=== PATIENT | female | born 2000 | race Caucasian/White ===

== ENCOUNTER → 2019-01-10 10:48 | Outpatient (CLI) | payer OTHER, SELFPAY ==
[2019-01-10 17:41] LABS: Chlamydia Trachomatis by PCR Negative (Negative); Neisserai gonorrhoeae by PCR Negative (Negative); Probe Check PASS; Sample Adequacy Control PASS; Specimen Processing Control PASS
== END ==
PROVIDERS: Family Provider Pediatrics; PCP Pediatrics; Referring Provider Obstetrics & Gynecology; Visit Provider Obstetrics & Gynecology
DX: Z11.3 Encounter for screening for infections with a predominantly sexual mode of transmission (principal)
CPT/HCPCS: 87491; 87591

== ENCOUNTER → 2019-08-07 11:00 | Outpatient (CLI) | payer MEDICAID, SELFPAY ==
[2019-08-07 18:01] VITALS: BMI 40.8
== END ==
PROVIDERS: PCP Pediatrics; Visit Provider Obstetrics & Gynecology
DX: Z34.83 Encounter for supervision of other normal pregnancy, third trimester (principal); Z36.85 Encounter for antenatal screening for Streptococcus B
CPT/HCPCS: 87081

== ENCOUNTER 2019-08-07 17:45 | Outpatient (CLI) | payer OTHER, MEDICAID, SELFPAY ==
--- NOTE | 2019-08-07 17:55 | PCM.PN.BLA ---
Progress Note S: Reports increase in edema at school today after sitting in class Reports at this AMs appointment in office her BP was elevated higher than her normal O: Denies headache, RUQ pain or dizziness A: at 36 weeks gestation. MICHEL 09-04-19 Rule out pre-e P: Send to triage for :Serial BPs, Pre-e labs, NST
[2019-08-07 18:01] VITALS: BMI 40.8
[2019-08-07 18:49] LABS: Hematocrit 34.2 % (37-47); Hemoglobin 11.1 g/dL (12.0-15.0); Mean Corp Hgb Conc 32.5 g/dL (32-36); Mean Corpuscular Hgb 27.3 pg (27.0-32.0); Mean Platelet Vol. 10.7 fl (6.2-12.0); Platelet Count 281 K/mm3 (150-450); RBC Distribution Width CV 13.2 % (11.6-14.6); RBC Distribution Width SD 40.7 fl (35.1-43.9); Red Blood Count 4.07 M/mm3 (4.2-5.4); White Blood Count 10.5 K/mm3 (4.4-11.0)
[2019-08-07 18:55] LABS: Prothrombin Time (Protime)PT. 12.8 SECONDS (11.7-14.9)
[2019-08-07 18:56] LABS: Partial Thromboplast Time 27.3 Seconds (24.1-36.2)
[2019-08-07 19:07] LABS: AST(SGOT) 16 U/L (15-37); Alanine Aminotransfer ALT/SGPT 18 U/L (13-56); Creatinine, Serum 0.73 mg/dL (0.55-1.02); EST Glomerular Filtration Rate 107 mL/min (>60); Est Glom Filt Rate - Afr Amer 130 mL/min (>60); Estimated Creatinine Clearance 106.15 ml/min; Protein, Urine (Random) 6.1 mg/dL (<11.9); Protein:Creat Ratio 234 mg/g CRE (0-200); Uric Acid 5.1 mg/dL (2.6-6.0)
--- NOTE | 2019-08-07 19:30 | PCM.PN.BLA ---
Progress Note S: Reports feeling well with no pain or concerns O: VSS NST FHR baseline 120, +accels, -decels, moderate variability Pre-E labs WNL A: at 36 weeks gestation Reactive Category I NST P: Send home on rest and increase in fluids Educated on warning signs and pre-e symptoms To take BP at home if increase in edema or with pre-e symptoms Return to office for scheduled appointment
== END 2019-08-07 19:45 | disposition home or self-care (01) ==
LOC: WPOUT 17:54 → WP 17:58
PROVIDERS: PCP Pediatrics; Referring Provider Obstetrics & Gynecology; Visit Provider Obstetrics & Gynecology
DX: O12.03 Gestational edema, third trimester (principal); Z3A.36 36 weeks gestation of pregnancy
CPT/HCPCS: 36415; 59025; 59050; 82565; 82570; 84156; 84450; 84460; 84550; 85027; 85610; 85730; 99218; G0378

== ENCOUNTER 2019-09-01 06:22 | Outpatient (CLI) | payer MEDICAID, SELFPAY ==
[2019-09-01 06:47] VITALS: BP 140/92; PULSE 90
[2019-09-01 06:49] VITALS: BP 140/92; PULSE 92; TEMP 37.3; O2SAT 99
[2019-09-01 06:55] VITALS: BMI 41.3
[2019-09-01 07:25] VITALS: BP 129/85; PULSE 88
[2019-09-01 07:30] VITALS: TEMP 37.1
[2019-09-01 07:32] LABS: ROM Internal Control Test YES-OK TO RESULT pt. (Internal QC); ROM Patient Test Negative (Negative)
--- NOTE | 2019-09-01 08:00 | OB.TRI.NOTE ---
- Problem List (1) False labor after 37 completed weeks of gestation Status: Acute History of Present Illness Date of Service: 09/01/19 Was patient seen by the physician?: No Reason For Visit: RULE OUT LABOR Final MICHEL: 09/04/19 Final MICHEL Source: US <20 weeks Gestational age: 39 Weeks and 4 Days History of Present Illness: 19yo G1 @ 39 4/7 weeks gestational with c/o painful contractions Allergies latex Adverse Reaction (Verified 09/03/19 00:42) Rash - Pertinent Past Medical History Medical History: Past Medical History (Last Updated 09/03/19 @ 10:[address] Amelia Landry MD) Patient denies medical problems Laboratory Studies: Laboratory Tests 09/01/19 Range/Units 06:30 Vag Amniotic Fld Detect Negative (Negative) Physical Exam Vitals: Vital Signs Temp Pulse BP Pulse Ox 98.7 F 68 118/82 H 99 09/01/19 07:30 09/01/19 15:56 09/01/19 15:56 09/01/19 06:49 Cervix Dilation (cm): 2 Station: -3 Effacement (%): 60 - per RN exam NST - FHR Rate Baby A Baseline: 130 Variability:: Moderate Accelerations:: 15 x 15 Decelerations:: None NST Reactive:: Yes FHR Category:: Category I Uterine Activity:: 07/30 Impression/Plan Cat I FHR False labor Cervix unchanged D/C home
[2019-09-01 15:56] VITALS: BP 118/82; PULSE 68
== END 2019-09-01 07:47 | disposition home or self-care (01) ==
LOC: WPOUT 06:28 → OBT 06:34
PROVIDERS: PCP Pediatrics; Referring Provider Obstetrics & Gynecology; Visit Provider Obstetrics & Gynecology
DX: O47.1 False labor at or after 37 completed weeks of gestation (principal); Z3A.39 39 weeks gestation of pregnancy
CPT/HCPCS: 59025; 59050; 84112; 99218; G0378

== ENCOUNTER 2019-09-02 14:15 | Outpatient (CLI) | payer MEDICAID, SELFPAY ==
[2019-09-01 06:55] VITALS: BMI 41.3
[2019-09-02 14:27] VITALS: TEMP 37.4; O2SAT 98
[2019-09-02 14:28] VITALS: BP 142/87; PULSE 75
[2019-09-02 14:31] VITALS: BMI 41.4
[2019-09-02 14:39] VITALS: TEMP 37.4
== END 2019-09-02 16:45 | disposition home or self-care (01) ==
LOC: WPOUT 14:23 → WP 14:24
PROVIDERS: PCP Pediatrics; Referring Provider Obstetrics & Gynecology; Visit Provider Obstetrics & Gynecology
DX: R69 Illness, unspecified (principal)
CPT/HCPCS: 59025; 59050; 99218; G0378

== ENCOUNTER 2019-09-03 07:55 | Inpatient (IN) | payer MEDICAID, SELFPAY ==
[2019-09-02 14:31] VITALS: BMI 41.4
[2019-09-03] VITALS (90 sets, daily range): BP systolic 116–162; BP diastolic 63–99; PULSE 60–121; RESP 20; TEMP 36.7–38.4; O2SAT 90–100; BMI 41.0
[2019-09-03] MEDS: 0.9% Saline Lock 10 ML Syringe IV (01:27)
[2019-09-03] MEDS: Morphine 4 MG/ML Syringe IV (01:27)
[2019-09-03] MEDS: morphine 10 MG/ML Syringe IM (01:31)
--- NOTE | 2019-09-03 08:00 | HP.PCM_ITS ---
- Problem List (1) 39 weeks gestation of Status: Acute History Date of Admission: 09/03/19 Final MICHEL: 09/04/19 Final MICHEL Source: US <20 weeks Gestational age: 39 Weeks and 6 Days History of this : This is a 19 year-old, G [1], P [], at 39 6/7 wga who presents with painful contractions. She has been seen on 08/31 and 09/01 for r/o labor and SVE /-3 both times. She came in again early this morning with the same exam and was given IV Morphine and Im Morphine for therapeutic rest. She reports contractions have spaced to q5-8 minutes. Medical History: Medical History (Last Updated 09/03/19 @ 10:[address] Amelia Landry MD) Patient denies medical problems Z78.9 Allergies latex Adverse Reaction (Verified 09/03/19 00:42) Rash Home Medications: Home Medications Pnv No.103/Folic/Om3s/Fish Oil [ Gummies] 1 ea PO DAILY 08/07/19 Smoking Status: Never smoker Alcohol: None Number of Fetus(es): 1 NST - FHR Rate Baby A Variability:: Moderate Accelerations:: 15 x 15 Decelerations:: None NST Reactive:: Yes FHR Category:: Category I Uterine Activity:: 1-2/10 History Past Pregnancies: Past Pregnancies Delivery Date Name GA/ Weeks Outcome Route Wt Infant Sex Labor Length Anesthesia Delivery Location Provider FOB Labs: Mom's Problem List Problem Status Onset Code 39 weeks gestation of Acute Z3A.39 Mom's Labs & Results 09/03/19 09/03/19 09/03/19 08:40 08:40 08:40 WBC 11.7 H RBC 3.82 L Hgb 10.3 L Hct 31.8 L MCV 83.2 MCH 27.0 MCHC 32.4 RDW Std Deviation 42.5 RDW Coeff of Anuja 14.4 Plt Count 246 MPV 11.2 Immature Gran % (Auto) 0.800 Neut % (Auto) 76.0 H Lymph % (Auto) 17.1 L [place] % (Auto) 5.8 Eos % (Auto) 0.1 Baso % (Auto) 0.2 Absolute Neuts (auto) 8.9 H Absolute Lymphs (auto) 2.00 Nucleated RBC % 0 Creatinine 0.72 Estim Creat Clear Calc 107.63 Est GFR (MDRD) Af Amer 132 Est GFR (MDRD) Non-Af 109 Uric Acid 8.1 H AST 16 ALT 11 L Urine Color Urine Clarity Urine pH Ur Specific [place] Urine Protein Urine Glucose (UA) Urine Ketones Urine Occult Blood Urine Nitrite Urine Bilirubin Urine Urobilinogen Ur Leukocyte Esterase Blood Type AB POSITIVE Antibody Screen NEGATIVE 09/03/19 09:00 WBC RBC Hgb Hct MCV MCH MCHC RDW Std Deviation RDW Coeff of Anuja Plt Count MPV Immature Gran % (Auto) Neut % (Auto) Lymph % (Auto) [place] % (Auto) Eos % (Auto) Baso % (Auto) Absolute Neuts (auto) Absolute Lymphs (auto) Nucleated RBC % Creatinine Estim Creat Clear Calc Est GFR (MDRD) Af Amer Est GFR (MDRD) Non-Af Uric Acid AST ALT Urine Color Yellow Urine Clarity Cloudy Urine pH 6.0 Ur Specific [place] 1.025 Urine Protein 100 H Urine Glucose (UA) Normal Urine Ketones 150 H Urine Occult Blood 250 H Urine Nitrite Negative Urine Bilirubin Negative Urine Urobilinogen Normal Ur Leukocyte Esterase 500 H Blood Type Antibody Screen Course Did the patient receive Yes care? Labs Blood Type: AB RH: POSITIVE RPR/VDRL/Syphilis Nonreactive Rubella status Immune HbSAg Negative Date Done: 02/20/19 Chlamydia Negative Gonorrhea Negative HIV/AIDS Non-Reactive Group B Strep: Negative Current Obstetrical History Gestational Diabetes No Incompetent Cervix No Infertility No IUGR No Macrosomia No Hypertension/Pre-eclampsia No Placenta Previa/Abruption No PTL/PROM No Uterine anomaly No Oligohydramnios No Polyhydramnios No Multiple gestation No Past Medical History Asthma No Diabetes No Hypertension No Heart disease No Mitral valve prolapse No Neurologic/Seizure disorder/ No Migraines Kidney disease No Liver disease No Varicosities No Clotting disorders/Hx of DVT No Thyroid Dysfunction No Other medical diseases No Psychiatric disorders No Major trauma No Abnormal PAP smear No Sleep apnea No Mammogram in the last 2 years No Social History Marital Status: Alleged father Ander Chew Hx Smoking No Smoking Status Never smoker Expected Delivery Method: Spontaneous Vaginal Review of Systems HEENT: Denies: Head Aches, Visual Changes Cardiovascular: Denies: Chest Pain Respiratory: Denies: Shortness of Breath Gastrointestinal: Reports: Nausea. 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 Cervix Dilation (cm): 3.5 - 80 Station: -3 Assessment/Plan All Active Problems 39 weeks gestation of (Acute) This is a 19 year-old, G [1], P [], at 39.6 weeks gestational age admit in latent labor, Cat I FHR -Will augment with pitocin. Pitocin r/b/i reviewed.
[2019-09-03] MEDS: Oxytocin 30 units/NS 500 ml 30 UNITS/500 ML IV.SOLN IV (08:24)
[2019-09-03] MEDS: Lactated Ringers 1,000 ML 50 ML IV (08:24)
[2019-09-03 08:56] LABS: Absolute Neutrophil Count 8.9 X10^3/uL (2.0-7.7); Basophil# 0.02 X10^3/uL; Basophil% 0.2 % (0-1); Eosinophil# 0.01 X10^3/uL; Eosinophils% 0.1 % (0-5); Hematocrit 31.8 % (37-47); Hemoglobin 10.3 g/dL (12.0-15.0); Lymphocyte % 17.1 % (19-41); Mean Corp Hgb Conc 32.4 g/dL (32-36); Mean Corpuscular Volume 83.2 fL (81-99); Mean Platelet Vol. 11.2 fl (6.2-12.0); Monocyte# 0.68 X10^3/uL; Monocyte% 5.8 % (0-10); NRBC Flagged by Analyzer 0 % (0-5); Neutrophil # 8.89 X10^3/uL (2.7-7.7); Platelet Count 246 K/mm3 (150-450); RBC Distribution Width CV 14.4 % (11.6-14.6); RBC Distribution Width SD 42.5 fl (35.1-43.9); Red Blood Count 3.82 M/mm3 (4.2-5.4); White Blood Count 11.7 K/mm3 (4.4-11.0)
[2019-09-03] MEDS: fentaNYL 100 MCG/2 ML Ampul IV (09:14)
[2019-09-03 09:29] LABS: Color, Urine Yellow (Yellow); Glucose, Dipstick Normal (Normal); Leukocyte Esterase-Dipstick 500 /ul (Negative); Nitrite-Dipstick Negative (Negative); Occult Blood-Urine 250 /ul (Negative); Protein-Dipstick 100 mg/dl (Negative); Specific Gravity, Urine 1.025 (1.002-1.030); Urine Bilirubin Dipstick Negative (Negative); Urine Clarity Cloudy (Clear); Urine Urobilinogen Normal (Normal)
[2019-09-03 09:43] LABS: AST(SGOT) 16 U/L (15-37); Alanine Aminotransfer ALT/SGPT 11 U/L (13-56); Creatinine, Serum 0.72 mg/dL (0.55-1.02); EST Glomerular Filtration Rate 109 mL/min (>60); Est Glom Filt Rate - Afr Amer 132 mL/min (>60); Estimated Creatinine Clearance 107.63 ml/min; Uric Acid 8.1 mg/dL (2.6-6.0)
[2019-09-03 09:48] LABS: Ketone-Dipstick 150 mg/dl (Negative)
[2019-09-03] MEDS: Lactated Ringers 500 ML 999 ML IV (10:27)
--- NOTE | 2019-09-03 10:47 | PCM.PN.BLA ---
Progress Note LABOR PROGRESS NOTE No complaints. Contractions painful. Denies chest pain, shortness of breath, cough, sore throat, runny nose, ear pain. Tm (temporal) Tc oral VSS GEN - NAD, AAO x 3 FHR 150, moderate variability, + accelerations, + variable decelerations TOCO 2/10 min SVE 5/100/-3, soft and anterior Fundus soft and nontender A/P: 19yo G1 @ 39 6/7wga in labor, maternal fever, Cat II FHR -Pitocin augmentation - will continue as tolerated by mother and fetus -Isolate maternal fever, no evidence of infection - will hold on antibiotics at this time, monitor closely. -Amniotomy performed with clear fluid -Epidural per patient request STROKE Vital Signs/Narrative: Vital Signs Temp Pulse BP 09/03/19 10:40 100.9 F H 09/03/19 10:27 101.1 F H 09/03/19 09:56 100.0 F H 81 137/86 H 09/03/19 09:18 76 135/85 H 09/03/19 08:27 76 148/84 H 09/03/19 08:13 76 143/90 H 09/03/19 07:42 77 138/81 H 09/03/19 07:27 80 159/92 H 09/03/19 07:26 99.0 F
[2019-09-03] MEDS: fentaNYL-bupivacaine (epidural) 100 ML BAG EPIDURAL ×2 (11:21→16:25)
[2019-09-03] MEDS: Lactated Ringers 1,000 ML 200 ML IV (14:23)
[2019-09-03] MEDS: Oxytocin 30 units/NS 500 ml 30 UNITS/500 ML IV.SOLN 334 UNITS IV (19:31)
--- NOTE | 2019-09-03 20:20 | PCM.OPRPT ---
Problem List (1) 39 weeks gestation of Status: Acute Vaginal Delivery Maternal Presentation: - - Latent labor Method of Induction: - - Pitocin augmentation Amniotic Membrane Rupture Type: Artificial Rupture of Membrane time: 1042h 09/03/19 Amniotic Fluid Description: Clear Final MICHEL: 09/04/19 Final MICHEL Source: US <20 weeks Gestational age: 39 Weeks and 6 Days Date of Procedure: 09/03/19 Pre-Operative Diagnosis: 39 6/7wga, isolated maternal fever Post-Operative Diagnosis: 39 6/7wga, isolated maternal fever Surgery/ Procedure Performed: Spontaneous Vaginal Delivery Type of Anesthesia: Epidural Description of Procedure: Patient was FD/+3 station on my arrival. Pushed to deliver a vigorous female infant over an intact perineum. The was placed on the maternal abdomen and further attended by nursery personnel. The cord was doubly clamped and cut at approximately 4 minutes of life. The placenta delivered spontaneously and appeared intact on inspection. A right veor-urethral laceration with labial extension was repaired with 3-0 Vicryl Rapide with hemostasis attained. Sponge and needle counts correct x 2. Presentation: Vertex Placental Delivery Description: Spontaneous Placenta Disposition: [facility] Cord Vessel Description: 3 Vessels Nuchal Cord Compression: Without compression Cord Entanglement: None Drain: [place] to straight drain Estimated Blood Loss: 500 ml A gender: Female (1 minute): 9 (5 minute): 9 Episiotomy Description: None Laceration: Periurethral Extnsion/lac Medications given after delivery: IV Pitocin Complications: None
[2019-09-03] MEDS: Ibuprofen 600 MG Tablet PO (21:50)
[2019-09-04 03:30] VITALS: BP 115/67; PULSE 85; RESP 18; TEMP 36.2
--- NOTE | 2019-09-04 07:53 | PN.OBGYN_ITS ---
Patient Problems: Active and Suspected Problems (Last Updated 09/03/19 @ 10:[address] Amelia Landry MD) 39 weeks gestation of (Acute) Subjective: Feeling well with no pain. Has not passed flatus, but denies gas pain. Bottle feeding daughter well with no concerns. Denies heavy bleeding. Objective: VSS. Fundus firm, midline, u/2. Lochia rubra moderate. - Physical Exam Vitals/I&O's: Vital Signs Temp Pulse Resp BP Pulse Ox 97.1 F L 85 18 115/67 100 09/04/19 03:30 09/04/19 03:30 09/04/19 03:30 09/04/19 03:30 09/03/19 18:38 Oxygen Delivery Method Room Air Weight: 108.409 kg Body Mass Index (BMI) 41.0 Intake and Output for Last 24 Hours 09/02/19 09/03/19 09/04/19 23:59 23:59 23:59 Intake Total 4165.74 / 4165.74 Output Total 1400 / 1700 450 / 450 Balance 2765.74 / 2465.74 -450 / -450 General: Alert, Oriented x3, Cooperative HEENT: Atraumatic, PERRLA, EOMI, Normocephalic Neck: Supple, No JVD, Negative Carotid Bruits Lungs: Clear to auscultation, Normal air movement Cardiovascular: Regular rate, No murmurs Abdomen: Bowel Sounds Present, Soft, Non Tender, Hypoactive Bowel Sounds Extremities: No edema, Capillary Refill Less than 3 Seconds Skin: No rashes, No breakdown Musculoskeletal: No Tenderness to Palpation of Joints or Extremities Neurological: Cranial nerves II-XII grossly intact Psych/Mental Status: Normal Affect, Appropriate Laboratory Results 09/03/19 08:40: WBC 11.7 H, RBC 3.82 L, Hgb 10.3 L, Hct 31.8 L, MCV 83.2, MCH 27.0, MCHC 32.4, RDW Std Deviation 42.5, RDW Coeff of Anuja 14.4, Plt Count 246, MPV 11.2, Immature Gran % (Auto) 0.800, Neut % (Auto) 76.0 H, Lymph % (Auto) 17.1 L, [place] % (Auto) 5.8, Eos % (Auto) 0.1, Baso % (Auto) 0.2, Absolute Neuts (auto) 8.9 H, Absolute Lymphs (auto) 2.00, Nucleated RBC % 0 09/03/19 08:40: Blood Type AB POSITIVE, Antibody Screen NEGATIVE 09/03/19 08:40: Creatinine 0.72, Estim Creat Clear Calc 107.63, Est GFR (MDRD) Af Amer 132, Est GFR (MDRD) Non-Af 109, Uric Acid 8.1 H, AST 16, ALT 11 L 09/03/19 09:00: Urine Color Yellow, Urine Clarity Cloudy, Urine pH 6.0, Ur Specific [place] 1.025, Urine Protein 100 H, Urine Glucose (UA) Normal, Urine Ketones 150 H, Urine Occult Blood 250 H, Urine Nitrite Negative, Urine Bilirubin Negative, Urine Urobilinogen Normal, Ur Leukocyte Esterase 500 H Current Medications Acetaminophen (Tylenol) 325 - 650 mg PO Q4H PRN PRN PRN Reason: Pain Score 1-3/10 Acetaminophen (Tylenol) 1,000 mg PO Q8H PRN PRN PRN Reason: Pain Score 1-3/10 Bisacodyl (Dulcolax) 10 mg RECTAL UD PRN PRN Reason: If no BM Dibucaine (Dibucaine) 1 applic TOPICAL TID PRN PRN; Protocol PRN Reason: Discomfort Hydrocortisone (Hytone) 1 applic TOPICAL TID PRN PRN; Protocol PRN Reason: Discomfort Ibuprofen (Motrin) 600 mg PO Q6H PRN PRN PRN Reason: Pain Score 1-3/10 Last Admin: 09/03/19 21:50 Dose: 600 mg Documented by: Influenza Virus Vaccine Quadrival (Flucelvax /Fluzone ) 0.5 ml IM .ONCE ONE Stop: 09/04/19 10:01 Methylergonovine Maleate (Methergine) 0.2 mg IM X1 PRN PRN Reason: Excess bleeding/uterine atony Ondansetron HCl (Zofran) 4 mg IV Q4H PRN PRN PRN Reason: NAUSEA Multivit/Folic Acid/Iron (Prenatabs Fa) 1 tablet PO DAILY@1200 RADHA Senna/Docusate Sodium (Senokot-S, [place]-Colace) 1 - 2 tablet PO DAILY PRN PRN PRN Reason: Constipation Simethicone (Mylicon) 80 mg PO PCHS PRN PRN Reason: Indigestion/Stomach pain Sodium Chloride () 5 - 15 ml IV UD PRN PRN Reason: SALINE FLUSH Medical Necessity - Tobacco Use Smoking Status: Never smoker Assessment/Plan All Active Problems (Last Updated 09/03/19 @ 10:[address] Amelia Landry MD) 39 weeks gestation of (Acute) A/P: Post vaginal delivery day 1 Bottle feeding daughter Minimal pain PP, using Motrin for laceration pain Education given on PP depression and signs to look for Plan to discharge home today
[2019-09-04 08:00] VITALS: BP 124/83; PULSE 83; RESP 16; TEMP 36.3
--- NOTE | 2019-09-04 08:13 | DCINST_ITS ---
Discharge Diet: No Restrictions Discharge Activity: Return to Normal Activity, May not drive while taking narcotic pain medications., May Shower May resume sexual activity in: 4-6 weeks Additional Activity Instructions:: Nothing in the vagina for 4-6 weeks. You may return to work/school in 6 weeks. Call your doctor if your incision/area has: Continuous Slow Oozing, Sudden Increased Bleeding, Increased Pain/ Swelling, Increased Redness, Foul Smelling Discharge Additional Instructions: If you experience any of the following, contact your healthcare provider. * Bleeding that soaks a pad every hour for 2 hours * Fever 100.4 or higher * Unrelieved incision or abdominal pain * Swelling, redness, discharge or bleeding from your incision or episiotomy site * Your incision begins to separate * Problems urinating (including inability to urinate or burning while urinating). * Visual changes * Severe headache * Flu-like symptoms * Pain or redness in one of both of your breasts * Pain, warmth, tenderness or swelling in your legs, especially the calf area * Frequent nausea and vomiting * Symptoms of depression or anxiety If you experience any of the following, call 911 or go to the nearest Emergency Room. * Chest pain * Problems breathing * Seizure activity * Partial or complete paralysis of a body part, slurred speech, weakness or drooping of the face, or a sudden inability to walk or hold your balance Allergies/Adverse Reactions: Allergies latex Adverse Reaction (Verified 09/03/19 00:42) Rash Medications to take at Discharge Pnv No.103/Folic/Om3s/Fish Oil [ Gummies] 1 ea PO DAILY 08/07/19 Please Follow Up With: Reynaldo Pack MD When: Call to make an appointment with your doctor in 6 weeks. If s/s of depression to call immediately Primary Care Physician: Reynaldo Aguiar MD [Primary Care Provider] - Test Results: Test results from this visit will be discussed in further detail at your follow- up appointment, if applicable.
[2019-09-04] MEDS: Ibuprofen 600 MG Tablet PO ×2 (09:11→19:16)
[2019-09-04] MEDS: Prenatal Vits Tablet 1 TABLET PO (09:12)
[2019-09-04 13:00] VITALS: BP 135/84; PULSE 100; RESP 16; TEMP 36.2
[2019-09-04 18:00] VITALS: BP 139/91; PULSE 103; RESP 16; TEMP 36.3
[2019-09-04 20:10] VITALS: BP 133/79; PULSE 97; RESP 18; TEMP 36.4
== END 2019-09-04 20:30 | disposition home or self-care (01) | DRG 560 ==
LOC: WPOUT 07:59 → WP 07:59
PROVIDERS: Admitting Provider Obstetrics & Gynecology; PCP Pediatrics; Referring Provider Obstetrics & Gynecology; Visit Provider Obstetrics & Gynecology
DX: O75.2 Pyrexia during labor, not elsewhere classified (principal); O71.82 Other specified trauma to perineum and vulva; Z37.0 Single live birth; Z3A.39 39 weeks gestation of pregnancy
CPT/HCPCS: 59025; 59050; 76815; 81002; 82565; 84112; 84450; 84460; 84550; 85025; 86850; 86900; 86901; 99218; J7120; 90686; A4216; G0378

== ENCOUNTER → 2020-11-21 09:56 | Outpatient (CLI) | payer MEDICAID, SELFPAY ==
[2019-09-03 00:41] VITALS: BMI 41.0
[2020-11-21 10:49] LABS: Absolute Lymphocyte Count 2.13 X10^3/uL (0.83-4.51); Absolute Neutrophil Count 5.1 X10^3/uL (2.0-7.7); Basophil# 0.02 X10^3/uL; Basophil% 0.3 % (0-1); Eosinophil# 0.03 X10^3/uL; Eosinophils% 0.4 % (0-5); Hematocrit 37.4 % (37-47); Hemoglobin 12.7 g/dL (12.0-15.0); Lymphocyte # 2.13 X10^3/ul (0.83-4.51); Mean Corpuscular Hgb 29.5 pg (27.0-32.0); Mean Platelet Vol. 10.2 fl (6.2-12.0); Monocyte# 0.33 X10^3/uL; Monocyte% 4.3 % (0-10); NRBC Flagged by Analyzer 0 % (0-5); Neutrophil # 5.09 X10^3/uL (2.7-7.7); Neutrophil % 66.7 % (47-70); Platelet Count 288 K/mm3 (150-450); RBC Distribution Width SD 38.5 fl (35.1-43.9); White Blood Count 7.6 K/mm3 (4.4-11.0)
[2020-11-21 11:48] LABS: HIV - WCH Non-Reactive (Nonreactive); Hepatitis B Surface Antigen Non-Reactive (Nonreactive); Hepatitis C Antibody Non-Reactive (Nonreactive); Rubella IgG Reactive (Nonreactive); Syphilis Antibodies Non-reactive
[2020-11-24 16:09] LABS: Chlamydia By Nucleic Acid AMP Negative (Negative)
[2020-11-24 16:22] LABS: Gonococcus By Nucleic Acid AMP Negative (Negative)
[2020-11-25 13:26] LABS: HPV Reflexed? NOT INDICATED
== END ==
PROVIDERS: PCP Pediatrics; Visit Provider Student in an Organized Health Care Education/Training Program
DX: Z34.81 Encounter for supervision of other normal pregnancy, first trimester (principal); Z12.4 Encounter for screening for malignant neoplasm of cervix; Z11.3 Encounter for screening for infections with a predominantly sexual mode of transmission
CPT/HCPCS: 36415; 85025; 86703; 86762; 86780; 86803; 87086; 87088; 87340; 87491; 87591; 88175; G0145

== ENCOUNTER → 2021-03-06 14:06 | Outpatient (CLI) | payer MEDICAID, SELFPAY ==
[2021-03-06 14:38] LABS: Hematocrit 34.5 % (37-47); Mean Corp Hgb Conc 34.8 g/dL (32-36); Mean Corpuscular Hgb 30.7 pg (27.0-32.0); Mean Corpuscular Volume 88.2 fL (81-99); Platelet Count 256 K/mm3 (150-450); RBC Distribution Width CV 12.7 % (11.6-14.6); RBC Distribution Width SD 40.9 fl (35.1-43.9); Red Blood Count 3.91 M/mm3 (4.2-5.4); White Blood Count 9.4 K/mm3 (4.4-11.0)
[2021-03-06 15:28] LABS: Glucose Challenge Gest 1H 50g 114 mg/dL (70-140)
== END ==
PROVIDERS: PCP Pediatrics; Visit Provider Obstetrics & Gynecology
DX: Z34.82 Encounter for supervision of other normal pregnancy, second trimester (principal)
CPT/HCPCS: 36415; 82950; 85027

== ENCOUNTER → 2021-06-02 15:15 | Outpatient (CLI) | payer MEDICAID, SELFPAY | PROVIDERS: PCP Pediatrics; Visit Provider Student in an Organized Health Care Education/Training Program | DX: Z36.85 Encounter for antenatal screening for Streptococcus B (principal) | CPT/HCPCS: 87081 ==

== ENCOUNTER 2021-06-18 04:50 | Inpatient (IN) | payer MEDICAID, SELFPAY ==
[2021-06-18] VITALS (32 sets, daily range): BP systolic 18–144; BP diastolic 66–86; PULSE 50–77; RESP 16; TEMP 36.6–37.1; O2SAT 93–100; BMI 35.2
[2021-06-18] MEDS: Lactated Ringers 1,000 ML 200 ML IV (04:57)
[2021-06-18 05:07] LABS: Absolute Lymphocyte Count 3.14 X10^3/uL (0.83-4.51); Absolute Neutrophil Count 6.5 X10^3/uL (2.0-7.7); Basophil# 0.03 X10^3/uL; Basophil% 0.3 % (0-1); Eosinophil# 0.03 X10^3/uL; Eosinophils% 0.3 % (0-5); Hematocrit 39.8 % (37-47); Hemoglobin 13.3 g/dL (12.0-15.0); Lymphocyte # 3.14 X10^3/ul (0.83-4.51); Lymphocyte % 30.2 % (19-41); Mean Corp Hgb Conc 33.4 g/dL (32-36); Mean Corpuscular Hgb 29.8 pg (27.0-32.0); Monocyte# 0.66 X10^3/uL; Monocyte% 6.3 % (0-10); NRBC Flagged by Analyzer 0 % (0-5); Neutrophil % 62.4 % (47-70); Platelet Count 219 K/mm3 (150-450); RBC Distribution Width CV 12.1 % (11.6-14.6); RBC Distribution Width SD 39.1 fl (35.1-43.9); Red Blood Count 4.47 M/mm3 (4.2-5.4); White Blood Count 10.4 K/mm3 (4.4-11.0)
[2021-06-18] MEDS: Oxytocin 30 units/NS 500 ml 30 UNITS/500 ML IV.SOLN 334 UNITS IV (05:24)
--- NOTE | 2021-06-18 05:32 | PCM.HP.BLA ---
History and Physical Date of Admission: 06/18/21 ACOG ANTEPARTUM RECORD - HISTORY AND PHYSICAL (06/18/2021) Name: VICKY BARRAZA History of this : This is a 21 year old [id number] presents at 39 wks + 0 days gestation in active labor. OB Physician: Adrianna Bunn Murray's Physician: JAVID ...................................................................... : 2000 Age: 21 Address: [address] [place] [address] Phone: H) [phone] Insurance Carrier: [employer] CLAIMS DEPT [id number] Emergency Contact: SUGAR BARRAZA/SPOUSE [phone] ...................................................................... Final MICHEL: 06/25/21 By Ultrasound: 9 weeks 5 days PARITY: (G-Total Pregnancies P-Fullterm,Premature,Induced AB,Spont AB, Ectopics, Multiple,Living) MICHEL CONFIRMATION: By LMP: 08/24/20 Initial Exam: 05/31/21 By First Ultrasound Exam: 06/25/21 Final MICHEL: 06/25/21 OB PROBLEM LIST: ALLERGIC TO LATEX class I obesity depression on fluoxetine NIPT negative, male ALLERGIES: Latex Rash, itching No Known Drug Allergies MEDICATIONS: fluoxetine 20 mg tablet One pill by mouth once a day 400 mcg tablet,chewable One pill by mouth once a day SOCIAL HISTORY: Smoking - Never Alcohol Use - None Diet - balanced Diet and Coffee 1 cup daily. Water intake- shoots for one gallon. 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 Illicit Drug Use - denies use of street drugs Sexual Activity - single sexual partner Residence - two story home Place of - [place] Spouse-Sig Other Name - Ander Spouse-Sig Other Occupation - [employer] Spouse-Sig Other Phone No - [phone] Children Name(s) - Henny '20 PRIOR DELIVERY HISTORY DEL DATE GEST LAB WT LB WT OZ TYPE ANES LABOR TX 16 Aug 20 40 30 7 7 Vag Epidural No ANTEPARTUM FLOW CHART VISIT GE RTC FU F F NH U U DATE WK MD WKS HT PN HR M SS BP ED WT NH GL D EF ST __ ____ ___ __ __ ___ __ __ __ ___ __ __ __ ___ __ May SHM 1 37 V + + 102/64 0 208 ne ne 2+ 50 -3 Dec 37 CM 1 38 V + + 124/80 0 211 - - 14 Dec 36 CM 1 36 V + + 126/74 0 206 tr - Cl Apr 34 CM 2 34 V +U + 104/62 0 204 tr ne 11 Nov 32 CM 2 32 V + + 108/66 0 199 tr - 01 Nov 30 CM 2 30 + + 96/64 0 200 - - 15 Oct 28 JM 2 28 - + + 124/76 0 198 - - Mar 13 JM 4 24 - + + 108/60 0 194 - - Feb 07 JM 4 21 - on + 114/64 0 189 - - Feb 04 JM 2 18 - + O 124/76 0 186 - - Dec 30 JM 4 13 - + 122/72 0 184 ne ne 08 Nov 9 CM +U / 182 - - ANTEPARTUM NOTE(S): Jun 16 2021: FM well, No complaints voiced Jun 09 2021: doing well Jun 02 2021: doing well May 18 2021: Apr 30 2021: Apr 20 2021: Apr 03 2021: Feeling Well, Good FM Mar 06 2021: feeling well, glucose testing today. AM Feb 12 2021: doing well, comp u/s today in office Jan 23 2021: no concerns Dec 24 2020: Nov 25 2020: COMPREHENSIVE ANTEPARTUM NOTE(S): Jun 16 2021: Membranes stripped. Labor, FM precautions. Cervix POSTERIOR, moderate Jun 09 2021: 37/5w. Class I obesity. GBS neg. F/u 1w. CM Jun 05 2021: H taken to OB. tkg Jun 02 2021: 36w5d doing well no complaints or concerns. Positive movement. No edema. No contractions. GBS today. [facility] consent was signed. BR Jun 02 2021: 36/5w. Class I obesity - growth AGA. GBS done. F/u 1w. CM May 18 2021: 34/4w visitl. Class I obesity. Growth US AGA today, FL 4%tile. Low risk NIPT, all anatomy wnl. F/u 2w. cm Apr 30 2021: Arturo here for 21 week PNV. FM and edema check good. She's doing well no concerns today. Medications and allergy's are updated. CB Apr 30 2021: 32/0w. Class I obesity - growth 34w. F/u 2w CM Apr 20 2021: Vicky her for her PNV. FM good. Edema check good. No concerns today. Pt doing well. CB Apr 20 2021: 30/4w visit. Class I obesity - for growth 34w. F/u 2w. CM Apr 03 2021: 28 weeks, 1 hour GTT within normal limits. JM Mar 06 2021: 24 weeks, 1 hour GTT today. ENIO Feb 12 2021: 21wk, Anatomy u/s today wnl. For 1hr GTT next visit. ENIO Jan 23 2021: Vicky is here for a PNV at 18 wks. No FM yet. No edema present. Denies concerns/ complaints. Matern-IT 21 done previously, pt having a boy. MINE Jan 23 2021: 18 weeks, for anatomy scan next visit. ENIO Dec 24 2020: Vicky is here for PNV. Shares that the N/V is getting much better. Eating and taking adequate fluids. Feeling well and voicing no concerns. No edema present today. Urine neg/neg. LSS Dec 24 2020: 13 weeks, no complaints NIPT negative. 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 Vicky and her , Ander who works for [employer] have a 14 month old daughter at home. They are pleased about the . She is allergic to latex causing a itching rash. She is a lifetime non smoker, Nov 25 2020: 9/5w visit. FINAL MICHEL 06/25/21 by US today. Declines carrier screening, desires NIPT testing - will return next week or wait until next visit to draw (order in lab). Denies genetic family hx. F/u 4w. CM Nov 21 2020: Vicky is here for a missed menses. LMP 08/24/20. Positive UPT. MICHEL , 12 wks and 5 days. . Pt states she is nauseous most of the time. Denies emesis, cramping, and bleeding. Updated medications, allergies, and hx. Denies drinking, smoking and drug use at this time. Sexually active w/ one group home partner. Due for pap and GC/CHL cultures, consent signed. MINE REVIEW OF SYSTEMS: GENERAL - Denies fever, or chills SKIN - Denies rash, new skin lesions, or change in moles EYES - Denies blurred vision, or change in visual acuity EARS - Denies ear pain, or difficulty hearing NOSE - Denies nasal congestion, discharge, or bleeding MOUTH - Denies sore throat, or difficulty swallowing NECK - Denies pain or swelling RESPIRATORY - Denies shortness of breath, cough, wheezing CARDIOVASCULAR - Denies palpitations, chest pain, orthopnea, PND, peripheral edema, syncope or claudication GASTROINTESTINAL - Denies nausea, vomiting, diarrhea, constipation, Denies abdominal pain, melena and or bright red blood GENITOURINARY - Denies dysuria, frequency of urination, urgency, or hesitancy MUSCULOSKELETAL - Denies joint or muscle pain, or back pain NEUROLOGICAL - Denies localized numbness, weakness, or tingling PSYCHIATRIC - Denies depression, anxiety, substance abuse or suicide attempts ENDOCRINE - Denies heat or cold intolerance, weight loss or gain, increasing thirst HEMATO-IMMUNOLOGIC - Denies easy bruising, bleeding, oral ulcerations or recurrent infections GENETICS SCREENING: Age 35+ years: No Thalassemia: No Neural Tube Defect: No Down Syndrome: No JASMIN-SACHS: No Sickle Cell Disease: No Hemophilia: No Musc. Dystrophy: No Cystic Fibrosis: No-declines screening Carmen Chorea: No Mental Retardation: No Fragile X: No Other genetic: No Other defects: No SABs/still births: No Drugs since LMP: Yes INFECTION HISTORY: High risk AIDS: No High risk Hepatitis: No Exposed to TB: No Exposed to Herpes: No Rash/viral illness since LMP: No History of STD: No MENSTRUAL HISTORY: *Menses Amount/Duration: 3-4 DAYSMenses Regularity: RegularFrequency: monthly* PAST SUMMARY: PARITY: 1. Total Pregnancies............ 2 2. Full Term Pregnancies........ 1 3. Premature.................... 0 4. Abortions - Induced.......... 0 5. Abortions - Spontaneous...... 0 6. Ectopics..................... 0 7. Multiple Births.............. 0 8. Living Children.............. 1 PAST #1: Date of :.................. 09/03/19 Gestation Weeks:................ 40 Length of labor(hours):......... 30 Sex:............................ F Weight-lbs:............... 7 Weight-oz:................ 7 Type of Delivery:............... Vag Type of Anesthesia:............. Epidural Place of Delivery:.............. [place] Treatment of Labor?:.... No Comment: NO PHYSICAL EXAMINATION General Appearence: 21 yo female in no acute distress Vital Signs: AF, VSS Heart: RRR without rubs or gallops Lungs: CTA x 2 Breasts: deferred Abdomen: gravid Pelvis: Cervix: 8 cm Presentation: cephalic Station: +2 Fetus: Size: AGA Movement: present Heart: present LAB TEST(S) ORDERED SINCE:09/28/20 06/18/2021 CBC W/DIFF, AUTOMATED 06/05/2021 RULE OUT BETA STREP (GRP. B) 03/06/2021 GLUCOSE CHALLENGE GEST 1H 50G 03/06/2021 CBC-COMPLETE BLOOD CNT NO DIFF 12/11/2020 [id number] PLUS CORE+SCA 11/25/2020 PAP I-G W/RFX HRHPV-APTIMA 11/24/2020 CHLAMYDIA/GC BRAD APTIMA 11/23/2020 URINE CULTURE 11/21/2020 RUBELLA IGG 11/21/2020 T AND S-NO CHARGE W/PNP 11/21/2020 L509.8000 11/21/2020 HIV - [facility] 11/21/2020 HEPATITIS C ANTIBODY 11/21/2020 HEPATITIS B SURFACE ANTIGEN 11/21/2020 CBC W/DIFF, AUTOMATED == ==== Order Observation Description Value Ref_Range A* Site == ==== CBC W/DIFF, AUT NOTE [facility] CBC W/DIFF, AUT WBC 10.4 K/mm3 4.4-11.0 ML CBC W/DIFF, AUT RBC 4.47 M/mm3 4.2-5.4 ML CBC W/DIFF, AUT HGB 13.3 g/dL 12.0-15.0 ML CBC W/DIFF, AUT HCT 39.8 37-47 ML CBC W/DIFF, AUT MCV 89.0 fL 81-99 ML CBC W/DIFF, AUT MCH 29.8 pg 27.0-32.0 ML CBC W/DIFF, AUT MCHC 33.4 g/dL 32-36 ML CBC W/DIFF, AUT RDW CV 12.1 11.6-14.6 ML CBC W/DIFF, AUT RDW SD 39.1 fl 35.1-43.9 ML CBC W/DIFF, AUT PLT 219 K/mm3 150-450 ML CBC W/DIFF, AUT MPV 11.0 fl 6.2-12.0 ML CBC W/DIFF, AUT NEUT% 62.4 47-70 ML CBC W/DIFF, AUT LY% 30.2 19-41 ML CBC W/DIFF, AUT MONO% 6.3 0-10 ML CBC W/DIFF, AUT EO% 0.3 0-5 ML CBC W/DIFF, AUT BASO% 0.3 0-1 ML CBC W/DIFF, AUT IG% 0.500 0.0-0.9 ML IG% - Immature Granulocytes (promyelocytes, myelocytes and metamyelocytes) > 1% indicates that a LEFT SHIFT is Present. CBC W/DIFF, AUT ABSOLUTE NEUT 6.5 X10 3/uL 2.0-7.7 ML CBC W/DIFF, AUT ABSOLUTE LYMPH 3.14 X10 3/uL 0.83-4.51 ML CBC W/DIFF, AUT NUCLEATED RBC 0 0-5 ML RULE OUT BETA S NOTE [facility] GLUCOSE CHALLEN NOTE [facility] GLUCOSE CHALLEN GLU GEST 50G 1H 114 mg/dL 70-140 ML CBC-COMPLETE BL NOTE [facility] CBC-COMPLETE BL WBC 9.4 K/mm3 4.4-11.0 ML CBC-COMPLETE BL RBC 3.91 M/mm3 4.2-5.4 L ML CBC-COMPLETE BL HGB 12.0 g/dL 12.0-15.0 ML CBC-COMPLETE BL HCT 34.5 37-47 L ML CBC-COMPLETE BL MCV 88.2 fL 81-99 ML CBC-COMPLETE BL MCH 30.7 pg 27.0-32.0 ML CBC-COMPLETE BL MCHC 34.8 g/dL 32-36 ML CBC-COMPLETE BL RDW CV 12.7 11.6-14.6 ML CBC-COMPLETE BL RDW SD 40.9 fl 35.1-43.9 ML CBC-COMPLETE BL PLT 256 K/mm3 150-450 ML CBC-COMPLETE BL MPV 10.0 fl 6.2-12.0 ML [id number] PLUS GESTATION Spring LC_SEQCA [id number] PLUS FRACTION 7% LC_SEQCA [id number] PLUS GESTATIONAL AGE > OR = 9 Yes LC_SEQCA [id number] PLUS TEST RESULT Negative LC_E-Health Records InternationalCA [id number] PLUS ELECTRICAL CONTROLS DESIGNER COMMENTS AMEE This specimen showed an expected representation of chromosome 21, 18 and 13 material. Clinical correlation is suggested. [id number] PLUS APPROVED BY AMEE Peters MD, PhD, Director, [place] [id number] PLUS TRISOMY 21 (DOWN SYNDROM Negative LC_SEQCA [id number] PLUS TRISOMY 18 (QUEZADA SYND Negative LC_SEQCA [id number] PLUS TRISOMY 13 (PATAU SYNDRO Negative LC_SEQCA [id number] PLUS SEX LC_SEQCA Consistent with Male [id number] PLUS MONOSOMY X (MARTINI SYNDR Not Detected LC_SEQCA [id number] PLUS XYY (BENITEZ SYNDROME) Not Detected LC_SEQCA [id number] PLUS XXY (KLINEFELTER SYNDROM Not Detected LC_SEQCA [id number] PLUS XXX (TRIPLE X SYNDROME) Not Detected LC_SEQCA [id number] PLUS NEGATIVE PREDICTIVE VALU Note LC_SEQCA The Negative Predictive Value (NPV) for trisomy 21, 18, and 13 is greater than 99%. The NPV for SCA and ESS cannot be calculated as SCA and ESS are only reported when an abnormality is detected. [id number] PLUS POSITIVE PREDICTIVE VALU N/A LC_SEQCA [id number] PLUS ABOUT THE TEST LC_SEQCA The MaterniT(R) 21 PLUS laboratory-developed test (LDT) analyzes circulating cell-free DNA from a maternal blood sample. The test is indicated for use in women with increased risk for chromosomal aneuploidy. Validation data on twin pregnancies is limited and the ability of this test to detect aneuploidy in a triplet has not yet been validated. [id number] PLUS TEST METHOD LC_SEQCA Circulating cell-free DNA was purified from the plasma component of maternal blood. The extracted DNA was then converted into a genomic DNA library for aneuploidy analysis of chromosomes 21, 18, and 13 via next generation sequencing.[1] Optional findings based on the test order include sex chromosome aneuploidy (SCA)[2], and enhanced sequencing series (ESS)[3], which will only be reported on as an additional finding when an abnormality is detected. SCA testing includes information on X and Y representation, while ESS testing includes deletions in selected regions (22q, 15q, 11q, 8q, 5p, 4p, 1p) and trisomy of chromosomes 16 and 22. [id number] PLUS PERFORMANCE LC_SEQCA The performance characteristics of the MaterniT(R) 21 PLUS laboratory-developed test (LDT) have been determined in a clinical validation study with women at increased risk for chromosomal aneuploidy.[1],[2],[3],[4] [id number] PLUS PERFORMANCE CHARACTERIST Note LC_SEQCA ! Y-Chromosome ( Sex) ! Accuracy: 99.4% ! ! ! ! Region (associated syndrome) ! Est. Sens# ! Est. Spec ! ! ! ! Trisomy 21 (Down Syndrome) ! 99.1% ! 99.9% ! ! ! ! Trisomy 18 (Quezada Syndrome) ! >99.9% ! 99.6% ! ! ! ! Trisomy 13 (Patau Syndrome) ! 91.7% ! 99.7% ! ! ! ! Sex Chromosome Aneuploidies## ! 96.2% ! 99.7% ! ! ! * As reported in [facility] database nstd37 [http://dbsearch.clinicalLanguage123ome.org/search/ ] # Estimated Sensitivity. Sensitivity estimated across the observed size distribution of each syndrome [per [facility] database nstd37] and across the range of fractions observed in routine clinical NIPT. Actual sensitivity can also be influenced by other factors such as the size of the event, total sequence counts, amplification bias, or sequence bias. ## Spring gestation only. [id number] PLUS LIMITATIONS OF THE TEST LC_SEQCA While the results of these tests are highly accurate, discordant results, including inaccurate sex prediction, may occur due to placental, maternal, or mosaicism or neoplasm; vanishing twin; prior maternal organ transplant; or other causes. Sex chromosomal aneuploidies are not reportable for known multiple gestations. These tests are screening tests and not diagnostic; they do not replace the accuracy and precision of diagnosis with CVS or amniocentesis. A patient with a positive test result should be referred for genetic counseling and offered invasive diagnosis for confirmation of test results.[5] A negative result does not ensure an unaffected nor does it exclude the possibility of other chromosomal abnormalities or defects which are not a part of these tests. An uninformative result may be reported, the causes of which may include, but are not limited to, insufficient sequencing coverage, noise or artifacts in the region, amplification or sequencing bias, or insufficient fraction. These tests are not intended to identify pregnancies at risk for neural tube defects or ventral wall defects. Testing for whole chromosome abnormalities (including sex chromosomes) and for subchromosomal abnormalities could lead to the potential discovery of both and maternal genomic abnormalities that could have major, minor, or no, clinical significance. Evaluating the significance of a positive or a non-reportable result may involve both invasive testing and additional studies on the mother. Such investigations may lead to a diagnosis of maternal chromosomal or subchromosomal abnormalities, which on occasion may be associated with benign or malignant maternal neoplasms. These tests may not accurately identify triploidy, balanced rearrangements, or the precise location of subchromosomal duplications or deletions; these may be detected by diagnosis with CVS or amniocentesis. The ability to report results may be impacted by maternal BMI, maternal weight, maternal systemic lupus erythematosus (SLE) and/or by certain pharmaceutical agents such as low molecular weight heparin (for example: Lovenox(R), Xaparin(R), Clexane(R) and Fragmin(R)). The results of this testing, including the benefits and limitations, should be discussed with a qualified healthcare provider. management decisions, including termination of the , should not be based on the results of these tests alone. The healthcare provider is responsible for the use of this information in the management of their patient. [id number] PLUS NOTE LC_SEQCA This test was developed and its performance characteristics determined by [employer]. It has not been cleared or approved by the Food and Drug Administration. This laboratory is certified under the Clinical Laboratory Improvement Amendments (CLIA) as qualified to perform high complexity clinical laboratory testing and accredited by the College [employer] [place] [employer] (CAP). If there is future clinical need for adding MaterniT GENOME testing, this specimen will be available until term. [facility] samples will not be retained beyond 60 days. [facility] patients will have to send a new sample for re-sequencing ([facility] Test Code: 956682). [id number] PLUS REFERENCES LC_SEQCA 1. Tamara GREEN, et al. Sherry Med. 2012;14(3):296-305. 2. Bren DONNELLY, et al. Prenat Diag. 2013;33(6):591-597. 3. Hernán C, et al. Clin Chem. 2015 Sep;61(4):608-616. 4. Tamara GREEN, et al. Sherry Med. 2011;13(11):913-920. 5. ACOG/SMFM Joint Committee Opinion No. 545, May 2012. [id number] PLUS PDF . LC_SEQCA URINE CULTURE NOTE [facility] HEPATITIS C ANT NOTE [facility] HEPATITIS C ANT HEPATITIS C AB Non-Reactive Nonreactive ML Non Reactive: < 0.8 Equivocal: >/= 0.8 to < 1.0 Reactive: >/= 1.0 The CDC recommends that a reactive/equivocal HCV antibody result be followed up by the HCV Nucleic Acid Amplification test (937980) HEPATITIS B ANDRIA NOTE [facility] HEPATITIS B ANDRIA HEP B SURF AG Non-Reactive Nonreactive ML HIV - [facility] NOTE [facility] HIV - [facility] HIV Non-Reactive Nonreactive ML L509.8000 NOTE [facility] L509.8000 SYPHILIS ABS Non-reactive ML RUBELLA IGG NOTE [facility] RUBELLA IGG RUBELLA IGG Reactive Nonreactive ML Antibody Results Interpretation of Immune Status Non Reactive Presumed Non-Immune Equivocal Equivocal Reactive Presumed Immune PN N [facility]~[address] [place], [address]~ T AND AB SCREEN GEL NEGATIVE ML CBC W/DIFF, AUT NOTE [facility] CBC W/DIFF, AUT WBC 7.6 K/mm3 4.4-11.0 ML CBC W/DIFF, AUT RBC 4.30 M/mm3 4.2-5.4 ML CBC W/DIFF, AUT HGB 12.7 g/dL 12.0-15.0 ML CBC W/DIFF, AUT HCT 37.4 37-47 ML CBC W/DIFF, AUT MCV 87.0 fL 81-99 ML CBC W/DIFF, AUT MCH 29.5 pg 27.0-32.0 ML CBC W/DIFF, AUT MCHC 34.0 g/dL 32-36 ML CBC W/DIFF, AUT RDW CV 12.0 11.6-14.6 ML CBC W/DIFF, AUT RDW SD 38.5 fl 35.1-43.9 ML CBC W/DIFF, AUT PLT 288 K/mm3 150-450 ML CBC W/DIFF, AUT MPV 10.2 fl 6.2-12.0 ML CBC W/DIFF, AUT NEUT% 66.7 47-70 ML CBC W/DIFF, AUT LY% 28.0 19-41 ML CBC W/DIFF, AUT MONO% 4.3 0-10 ML CBC W/DIFF, AUT EO% 0.4 0-5 ML CBC W/DIFF, AUT BASO% 0.3 0-1 ML CBC W/DIFF, AUT IG% 0.300 0.0-0.9 ML IG% - Immature Granulocytes (promyelocytes, myelocytes and metamyelocytes) > 1% indicates that a LEFT SHIFT is Present. CBC W/DIFF, AUT ABSOLUTE NEUT 5.1 X10 3/uL 2.0-7.7 ML CBC W/DIFF, AUT ABSOLUTE LYMPH 2.13 X10 3/uL 0.83-4.51 ML CBC W/DIFF, AUT NUCLEATED RBC 0 0-5 ML PAP I-G W/RFX H NOTE [facility] PAP I-G W/RFX H DIAG Comment . [facility] NEGATIVE FOR INTRAEPITHELIAL LESION OR MALIGNANCY. PAP I-G W/RFX H ADEQ Comment . [facility] Satisfactory for evaluation. Endocervical and/or squamous metaplastic cells (endocervical component) are present. PAP I-G W/RFX H PERFORM Comment . [facility] Svitlana Miguel, Dock Attendant (ASCP) This liquid based ThinPrep(R) pap test was screened with the use of an image guided system. PAP I-G W/RFX H COMM . . [facility] PAP I-G W/RFX H PAPSMR Comment . [facility] The Pap smear is a screening test designed to aid in the detection of premalignant and malignant conditions of the uterine cervix. It is not a diagnostic procedure and should not be used as the sole means of detecting cervical cancer. Both false-positive and false-negative reports do occur. PAP I-G W/RFX H HPV RFLX Comment . LCI The HPV DNA reflex criteria were not met with this specimen result therefore, no HPV testing was performed. Performed at: [address] [id number] Rewinder Operator Helper: Laurie Hodge MD, Phone: [phone] CHLAMYDIA/GC NA NOTE [facility] CHLAMYDIA/GC NA CHLAMY,NUC ACID Negative Negative [facility]CI CHLAMYDIA/GC NA GC BY NUC ACID Negative Negative LCI Performed at: =[address] [id number] Rewinder Operator Helper: Laurie Hodge MD, Phone: [phone] Group B Beta Streptococcus is not isolated. Mixed Gram Positive Organisms [place] Count 50,000-80,000 MIXC Mixed contaminants. Submit a new specimen if indicated. AB POSITIVE == ==== Impression /Plan: 39 wks + 0 days intrauterine in advanced labor. Preparations in progress for delivery.
--- NOTE | 2021-06-18 05:34 | EX.PCM.OBRPT ---
Maternal Data Information Final MICHEL: 06/25/21 Gestational age: 39w0d Doctor Who Attended Delivery: Yuly Cotto Vaginal Delivery Maternal Presentation Maternal Presentation: Active Labor Operative Information Date of Procedure: 06/18/21 Pre-Operative Diagnosis: IUP Post-Operative Diagnosis: IUP Surgery / Procedure Performed: Spontaneous Vaginal Delivery Type of Anesthesia: None Estimated Blood Loss: 250 cc Findings Description of Procedure: Spontaneous vaginal delivery of a viable male infant with Apgars of 7/8 from an occiput anterior presentation with clear amniotic fluid and lightly meconium stained placenta. Cord around the neck x2 loose. No episiotomy or lacerations. Sponges okay. Patient delivered approximately 20 minutes after presentation to labor and delivery. Delivery physician: Reynaldo Pack MD. Presentation: Vertex Amniotic Membrane Rupture Type: Spontaneous (At delivery) Amniotic Fluid Description: Clear Placental Delivery Description: Spontaneous Placenta Disposition: [facility] Cord Vessel Description: 3 Vessels Cord Entanglement: Around neck x 2, loose Cord Gases: ABG A Gender: Male (1 minute): 7 (5 minute): 8 Post Vaginal Delivery Medications Given After Delivery: IV Pitocin Episiotomy Description: None Laceration: None Complication Complications: None
[2021-06-18] MEDS: Ibuprofen 600 MG Tablet PO ×2 (06:23→17:18)
[2021-06-18] MEDS: 0.9% Saline Lock 10 ML Syringe IV (08:11)
--- NOTE | 2021-06-18 16:13 | CASEMGMT ---
SW Note SW reviewed patient's chart. Patient was interviewed in the room with her /FOB Ander present. Patient gave verbal consent to speak to her in the presence of the fob. NB was sleeping in crib. Patient and FOB would look at nb and smile throughout the interview. They appeared to be bonding appropriately with the nb. SW spoke to Aleena PATRICIA who is caring for the . She reports she has no concerns regarding the patient and nb. Mom: Vicky PNC: Adrianna Barrow Control: None Baby: Tor : 06[birth year]18/[birth year] Apgars: 8 and 8 Weight: 6#14 ounces Pediatrican: [employer] Feeding MOB and FOB's other children: Henny, age 2 in August Housing: Patient, FOB and their now 2 children reside in a House in [place] Transportation: Patient reports she has access to transportation Supplies: Patient reprots she has all the supplies including car seat, crib/bassinet, clothing and diapers Supports: Patient said that her primary support is her . Patient said that her parents are also supportive and they live locally to patient and FOB Education: Patient graduated from high school and college. No learning issues. Bachelors degree from [employer] in Criminal Justice and psychology. Employment: Patient is not employed outside the home. 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 Agency Involvement. Patient reports she receives WIC and [employer] insurance. 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 He plans to take 1 week off work but reports his boss is accommodating regarding time off. FOB reports he enjoys his job. FOB MH/DV and AOD: Denied by FOB. SW reviewed DV screen and patient denied DV. 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 Patient said that after the of her daughter she was sad and I did not want to do anything. Patient said that at 4 months following the of her daughter she spoke to the MD and asked for help. Patient was placed on SSRI but when she was switched to Fluoxetine. Patient said that her current medication regiment is working positively and she plans to continue to take the medication. Patient denied any current or past SI/HI. Patient has not had counseling/therapy history. SW educated patient on shaken baby, Post depression and safe sleeping positions for . Patient denied any alcohol use. Patient denied any drug use. Patient denied any prescription drug use. Patient has never smoked cigarettes. Patient was provided resources that included phone number for PPD support, on line resources for PPD support, HMG, Back to Sleep handout and information about and depression. Patient and FOB voiced no discharge concerns or issues. They plan and are hoping for discharge tomorrow. Patient and FOB said that the older child is very excited about the nb. JOANA updated RN. Plan: Home at discharge Nanette ROLLINS
[2021-06-18] MEDS: FLUoxetine 20 MG Capsule PO (22:44)
[2021-06-19] VITALS (7 sets, daily range): BP systolic 115–127; BP diastolic 61–82; PULSE 51–72; RESP 16–18; TEMP 36.6–36.7; O2SAT 99
--- NOTE | 2021-06-19 07:30 | PCM.PN.OB ---
Subjective Subjective No issues overnight. DOing well. Denies heavy lochia. She is formula feeding. Feels well and requests d/c home today. Objective Data Objective Data Vital Signs: Vital Signs Temp Pulse Resp BP Pulse Ox 97.8 F 51 L 18 115/68 98 06/19/21 04:50 06/19/21 04:50 06/19/21 04:50 06/19/21 04:50 06/18/21 15:45 Oxygen Delivery Method Room Air Weight: 93 kg Body Mass Index (BMI) 35.2 Intake & Output: Intake and Output for Last 24 Hours 06/17/21 06/18/21 06/19/21 23:59 23:59 23:59 Intake Total 1130.0 / 1130.0 Output Total 300 / 300 Balance 830.0 / 830.0 Lab / Micro Data Result Diagrams: 06/18/21 04:57 Micro: Microbiology 06/18/21 04:55 Nasal Secretion SARS-CoV-2 Antigen (Rapid) - Final Physical Exam Const alert, oriented x3 and no apparent distress Resp normal respiratory effort and normal air movement Cardio regular rate, regular rhythm, S1 normal heart sound and S2 normal heart sound Uterus Palpation: uterus fundus firm and other OB fundus nontender Extremity no calf tenderness Neuro oriented x3 Assessment & Plan (1) (spontaneous vaginal delivery): PLAN: AB positive Rubella immune Routine care D/c home
--- NOTE | 2021-06-19 07:37 | PCM.DC ---
Discharge Instructions Diet Discharge Diet: No restrictions Activity Discharge Activity: Return to Normal Activity May resume sexual activity in: 4-6 weeks Dressing / Incision Call your doctor if you observe: Fever of 101 or Higher, Using more than 1 pad per hour, Shortness of breath, Chest pain, Calf discomfort, Uncontrolled pain and - (Persistent or severe headache) Follow Up Care Please Follow Up With: Jerry Barrow MD When: 3 weeks for telehealth follow up 6 weeks for visit Test Results: Test results from this visit will be discussed in further detail at your follow-up appointment, if applicable. Discharge Plan Admission Admit Date/Time: 06/18/21 04:50 Primary Reason for Your Visit: Vaginal delivery Attending Provider: Reynaldo Pack Primary Care Provider: Reynaldo Aguiar Discharge Orders/Prescriptions Prescriptions: New ibuprofen 600 mg Tablet 600 mg PO Q8H PRN PRN (Reason: Pain Score 1-3) Qty: 30 RF: 0 Continued PNV [id number] 1 EACH tablet,chewable 1 ea PO DAILY RF: 0 fluoxetine 20 mg Capsule 20 mg PO DAILY RF: 0 Referrals / Follow Up: Reynaldo Aguiar MD [Primary Care Provider] - Disposition Disposition (needs filled in before D/C Order can be placed): Home, Self Care
--- NOTE | 2021-06-23 17:40 | NURSING ---
Follow up phone call done and no answer, left voicemail
== END 2021-06-19 13:00 | disposition home or self-care (01) | DRG 560 ==
LOC: WPOUT 04:52 → WP 04:52
PROVIDERS: Admitting Provider Obstetrics & Gynecology; PCP Pediatrics; Visit Provider Obstetrics & Gynecology
DX: O69.81X0 Labor and delivery complicated by cord around neck, without compression, not applicable or unspecified (principal); O77.0 Labor and delivery complicated by meconium in amniotic fluid; Z3A.39 39 weeks gestation of pregnancy; Z37.0 Single live birth; O99.214 Obesity complicating childbirth; E66.9 Obesity, unspecified; F32.A Depression, unspecified; O99.344 Other mental disorders complicating childbirth; Z91.040 Latex allergy status
CPT/HCPCS: 59025; 59050; 85025; 86850; 86900; 86901; 87426; 99218; J7120; 90686; A4216; G0378

== ENCOUNTER 2025-01-24 02:13 | Inpatient (IN) | payer MEDICAID, SELFPAY ==
[2025-01-24] VITALS (39 sets, daily range): BP systolic 116–135; BP diastolic 64–80; PULSE 47–90; RESP 14–16; TEMP 36.2–36.9; O2SAT 97–100; BMI 37.0
--- OUTSIDE RECORDS SUMMARY | 2025-01-24 01:51 | XMS RPT_ITS | CCD ---
Author Organization [facility] Care Team Providers Care Auto Service Instructor Name Role Phone OSVALDO DAMON Admitting Unavailable Manpreet Saravia [phone] Consulting Unav ailable CHELA HIGH Primary Care Unavailable ANGEL DAMONER Attending Unavailable NELSON, CHRISTOPHER Consulting Unavailable LENNOX CHELA Consulting Unavailable NELSON, CHRISTOPHER Consulting Unavailable NELSON, CHRISTOPHER Admitting Unavailable LENNOX CHELA Primary Care Unavailable ANGEL DAMONER Attending Unavailable Unavailable Primary Care Provider Unavailabl e CHELA HIGH DO Admitting Unavailable CHELA HIGH DO Primary Care Unavailable CHELA HIGH DO Consulting Unavailable CHELA HIGH DO Attending Unavailable PROVIDER, UNKNOWN Consulting Unavailable PROVIDER, UNKNOWN Consulting Unavailable CHELA HIGH DO Consulting Unavailable TESTRAKE, SOTO Admitting Unavailable TESTRAKE, SOTO Primary Care Unavailable TESTRAKE, SOTO Attending Unavailable PROVIDER, UNKNOWN Consulting Unavailable PROVIDER, UNKNOWN Consulting Unavailable UNGERER, ILANA WEBSPHERE MESSAGE BROKER DEVELOPER Admitting Unavailable UNGERER, ILANA WEBSPHERE MESSAGE BROKER DEVELOPER Primary Care Unavailable UNGERER, ILANA WEBSPHERE MESSAGE BROKER DEVELOPER Consulting Unavailable UNGERER, ILANA WEBSPHERE MESSAGE BROKER DEVELOPER Attending Unavailable PROVIDER, UNKNOWN Consulting Unavailable Unavailable Primary Care Provider Unavailabl e Chloe Hyde Attending Unavailable Chloe Hyde Admitting Unavailable Ungerer, Ilana Primary Care Unavailable SANTHOSH CEE Attending Unavailable HAURY, FRANCK Referring Unavailable HAURY, FRANCK Referring Unavailable HAURY, FRANCK Attending Unavailable LEONA ARMANDO Attending Unavailable HAURY, FRANCK Referring Unavailable HAURY, FRANCK Referring Unavailable WISWELL, SANTHOSH Attending Unavailable HAURY, FRANCK Referring Unavailable CHLOE HYDE Attending Unavailable HAURY, FRANCK Attending Unavailable HAURY, FRANCK Referring Unavailable WISWELL, SANTHOSH Attending Unavailable HAURY, FRANCK Attending Unavailable HAURY, FRANCK Referring Unavailable HAURY, FRANCK Referring Unavailable SHIRA BLACKWOOD Attending Unavail able ADELA GRIGGS Attending Unavailable FRANCK ARMANDO Attending Unavailable ANABELL GASCA Attending Unavailable ANABELL GASCA Attending Unavailable Allergies Allergy Classification Reported Allergen(s) Allergy Type Date of Onset Reaction(s) Facility (2 sources) Latex; Translations: [LATEX] Drug allergy (disorder) 7 [facility] Repository (20 sources) Latex Propensity to adverse reactions 7 Rash [facility] Work Phone: (1 source) Furosemide Drug Allergy [facility] Repository (17 sources) Furosemide; Translations: [FUROSEMIDE] Drug Allergy 5 Unknown [facility] (1 source) Latex Drug allergy (disorder) 1 [facility] Repository Medications Current Medications Medication Drug Class(es) Dates Sig (Normalized) Sig (Original) aspirin 81 mg delayed release oral tablet (20 sources) Platelet Aggregation Inhibitor, Nonsteroidal Anti-inflammatory Drug Start: 4 take 1 tablet by mouth once daily aspirin, enteric coated (ECOTRIN LOW STRENGTH) 81 mg EC tablet Indications: with uncertain dates in first trimester (HCC) Take 1 tablet by mouth once daily. 90 tablet 3 06/01/2024 Active iv contrast (will be provided with radiology test) (1 source) Start: 3 End: 3 iv contrast (will be provided with radiology test) MRI foot/toes LT Inject, intravenously, once for 1 dose. No IV access, insert saline lock prior to the beginning of sedation, infusion, injection of imaging exam. Discontinue saline lock post exam. If Pt. has a central line or IVAD, may access for administration according to line specific nursing protocol. Once exam is complete flush line and de-access according to line specific nursing protocol in the MR contrast administration guidelines link. 1 Each 0 12/16/2022 12/17/2022 Active Comment on above: MRI foot/toes LT Inj ect, intravenously, once for 1 dose. No IV access, insert saline lock prior to the beginning of sedation, infusion, injection of imaging exam. Discontinue saline lock post exam. If Pt. has a central line or IVAD, may access for administration according to line specific nursing protocol. Once exam is complete flush line and de-access according to line specific nursing protocol in the MR contrast administration guidelines link. meloxicam 15 mg oral tablet (3 sources) Nonsteroidal Anti-inflammatory Drug Start: 3 End: 3 take 1 tablet by mouth once daily meloxicam (MOBIC) 15 mg tablet Indications: Left foot pain , Bursitis of left foot Take 1 tablet by mouth once daily. 30 tablet 1 03/15/2023 05/14/2023 Active Comment on above: Take 1 tablet by natali once daily. methylPREDNISolone (1 source) Corticosteroid Start: 3 End: 3 methylPREDNISolone (MEDROL, ZULAY,) 4 mg Dose-Pack Indications: Tailor's bunion of left foot Take as directed 21 tablet 0 10/27/2022 11/01/2022 Active Comment on above: Take as directed VIT 14-IRON FUM-FOLIC ORAL (20 sources) VIT 14- IRON FUM-FOLIC ORAL Take by mouth. Active Completed/Discontinued Medications Medication Drug Class(es) Dates Sig (Normalized) Sig (Original) lisdexamfetamine dimesylate 40 mg oral capsule (1 source) Central Nervous System Stimulant Start: 05-07-2024 End: 06-01-2024 take 1 capsule by mouth once daily in the morning VYVANSE 40 mg capsule TAKE 1 CAPSULE BY MOUTH ONCE DAILY ON AN EMPTY STOMACH FIRST THING IN THE MORNING 05/07/2024 06/01/2024 Discontinued Problems Active Problems Problem Classification Problem Date Documented Da te Episodic/Chronic Acquired foot deformities (3 sources) Tailor's bunion of left foot; Translations: [Bunionette of left foot] Episodic Attention-deficit, conduct, and disruptive behavior disorders (20 sources) Attention deficit hyperactivity disorder; Translations: [Attention-deficit hyperactivity disorder, unspecified type] Onset: 06-01-2024 06-01-2024 Chronic Immunizations and screening for infectious disease (2 sources) Vaccination needed; Translations: [Encounter for immunization] Onset: 10-29-2024 10-29-2024 Episodic Miscellaneous mental health disorders (1 source) Binge eating disorder; Translations: [Binge eating disorder] Onset: 05-25-2023 Chronic Other bone disease and musculoskeletal deformities (2 sources) Disorder of bone; Translations: [Disorder of bone, unspecified] Episodic Other circulatory disease (2 sources) Orthostatic hypotension; Translations: [ORTHOSTATIC HYPOTENSION] Onset: 08-06-2020 Episodic Other complications of (20 sources) High risk ; Translations: [Supervision of high risk , unspecified, first trimester] Onset: 06-01-2024 06-01-2024 Episodic Other complications of (1 source) Supervision of high risk , unspecified, third trimester; Translations: [Supervision of high risk in third trimester (HCC)] Onset: 01-07-2025 Episodic Other complications of (2 sources) Supervision of high risk , unspecified, second trimester; Translations: [Supervision of high risk in second trimester (HCC)] Onset: 09-03-2024 Episodic Other connective tissue disease (3 sources) Pain in left foot; Translations: [Pain in left foot] Episodic Other connective tissue disease (1 source) Bursitis of left foot; Translations: [Other enthesopathy of left foot and ankle] 03-15-2023 Episodic Other connective tissue disease (3 sources) Pain in left foot; Translations: [Pain in left foot] Onset: 03-15-2023 Episodic Other connective tissue disease (1 source) Bursitis of left shoulder; Translations: [Bursitis of left shoulder] Onset: 03-15-2023 Episodic Other screening for suspected conditions (not mental disorders or infectious disease) (6 sources) Cancer cervix screening status; Translations: [Encounter for screening for malignant neoplasm of cervix] Onset: 09-03-2024 06-01-2024 Episodic Residual codes; unclassified (1 source) Gestation period, 5 weeks; Translations: [Less than 8 weeks gestation of ] 06-01-2024 Episodic Residual codes; unclassified (2 sources) Gestation period, 8 weeks; Translations: [8 weeks gestation of ] 06-19-2024 Episodic Residual codes; unclassified (2 sources) Gestation period, 13 weeks; Translations: [13 weeks gestation of ] 07-20-2024 Episodic Residual codes; unclassified (1 source) Gestation period, 17 weeks; Translations: [17 weeks gestation of ] 08-17-2024 Episodic Residual codes; unclassified (2 sources) Gestation period, 19 weeks; Translations: [19 weeks gestation of ] 09-03-2024 Episodic Residual codes; unclassified (1 source) Gestation period, 23 weeks; Translations: [23 weeks gestation of ] 10-01-2024 Episodic Residual codes; unclassified (1 source) Gestation period, 27 weeks; Translations: [27 weeks gestation of ] 10-29-2024 Episodic Residual codes; unclassified (1 source) Gestation period, 29 weeks; Translations: [29 weeks gestation of ] 11-15-2024 Episodic Residual codes; unclassified (1 source) Gestation period, 31 weeks; Translations: [31 weeks gestation of ] 11-28-2024 Episodic Residual codes; unclassified (1 source) Gestation period, 33 weeks; Translations: [33 weeks gestation of ] 12-13-2024 Episodic Residual codes; unclassified (1 source) Gestation period, 36 weeks; Translations: [36 weeks gestation of ] 12-31-2024 Episodic Residual codes; unclassified (1 source) Gestation period, 37 weeks; Translations: [37 weeks gestation of ] 01-07-2025 Episodic Residual codes; unclassified (1 source) Gestation period, 38 weeks; Translations: [38 weeks gestation of ] 01-14-2025 Episodic Residual codes; unclassified (1 source) 38 weeks gestation of ; Translations: [38 weeks gestation of (HCC)] Onset: 01-14-2025 Episodic Residual codes; unclassified (1 source) 37 weeks gestation of ; Translations: [37 weeks gestation of (HCC)] Onset: 01-07-2025 Episodic Residual codes; unclassified (1 source) 36 weeks gestation of ; Translations: [36 weeks gestation of (HCC)] Onset: 12-31-2024 Episodic Residual codes; unclassified (1 source) 33 weeks gestation of ; Translations: [33 weeks gestation of (HCC)] Onset: 12-13-2024 Episodic Residual codes; unclassified (1 source) 31 weeks gestation of ; Translations: [31 weeks gestation of (HCC)] Onset: 11-28-2024 Episodic Residual codes; unclassified (1 source) 29 weeks gestation of ; Translations: [29 weeks gestation of (HCC)] Onset: 11-15-2024 Episodic Residual codes; unclassified (1 source) 27 weeks gestation of ; Translations: [27 weeks gestation of (HCC)] Onset: 10-29-2024 Episodic Residual codes; unclassified (1 source) 23 weeks gestation of ; Translations: [23 weeks gestation of ([facility])] Onset: 10-29-2024 Episodic Unclassified (20 sources) [facility] Education - COMMON Onset: 06-01-2024 06-01-2024 Unclassified (20 sources) Education - [place] Onset: 06-01-2024 06-01-2024 Past or Other Problems Problem Classification Problem Date Documented Da te Episodic/Chronic Other complications of (20 sources) size does not accord with dates; Translations: [Uterine size-date discrepancy, first trimester] Onset: 06-19-2024 Resolved: 12-13-2024 06-19-2024 Episodic Other nutritional; endocrine; and metabolic disorders (1 source) Other symptoms and signs concerning food and fluid intake; Translations: [Other symptoms and signs concerning food and fluid intake] Onset: 08-15-2022 Episodic Other and delivery including normal (20 sources) with uncertain dates; Translations: [Encounter for supervision of normal , unspecified, first trimester] Onset: 06-01-2024 Resolved: 12-13-2024 06-01-2024 Episodic Residual codes; unclassified (20 sources) Family history of blood coagulation disorder; Translations: [Family history of diseases of the blood and blood-forming organs and certain disorders involving the immune mechanism] Onset: 06-01-2024 06-01-2024 Episodic Residual codes; unclassified (1 source) 19 weeks gestation of ; Translations: [19 weeks gestation of ] Onset: 09-03-2024 Episodic Residual codes; unclassified (1 source) Less than 8 weeks gestation of ; Translations: [5 weeks gestation of ] Onset: 06-19-2024 Episodic Screening and history of mental health and substance abuse codes (20 sources) H/O: depression; Translations: [Personal history of other mental and behavioral disorders] Onset: 06-01-2024 06-01-2024 Episodic NEGATED: Highlighted row has been ruled out!Unclassified (1 source) No known active problems 04-28-2016 Results Test Name Value Interpretation Reference Range Facil ity URINE OB DIP B/Oon 5 Glucose Ql (U) Negative Neg mg/dL [facility] Interpretation and review of laboratory results Normal [facility] Protein.monoclonal (U) [Mass/Vol] Negative Neg mg/dL [facility] URINE OB DIP B/Oon 5 Glucose Ql (U) Negative Neg mg/dL [facility] Interpretation and review of laboratory results Normal [facility] Protein.monoclonal (U) [Mass/Vol] Negative Neg mg/dL [facility] ROUTINE, GROUP B ST REPTOCOCCUS BY PCRon 12-31-2024 ROUTINE, GROUP B STREPTOCOCCUS BY PCR Not detected Normal [facility] Comment on above: Performed By: #### 5 7021-8 #### [facility] CLIA [id number] [address] [place] [address] [place] URINE OB DIP B/Oon 5 Glucose Ql (U) Negative Neg mg/dL [facility] Interpretation and review of laboratory results Normal [facility] Protein.monoclonal (U) [Mass/Vol] Negative Neg mg/dL [facility] CNPNon 12-04-2024 CNPN Telephone (OBGYWM) VICKY MITCHELL ([id number]) 2000 F Date Time Provider Department 12/04/24 FRANCK ARMANDO During your visit today, we recorded the following information about you: Leona Heck RN 12/04/2024 11:46 AM Signed Received breast pump RX from [facility]. To to sign. HARSHAD Vallejo Trisha, RN 12/05/2024 3:10 PM Signed Order signed and faxed. Vicki Morataya RN Allergies As of Date: 12/04/2024 Noted Allergy Reaction FUROSEMIDE 08/17/2024 16 - Unknown LATEX 04/12/2007 2 - Rash Date Reviewed: 11/28/2024 Reviewed by: Franck Armando APRN.LEASING COORDINATOR - Fully Assessed Reason for Visit: Breast Pump [Other] Prescriptions as of 12/05/2024 - aspirin, enteric coated (ECOTRIN LOW STRENGTH) 81 mg EC tablet Take 1 tablet by mouth once daily. - VIT 14-IRON FUM-FOLIC ORAL Take by mouth. Problem List As Of Date 12/04/2024 Noted Resolved Attention deficit hyperactivity disorder (ADHD)*06/01/2024 History of depression [Z86.59] 06/01/2024 with uncertain dates in first trimest*06/01/2024 Family history of blood coagulation disorder [Z*06/01/2024 Size of fetus inconsistent with dates in first *06/19/2024 Supervision of high risk in third tri*09/03/2024 Encounter Status:Closed by VICKI MORATAYA on 12/05/24 [facility]ICK[facility] MITCHE[facility] ([id number]) 2000 F Date Time Provider Department 11/16/24 [facility] During your visit today, we recorded the following information about you: Lorena Lui, RN 11/16/2024 1:55 PM Signed 3rd risk assessment form submitted 11/16/24 Lorena Lui RN Allergies As of Date: 11/16/2024 Noted Allergy Reaction FUROSEMIDE 08/17/2024 16 - Unknown LATEX 04/12/2007 2 - Rash Date Reviewed: 11/15/2024 Reviewed by: Franck Armando APRN.LEASING COORDINATOR - Fully Assessed Reason for Visit: PRAF [4193] Prescriptions as of 11/16/2024 - aspirin, enteric coated (ECOTRIN LOW STRENGTH) 81 mg EC tablet Take 1 tablet by mouth once daily. - VIT 14-IRON FUM-FOLIC ORAL Take by mouth. Problem List As Of Date 11/16/2024 Noted Resolved Attention deficit hyperactivity disorder (ADHD)*06/01/2024 History of depression [Z86.59] 06/01/2024 with uncertain dates in first trimest*06/01/2024 Family history of blood coagulation disorder [Z*06/01/2024 Size of fetus inconsistent with dates in first *06/19/2024 Supervision of high risk in third tri*09/03/2024 Encounter Status:Closed by LORENA LUI on 11/16/24 Normal [facility] CBC W Auto Differential pane l (Bld)on 10-29-2024 Basophils (Bld) [#/Vol] 10*3/uL Normal <0.11 [facility] Comment on above: Order Comment: Speci men Type: BLOOD SPECIMEN Ordering Facility: [facility] Address: [address] [place] [address] Performed By: #### 5 7021-8 #### [facility] CLIA [id number] [address] [place] [address] [place] Basophils/100 WBC (Bld) 0.2 % Normal [facility] Comment on above: Order Comment: Speci men Type: BLOOD SPECIMEN Ordering Facility: [facility] Address: [address] [place] [address] Performed By: #### 5 7021-8 #### [facility] CLIA [id number] [address] [place] [address] [place] Differential cell count method Nom (Bld) Auto Normal [facility] Comment on above: Order Comment: Speci men Type: BLOOD SPECIMEN Ordering Facility: [facility] Address: [address] [place] [address] Performed By: #### 5 7021-8 #### [facility] CLIA [id number] [address] [place] [address] [place] Eosinophils (Bld) [#/Vol] 0.03 10*3/uL Normal <0.46 [facility] Comment on above: Order Comment: Speci men Type: BLOOD SPECIMEN Ordering Facility: [facility] Address: [address] [place] [address] Performed By: #### 5 7021-8 #### [facility] CLIA [id number] [address] [place] [address] [place] Eosinophils/100 WBC (Bld) 0.3 % Normal [facility] Comment on above: Order Comment: Speci men Type: BLOOD SPECIMEN Ordering Facility: [facility] Address: [address] [place] [address] Performed By: #### 5 7021-8 #### [facility] CLIA [id number] [address] [place] [address] [place] Erythrocyte distribution width (RBC) [Ratio] 12.3 % Normal 11.5-15.0 [facility] Comment on above: Order Comment: Speci men Type: BLOOD SPECIMEN Ordering Facility: [facility] Address: [address] [place] [address] Performed By: #### 5 7021-8 #### [facility] CLIA [id number] [address] [place] [address] [place] Hematocrit (Bld) [Volume fraction] 34.8 % Low 36.0-46.0 [facility] Comment on above: Order Comment: Speci men Type: BLOOD SPECIMEN Ordering Facility: [facility] Address: [address] [place] [address] Performed By: #### 5 7021-8 #### [facility] CLIA [id number] [address] [place] [address] [place] Hemoglobin (Bld) [Mass/Vol] 11.9 g/dL Normal 11.5-15.5 [facility] Comment on above: Order Comment: Speci men Type: BLOOD SPECIMEN Ordering Facility: [facility] Address: [address] [place] [address] Performed By: #### 5 7021-8 #### [facility] CLIA [id number] [address] [place] [address] [place] Immature granulocytes (Bld) [#/Vol] 10*3/uL Normal <0.10 [facility] Comment on above: Order Comment: Speci men Type: BLOOD SPECIMEN Ordering Facility: [facility] Address: [address] [place] [address] Performed By: #### 5 7021-8 #### [facility] CLIA [id number] [address] [place] [address] [place] Immature granulocytes/100 WBC (Bld) 0.2 % Normal [facility] Comment on above: Order Comment: Speci men Type: BLOOD SPECIMEN Ordering Facility: [facility] Address: [address] [place] [address] Performed By: #### 5 7021-8 #### [facility] CLIA [id number] [address] [place] [address] [place] Lymphocytes (Bld) [#/Vol] 2.29 10*3/uL Normal 1.00-4.00 [facility] Comment on above: Order Comment: Speci men Type: BLOOD SPECIMEN Ordering Facility: [facility] Address: [address] [place] [address] Performed By: #### 5 7021-8 #### [facility] CLIA [id number] [address] [place] [address] [place] Lymphocytes/100 WBC (Bld) 24.1 % Normal [facility] Comment on above: Order Comment: Speci men Type: BLOOD SPECIMEN Ordering Facility: [facility] Address: [address] [place] [address] Performed By: #### 5 7021-8 #### [facility] CLIA [id number] [address] [place] [address] [place] MCH (RBC) [Entitic mass] 30.5 pg Normal 26.0-34.0 [facility] Comment on above: Order Comment: Speci men Type: BLOOD SPECIMEN Ordering Facility: [facility] Address: [address] [place] [address] Performed By: #### 5 7021-8 #### [facility] CLIA [id number] [address] [place] [address] [place] MCHC (RBC) [Mass/Vol] 34.2 g/dL Normal 30.5-36.0 [facility] Comment on above: Order Comment: Speci men Type: BLOOD SPECIMEN Ordering Facility: [facility] Address: [address] [place] [address] Performed By: #### 5 7021-8 #### [facility] CLIA [id number] [address] [place] [address] [place] MCV (RBC) [Entitic vol] 89.2 fL Normal 80.0-100.0 [facility] Comment on above: Order Comment: Speci men Type: BLOOD SPECIMEN Ordering Facility: [facility] Address: [address] [place] [address] Performed By: #### 5 7021-8 #### [facility] CLIA [id number] [address] [place] [address] [place] Monocytes (Bld) [#/Vol] 0.56 10*3/uL Normal <0.87 [facility] Comment on above: Order Comment: Speci men Type: BLOOD SPECIMEN Ordering Facility: [facility] Address: [address] [place] [address] Performed By: #### 5 7021-8 #### [facility] CLIA [id number] [address] [place] [address] [place] Monocytes/100 WBC (Bld) 5.9 % Normal [facility] Comment on above: Order Comment: Speci men Type: BLOOD SPECIMEN Ordering Facility: [facility] Address: [address] [place] [address] Performed By: #### 5 7021-8 #### [facility] CLIA [id number] [address] [place] [address] [place] Neutrophils (Bld) [#/Vol] 6.58 10*3/uL Normal 1.45-7.50 [facility] Comment on above: Order Comment: Speci men Type: BLOOD SPECIMEN Ordering Facility: [facility] Address: [address] [place] [address] Performed By: #### 5 7021-8 #### [facility] CLIA [id number] [address] [place] [address] [place] Neutrophils/100 WBC (Bld) 69.3 % Normal [facility] Comment on above: Order Comment: Speci men Type: BLOOD SPECIMEN Ordering Facility: [facility] Address: [address] [place] [address] Performed By: #### 5 7021-8 #### [facility] CLIA [id number] [address] [place] [address] [place] Nucleated RBC (Bld) [#/Vol] 10*3/uL Normal <0.01 [facility] Comment on above: Order Comment: Speci men Type: BLOOD SPECIMEN Ordering Facility: [facility] Address: [address] [place] [address] Performed By: #### 5 7021-8 #### [facility] CLIA [id number] [address] [place] [address] [place] Nucleated RBC/100 WBC (Bld) [Ratio] 0.0 /100 WBC Normal [facility] Comment on above: Order Comment: Speci men Type: BLOOD SPECIMEN Ordering Facility: [facility] Address: [address] [place] [address] Performed By: #### 5 7021-8 #### [facility] CLIA [id number] [address] [place] [address] [place] Platelet mean volume (Bld) [Entitic vol] 11.0 fL Normal 9.0-12.7 [facility] Comment on above: Order Comment: Speci men Type: BLOOD SPECIMEN Ordering Facility: [facility] Address: [address] [place] [address] Performed By: #### 5 7021-8 #### [facility] CLIA [id number] [address] [place] [address] [place] Platelets (Bld) [#/Vol] 232 10*3/uL Normal 150-400 [facility] Comment on above: Order Comment: Speci men Type: BLOOD SPECIMEN Ordering Facility: [facility] Address: [address] [place] [address] Performed By: #### 5 7021-8 #### [facility] CLIA [id number] [address] [place] [address] [place] RBC (Bld) [#/Vol] 3.90 10*6/uL Normal 3.90-5.20 [facility] Comment on above: Order Comment: Speci men Type: BLOOD SPECIMEN Ordering Facility: [facility] Address: [address] [place] [address] Performed By: #### 5 7021-8 #### [facility] CLIA [id number] [address] [place] [address] [place] WBC (Bld) [#/Vol] 9.50 10*3/uL Normal 3.70-11.00 [facility] Comment on above: Order Comment: Speci men Type: BLOOD SPECIMEN Ordering Facility: [facility] Address: [address] [place] [address] Performed By: #### 5 7021-8 #### [facility] CLIA [id number] [address] [place] [address] [place] GESTATIONAL GLUCOSE SCREEN, 1-HOUR, 50 GRAM, NON-FASTINGon 10-29-2024 Glucose [Mass/Vol] 92 mg/dL Normal 74-134 [facility] Comment on above: Order Comment: Speci men Type: BLOOD SPECIMEN Ordering Facility: [facility] Address: [address] [place] [address] Result Comment: [facility] Congress of Obstetricians and Gynecologists (Layla/Lizet) guidelines state a gestational diabetes mellitus positive screen is made, in women not previously diagnosed with overt diabetes, when the 1 hr plasma glucose level is equal to or above 140 mg/dL. [facility] and [facility] [place] recommends a 135 mg/dL cutoff. Performed By: #### 5 7021-8 #### [facility] CLIA [id number] [address] [place] [address] [place] Reagin and Treponema pallidu m IgG and IgM [Interp]on 10-29-2024 T. pallidum IgG+IgM IA Ql (S) Non-Reactive Normal Nonreactive [facility] Comment on above: Order Comment: Speci men Type: BLOOD SPECIMEN Ordering Facility: [facility] Address: [address] [place] [address] Performed By: #### 5 7021-8 #### [facility] CLIA [id number] [address] [place] [address] [place] Reagin+T pallidum IgG+IgM Se rPl-Impon 10-29-2024 Reagin and Treponema pallidum IgG and IgM [Interp] Cannot exclude recent Treponemal infection if specimen collected within 7-10 days after appearance of suspect lesions or 2-3 weeks after an exposure. Clinical correlation is required. Normal [facility] Comment on above: Order Comment: Speci men Type: BLOOD SPECIMEN Ordering Facility: [facility] Address: [address] [place] [address] Performed By: #### 5 7021-8 #### [facility] CLIA [id number] [address] [place] [address] [place] CNPYa 10-02-2024 CNPN Telephone (OGFVWE) VICKY MITCHELL ([id number]) 2000 F Date Time Provider Department 10/02/24 [facility] During your visit today, we recorded the following information about you: Lorena Lui, RN 10/02/2024 9:20 AM Signed 2nd risk assessment form submitted 10/02/24 Lorena Lui RN Allergies As of Date: 10/02/2024 Noted Allergy Reaction FUROSEMIDE 08/17/2024 16 - Unknown LATEX 04/12/2007 2 - Rash Date Reviewed: 10/01/2024 Reviewed by: Cassidy Rain MA - Fully Assessed Reason for Visit: PRAF [4193] Prescriptions as of 10/02/2024 - aspirin, enteric coated (ECOTRIN LOW STRENGTH) 81 mg EC tablet Take 1 tablet by mouth once daily. - VIT 14-IRON FUM-FOLIC ORAL Take by mouth. Problem List As Of Date 10/02/2024 Noted Resolved Attention deficit hyperactivity disorder (ADHD)*06/01/2024 History of depression [Z86.59] 06/01/2024 with uncertain dates in first trimest*06/01/2024 Family history of blood coagulation disorder [Z*06/01/2024 Size of fetus inconsistent with dates in first *06/19/2024 Supervision of high risk in second tr*09/03/2024 Encounter Status:Closed by LORENA LUI on 10/02/24 Normal [facility] Examination level ultrasound on 09-03-2024 Indication Standard anatomic survey Impression REMOTE READ The patient is referred for a standard anatomic survey. - Single, live, intrauterine . - biometry is consistent with the established gestational age. - No malformations were visualized on a complete standard anatomic survey. - The amniotic fluid volume is normal amount. - The placenta is anterior, fundal. - The Transabdominal cervical length measures 36.6 mm with no evidence of funneling or other dynamic changes. - Not all structural malformations can be detected by ultrasound examination. Recommendations Additional follow-up as clinically indicated. Maternal Assessment Height 163 cm Height (ft) 5 ft Height (in) 4 in Physical Exam Initial weight (lb) 166 lb Initial BMI 28.49 kg/m Maternal assessment other: 3 Para 2 Method Transabdominal ultrasound examination. View: Suboptimal view: limited by position Santacruz . Number of fetuses: 1 Dating LMP on: 03/30/2024 GA by LMP 22 w + 3 d MICHEL by LMP: 01/04/2025 GA by prior assessment 19 w + 3 d MICHEL by prior assessment: 01/25/2025 Ultrasound examination on: 09/03/2024 GA by U/S based upon: AC, BPD, Femur, HC GA by U/S 19 w + 5 d MICHEL by U/S: 01/23/2025 Assigned: based on stated MICHEL, selected on 09/03/2024 Assigned GA 19 w + 3 d Assigned MICHEL: 01/25/2025 General Evaluation Cardiac activity present. FHR 156 bpm. movements: present. Presentation: cephalic Placenta: Placental site: anterior, fundal Umbilical cord: Cord vessels: 3 vessel cord Amniotic fluid: Amount of AF: normal amount. MVP 4.0 cm Growth Overview Exam date GA BPD (mm) HC (mm) AC (mm) FL (mm) HL (mm) EFW (g) 09/03/2024 19w 3d 43.7 41% 173.3 64% 149.2 70% 30.5 66% 31.2 83% 315 67% Biometry Standard BPD 43.7 mm 19w 2d 41% Hadlock OFD 63.8 mm 20w 3d 97% Nicolaides HC 173.3 mm 19w 6d 64% Yolis Cerebellum tr 19.1 mm 18w 4d 23% Hill Nuchal fold 3.6 mm AC 149.2 mm 20w 1d 70% Hadlock Femur 30.5 mm 19w 4d 66% Yolis Humerus 31.2 mm 20w 3d 83% Yolis EFW 315 g 19w 5d 67% Hadlock EFW (lb) 0 lb EFW (oz) 11 oz EFW by: Hadlock (HC-AC-FL) Extended Log Truck Driver 5.7 mm CM 4.7 mm 45% Nicolaides Extremities / Bony Struc FL / HC 0.18 38% Hadlock Other Structures FHR 156 bpm Anatomy Cranium: normal Lateral ventricles: normal Choroid plexus: normal Midline falx: normal Cavum septi pellucidi: normal Cerebellum: normal Cisterna magna: normal Head / Neck Vermis: Normal but not required for a standard anatomy exam Neck: Normal but not required for a standard anatomy exam Nuchal fold: Normal but not required for a standard anatomy exam Lips: normal Profile: Normal but not required for a standard anatomy exam Nose: Normal but not required for a standard anatomy exam Face Maxilla: Normal but not required for a standard anatomy exam Mandible: Normal but not required for a standard anatomy exam Orbits: Normal but not required for a standard anatomy exam Lens: Normal but not required for a standard anatomy exam 4-chamber view: normal RVOT view: normal LVOT view: normal 3-vessel view: normal 0-knhsnq-rclufkq view: normal Heart / Thorax Situs: situs solitus (normal) Aortic arch view: Normal but not required for a standard anatomy exam SVC: Normal but not required for a standard anatomy exam IVC: Normal but not required for a standard anatomy exam Cardiac axis: normal Rt lung: Normal but not required for a standard anatomy exam Lt lung: Normal but not required for a standard anatomy exam Diaphragm: Normal but not required for a standard anatomy exam Cord insertion: normal Stomach: normal Kidneys: normal Bladder: normal Genitals: normal Abdomen Abdom. wall: normal Cervical spine: normal Thoracic spine: normal Lumbar spine: normal Sacral spine: normal Arms: normal Legs: normal Rt upper arm: normal Rt forearm: normal Rt hand: normal Rt fingers: normal Lt upper arm: normal Lt forearm: normal Lt hand: normal Lt fingers: normal Rt upper leg: normal Rt lower leg: normal Rt foot: normal Lt upper leg: normal Lt lower leg: normal Lt foot: normal sex: female Wants to know sex: yes Maternal Structures Uterus / Cervix Uterus: Visualized Cervix: Visualized Approach: Transabdominal Cervical length 36.6 mm Other: Patient declined transvaginal ultrasound for cervical length. Ovaries / Tubes / Adnexa Rt ovary: Visualized Lt ovary: Visualized Performed By: Kelsy Moses RDMS, RVT Read By: Corie Monge M.D. MATERNAL MEDICINE [facility] Radiology Study observation (narrative) [facility] nuchal translucency me asured by [place] 07-20-2024 Indication First trimester anatomic survey Impression REMOTE READ The patient is referred for a first trimester anatomy scan including nuchal translucency measurement as clinically indicated. - Single, live, intrauterine . - Royer rump length measurement is consistent with the established gestational age. - No malformations visualized on incomplete first trimester anatomic assessment. - The nuchal translucency measurement is 2.2 mm. - Not all structural malformations can be detected by ultrasound examination. Recommendations Return for anatomy ultrasound Maternal Assessment Height 163 cm Height (ft) 5 ft Height (in) 4 in Physical Exam Initial weight (lb) 166 lb Initial BMI 28.49 kg/m Maternal assessment other: 3 Para 2 Method Transabdominal ultrasound examination Santacruz . Number of fetuses: 1 Dating LMP on: 03/30/2024 GA by LMP 16 w + 0 d MICHEL by LMP: 01/04/2025 GA by prior assessment 13 w + 0 d MICHEL by prior assessment: 01/25/2025 Ultrasound examination on: 07/20/2024 GA by U/S based upon: CRL GA by U/S 13 w + 2 d MICHEL by U/S: 01/23/2025 Assigned: based on stated MICHEL, selected on 07/20/2024 Assigned GA 13 w + 0 d Assigned MICHEL: 01/25/2025 General Evaluation Cardiac activity present Placenta: anterior Cord vessels: 3 vessel cord Amniotic fluid: normal amount Biometry Standard FHR 156 bpm CRL 70.5 mm 13w 2d 62% Hadlock NT 2.20 mm First Trimester Anatomy Calvarium: normal Falx cerebri: normal Choroid plexus: normal Profile: normal Nasal bone: normal Retronasal triangle: normal Maxilla: normal Mandible: normal Nuchal translucency: Unremarkable Situs: normal Cardiac position: normal Cardiac axis: normal 4-chamber view: suboptimal 4-chamber view with color: suboptimal 4-dqmvkt-gcgicfu view: suboptima Abdominal cord insertion: normal Stomach: normal Kidneys: suboptimal Bladder: normal Color doppler of perivesical umbilical arteries: normal Vertebral alignment: normal Arms: normal Hands: normal Legs: normal Feet: normal Maternal Structures Uterus / Cervix Uterus: Visualized Uterus length 142 mm Uterus width 93 mm Uterus height 71 mm Uterus Vol 488.8 cm Ovaries / Tubes / Adnexa Rt ovary: Not visualized Lt ovary: Not visualized Performed By: Kelsy Moses, CAROLYNE, RVT Read By: Corie Monge, M.D. MATERNAL MEDICINE [facility] Radiology Study observation (narrative) [facility] US [place] 06-19-2024 Indication dating, Viability Impression Maternal Structures: Right Ovary: Size 28 mm x 14 mm x 10 mm Left Ovary: Size 21 mm x 19 mm x 12 mm - Single, live, intrauterine . - An intrauterine gestational sac with a yolk sac and pole is present. - Royer rump length measurement is NOT consistent with the dating provided. Therefore, dating is now based on today?s crown rump length. The final EDC is 01/25/2025 - heart rate is within normal limits. FHR 168. Recommendations - First trimester anatomic survey at 13 weeks with nuchal translucency measurement as clinically indicated. - Additional follow up as clinically indicated. Method Transabdominal ultrasound examination. View: Adequate visualization Santacruz . Number of embryos: 1 Dating LMP on: 03/30/2024 GA by LMP 11 w + 4 d MICHEL by LMP: 01/04/2025 Ultrasound examination on: 06/19/2024 GA by U/S based upon: CRL GA by U/S 8 w + 4 d MICHEL by U/S: 01/25/2025 Assigned: based on ultrasound (CRL), selected on 06/19/2024 Assigned GA 8 w + 4 d Assigned MICHEL: 01/25/2025 Assessment Gestational sac: visualized Location: intrauterine Yolk sac: not visualized Embryo: visualized CRL 20.1 mm 8w 4d 74% Hadlock Cardiac activity: present FHR 168 bpm Maternal Structures Uterus / Cervix Uterus: Visualized Uterus position: retroverted Description of uterine malformations: none Myometrium: normal Uterus length 97 mm Uterus width 74 mm Uterus height 73 mm Uterus Vol 277.0 cm Endometrium: live IUP noted within Cervix: Visualized Cervix details: normal Ovaries / Tubes / Adnexa Rt ovary: Visualized Rt ovary morphology: premenopausal normal follicular Rt ovary D1 28 mm Rt ovary D2 14 mm Rt ovary D3 10 mm Rt ovary Vol 2.0 cm Lt ovary: Visualized Lt ovary morphology: premenopausal normal follicular Lt ovary D1 21 mm Lt ovary D2 19 mm Lt ovary D3 12 mm Lt ovary Vol 2.6 cm Cul de Sac / Bladder / Kidneys / Other Cul de Sac: Visualized Performed By: Jada Helms RDMS Read By: Srinivasan Lin M.D. MATERNAL MEDICINE [facility] (SPMOBA) VICKY MITCHELL ([id number]) 2000 F Date Time Provider Department 06/05/24 GUADALUPE DALEYEVER During your visit today, we recorded the following information about you: Guadalupe Daley RN 06/05/2024 8:53 AM Signed 1st risk assessment form submitted 06/05/24. Guadalupe Daley RN Allergies As of Date: 06/05/2024 Noted Allergy Reaction LATEX 04/12/2007 2 - Rash Date Reviewed: 06/01/2024 Reviewed by: Franck Armando APRN.LEASING COORDINATOR - Fully Assessed Reason for Visit: PRAF [4193] Prescriptions as of 06/05/2024 - aspirin, enteric coated (ECOTRIN LOW STRENGTH) 81 mg EC tablet Take 1 tablet by mouth once daily. - VIT 14-IRON FUM-FOLIC ORAL Take by mouth. Problem List As Of Date 06/05/2024 Noted Resolved Attention deficit hyperactivity disorder (ADHD)*06/01/2024 History of depression [Z86.59] 06/01/2024 with uncertain dates in first trimest*06/01/2024 Encounter for supervision of high risk pregnanc*06/01/2024 Family history of blood coagulation disorder [Z*06/01/2024 Encounter Status:Closed by GUADALUPE DALEY on 06/05/24 Normal [facility] B-HCG SerPl-[place]Cncon 4 [place] [address].0 m[IU]/mL High <5.0 [facility] Comment on above: Order Comment: Speci men Type: BLOOD SPECIMEN Ordering Facility: [facility] Address: [address] [place] [address] Result Comment: LOTUS TITATIVE HCG NORMAL RANGES Weeks of Gestation (Weeks Since LMP) 3 Weeks (5.8-71.2 mIU/mL) 4 Weeks (9.5-750 mIU/mL) 5 Weeks (217-7138 mIU/mL) 6 Weeks (158-40039 mIU/mL) 7 Weeks (3697-635880 mIU/mL) 8 Weeks (26946-376521 mIU/mL) 9 Weeks (51216-208284 mIU/mL) 10 Weeks (29060-210357 mIU/mL) 12 Weeks (31287-159268 mIU/mL) Referenced to 4th IS of NIBS Performed By: #### 5 7021-8 #### [facility] CLIA [id number] [address] [place] [address] [place] [facility] 4 [place] Qn 7819.0 m[IU]/mL High <5.0 [facility] Comment on above: Order Comment: Speci men Type: FLUID SPECIMEN Ordering Facility: [facility] Address: [address] [place] [address] Result Comment: LOTUS TITATIVE HCG NORMAL RANGES Weeks of Gestation (Weeks Since LMP) 3 Weeks (5.8-71.2 mIU/mL) 4 Weeks (9.5-750 mIU/mL) 5 Weeks (217-7138 mIU/mL) 6 Weeks (158-86119 mIU/mL) 7 Weeks (3697-649630 mIU/mL) 8 Weeks (92831-962267 mIU/mL) 9 Weeks (41996-686090 mIU/mL) 10 Weeks (28083-254891 mIU/mL) 12 Weeks (08773-873402 mIU/mL) Referenced to 4th IS of [facility] Performed By: #### L [id number] #### [facility] CLIA [id number] [address] [place] [address] [place] Bacteria Ur Culton 4 Bacteria identified Cx Nom (U) ORGANISM ID: 1 10,000 -<50,000 CFU/ml Normal urogenital alejo Normal [facility] Comment on above: Performed By: #### 5 7021-8 #### [facility] CLIA [id number] [address] [place] [address] [place] C. trachomatis+N. gonorrhoea e DNA BRAD+probe Ql (Unsp spec)on 06-01-2024 C. trachomatis rRNA BRAD+probe Ql (Unsp spec) Not detected Normal Not detected [facility] Comment on above: Order Comment: Speci men Type: BLOOD SPECIMEN Ordering Facility: [facility] Address: [address] [place] [address] Performed By: #### 5 7021-8 #### [facility] CLIA [id number] [address] [place] [address] N. gonorrhoeae rRNA BRAD+probe Ql (Unsp spec) Not detected Normal Not detected [facility] Comment on above: Order Comment: Speci men Type: BLOOD SPECIMEN Ordering Facility: [facility] Address: [address] [place] [address] Performed By: #### 5 7021-8 #### [facility] CLIA [id number] [address] [place] [address] [place] CARRIER SCREEN, STANDARDon 1 08-02-2023 CARRIER SCREEN RESULTS View results in Scanned Documents link when available. Normal [facility] Comment on above: Order Comment: Speci men Type: FLUID SPECIMEN Ordering Facility: [facility] Address: [address] [place] [address] Performed By: #### L [id number] #### [facility] CLIA [id number] [address] [place] [address] [place] CBC W Auto Differential pane l (Bld)on 06-01-2024 Basophils (Bld) [#/Vol] 10*3/uL Normal <0.11 [facility] Comment on above: Order Comment: Speci men Type: FLUID SPECIMEN Ordering Facility: [facility] Address: [address] [place] [address] Performed By: #### L [id number] #### [facility] CLIA [id number] [address] [place] [address] [place] Basophils/100 WBC (Bld) 0.3 % Normal [facility] Comment on above: Order Comment: Speci men Type: FLUID SPECIMEN Ordering Facility: [facility] Address: [address] [place] [address] Performed By: #### L [id number] #### [facility] CLIA [id number] [address] [place] [address] [place] Differential cell count method Nom (Bld) Auto Normal [facility] Comment on above: Order Comment: Speci men Type: FLUID SPECIMEN Ordering Facility: [facility] Address: [address] [place] [address] Performed By: #### L [id number] #### [facility] CLIA [id number] [address] [place] [address] [place] Eosinophils (Bld) [#/Vol] 10*3/uL Normal <0.46 [facility] Comment on above: Order Comment: Speci men Type: FLUID SPECIMEN Ordering Facility: [facility] Address: [address] [place] [address] Performed By: #### L [id number] #### [facility] CLIA [id number] [address] [place] [address] [place] Eosinophils/100 WBC (Bld) 0.3 % Normal [facility] Comment on above: Order Comment: Speci men Type: FLUID SPECIMEN Ordering Facility: [facility] Address: [address] [place] [address] Performed By: #### L [id number] #### [facility] CLIA [id number] [address] [place] [address] [place] Erythrocyte distribution width (RBC) [Ratio] 11.9 % Normal 11.5-15.0 [facility] Comment on above: Order Comment: Speci men Type: FLUID SPECIMEN Ordering Facility: [facility] Address: [address] [place] [address] Performed By: #### L [id number] #### [facility] CLIA [id number] [address] [place] [address] [place] Hematocrit (Bld) [Volume fraction] 35.7 % Low 36.0-46.0 [facility] Comment on above: Order Comment: Speci men Type: FLUID SPECIMEN Ordering Facility: [facility] Address: [address] [place] [address] Performed By: #### L [id number] #### [facility] CLIA [id number] [address] [place] [address] [place] Hemoglobin (Bld) [Mass/Vol] 12.3 g/dL Normal 11.5-15.5 [facility] Comment on above: Order Comment: Speci men Type: FLUID SPECIMEN Ordering Facility: [facility] Address: [address] [place] [address] Performed By: #### L [id number] #### [facility] CLIA [id number] [address] [place] [address] [place] Immature granulocytes (Bld) [#/Vol] 10*3/uL Normal <0.10 [facility] Comment on above: Order Comment: Speci men Type: FLUID SPECIMEN Ordering Facility: [facility] Address: [address] [place] [address] Performed By: #### L [id number] #### [facility] CLIA [id number] [address] [place] [address] [place] Immature granulocytes/100 WBC (Bld) 0.2 % Normal [facility] Comment on above: Order Comment: Speci men Type: FLUID SPECIMEN Ordering Facility: [facility] Address: [address] [place] [address] Performed By: #### L [id number] #### [facility] CLIA [id number] [address] [place] [address] [place] Lymphocytes (Bld) [#/Vol] 2.30 10*3/uL Normal 1.00-4.00 [facility] Comment on above: Order Comment: Speci men Type: FLUID SPECIMEN Ordering Facility: [facility] Address: [address] [place] [address] Performed By: #### L [id number] #### [facility] CLIA [id number] [address] [place] [address] [place] Lymphocytes/100 WBC (Bld) 38.0 % Normal [facility] Comment on above: Order Comment: Speci men Type: FLUID SPECIMEN Ordering Facility: [facility] Address: [address] [place] [address] Performed By: #### L [id number] #### [facility] CLIA [id number] [address] [place] [address] [place] MCH (RBC) [Entitic mass] 29.9 pg Normal 26.0-34.0 [facility] Comment on above: Order Comment: Speci men Type: FLUID SPECIMEN Ordering Facility: [facility] Address: [address] [place] [address] Performed By: #### L [id number] #### [facility] CLIA [id number] [address] [place] [address] [place] MCHC (RBC) [Mass/Vol] 34.5 g/dL Normal 30.5-36.0 [facility] Comment on above: Order Comment: Speci men Type: FLUID SPECIMEN Ordering Facility: [facility] Address: [address] [place] [address] Performed By: #### L [id number] #### [facility] CLIA [id number] [address] [place] [address] [place] MCV (RBC) [Entitic vol] 86.9 fL Normal 80.0-100.0 [facility] Comment on above: Order Comment: Speci men Type: FLUID SPECIMEN Ordering Facility: [facility] Address: [address] [place] [address] Performed By: #### L [id number] #### [facility] CLIA [id number] [address] [place] [address] [place] Monocytes (Bld) [#/Vol] 0.34 10*3/uL Normal <0.87 [facility] Comment on above: Order Comment: Speci men Type: FLUID SPECIMEN Ordering Facility: [facility] Address: [address] [place] [address] Performed By: #### L [id number] #### [facility] CLIA [id number] [address] [place] [address] [place] Monocytes/100 WBC (Bld) 5.6 % Normal [facility] Comment on above: Order Comment: Speci men Type: FLUID SPECIMEN Ordering Facility: [facility] Address: [address] [place] [address] Performed By: #### L [id number] #### [facility] CLIA [id number] [address] [place] [address] [place] Neutrophils (Bld) [#/Vol] 3.36 10*3/uL Normal 1.45-7.50 [facility] Comment on above: Order Comment: Speci men Type: FLUID SPECIMEN Ordering Facility: [facility] Address: [address] [place] [address] Performed By: #### L [id number] #### [facility] CLIA [id number] [address] [place] [address] [place] Neutrophils/100 WBC (Bld) 55.6 % Normal [facility] Comment on above: Order Comment: Speci men Type: FLUID SPECIMEN Ordering Facility: [facility] Address: [address] [place] [address] Performed By: #### L [id number] #### [facility] CLIA [id number] [address] [place] [address] [place] Nucleated RBC (Bld) [#/Vol] 10*3/uL Normal <0.01 [facility] Comment on above: Order Comment: Speci men Type: FLUID SPECIMEN Ordering Facility: [facility] Address: [address] [place] [address] Performed By: #### L [id number] #### [facility] CLIA [id number] [address] [place] [address] [place] Nucleated RBC/100 WBC (Bld) [Ratio] 0.0 /100 WBC Normal [facility] Comment on above: Order Comment: Speci men Type: FLUID SPECIMEN Ordering Facility: [facility] Address: [address] [place] [address] Performed By: #### L [id number] #### [facility] CLIA [id number] [address] [place] [address] [place] Platelet mean volume (Bld) [Entitic vol] 9.7 fL Normal 9.0-12.7 [facility] Comment on above: Order Comment: Speci men Type: FLUID SPECIMEN Ordering Facility: [facility] Address: [address] [place] [address] Performed By: #### L [id number] #### [facility] CLIA [id number] [address] [place] [address] [place] Platelets (Bld) [#/Vol] 223 10*3/uL Normal 150-400 [facility] Comment on above: Order Comment: Speci men Type: FLUID SPECIMEN Ordering Facility: [facility] Address: [address] [place] [address] Performed By: #### L [id number] #### [facility] CLIA [id number] [address] [place] [address] [place] RBC (Bld) [#/Vol] 4.11 10*6/uL Normal 3.90-5.20 [facility] Comment on above: Order Comment: Speci men Type: FLUID SPECIMEN Ordering Facility: [facility] Address: [address] [place] [address] Performed By: #### L [id number] #### [facility] CLIA [id number] [address] [place] [address] [place] WBC (Bld) [#/Vol] 6.05 10*3/uL Normal 3.70-11.00 [facility] Comment on above: Order Comment: Speci men Type: FLUID SPECIMEN Ordering Facility: [facility] Address: [address] [place] [address] Performed By: #### L [id number] #### [facility] CLIA [id number] [address] [place] [address] [place] HBV surface Ag Ser Qlon 05-20 HBV surface Ag Ql (S) Negative Normal Negative [facility] Comment on above: Order Comment: Speci men Type: BLOOD SPECIMEN Ordering Facility: [facility] Address: [address] [place] [address] Performed By: #### 5 7021-8 #### [facility] CLIA [id number] [address] [place] [address] [place] HCV Ab Ser Qlon 06-01-2024 HCV Ab Ql (S) Negative Normal Negative [facility] Comment on above: Order Comment: Speci men Type: FLUID SPECIMEN Ordering Facility: [facility] Address: [address] [place] [address] Result Comment: The result suggests no evidence of active infection with Hepatitis C virus. Should recent infection be suspected, repeat testing may be considered 4-6 weeks after this draw. Performed By: #### L [id number] #### [facility] CLIA [id number] [address] [place] [address] [place] HIV 1+2 Ab IA Qlon HIV 1 and 2 Ab IA.rapid Nom (S/P/Bld) Normal [facility] Comment on above: Order Comment: Speci men Type: FLUID SPECIMEN Ordering Facility: [facility] Address: [address] [place] [address] Result Comment: Test not indicated. Performed By: #### L [id number] #### [facility] CLIA [id number] [address] [place] [address] [place] HIV 1+2 Ab+HIV1 p24 Ag IA Ql Non-Reactive Normal Nonreactive [facility] Comment on above: Order Comment: Speci men Type: FLUID SPECIMEN Ordering Facility: [facility] Address: [address] [place] [address] Performed By: #### L [id number] #### [facility] CLIA [id number] [address] [place] [address] [place] HIV immunoassay testing algorithm interpretation (S/P/Bld) [Interp] Normal [facility] Comment on above: Order Comment: Speci men Type: FLUID SPECIMEN Ordering Facility: [facility] Address: [address] [place] [address] Result Comment: No e vidence of HIV-1 or HIV-2 infection. Should recent infection be suspected, repeat testing may be considered 2-3 weeks after this draw. [place] Rev. Code 3701.243(E): This information has been disclosed to you from confidential records protected from disclosure by state law. ???You shall make no further disclosure of this information without the specific, written, and informed release of the individual to whom it pertains or as otherwise permitted by state law. A general authorization for the release of medical or other information is not sufficient for the purpose of the release of HIV test results or diagnoses. Performed By: #### L [id number] #### [facility] CLIA [id number] [address] [place] [address] [place] HbA1c (Bld)on 06-01-2024 Average glucose Estimated from glycated hemoglobin (Bld) [Mass/Vol] 97 mg/dL Normal [facility] Comment on above: Order Comment: Speci men Type: BLOOD SPECIMEN Ordering Facility: [facility] Address: [address] [place] [address] Result Comment: eAG: (Estimated average glucose) is a calculated value from HgbA1c and is care support representative of the average blood glucose level in the last 2-3 month period. Performed By: #### 5 5454-3 #### [facility] CLIA [id number] [address] [place] [address] [place] HbA1c (Bld) [Mass fraction] 5.0 % Normal 4.3-5.6 [facility] Comment on above: Order Comment: Speci men Type: BLOOD SPECIMEN Ordering Facility: [facility] Address: [address] [place] [address] Result Comment: [place] Diabetes Association guidelines indicate that patients with HgbA1c in the range 5.7-6.4% are at increased risk for development of diabetes, and intervention by lifestyle modification may be beneficial. HgbA1c greater or equal to 6.5% is considered diagnostic of diabetes. Performed By: #### 5 5454-3 #### [facility] CLIA [id number] [address] [place] [address] [place] PAP TESTon 06-01-2024 ADEQUACY Satisfactory for interpretation. Normal [facility] Comment on above: Order Comment: Speci men Type: FLUID SPECIMEN Ordering Facility: [facility] Address: [address] [place] [address] Performed By: #### L [id number] #### [facility] CLIA [id number] [address] [place] [address] [place] CASE REPORT Normal [facility] Comment on above: Order Comment: Speci men Type: FLUID SPECIMEN Ordering Facility: [facility] Address: [address] [place] [address] Result Comment: Gyne cologic Cytology Report Case: [id number] Authorizing Provider: Franck Armando APRN.LEASING COORDINATOR Collected: 06/01/2024 11:47 AM Ordering Location: OB/Gynecology Received: 06/01/2024 04:43 PM First Screen: [place], [place], [place], ASCP Specimen: Pap Test, ThinPrep, Cervix Performed By: #### L [id number] #### [facility] CLIA [id number] [address] [place] [address] [place] CLINICAL HISTORY, CYTOLOGY, INTELLIGENCE MANAGER (Indicate Weeks) Normal [facility] Comment on above: Order Comment: Speci men Type: FLUID SPECIMEN Ordering Facility: [facility] Address: [address] [place] [address] Performed By: #### L [id number] #### [facility] CLIA [id number] [address] [place] [address] [place] FINAL PERFORMING LAB Normal [facility] Comment on above: Order Comment: Speci men Type: FLUID SPECIMEN Ordering Facility: [facility] Address: [address] [place] [address] Result Comment: Tech nical component, marriage therapist screening performed at [facility], [address] [place] [address] CLIA# [id number] Diagnostic interpretation performed at [facility], [address] [place], [place] [id number] CLIA# [id number] Services Mgr: Jony Macedo M.D. Performed By: #### L [id number] #### [facility] CLIA [id number] [address] [place] [address] [place] INTERPRETATION, CYTOLOGY, INTELLIGENCE MANAGER Normal [facility] Comment on above: Order Comment: Speci men Type: FLUID SPECIMEN Ordering Facility: [facility] Address: [address] [place] [address] Result Comment: Nega tive for intraepithelial lesion or malignancy. Performed By: #### L [id number] #### [facility] CLIA [id number] [address] [place] [address] [place] LMP 03/30/2024 Normal [facility] Comment on above: Order Comment: Specdaniel waldrop Type: FLUID SPECIMEN Ordering Facility: [facility] Address: [address] [place] [address] Performed By: #### L [id number] #### [facility] CLIA [id number] [address] [place] [address] [place] PAP DISCLAIMER COMMENT The Pap Smear is a screening test for cervical cancer. False negative results occur with all screening tests, emphasizing the need for rescreening at recommended intervals, and clinical correlation. Normal [facility] Comment on above: Order Comment: Zaheer waldrop Type: FLUID SPECIMEN Ordering Facility: [facility] Address: [address] [place] [address] Performed By: #### L [id number] #### [facility] CLIA [id number] [address] [place] [address] [place] PAP MARINE STRUCTURAL WELDER COMMENT This specimen has been analyzed by the ThinPrep Imaging System, an automated imaging and review system, which assists the laboratory in evaluating cells on ThinPrep Pap tests. Following automated imaging, selected trevino from every slide are reviewed by a marriage therapist. Normal [facility] Comment on above: Order Comment: Zaheer waldrop Type: FLUID SPECIMEN Ordering Facility: [facility] Address: [address] [place] [address] Performed By: #### L [id number] #### [facility] CLIA [id number] [address] [place] [address] [place] POC A/C TECHNICIAN ULTRASOUNDon 06-01-20 Indication Viability; confirm cardiac activity Impression Single intrauterine gestational sac, CRL indicates discrepancy from clinical dates, MICHEL 01/27/2025 based on today's ultrasound, cardiac activity is visualized Recommendations Follow up for NT scan if desired Method Transabdominal ultrasound examination, Transvaginal ultrasound examination. View: Adequate visualization Santacruz . Number of embryos: 1 Dating LMP on: 03/30/2024 GA by LMP 9 w + 0 d MICHEL by LMP: 01/04/2025 Ultrasound examination on: 06/01/2024 GA by U/S based upon: CRL GA by U/S 5 w + 5 d MICHEL by U/S: 01/27/2025 Assigned: based on ultrasound (CRL), selected on 06/01/2024 Assigned GA 5 w + 5 d Assigned MICHEL: 01/27/2025 Biometry Standard FHR 105 bpm CRL 2.0 mm 5w 5d <1% Hadlock Assessment Gestational sac: visualized Location: intrauterine Yolk sac: visualized Embryo: visualized CRL 2.0 mm 5w 5d <1% Hadlock Cardiac activity: present FHR 105 bpm General Evaluation Cardiac activity present. FHR 105 bpm Performed By: Franck Armando NP Read By: Franck Armando NP MATERNAL MEDICINE [facility] Radiology Study observation (narrative) [facility] RUBELLA IGG ANTIBODYon 06-01 RUBELLA IGG AB, QUAL Positive Normal Positive [facility] Comment on above: Order Comment: Specdaniel waldrop Type: BLOOD SPECIMEN Ordering Facility: [facility] Address: [address] [place] [address] Result Comment: The result suggests recent or past exposure to Rubella virus or history of Rubella vaccination. Positive result may also be seen due to presence of passively-transferred antibodies. Please correlate with patient's history. Performed By: #### 5 7021-8 #### [facility] CLIA [id number] [address] [place] [address] [place] Reagin and Treponema pallidu m IgG and IgM [Interp]on 06-01-2024 T. pallidum IgG+IgM IA Ql (S) Non-Reactive Normal Nonreactive [facility] Comment on above: Order Comment: Speci palma Type: FLUID SPECIMEN Ordering Facility: [facility] Address: [address] [place] [address] Performed By: #### L [id number] #### [facility] CLIA [id number] [address] [place] [address] [place] Reagin+T pallidum IgG+IgM Se rPl-Impon 06-01-2024 Reagin and Treponema pallidum IgG and IgM [Interp] Cannot exclude recent Treponemal infection if specimen collected within 7-10 days after appearance of suspect lesions or 2-3 weeks after an exposure. Clinical correlation is required. Normal [facility] Comment on above: Order Comment: Speci men Type: FLUID SPECIMEN Ordering Facility: [facility] Address: [address] [place] [address] Performed By: #### L [id number] #### [facility] CLIA [id number] [address] [place] [address] TYPE + SCREEN PRENATALon ABO AB Normal [facility] Comment on above: Order Comment: Speci men Type: BLOOD SPECIMEN Ordering Facility: [facility] Address: [address] [place] [address] Performed By: #### T SPN #### [facility] CLIA [id number] [address] [place] [address] [place] Rh Nom (Bld) Positive Normal [facility] Comment on above: Order Comment: Speci men Type: BLOOD SPECIMEN Ordering Facility: [facility] Address: [address] [place] [address] Performed By: #### T SPN #### [facility] CLIA [id number] [address] [place] [address] TYPE AND SCREEN EXPIRATION 06/04/2024 23:59 Normal [facility] Comment on above: Order Comment: Speci men Type: BLOOD SPECIMEN Ordering Facility: [facility] Address: [address] [place] [address] Performed By: #### T SPN #### [facility] CLIA [id number] [address] [place] [address] [place] CNPYa 05-28-2024 ERIC Telephone (OBGY) MADIVICKY Mandy ([id number]) 2000 F Date Time Provider Department 05/28/24 FRANCK ARMANDO During your visit today, we recorded the following information about you: Renetta Lucero RN 05/28/2024 1:55 PM Signed Left message for patient to return phone call to complete nurse intake questions for her upcoming appointment. Patient has an appointment with Franck Armando for NOB appointment. I am here today and tomorrow morning if she calls back and I am available Leona Heck RN 05/28/2024 2:14 PM Signed 4:00 PM today Allergies As of Date: 05/28/2024 Noted Allergy Reaction LATEX 04/12/2007 2 - Rash Date Reviewed: 03/30/2023 Reviewed by: Mabel López LPN - Fully Assessed Reason for Visit: Appointment [186] Problem List As Of Date: 05/28/2024 (None) Encounter Status:Closed by LEONA HECK on 05/28/24 Normal [facility] CBC + DIFFon 05-25-2023 Baso # 0.00 x10EE3/UL Normal 0.00 - 0.10 [facility] Comment on above: Performed By: #### 2 [id number] #### [facility],[address] [place] [address] Basophils/100 WBC (Bld) 0.4 % Normal 0.0 - 2.0 [facility] Comment on above: Performed By: #### 2 [id number] #### [facility],[address] [place] [address] CBC + DIFF Normal [facility] Comment on above: Result Comment: CBC- COMPLETE BLOOD COUNT Performed By: #### 2 [id number] #### [facility],[address] [place] [address] EO 2.0 % Normal 0.0 - 4.0 [facility] Comment on above: Performed By: #### 2 75237 #### [facility],[address] [place] [address] EO # 0.10 x10EE3/UL Normal 0.00 - 0.50 [facility] Comment on above: Performed By: #### 2 77435 #### [facility],[address] [place] [address] Eosinophils/100 WBC (Bld) 1.4 % Normal 0.0 - 7.0 [facility] Comment on above: Performed By: #### 2 57565 #### [facility],[address] [place], [place] [id number] Erythrocyte distribution width (RBC) [Ratio] 12.9 % Normal 12.0 - 15.6 [facility] Comment on above: Performed By: #### 2 18645 #### [facility],[address] [place], [place] [address] Hematocrit (Bld) [Volume fraction] 42.1 % Normal 34.0 - 46.0 [facility] Comment on above: Performed By: #### 2 10120 #### [facility],[address] [place] [address] Hemoglobin (Bld) [Mass/Vol] 13.7 g/dL Normal 12.0 - 16.0 [facility] Comment on above: Performed By: #### 2 33107 #### [facility],[address] [place] [address] Lymph # 2.80 x10EE3/UL Normal 0.80 - 2.80 [facility] Comment on above: Performed By: #### 2 79635 #### [facility],[address] [place] [address] Lymphocytes/100 WBC (Bld) 45.4 % High 20.0 - 45.0 [facility] Comment on above: Performed By: #### 2 61198 #### [facility],[address] [place] [address]702 Lymphocytes/100 WBC (Bld) 50 % High 20 - 40 [facility] Comment on above: Performed By: #### 2 24240 #### [facility],[address] [place] [address] MANUAL DIFF SEE BELOW Normal [facility] Comment on above: Performed By: #### 2 65077 #### [facility],[address] [place] [address] MCH (RBC) [Entitic mass] 29 pg Normal 27 - 33 [facility] Comment on above: Performed By: #### 2 28906 #### [facility],[address] [place] [address] MCHC 33 X10 3 Normal 32 - 36 [facility] Comment on above: Performed By: #### 2 83312 #### [facility],[address] [place] [address] MCV (RBC) [Entitic vol] 90 fL Normal 80 - 99 [facility] Comment on above: Performed By: #### 2 [id number] #### [facility],[address] [place] [address] [place] # 0.30 x10EE3/UL Normal 0.20 - 1.00 [facility] Comment on above: Performed By: #### 2 01889 #### [facility],[address] [place] [address] MONOS 5 % Normal 0 - 8 [facility] Comment on above: Performed By: #### 2 98812 #### [facility],[address] [place] [address] MONOS % 5.4 % Normal 0.0 - 10.0 [facility] Comment on above: Performed By: #### 2 51435 #### [facility],[address] [place] [address] Morphology Jeremiah (Bld) [Interp] N/A Normal [facility] Comment on above: Result Comment: {CD] Performed By: #### 2 48456 #### [facility],[address],[place] [address] Neut # 3.00 x10EE3/UL Normal 1.50 - 7.10 [facility] Comment on above: Performed By: #### 2 90370 #### [facility],[address] [place] [address] Neutrophils/100 WBC (Bld) 47.4 % Normal 46.0 - 76.0 [facility] Comment on above: Performed By: #### 2 65907 #### [facility],[address] [place] [address] 19406 PLATELET 279 x10EE3/UL Normal 150 - 450 [facility] Comment on above: Performed By: #### 2 61028 #### [facility],[address] [place] [address]23 Platelet mean volume (Bld) [Entitic vol] 8.5 fL Normal 6.6 - 10.5 [facility] Comment on above: Result Comment: AUTO MATED DIFFERENTIAL Performed By: #### 2 48923 #### [facility],[address] [place] [address]1450 RBC 4.70 x 10EE6/UL Normal 4.10 - 5.30 [facility] Comment on above: Performed By: #### 2 00463 #### [facility],[address] [place] [address] 13374 SEGS 43 % Low 50 - 70 [facility] Comment on above: Performed By: #### 2 45655 #### [facility],[address] [place] [address] 99079 WBC 6.2 x 10EE3/UL Normal 4.5 - 10.8 [facility] Comment on above: Performed By: #### 2 63014 #### [facility],[address] [place] [address]017 HEMOGLOBIN A1C (POM)on 05-25 HbA1c (Bld) [Mass fraction] 5.6 % Normal 0.0 - 6.5 [facility] Comment on above: Result Comment: BLDo HEMOGLOBIN A1C REFERENCE RANGESBLDo Suggested Diagnosis HbA1c(%) HbA1C (mmol/mol Diabetic >/=6.5 >/=48 Prediabetes 5.7 - 6.4 39 - 47 Normal <5.7 <39 Performed By: #### 2 35075 #### [facility],[address] [place], [place] [id number] T4-FREE (FREE THYROXINE)on 1 07-26-2022 Free T4 [Mass/Vol] 1.06 ng/dL Normal 0.76 - 1.46 [facility] Comment on above: Result Comment: P otential of falsely elevated results when biotin concentrations are > 10 ng/mL. Performed By: #### 2 20355 #### [facility],[address] [place] [address] TSHon 05-25-2023 TSH Qn 1.56 m[IU]/L Normal 0.35 - 3.74 [facility] Comment on above: Performed By: #### 2 32418 #### [facility],[address] [place] [address] CMP with eGFRon 03-15-2023 AGE 22 years Normal [facility] Comment on above: Performed By: #### 2 47503 #### [facility],[address] [place] [address] 61258 Albumin [Mass/Vol] 3.8 g/dL Normal 3.4 - 5.0 [facility] Comment on above: Performed By: #### 2 82417 #### [facility],[address] [place] [address] 85845 Albumin/Globulin [Mass ratio] 1.0 {ratio} Normal 0.9 - 1.6 [facility] Comment on above: Performed By: #### 2 56586 #### [facility],[address] [place] [address] 43869 ALK PHOS 61 U/L Normal 46 - 116 [facility] Comment on above: Performed By: #### 2 45088 #### [facility],[address] [place] [address] 70063 ALT [Catalytic activity/Vol] 35 U/L Normal 14 - 59 [facility] Comment on above: Performed By: #### 2 39472 #### [facility],[address] [place] [address] 91488 Anion gap [Moles/Vol] 14 mmol/L Normal 10 - 20 [facility] Comment on above: Performed By: #### 2 53759 #### [facility],[address] [place] [address] 70518 AST [Catalytic activity/Vol] 29 U/L Normal 13 - 39 [facility] Comment on above: Performed By: #### 2 79396 #### [facility],[address] [place] [address] 52047 B/C RATIO 24 ratio Normal 0 - 30 [facility] Comment on above: Performed By: #### 2 30547 #### [facility],[address] [place] [address] 20126 Bilirubin [Mass/Vol] 0.2 mg/dL Normal 0.2 - 1.0 [facility] Comment on above: Performed By: #### 2 15959 #### [facility],[address] [place] [address] 51501 Calcium [Mass/Vol] 9.1 mg/dL Normal 8.5 - 10.1 [facility] Comment on above: Performed By: #### 2 77196 #### [facility],[address] [place] [address] 38171 Chloride [Moles/Vol] 105 mmol/L Normal 98 - 107 [facility] Comment on above: Performed By: #### 2 30358 #### [facility],[address] [place] [address] 68088 CMP with eGFR Normal [facility] Comment on above: Result Comment: COMP REHENSIVE METABOLIC PANEL Performed By: #### 2 04206 #### [facility],[address] [place] [address] 35438 CO2 [Moles/Vol] 27.6 mmol/L Normal 21.0 - 32.0 [facility] Comment on above: Performed By: #### 2 57584 #### [facility],[address] [place] [address] 96020 Creatinine [Mass/Vol] 0.70 mg/dL Normal 0.55 - 1.02 [facility] Comment on above: Performed By: #### 2 48027 #### [facility],[address] [place] [address] 94680 GFR/1.73 sq M.predicted among non-blacks MDRD (S/P/Bld) [Vol rate/Area] mL/min/{1.73_m2} Normal 60 - 999 [facility] Comment on above: Performed By: #### 2 73202 #### [facility],[address] [place] [address] 59374 Result Comment: ACCO RDING TO THE NATIONAL KIDNEY DISEASE EDUCATION PROGRAM(NKDE), A NORMAL eGFR IS A VALUE GREATER THAN OR EQUAL TO 60 ML/MIN/1.73 SQ METERS. CHRONIC KIDNEY DISEASE: <60mL/MIN/1.73 SQ METERS KIDNEY FAILURE: <15mL/MIN/1.73 SQ METERS THIS TEST SHOULD ONLY BE USED FOR PATIENTS 18 YEARS OF AGE AND OLDER. Globulin (S) [Mass/Vol] 3.8 g/dL Normal 1.5 - 3.8 [facility] Comment on above: Performed By: #### 2 67062 #### [facility],[address] [place] [address] 76967 Glucose [Mass/Vol] 98 mg/dL Normal 74 - 106 [facility] Comment on above: Performed By: #### 2 61213 #### [facility],[address] [place] [address] 13471 Potassium [Moles/Vol] 4.1 mmol/L Normal 3.5 - 5.1 [facility] Comment on above: Performed By: #### 2 87189 #### [facility],[address] [place] [address] 75183 Protein [Mass/Vol] 7.6 g/dL Normal 6.4 - 8.2 [facility] Comment on above: Performed By: #### 2 29230 #### [facility],[address] [place] [address] 62846 Sodium [Moles/Vol] 142 mmol/L Normal 136 - 145 [facility] Comment on above: Performed By: #### 2 07885 #### [facility],[address] [place] [address] 32814 Urea nitrogen [Mass/Vol] 17 mg/dL Normal 7 - 18 [facility] Comment on above: Performed By: #### 2 48989 #### [facility],[address] [place] [address] 15855 MRI FOOT/TOES WO/W IVCON LEF Ton 01-26-2023 [facility] XR FOOT GENERAL 3V AP/LAT/OB L LEFTon 11-12-2022 [facility] INSULIN [CCL]on 08-16-2022 Insulin 17.8 mU/L Normal 3.0-25.0 [facility] Comment on above: Result Comment: [facility] [address] [place] [address] Jony Macedo III, M.D. [id number] Performed By: #### 2 55870 #### [facility],[address] [place] [address] 81981 CBC + DIFFon 08-15-2022 Baso # 0.00 x10EE3/UL Normal 0.00 - 0.10 [facility] Comment on above: Performed By: #### 2 80833 #### [facility],[address] [place] [address] 47694 Basophils/100 WBC (Bld) 0.4 % Normal 0.0 - 2.0 [facility] Comment on above: Performed By: #### 2 41080 #### [facility],[address] [place] [address] 53185 CBC + DIFF Normal [facility] Comment on above: Result Comment: CBC- COMPLETE BLOOD COUNT Performed By: #### 2 66317 #### [facility],[address] [place] [address] 10576 EO # 0.10 x10EE3/UL Normal 0.00 - 0.50 [facility] Comment on above: Performed By: #### 2 11699 #### [facility],[address] [place] [address] 54075 Eosinophils/100 WBC (Bld) 1.0 % Normal 0.0 - 7.0 [facility] Comment on above: Performed By: #### 2 66981 #### [facility],[address] [place] [address] Erythrocyte distribution width (RBC) [Ratio] 12.8 % Normal 12.0 - 15.6 [facility] Comment on above: Performed By: #### 2 20340 #### [facility],[address] [place], [place] [address] Hematocrit (Bld) [Volume fraction] 40.8 % Normal 34.0 - 46.0 [facility] Comment on above: Performed By: #### 2 34137 #### [facility],[address] [place] [address] 76593 Hemoglobin (Bld) [Mass/Vol] 13.4 g/dL Normal 12.0 - 16.0 [facility] Comment on above: Performed By: #### 2 28533 #### [facility],[address] [place] [address] 09094 Lymph # 1.80 x10EE3/UL Normal 0.80 - 2.80 [facility] Comment on above: Performed By: #### 2 37523 #### [facility],[address] [place] [address] 18857 Lymphocytes/100 WBC (Bld) 35.0 % Normal 20.0 - 45.0 [facility] Comment on above: Performed By: #### 2 82966 #### [facility],[address] [place] [address] MANUAL DIFF N/A Normal [facility] Comment on above: Performed By: #### 2 37946 #### [facility],[address] [place] [address] MCH (RBC) [Entitic mass] 29 pg Normal 27 - 33 [facility] Comment on above: Performed By: #### 2 95590 #### [facility],[address] [place] [address] MCHC 33 X10 3 Normal 32 - 36 [facility] Comment on above: Performed By: #### 2 00264 #### [facility],[address] [place] [address] MCV (RBC) [Entitic vol] 88 fL Normal 80 - 99 [facility] Comment on above: Performed By: #### 2 44184 #### [facility],[address] [place] [address] [place] # 0.40 x10EE3/UL Normal 0.20 - 1.00 [facility] Comment on above: Performed By: #### 2 96257 #### [facility],[address] [place] [address] MONOS % 7.7 % Normal 0.0 - 10.0 [facility] Comment on above: Performed By: #### 2 86383 #### [facility],[address] [place], [place] [phone] Morphology Jeremiah (Bld) [Interp] N/A Normal [facility] Comment on above: Result Comment: {CD] Performed By: #### 2 35725 #### [facility],[address] [place] [address] Neut # 2.90 x10EE3/UL Normal 1.50 - 7.10 [facility] Comment on above: Performed By: #### 2 02305 #### [facility],[address] [place] [address] 58582 Neutrophils/100 WBC (Bld) 55.9 % Normal 46.0 - 76.0 [facility] Comment on above: Performed By: #### 2 20291 #### [facility],[address] [place] [address] 59150 PLATELET 241 x10EE3/UL Normal 150 - 450 [facility] Comment on above: Performed By: #### 2 80733 #### [facility],[address] [place] [address] 64652 Platelet mean volume (Bld) [Entitic vol] 8.5 fL Normal 6.6 - 10.5 [facility] Comment on above: Result Comment: AUTO MATED DIFFERENTIAL Performed By: #### 2 57506 #### [facility],[address] [place] [address] RBC 4.64 x 10EE6/UL Normal 4.10 - 5.30 [facility] Comment on above: Performed By: #### 2 48375 #### [facility],[address] [place], [place] [address] WBC 5.2 x 10EE3/UL Normal 4.5 - 10.8 [facility] Comment on above: Performed By: #### 2 07847 #### [facility],[address] [place] [address] 72939 CMP with eGFRon 08-15-2022 AGE 22 years Normal [facility] Comment on above: Performed By: #### 2 91103 #### [facility],[address] [place] [address] 19148 Albumin [Mass/Vol] 3.8 g/dL Normal 3.4 - 5.0 [facility] Comment on above: Performed By: #### 2 50696 #### [facility],[address] [place] [address] 80281 Albumin/Globulin [Mass ratio] 1.0 {ratio} Normal 0.9 - 1.6 [facility] Comment on above: Performed By: #### 2 56346 #### [facility],[address] [place] [address] 83615 ALK PHOS 69 U/L Normal 46 - 116 [facility] Comment on above: Performed By: #### 2 51314 #### [facility],[address] [place] [address] ALT [Catalytic activity/Vol] 17 U/L Normal 14 - 59 [facility] Comment on above: Performed By: #### 2 72719 #### [facility],[address] [place] [address] Anion gap [Moles/Vol] 14 mmol/L Normal 10 - 20 [facility] Comment on above: Performed By: #### 2 60532 #### [facility],[address] [place] [address] AST [Catalytic activity/Vol] 18 U/L Normal 13 - 39 [facility] Comment on above: Performed By: #### 2 90534 #### [facility],[address] [place], [place] [address] B/C RATIO 18 ratio Normal 0 - 30 [facility] Comment on above: Performed By: #### 2 40838 #### [facility],[address] [place] [address] 77364 Bilirubin [Mass/Vol] 0.4 mg/dL Normal 0.2 - 1.0 [facility] Comment on above: Performed By: #### 2 02282 #### [facility],[address] [place] [address] 28388 Calcium [Mass/Vol] 9.1 mg/dL Normal 8.5 - 10.1 [facility] Comment on above: Performed By: #### 2 60840 #### [facility],[address] [place], [place] [address] Chloride [Moles/Vol] 106 mmol/L Normal 98 - 107 [facility] Comment on above: Performed By: #### 2 75424 #### [facility],[address] [place] [address] CMP with eGFR Normal [facility] Comment on above: Result Comment: COMP REHENSIVE METABOLIC PANEL Performed By: #### 2 36662 #### [facility],[address] [place] [address] CO2 [Moles/Vol] 26.1 mmol/L Normal 21.0 - 32.0 [facility] Comment on above: Performed By: #### 2 48368 #### [facility],[address] [place] [address] Creatinine [Mass/Vol] 0.76 mg/dL Normal 0.55 - 1.02 [facility] Comment on above: Performed By: #### 2 94285 #### [facility],[address] [place] [address] GFR/1.73 sq M.predicted among non-blacks MDRD (S/P/Bld) [Vol rate/Area] mL/min/{1.73_m2} Normal 60 - 999 [facility] Comment on above: Performed By: #### 2 05721 #### [facility],[address] [place] [address] Result Comment: ACCO RDING TO THE NATIONAL KIDNEY DISEASE EDUCATION PROGRAM(NKDE), A NORMAL eGFR IS A VALUE GREATER THAN OR EQUAL TO 60 ML/MIN/1.73 SQ METERS. CHRONIC KIDNEY DISEASE: <60mL/MIN/1.73 SQ METERS KIDNEY FAILURE: <15mL/MIN/1.73 SQ METERS THIS TEST SHOULD ONLY BE USED FOR PATIENTS 18 YEARS OF AGE AND OLDER. Globulin (S) [Mass/Vol] 3.8 g/dL Normal 1.5 - 3.8 [facility] Comment on above: Performed By: #### 2 26835 #### [facility],[address] [place] [address] 57237 Glucose [Mass/Vol] 93 mg/dL Normal 74 - 106 [facility] Comment on above: Performed By: #### 2 98594 #### [facility],[address] [place] [address] 26412 Potassium [Moles/Vol] 4.1 mmol/L Normal 3.5 - 5.1 [facility] Comment on above: Performed By: #### 2 09388 #### [facility],[address] [place] [address] 97698 Protein [Mass/Vol] 7.6 g/dL Normal 6.4 - 8.2 [facility] Comment on above: Performed By: #### 2 08050 #### [facility],[address] [place] [address] 47982 Sodium [Moles/Vol] 142 mmol/L Normal 136 - 145 [facility] Comment on above: Performed By: #### 2 88064 #### [facility],[address] [place] [address] 87864 Urea nitrogen [Mass/Vol] 14 mg/dL Normal 7 - 18 [facility] Comment on above: Performed By: #### 2 69327 #### [facility],[address] [place] [address] 63023 LIPID PROFILEon 08-15-2022 Cholesterol [Mass/Vol] 188 mg/dL Normal 0 - 240 [facility] Comment on above: Performed By: #### 2 96450 #### [facility],[address] [place] [address] 89261 Cholesterol in HDL [Mass/Vol] 60 mg/dL Normal 40 - 60 [facility] Comment on above: Performed By: #### 2 47819 #### [facility],[address] [place] [address] 02404 Cholesterol in LDL [Mass/Vol] 114 mg/dL Normal 0 - 129 [facility] Comment on above: Performed By: #### 2 68235 #### [facility],[address] [place] [address] 33550 Cholesterol.total/C holesterol in HDL [Mass ratio] 3.1 {ratio} Normal 0.0 - 5.0 [facility] Comment on above: Performed By: #### 2 11096 #### [facility],[address] [place] [address] 24500 Lipid 1996 panel Normal [facility] Comment on above: Result Comment: LIPI D PROFILE Performed By: #### 2 74102 #### [facility],[address] [place] [address] 00230 Triglyceride [Mass/Vol] 72 mg/dL Normal 0 - 150 [facility] Comment on above: Performed By: #### 2 13186 #### [facility],[address] [place] [address] 17290 MRI IACon 07-28-2020 MRI IAC EXAM: MRI 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 TECHNIQUE: Multiplanar, multisequence MR imaging of the head was performed prior to and following the administration of 8 mL MultiHance contrast intravenously. FINDINGS: No restricted diffusion. No acute or prior hemorrhage. No mass effect, midline shift, or extra-axial fluid collection. No ventriculomegaly. Expected flow voids are seen within the intracranial internal carotid, vertebral, and basilar arteries. Cerebellopontine angles and internal auditory canals are unremarkable. Type I vascular loops are noted bilaterally. Seventh and eighth nerve complexes are unremarkable in course, caliber, contour, and signal. The cochlea, vestibule, and semicircular canals are unremarkable. No abnormal enhancement. The pituitary gland and midline structures are unremarkable. Bone marrow signal is within normal limits for the patient's age. The orbits and globes are unremarkable. Expected signal voids are seen within the paranasal sinuses and mastoid air cells. A few nonspecific subcentimeter cervical lymph nodes are seen within the posterior upper neck and suboccipital region, likely reactive. IMPRESSION: Unremarkable contrast enhanced brain MRI. Cerebellopontine angles and internal auditory canals are unremarkable with no mass effect or abnormal enhancement. Normal [facility] Hep C Ab IA w/Confon 019 Hepatitis C Ab IA NEGAT Normal Negative [facility] Comment on above: Performed By: #### P OMER3 #### [facility] [place] [facility] [address] [place], [place] [address] [phone] #### AHCV1B #### [facility] [place] [facility] [address] [place], [place] [address] NLYon 02-21-2019 Reagin Ab RPR Ql (S) NR Normal Non Reactive [facility] Comment on above: Performed By: #### P OMER3 #### [facility] [place] [facility] [address] [place] [phone] #### AHCV1B #### [facility] [place] [facility] [address] [place] [phone] Hepatitis B Surf. Ag NEGAT Normal Negative [facility] Comment on above: Performed By: #### P OMER3 #### [facility] [place] [facility] [address] [place] [phone] #### AHCV1B #### [facility] [place] [facility] [address] [place] [phone] Rubella IgG Ab 4.40 Index Value Normal [facility] Comment on above: Performed By: #### P OMER3 #### [facility] [place] [facility] [address] [place] [phone] #### AHCV1B #### [facility] [place] [facility] [address] [place], [place] [address] [phone] Rubella IgG Ab, Qual Positive Abnormal Negative [facility] Comment on above: Performed By: #### P OMER3 #### [facility] [place] [facility] [address], [place] [address] [phone] #### AHCV1B #### [facility] [place] [facility] [address] [place] [phone] Vital Signs Date Time Vital Sign Value Performing Clinician Niyah chavarria 01-14-2025 16:20-0400 Body mass index (BMI) [Ratio] 35.26 kg/m2 Chloe Hyde DISTANCE LEARNING TECHNICIAN.CNM Work Phone: [facility] 01-14-2025 16:20-0400 Body weight 94.26 kg Chloe Hyde DISTANCE LEARNING TECHNICIAN.CNM Work Phone: [facility] 01-14-2025 16:20-0400 Diastolic blood pressure 64 mm[Hg] Chloe Hyde DISTANCE LEARNING TECHNICIAN.CNM Work Phone: [facility] 01-14-2025 16:20-0400 Systolic blood pressure 118 mm[Hg] Chloe Hyde DISTANCE LEARNING TECHNICIAN.CNM Work Phone: [facility] 01-07-2025 13:12-0400 Body mass index (BMI) [Ratio] 34.85 kg/m2 Santhosh Cee MD Work Phone: [facility] 01-07-2025 13:12-0400 Body weight 93.17 kg Santhosh Cee MD Work Phone: [facility] 01-07-2025 13:12-0400 Diastolic blood pressure 62 mm[Hg] Santhosh Cee MD Work Phone: [facility] 01-07-2025 13:12-0400 Systolic blood pressure 100 mm[Hg] Santhosh Cee MD Work Phone: [facility] 12-31-2024 15:59-0400 Body mass index (BMI) [Ratio] 34.62 kg/m2 Anabell Gasca MD Work Phone: [facility] 12-31-2024 15:59-0400 Body weight 92.53 kg Anabell Gasca MD Work Phone: [facility] 12-31-2024 15:59-0400 Diastolic blood pressure 70 mm[Hg] Anabell Gasca MD Work Phone: [facility] 12-31-2024 15:59-0400 Systolic blood pressure 112 mm[Hg] Anabell Gasca MD Work Phone: [facility] 12-13-2024 11:18-0400 Body mass index (BMI) [Ratio] 33.43 kg/m2 Anabell Gasca MD Work Phone: [facility] 12-13-2024 11:18-0400 Body weight 89.36 kg Anabell Gasca MD Work Phone: [facility] 12-13-2024 11:18-0400 Diastolic blood pressure 70 mm[Hg] Anabell Gasca MD Work Phone: [facility] 12-13-2024 11:18-0400 Systolic blood pressure 108 mm[Hg] Anabell Gasca MD Work Phone: [facility] 11-28-2024 15:35-0400 Body mass index (BMI) [Ratio] 33.77 kg/m2 Franck Haury DISTANCE LEARNING TECHNICIAN.LEASING COORDINATOR Work Phone: [facility] 11-28-2024 15:35-0400 Body weight 90.27 kg Franck Haury DISTANCE LEARNING TECHNICIAN.LEASING COORDINATOR Work Phone: [facility] 11-28-2024 15:35-0400 Diastolic blood pressure 64 mm[Hg] Franck Haury DISTANCE LEARNING TECHNICIAN.LEASING COORDINATOR Work Phone: [facility] 11-28-2024 15:35-0400 Systolic blood pressure 112 mm[Hg] Franck Haury DISTANCE LEARNING TECHNICIAN.LEASING COORDINATOR Work Phone: [facility] 11-15-2024 15:37-0400 Body mass index (BMI) [Ratio] 32.92 kg/m2 Franck Haury DISTANCE LEARNING TECHNICIAN.LEASING COORDINATOR Work Phone: [facility] 11-15-2024 15:37-0400 Body weight 88 kg Franck Haury DISTANCE LEARNING TECHNICIAN.LEASING COORDINATOR Work Phone: [facility] 11-15-2024 15:37-0400 Diastolic blood pressure 68 mm[Hg] Franck Haury DISTANCE LEARNING TECHNICIAN.LEASING COORDINATOR Work Phone: [facility] 11-15-2024 15:37-0400 Systolic blood pressure 108 mm[Hg] Franck Haury DISTANCE LEARNING TECHNICIAN.LEASING COORDINATOR Work Phone: [facility] 10-29-2024 15:27-0400 Body mass index (BMI) [Ratio] 32.41 kg/m2 Adela Leamington DISTANCE LEARNING TECHNICIAN.LEASING COORDINATOR Work Phone: [facility] 10-29-2024 15:27-0400 Body weight 86.64 kg Adela Leamington DISTANCE LEARNING TECHNICIAN.LEASING COORDINATOR Work Phone: [facility] 10-29-2024 15:27-0400 Diastolic blood pressure 60 mm[Hg] Adela Indu DISTANCE LEARNING TECHNICIAN.LEASING COORDINATOR Work Phone: [facility] 10-29-2024 15:27-0400 Systolic blood pressure 102 mm[Hg] Adela Leamington DISTANCE LEARNING TECHNICIAN.LEASING COORDINATOR Work Phone: [facility] 10-01-2024 15:30-0400 Body mass index (BMI) [Ratio] 32.07 kg/m2 Shira Pereira MD Work Phone: [facility] 10-01-2024 15:30-0400 Body weight 85.73 kg Shira Pereira MD Work Phone: [facility] 10-01-2024 15:30-0400 Diastolic blood pressure 74 mm[Hg] Shira Pereira MD Work Phone: [facility] 10-01-2024 15:30-0400 Systolic blood pressure 118 mm[Hg] Shira Pereira MD Work Phone: [facility] 09-03-2024 14:19-0400 Body mass index (BMI) [Ratio] 31.39 kg/m2 Franck Armando DISTANCE LEARNING TECHNICIAN.LEASING COORDINATOR Work Phone: [facility] 09-03-2024 14:19-0400 Body weight 83.92 kg Franck Armando DISTANCE LEARNING TECHNICIAN.LEASING COORDINATOR Work Phone: [facility] 09-03-2024 14:19-0400 Diastolic blood pressure 62 mm[Hg] Franck Armando DISTANCE LEARNING TECHNICIAN.LEASING COORDINATOR Work Phone: [facility] 09-03-2024 14:19-0400 Systolic blood pressure 112 mm[Hg] Franck Lincolnalisia MARIE Work Phone: [facility] 08-17-2024 15:05-0500 Body mass index (BMI) [Ratio] 30.95 kg/m2 Santhosh Cee MD Work Phone: [facility] 08-17-2024 15:05-0500 Body weight 82.74 kg Santhosh Cee MD Work Phone: [facility] 08-17-2024 15:05-0500 Diastolic blood pressure 60 mm[Hg] Santhosh Cee MD Work Phone: [facility] [facility] 08-[facility]-2024 15:05-0500 Systolic blood pressure 122 mm[Hg] Santhosh Cee MD Work Phone: [facility] 07-20-2024 16:10-0500 Body mass index (BMI) [Ratio] 30.1 kg/m2 Santhosh Cee MD Work Phone: [facility] 07-20-2024 16:10-0500 Body weight 80.47 kg Santhosh Cee MD Work Phone: [facility] 07-20-2024 16:10-0500 Diastolic blood pressure 72 mm[Hg] Santhosh Cee MD Work Phone: [facility] 07-20-2024 16:10-0500 Systolic blood pressure 120 mm[Hg] Santhosh Cee MD Work Phone: [facility] 06-19-2024 14:37-0500 Body mass index (BMI) [Ratio] 29.76 kg/m2 Leona Armando MD Work Phone: [facility] 06-19-2024 14:37-0500 Body weight 79.56 kg Leona Armando MD Work Phone: [facility] 06-19-2024 14:37-0500 Diastolic blood pressure 72 mm[Hg] Leona Armando MD Work Phone: [facility] 06-19-2024 14:37-0500 Systolic blood pressure 112 mm[Hg] Leona Armando MD Work Phone: [facility] 06-01-2024 11:03-0500 Body height 163.5 cm Franckedith Lincolnalisia DISTANCE LEARNING TECHNICIAN.LEASING COORDINATOR Work Phone: [facility] 06-01-2024 11:03-0500 Body mass index (BMI) [Ratio] 29.19 kg/m2 Franck Haalisia DISTANCE LEARNING TECHNICIAN.LEASING COORDINATOR Work Phone: [facility] 06-01-2024 11:03-0500 Body weight 78.02 kg Franck Prabha DISTANCE LEARNING TECHNICIAN.LEASING COORDINATOR Work Phone: [facility] 06-01-2024 11:03-0500 Diastolic blood pressure 60 mm[Hg] Franck Haury DISTANCE LEARNING TECHNICIAN.LEASING COORDINATOR Work Phone: [facility] 06-01-2024 11:03-0500 Systolic blood pressure 112 mm[Hg] Franck Haury DISTANCE LEARNING TECHNICIAN.LEASING COORDINATOR Work Phone: [facility] Encounters Encounter Date Encounter Type Care Provider Facility Start: 01-25-2025 ambulatory [facility] Start: 01-14-2025 End: 01-14-2025 Patient encounter procedure Chloe Hyde APRN.CNM Work Phone: OB/Gynecology Comment on above: 38 weeks gestation o f (HCC) (Primary Dx); Supervision of high risk in third trimester (HCC) Start: 01-14-2025 End: 01-14-2025 ambulatory CHLOE HYDE Facility:[facility] Start: 01-07-2025 End: 01-07-2025 Patient encounter procedure Santhosh Cee MD Work Phone: OB/Gynecology Comment on above: Supervision of high risk in third trimester (HCC) (Primary Dx); 37 weeks gestation of (HCC) Start: 01-07-2025 End: 01-07-2025 ambulatory SANTHOSH CEE Facility:[facility] Start: 12-31-2024 End: 12-31-2024 Patient encounter procedure Anabell Gasca MD Work Phone: OB/Gynecology Comment on above: 36 weeks gestation o f (HCC) (Primary Dx); Supervision of high risk in third trimester (HCC) Start: 12-31-2024 End: 12-31-2024 ambulatory ANABELL GASCA Facility:[facility] Start: 12-13-2024 End: 12-13-2024 Patient encounter procedure Anabell Gasca MD Work Phone: OB/Gynecology Comment on above: Supervision of high risk in third trimester (HCC) (Primary Dx); 33 weeks gestation of (HCC) Start: 12-13-2024 End: 12-13-2024 ambulatory ANABELL GASCA Facility:[facility] Start: 12-04-2024 End: 12-05-2024 Telephone encounter Franck Armando APRN.LEASING COORDINATOR Work Phone: OB/Gynecology Comment on above: Breast Pump Start: 11-28-2024 End: 11-28-2024 Patient encounter procedure Franck Armando APRN.LEASING COORDINATOR Work Phone: OB/Gynecology Comment on above: Supervision of high risk in third trimester (HCC) (Primary Dx); 31 weeks gestation of (HCC); History of depression Start: 11-28-2024 End: 11-28-2024 ambulatory FRANCK ARMANDO Facility:[facility] Start: 11-16-2024 End: 11-16-2024 Telephone encounter Nurse 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Orestes Kan Work Phone: Obstetrics/Gynecolog y Comment on above: PRAF Start: 11-15-2024 End: 11-15-2024 Patient encounter procedure Franck Armando APRN.LEASING COORDINATOR Work Phone: OB/Gynecology Comment on above: Supervision of high risk in third trimester (HCC) (Primary Dx); 29 weeks gestation of (HCC) Start: 11-15-2024 End: 11-15-2024 ambulatory FRANCK ARMANDO Facility:[facility] Start: 11-02-2024 End: 01-02-2025 Follow-up encounter Shira Pereira MD Work Phone: OB/Gynecology Start: 10-29-2024 End: 10-29-2024 Patient encounter procedure Adela Laracalf DISTANCE LEARNING TECHNICIAN.LEASING COORDINATOR Work Phone: OB/Gynecology Comment on above: 27 weeks gestation o f (HCC) (Primary Dx); Supervision of high risk in second trimester (HCC); Need for vaccination Start: 10-29-2024 End: 10-29-2024 ambulatory ADELAGINA LARAINDU Facility:[facility] Start: 10-02-2024 End: 10-02-2024 Telephone encounter Nurse 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Orestes Kan Work Phone: Obstetrics/Gynecolog y Comment on above: PRAF Start: 10-01-2024 End: 10-01-2024 ambulatory SHIRA PEREIRA Facility:[facility] Start: 10-01-2024 End: 10-01-2024 Patient encounter procedure Shira Pereira MD Work Phone: OB/Gynecology Comment on above: Supervision of high risk in second trimester (HCC) (Primary Dx); Screening for diabetes mellitus; 23 weeks gestation of (HCC) Start: 09-04-2024 End: 11-05-2024 Follow-up encounter Anabell Gasca MD Work Phone: OB/Gynecology Start: 09-03-2024 End: 09-03-2024 Patient encounter procedure Franck Armando DISTANCE LEARNING TECHNICIAN.LEASING COORDINATOR Work Phone: OB/Gynecology Comment on above: Supervision of high risk in second trimester (Primary Dx); 19 weeks gestation of Encounter for anatomic survey (Primary Dx); 19 weeks gestation of Start: 09-03-2024 End: 09-03-2024 ambulatory FRANCK ARMANDO Facility:[facility] Start: 08-17-2024 End: 08-17-2024 ambulatory SANTHOSH CEE Facility:[facility] Start: 08-17-2024 End: 08-17-2024 Patient encounter procedure Santhosh Cee MD Work Phone: OB/Gynecology Comment on above: Supervision of high risk in second trimester (Primary Dx); 17 weeks gestation of ; History of depression Start: 07-20-2024 End: 07-20-2024 ambulatory FRANCK ARMANDO Facility:[facility] Start: 07-20-2024 End: 07-20-2024 Patient encounter procedure Santhosh Cee MD Work Phone: OB/Gynecology Comment on above: Encounter for superv ision of high risk in first trimester, antepartum (Primary Dx); 13 weeks gestation of ; Attention deficit hyperactivity disorder (ADHD), unspecified ADHD type; History of depression Encounter for caroline amanuel screening for malformation using ultrasound (Primary Dx); 13 weeks gestation of Start: 06-19-2024 End: 06-19-2024 Office outpatient visit 15 minutes Leona Armando MD Work Phone: OB/Gynecology Comment on above: Encounter for superv ision of high risk in first trimester, antepartum (Primary Dx); Size of fetus inconsistent with dates in first trimester; 8 weeks gestation of Start: 06-19-2024 End: 06-19-2024 ambulatory 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[employer] Work Phone: OB/Gynecology Start: 06-19-2024 End: 06-19-2024 Patient encounter procedure [employer] OB/Gynecology Start: 06-05-2024 End: 06-05-2024 Telephone encounter Guadalupe Daley RN Obstetrics/Gynecolo g y Comment on above: PRAF Start: 06-04-2024 End: 06-04-2024 ambulatory FRANCK ARMANDO Facility:[facility] Start: 06-01-2024 End: 06-01-2024 ambulatory FRANCK ARMANDO Facility:[facility] Start: 06-01-2024 End: 06-01-2024 Patient encounter procedure Franck Armando APRN.LEASING COORDINATOR Work Phone: OB/Gynecology Comment on above: Encounter for superv ision of high risk in first trimester, antepartum (Primary Dx); 5 weeks gestation of ; with uncertain dates in first trimester; Screening for cervical cancer; History of depression; Attention deficit hyperactivity disorder (ADHD), unspecified ADHD type; Family history of blood coagulation disorder Start: 05-28-2024 End: 05-28-2024 Telephone encounter Franck Armando APRN.LEASING COORDINATOR Work Phone: OB/Gynecology Comment on above: Appointment Start: 05-25-2023 End: 05-25-2023 ambulatory ILANA GILLIAM [facility] Start: 03-15-2023 End: 03-15-2023 ambulatory CHELA CARO [facility] Start: 03-15-2023 Telephone encounter Soto Jensen Work Phone: Podiatry Comment on above: Orders Start: 02-20-2023 Orders Only Soto jimenez Work Phone: Podiatry Start: 02-17-2023 ambulatory Soto jimenez Work Phone: Podiatry Comment on above: Injection Start: 02-17-2023 Telephone encounter Soto Jensen Work Phone: Podiatry Comment on above: Orders; Patient Upda te Start: 02-04-2023 Telephone encounter Kriss lara RDMS, RVT Radiology Comment on above: Appointment Start: 02-03-2023 Orders Only Soto jimenez Work Phone: Podiatry Comment on above: Left foot pain (Prim yaya Dx) Start: 01-29-2023 ambulatory Soto jimenez Work Phone: Podiatry Comment on above: mri Start: 01-29-2023 E-mail encounter lawanda larios caregiver Soto Trejo Work Phone: [place] [facility] [place] Start: 01-26-2023 End: 01-26-2023 Subsequent hospital visit by physician Mri Radio [facility] (I-Stat/1.5t) Work Phone: Radiology Comment on above: Disorder of bone [M8 9.9] Start: 12-16-2022 End: 12-16-2022 Patient encounter procedure Soto Trejo Work Phone: Podiatry Comment on above: Disorder of bone (Pr imary Dx); Tailor's bunion of left foot; Left foot pain Start: 11-12-2022 End: 11-12-2022 Subsequent hospital visit by physician Xr [facility] Cecy Mob Work Phone: Radiology Comment on above: Tailor's bunion of l eft foot [M21.622] Start: 10-27-2022 End: 10-27-2022 Patient encounter procedure Soto Trejo Work Phone: Podiatry Comment on above: Tailor's bunion of l eft foot (Primary Dx) Start: 08-15-2022 End: 08-15-2022 ambulatory [facility] Start: 08-15-2022 Encounter for genera l adult medical examination without abnormal findings [facility] Start: 08-06-2020 [facility] Start: 07-28-2020 End: 07-29-2020 Patient encounter procedure ANGELSEAN NEUMANNNELOSN Facility:[facility] Procedures Date Procedure Procedure Detail Performing Clinician Start: 01-14-2025 Urnls dip stick/tabl et rgnt non-auto w/o micrscp Chloe Hyde APRN.CNM Work Phone: Start: 01-07-2025 Urnls dip stick/tabl et rgnt non-auto w/o micrscp Santhosh Cee MD Work Phone: Start: 12-31-2024 Urnls dip stick/tabl et rgnt non-auto w/o micrscp Anabell Gasca MD Work Phone: Start: 09-03-2024 Us preg uterus after 1st trimest 1/ gestation Franck Armando APRN.LEASING COORDINATOR Work Phone: Start: 07-20-2024 Us nuchal translucency 1st gestation Franck Armando APRN.LEASING COORDINATOR Work Phone: Start: 06-19-2024 Us pelvic nonobstetr ic real-time image complete Franck Armando APRN.LEASING COORDINATOR Work Phone: Start: 06-01-2024 Antibody screen SANTHOSH OWEN Comment on above: Order Comment: Speci men Type: BLOOD SPECIMEN Ordering Facility: [facility] Address: [address] [place] [address] Performed By: #### T SPN #### [facility] CLIA [id number] [address] [place], [place] [address] [address] [place] Start: 06-01-2024 Us uterus l imited 1/> fetuses Franck Armando KEVYN.LEASING COORDINATOR Work Phone: Start: 01-26-2023 Mri lower extrem oth /thn jt w/o & w/contr matr Soto Trejo Work Phone: Start: 11-12-2022 Radex foot complete minimum 3 views Soto Maya Work Phone: Plan of Treatment Date Care Activity Detail Author Start: 10-29-2034 Urine microalbumin profile DTaP,Tdap,Td Vaccine (7 - Td or Tdap) [facility] Start: 06-01-2027 Screening for malign ant neoplasm of cervix Cervical Cancer Screening [facility] Start: 02-18-2025 Influenza vaccination C [facility] Start: 01-23-2025 End: 01-23-2025 Patient encounter procedure 01/23/2025 4:20 PM EDT Routine Office Visit OB/Gynecology [address] [place] [address] Shira Blackwood MD [address] [place], [place] [id number] OB OB/Gynecology Comment on above: OB Start: 01-14-2025 End: 01-14-2025 Patient encounter procedure 01/14/2025 4:30 PM EDT Routine Office Visit OB/Gynecology [address] [place] [address] Chloe Hyde APRN.CN [address] [place] [address] OB OB/Gynecology Comment on above: OB Start: 01-07-2025 End: 01-07-2025 Patient encounter procedure 01/07/2025 1:10 PM EDT Routine Office Visit OB/Gynecology [address] [place] [address] Santhosh Cee MD [address] [place] [address] OB OB/Gynecology Comment on above: OB Start: 12-31-2024 End: 12-31-2024 Patient encounter procedure 12/31/2024 3:50 PM EDT Routine Office Visit OB/Gynecology [address] [place] [address] Anabell Gasca MD [address] [place] [address] OB OB/Gynecology Comment on above: OB Start: 12-13-2024 End: 12-13-2024 Patient encounter procedure 12/13/2024 11:20 AM EDT Routine Office Visit OB/Gynecology [address] [place] [address] Anabell Gasca MD [address] [place] [address] Return in about 2 wks for ENRIKE OB/Gynecology Comment on above: Return in about 2 wk s for ENRIKE Start: 11-28-2024 End: 11-28-2024 Patient encounter procedure 11/28/2024 3:45 PM EDT Routine Office Visit OB/Gynecology [address] [place] [address] Franck Armando APRN.LEASING COORDINATOR [address] [place] [address] Ob OB/Gynecology Comment on above: Ob Start: 11-15-2024 End: 11-15-2024 Patient encounter procedure 11/15/2024 8:00 AM EDT Routine Office Visit OB/Gynecology [address] [place] [address] Franck Armando APRN.LEASING COORDINATOR [address] [place] [address] Ob OB/Gynecology Comment on above: Ob Start: 10-31-2024 End: 01-30-2025 ANEMIA REFLEX PANEL ANEMIA REFLEX PANEL Lab Routine Supervision of high risk in second trimester (HCC) 23 weeks gestation of (HCC) Expected: 10/31/2024, Expires: 01/30/2025 [facility] Comment on above: Expected: 10/31/2024 , Expires: 01/30/2025 Start: 10-31-2024 End: 10-01-2025 GESTATIONAL GLUCOSE SCREEN, 1-HOUR, 50 GRAM, NON-FASTING GESTATIONAL GLUCOSE SCREEN, 1-HOUR, 50 GRAM, NON-FASTING Lab Routine Screening for diabetes mellitus Expected: 10/31/2024, Expires: 10/01/2025 [facility] Work Phone: Comment on above: Expected: 10/31/2024 , Expires: 10/01/2025 Start: 10-31-2024 End: 10-01-2025 SYPHILIS TREPONEMAL W/REFLEX SYPHILIS TREPONEMAL W/REFLEX Lab Routine Supervision of high risk in second trimester (HCC) 23 weeks gestation of (HCC) Expected: 10/31/2024, Expires: 10/01/2025 [facility] Comment on above: Expected: 10/31/2024 , Expires: 10/01/2025 Start: 10-29-2024 End: 10-29-2024 Patient encounter procedure 10/29/2024 3:40 PM EDT Routine Office Visit OB/Gynecology [address] [place] [address] Santhosh Cee MD [address] [place] [address] Glucose Test /OB OB/Gynecology Comment on above: Glucose Test /OB Start: 10-29-2024 End: 10-29-2024 ambulatory 10/29/2024 3:30 PM EDT Results Only Cecy Solis [facility] [address] [place] [address] Glucose Test Cecy Solis [facility] Comment on above: Glucose Test Start: 10-01-2024 End: 10-01-2024 Patient encounter procedure 10/01/2024 3:40 PM EDT Routine Office Visit OB/Gynecology [address] [place] [address] Shira Blackwood MD [address] [place] [address] OB OB/Gynecology Comment on above: OB Start: 09-14-2024 End: 09-14-2024 Patient encounter procedure 09/14/2024 2:40 PM EDT Routine Office Visit OB/Gynecology [address] [place] [address] Michael Edwards MD [address] [place] [address] OB Routine OB/Gynecology Comment on above: OB Routine Start: 09-14-2024 End: 09-14-2024 Patient encounter procedure 09/14/2024 1:30 PM EDT Routine Office Visit [facility] [address] [place] [address] Anatomy Scan [facility] Comment on above: Anatomy Scan Start: 09-03-2024 End: 09-03-2024 Patient encounter procedure OB/Gynecology Comment on above: OB Routine Anatomy Scan Start: 08-17-2024 End: 08-17-2024 Patient encounter procedure 08/17/2024 3:10 PM EST Routine Office Visit OB/Gynecology [address] [place] [address] Santhosh Cee MD [address] [place] [address] OB Routine OB/Gynecology Comment on above: OB Routine Start: 07-20-2024 End: 07-20-2024 Patient encounter procedure [facility] Comment on above: Nuchal OB Routine Start: 06-19-2024 End: 06-19-2024 Patient encounter procedure 06/19/2024 2:40 PM EST Routine Office Visit OB/Gynecology [address] [place] [address] Leona Armando MD [address] [place] [address] OB Routine OB/Gynecology Comment on above: OB Routine Start: 06-19-2024 End: 06-19-2024 ambulatory 06/19/2024 2:00 PM EST Procedure OB/Gynecology [address] [place] [address] 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, 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[employer] [address] [place] [address] with uncertain dates in first trimester [Z34.91]; 5 weeks gestation of [Z3A.01] OB/Gynecology Comment on above: with uncer tain dates in first trimester [Z34.91]; 5 weeks gestation of [Z3A.01] Start: 06-15-2024 End: 06-01-2025 US Pelvis PELVIC US [facility] Anc Imaging Routine with uncertain dates in first trimester 5 weeks gestation of Expected: 06/15/2024, Expires: 06/01/2025 [facility] Comment on above: Expected: 06/15/2024 , Expires: 06/01/2025 Start: 06-01-2024 End: 08-31-2024 ANEMIA REFLEX PANEL [facility] Work Phone: Comment on above: Expected: 06/01/2024 , Expires: 08/31/2024 Start: 06-01-2024 End: 08-31-2024 CARRIER SCREEN, STANDARD [facility] Comment on above: Expected: 06/01/2024 , Expires: 08/31/2024 Start: 06-01-2024 End: 08-31-2024 Hemoglobin A1c in Blood [facility] Comment on above: Expected: 06/01/2024 , Expires: 08/31/2024 Start: 06-01-2024 End: 03-14-2025 Hepatitis B virus surface Ag [Presence] in Serum [facility] Comment on above: Expected: 06/01/2024 , Expires: 08/31/2024 Start: 06-01-2024 End: 08-31-2024 Hepatitis C virus Ab [Presence] in Serum [facility] Comment on above: Expected: 06/01/2024 , Expires: 08/31/2024 Start: 06-01-2024 End: 08-31-2024 HIV 1+2 Ab [Presence] in Serum or Plasma by Immunoassay [facility] Comment on above: Expected: 06/01/2024 , Expires: 08/31/2024 Start: 06-01-2024 End: 06-01-2025 NUCHAL TRANSLUCENCY WHI NUCHAL TRANSLUCENCY [facility] Anc Imaging Routine with uncertain dates in first trimester 5 weeks gestation of Expected: 06/01/2024, Expires: 06/01/2025 [facility] Comment on above: Expected: 06/01/2024 , Expires: 06/01/2025 Start: 06-01-2024 End: 06-01-2025 OBSTETRIC ULTRASOUND WHI OBSTETRIC ULTRASOUND [facility] Anc Imaging Routine with uncertain dates in first trimester Expected: 06/01/2024, Expires: 06/01/2025 [facility] Comment on above: Expected: 06/01/2024 , Expires: 06/01/2025 Start: 06-01-2024 End: 08-31-2024 RUBELLA IGG ANTIBODY [facility] Comment on above: Expected: 06/01/2024 , Expires: 08/31/2024 Start: 06-01-2024 End: 08-31-2024 SYPHILIS TREPONEMAL W/REFLEX [facility] Comment on above: Expected: 06/01/2024 , Expires: 08/31/2024 Start: 06-01-2024 End: 08-31-2024 TYPE + SCREEN [facility] Comment on above: Expected: 06/01/2024 , Expires: 08/31/2024 Start: 06-01-2024 End: 06-01-2024 Patient encounter procedure 06/01/2024 11:00 AM EST Initial Office Visit OB/Gynecology [address] [place], [place] [id number] Franck Armando APRN.LEASING COORDINATOR [address] [place] [address] OB/Gynecology Start: 02-19-2024 Covid-19 Vaccine ( season) Covid-19 Vaccine ( season) [facility] Start: 02-19-2024 Influenza vaccination Influenza Vacc ine (#1) [facility] Start: 03-15-2023 End: 05-15-2023 Comprehensive metabolic 2000 panel - Serum or Plasma COMP METABOLIC PANEL Lab Routine Left foot pain Bursitis of left foot Expected: 03/15/2023, Expires: 05/15/2023 [facility] Work Phone: Comment on above: Expected: 03/15/2023 , Expires: 05/15/2023 Start: 02-18-2023 Covid-19 Vaccine ( season) Covid-19 Vaccine () [facility] Start: 02-18-2023 [facility] Start: 06-20-2022 DEPRESSION ASSESSMENT DEPRESSION ASS ESSMENT [facility] Start: 01-17-2022 Urine microalbumin profile [facility] Start: 02-23-2021 COVID-19 VACCINE (5 - Booster for Moderna series) COVID-19 VACCINE (5 - Booster for Moderna series) [facility] Start: 02-23-2021 COVID-19 VACCINE (5 - Moderna series) COVID-19 VACCINE (5 - Moderna series) [facility] Start: 2020 PAP TESTING PAP TESTING [facility] Start: 2020 Screening for malign ant neoplasm of cervix Cervical Cancer Screening [facility] Start: 2017 Anxiety Screening Anxiety Screening [facility] Start: 2017 CHLAMYDIA SCREENING (18-24) CHLAMYDIA SCREENING (18-) [facility] Start: 2017 Depression Screening Depression Scre ening [facility] Start: 2017 GC (GONORRHEA) SCREE DEYANIRA (18-24) GC (GONORRHEA) SCREENING (18-24) [facility] Start: 2017 HEPATITIS C SCREENING HEPATITIS C SC JANUARY [facility] Start: 2017 Hepatitis C screening Hepatitis C Asael january [facility] Start: 2017 HIV SCREENING HIV SCREENING [facility] Start: 2017 HIV screening HIV Screening [facility] Start: 2015 Meningococcal B Vacc ine: Consider Based On Risk (1 of 2 - Patient Seeks Protection) Meningococcal B Vaccine: Consider Based On Risk (1 of 2 - Patient Seeks Protection) [facility] Start: 2015 MENINGOCOCCAL B: Consider based on risk (1 of 2 - Patient Seeks Protection) MENINGOCOCCAL B: Consider based on risk (1 of 2 - Patient Seeks Protection) [facility] Start: 2014 HPV Vaccine (1 - 3-d ose series) HPV Vaccine (1 - 3-dose series) [facility] Start: 2013 PEDS TO ADULT TRANSI TION ANNUAL ASSESSMENT PEDS TO ADULT TRANSITION ANNUAL ASSESSMENT [facility] Start: 2011 PEDS TO ADULT TRANSI TION INITIAL DISCUSSION PEDS TO ADULT TRANSITION INITIAL DISCUSSION [facility] Start: 2010 HPV VACCINE (1 - 2-d ose series) HPV VACCINE (1 - 2-dose series) [facility] Start: 2009 MENINGOCOCCAL B: Consider based on risk (1 of 2 - Risk Bexsero 2-dose series) MENINGOCOCCAL B: Consider based on risk (1 of 2 - Risk Bexsero 2-dose series) [facility] Start: 2008 HPV VACCINE (1 - 2-d ose series) HPV VACCINE (1 - 2-dose series) [facility] End: 03-04-2024 Arthrocnt aspir&/inj small jt/bursaw/us rec rprt US ASP/INJ HAND/FINGER/FOOT/TOE JT BURSA LT Radiology Routine Left foot pain 1 Occurrences starting 02/03/2023 until 03/04/2024 [facility] Work Phone: Comment on above: 1 Occurrences starti ng 02/03/2023 until 03/04/2024 Bacteria identified in Urine by Culture URINE CULTURE Microbiology Routine with uncertain dates in first trimester 06/01/2024 11:47 AM EST [facility] Chlamydia trachomatis+Neisseria gonorrhoeae DNA [Presence] in Unspecified specimen by BRAD with probe detection GONORRHEA/CHLAMYDIA NAAT Lab Routine with uncertain dates in first trimester 06/01/2024 11:47 AM [facility] End: 06-01-2025 Choriogonadotropin.beta subunit [Units/volume] in Serum or Plasma HCG QUANTITATIVE Lab Routine with uncertain dates in first trimester 2x per week for 6 Occurrences starting 06/01/2024 until 06/01/2025 [facility] Comment on above: 2x per week for 6 Oc currences starting 06/01/2024 until 06/01/2025 Choriogonadotropin.b eta subunit [Units/volume] in Serum or Plasma HCG QUANTITATIVE Lab Routine with uncertain dates in first trimester 06/01/2024 12:06 PM [facility] End: 01-15-2024 MRI FOOT/TOES WO/W IVCON LEFT MRI FOOT/TOES WO/W IVCON LEFT Radiology Routine Disorder of bone 1 Occurrences starting 12/16/2022 until 01/15/2024 [facility] Work Phone: Comment on above: 1 Occurrences starti ng 12/16/2022 until 01/15/2024 PAP TEST PAP TEST Lab Rou pieter with uncertain dates in first trimester Screening for cervical cancer 06/01/2024 11:47 AM [facility] ROUTINE, GR OUP B STREPTOCOCCUS BY PCR ROUTINE, GROUP B STREPTOCOCCUS BY PCR Microbiology Routine 36 weeks gestation of ([facility]) 12/31/2024 4:24 PM EDT [facility] Work Phone: URINE OB DIP B/O URINE OB DIP B/ O Lab Routine Supervision of high risk in third trimester (HCC) 33 weeks gestation of ([facility]) Ordered: 12/13/2024 [facility] Work Phone: Comment on above: Ordered: 12/13/2024 End: 11-26-2023 XR FOOT GENERAL 3V AP/LAT/OBL LEFT XR FOOT GENERAL 3V AP/LAT/OBL LEFT Radiology Routine Tailor's bunion of left foot 1 Occurrences starting 10/27/2022 until 11/26/2023 [facility] Work Phone: Comment on above: 1 Occurrences starti ng 10/27/2022 until 11/26/2023 [facility] Immunizations Immunization Date Immunization Notes Care Provider Kenji morris 10-29-2024 tetanus toxoid, redu mago diphtheria toxoid, and acellular pertussis vaccine, adsorbed Adela Griggs APRN.CNP Work Phone: [facility] 06-19-2021 influenza virus vacc ine, unspecified formulation [employer] Work Phone: [facility] 02-01-2017 meningococcal polysaccharide (groups A, C, Y and W-135) diphtheria toxoid conjugate vaccine (MCV4P) [facility] [employer] Work Phone: [facility] Work Phone: 08-24-2012 Meningococcal, MCV4, unspecified conjugate formulation(groups A, C, Y and W-135) [employer] Work Phone: [facility] Work Phone: 08-24-2012 poliovirus vaccine, inactivated [employer] Work Phone: [facility] Work Phone: 08-24-2012 varicella virus vaccine [facility] [employer] Work Phone: [facility] Work Phone: 01-18-2012 tetanus toxoid, redu mago diphtheria toxoid, and acellular pertussis vaccine, adsorbed [employer] Work Phone: [facility] Work Phone: 04-29-2009 novel influenza-H1N1 -09, all formulations [employer] Work Phone: [facility] Work Phone: 05-02-2007 influenza virus vacc ine, unspecified formulation [employer] Work Phone: [facility] Work Phone: 06-04-2005 hepatitis B vaccine, pediatric or pediatric/adolescent dosage [employer] Work Phone: [facility] 02-02-2005 diphtheria, tetanus toxoids and acellular pertussis vaccine [employer] Work Phone: [facility] Work Phone: 02-02-2005 hepatitis B vaccine, pediatric or pediatric/adolescent dosage [facility] [employer] [place] Work Phone: [facility] Work Phone: 02-02-2005 measles, mumps and rubella virus vaccine [employer] [employer] Work Phone: [facility] Work Phone: 02-02-2005 poliovirus vaccine, inactivated [facility] [employer] Work Phone: [facility] Work Phone: 06-28-2000 hepatitis B vaccine, pediatric or pediatric/adolescent dosage [facility] [employer] Work Phone: [facility] Work Phone: 06-28-2000 measles, mumps and rubella virus vaccine [employer] Work Phone: [facility] Work Phone: 1999 diphtheria, tetanus toxoids and acellular pertussis vaccine [facility] [employer] Work Phone: [facility] Work Phone: 1999 haemophilus influenz ae type b vaccine, HbOC conjugate [employer] Work Phone: [facility] Work Phone: 1999 diphtheria, tetanus toxoids and acellular pertussis vaccine [facility] [employer] Work Phone: [facility] Work Phone: 1999 haemophilus influenz ae type b vaccine, HbOC conjugate [employer] Work Phone: [facility] Work Phone: 1999 poliovirus vaccine, inactivated [employer] Work Phone: [facility] Work Phone: 1999 diphtheria, tetanus toxoids and acellular pertussis vaccine [employer] Work Phone: [facility] Work Phone: 1999 haemophilus influenz ae type b vaccine, HbOC conjugate [employer] Work Phone: [facility] Work Phone: 1999 poliovirus vaccine, inactivated [employer] Work Phone: [facility] Work Phone: Payers Date Payer Category Payer Self-pay 2022 Medicaid [id number] 1999 Unknown [id number] 1999 Unknown [id number] 1999 Unknown [id number] 1999 Unknown [id number] [id number] 1959 Unknown [id number] Unknown [id number] Unknown [id number] Social History Date Type Detail Facility Start: 05-28-2024 Tobacco smoking stat [facility] Never smoked tobacco [facility] Start: 10-27-2022 End: 01-14-2025 Alcohol intake Current non-drinker of alcohol (finding) [facility] Start: 2000 Sex Assigned At Not on file [facility] Start: 10-27-2022 End: 12-16-2022 History of Social function [facility] Start: 10-27-2022 End: 12-16-2022 Tobacco use panel [facility] National Score (1-10 0), lower number is lower risk 65 [facility] Start: 05-28-2024 Tobacco use and exposure Smoke less tobacco non-user [facility] Start: 05-28-2024 Education 17 [facility] Start: 04-13-2024 [facility] Goals Date Patient Goal Desired Activity /State Personal health goal Clinical Notes 10-27-2022 to 01-14-2025 Quick Notes - Chloe Hyde APRN.CNM - 01/14/2025 4:17 PM EDTPrenatal Quick Notes - Chloe Hyde APRN.CNM - 01/14/2025 4:17 PM EDTPatient InstructionsPatient Instructions Note Date & Type Note Facility 01-14-2025 Progress note Formatting of t his note might be different from the original. S: Vicky Mitchell is a 24 year old female who presents at 38 weeks gestation for a routine visit. Positive movements. Denies headache, visual changes, chest pain, shortness of breath, vaginal bleeding, leakage of fluid, or dysuria. Feeling well, no complaints. Requesting CE with membrane sweep today. O: See flow sheet Gen: No apparent distress Abd: Gravid, non tender CE - 1/60/-2 membranes swept without difficulty ASSESSMENT/PLAN: 1. 38 weeks gestation of 2. Supervision of high risk in third trimester - GBS negative - Hx of precipitous delivery with last delivery - Labor precautions reviewed - October schedule CE with another membrane sweep later this week if undelivered Chloe Hyde APRN.CNM [facility] Work Phone: 01-14-2025 Miscellaneous Notes S: Vicky Mitchell is a 24 year old female who presents at 38 weeks gestation for a routine visit. Positive movements. Denies headache, visual changes, chest pain, shortness of breath, vaginal bleeding, leakage of fluid, or dysuria. Feeling well, no complaints. Requesting CE with membrane sweep today. O: See flow sheet Gen: No apparent distress Abd: Gravid, non tender CE - 1/60/-2 membranes swept without difficulty ASSESSMENT/PLAN: 1. 38 weeks gestation of 2. Supervision of high risk in third trimester - GBS negative - Hx of precipitous delivery with last delivery - Labor precautions reviewed - October schedule CE with another membrane sweep later this week if undelivered Chloe Plotts, DISTANCE LEARNING TECHNICIAN.CNM documented in this encounter [facility] 01-14-2025 Instructions Radha Fox LPN - 01/14/2025 4:16 PM EDT SEQUENTIAL SCREENINGS The [facility] offers sequential screenings for women who are interested in screenings for chromosomal abnormalities and certain defects during a . The sequential screen combines ultrasound and blood tests to determine the risk of chromosomal abnormalities, including Down's Syndrome (Trisomy 21) and Trisomy 18, as well as open neural tube defects including spina bifida. Ultrasound examination is performed between 11 weeks and 13 weeks gestational age. Blood tests are drawn after the ultrasound and again later in the between 15 and 21 weeks gestational age. Please let your physician know if you are interested in this testing. It will require an appointment with our shop service technician. This is not an ultrasound performed by a physician in our office during a routine visit. SIGNS AND SYMPTOMS OF LABOR 1. Contractions every 10 minutes or more often 2. Clear, pink, or brownish fluid (water) leaking from vagina 3. Feeling that baby is pushing down, pressure 4. Low, dull backache 5. Cramps that feel like a period 6. Cramps with or without diarrhea If you notice any of the above symptoms, contact our office at [phone] and ask to speak with a nurse. After hours, you can call doctors registry at [phone] OR call [facility] at [phone] and ask to have the doctor personalized living manager nurse paged. If you consider this an emergency, dial 9-1-2 or go to your nearest emergency department. NEED HELP? Are you dealing with a violent or abusive relationship? Are you a victim of rape or sexual assult? Call [facility] ([place]) 24 hour Crisis Hotline: 761.843.3182 or 719-585-1656. MANUAL Your Guide to a Healthy manual is now on-line. Visit [email or web address] to download your free copy documented in this encounter [facility] 01-07-2025 Progress note Formatting of t his note might be different from the original. SW- Pt doing well. No ctx, vb, lof. Good FM PE: Gen- NAD, well appearing Abd- Soft, gravid, NT, S=D See flowsheet A/p 37 wk gestation - GBS negative - Weekly visits Santhosh Cee DO [facility] 01-07-2025 Miscellaneous Notes SW- Pt doing well. No ctx, vb, lof. Good FM PE: Gen- NAD, well appearing Abd- Soft, gravid, NT, S=D See flowsheet A/p 37 wk gestation - GBS negative - Weekly visits Santhosh Cee DO documented in this encounter [facility] 01-07-2025 Instructions Jessica Plunkett MA - 01/07/2025 1:10 PM EDT SEQUENTIAL SCREENINGS The [facility] offers sequential screenings for women who are interested in screenings for chromosomal abnormalities and certain defects during a . The sequential screen combines ultrasound and blood tests to determine the risk of chromosomal abnormalities, including Down's Syndrome (Trisomy 21) and Trisomy 18, as well as open neural tube defects including spina bifida. Ultrasound examination is performed between 11 weeks and 13 weeks gestational age. Blood tests are drawn after the ultrasound and again later in the between 15 and 21 weeks gestational age. Please let your physician know if you are interested in this testing. It will require an appointment with our shop service technician. This is not an ultrasound performed by a physician in our office during a routine visit. SIGNS AND SYMPTOMS OF LABOR 1. Contractions every 10 minutes or more often 2. Clear, pink, or brownish fluid (water) leaking from vagina 3. Feeling that baby is pushing down, pressure 4. Low, dull backache 5. Cramps that feel like a period 6. Cramps with or without diarrhea If you notice any of the above symptoms, contact our office at [phone] and ask to speak with a nurse. After hours, you can call doctors registry at [phone] OR call [facility] at [phone] and ask to have the doctor personalized living manager nurse paged. If you consider this an emergency, dial 9--2 or go to your nearest emergency department. NEED HELP? Are you dealing with a violent or abusive relationship? Are you a victim of rape or sexual assult? Call [facility] ([place]) 24 hour Crisis Hotline: 789.662.2771 or 489-317-4152. MANUAL Your Guide to a Healthy manual is now on-line. Visit [email or web address] to download your free copy documented in this encounter [facility] 12-31-2024 Progress note Formatting of t his note might be different from the original. RR- VB No. LOF No. CTXS No. Movement: present. Other c/o: No. Medication list reviewed. SENSITIVE EXAM: The sensitive examination was discussed with the Patient or Patient's Authorized Rides Attendant. As applicable, any other physician, advance practice provider, medical student, or other health professional student that will be observing or involved in the sensitive examination for educational or training purposes was discussed with the Patient or Authorized Rides Attendant. The Patient or Authorized Rides Attendant has agreed to proceed with the sensitive examination. (Sensitive examination includes inspection and/or palpation of the breasts, pelvis, prostate and anorectal regions). Physical Exam See Flow Sheet Abd: soft, nontender, gravid Ext: edema: Trace A/P 36w3d Estimated Date of Delivery: 01/25/25 Assessment & Plan 36 weeks gestation of (HCC) Orders: URINE OB DIP B/O ROUTINE, GROUP B STREPTOCOCCUS BY PCR Supervision of high risk in third trimester (HCC) Orders: URINE OB DIP B/O kick counts f/u in 1 week or prn brief US confirms vtx Anabell Gasca M.D. [facility] 12-31-2024 Miscellaneous Notes RR- VB No. LOF No. CTXS No. Movement: present. Other c/o: No. Medication list reviewed. SENSITIVE EXAM: The sensitive examination was discussed with the Patient or Patient's Authorized Rides Attendant. As applicable, any other physician, advance practice provider, medical student, or other health professional student that will be observing or involved in the sensitive examination for educational or training purposes was discussed with the Patient or Authorized Rides Attendant. The Patient or Authorized Rides Attendant has agreed to proceed with the sensitive examination. (Sensitive examination includes inspection and/or palpation of the breasts, pelvis, prostate and anorectal regions). Physical Exam See Flow Sheet Abd: soft, nontender, gravid Ext: edema: Trace A/P 36w3d Estimated Date of Delivery: 01/25/25 Assessment & Plan 36 weeks gestation of ([facility]) Orders: URINE OB DIP B/O ROUTINE, GROUP B STREPTOCOCCUS BY PCR Supervision of high risk in third trimester ([facility]) Orders: URINE OB DIP B/O kick counts f/u in 1 week or prn brief US confirms vtx Anabell Gasca M.D. documented in this encounter [facility] 12-31-2024 Instructions Ariane Machado MA - 12/31/2024 4:00 PM EDT SEQUENTIAL SCREENINGS The [facility] offers sequential screenings for women who are interested in screenings for chromosomal abnormalities and certain defects during a . The sequential screen combines ultrasound and blood tests to determine the risk of chromosomal abnormalities, including Down's Syndrome (Trisomy 21) and Trisomy 18, as well as open neural tube defects including spina bifida. Ultrasound examination is performed between 11 weeks and 13 weeks gestational age. Blood tests are drawn after the ultrasound and again later in the between 15 and 21 weeks gestational age. Please let your physician know if you are interested in this testing. It will require an appointment with our shop service technician. This is not an ultrasound performed by a physician in our office during a routine visit. SIGNS AND SYMPTOMS OF LABOR 1. Contractions every 10 minutes or more often 2. Clear, pink, or brownish fluid (water) leaking from vagina 3. Feeling that baby is pushing down, pressure 4. Low, dull backache 5. Cramps that feel like a period 6. Cramps with or without diarrhea If you notice any of the above symptoms, contact our office at [phone] and ask to speak with a nurse. After hours, you can call doctors registry at [phone] OR call [facility] at [phone] and ask to have the doctor personalized living manager nurse paged. If you consider this an emergency, dial 9-1-1 or go to your nearest emergency department. NEED HELP? Are you dealing with a violent or abusive relationship? Are you a victim of rape or sexual assult? Call [facility] ([place]) 24 hour Crisis Hotline: 205.444.7724 or 954-679-2397. MANUAL Your Guide to a Healthy manual is now on-line. Visit [email or web address] to download your free copy documented in this encounter [facility] 12-13-2024 Progress note Formatting of t his note might be different from the original. RR- VB No. LOF No. CTXS No. Movement: present. Other c/o: No. Medication list reviewed. SENSITIVE EXAM: Sensitive exam not performed. Physical Exam See Flow Sheet Abd: soft, nontender, gravid Ext: edema: Trace A/P 33w6d Estimated Date of Delivery: 01/25/25 Assessment & Plan Supervision of high risk in third trimester (HCC) Orders: URINE OB DIP B/O 33 weeks gestation of (HCC) Orders: URINE OB DIP B/O kick counts gbs next visit Anabell Gasca M.D. [facility] 12-13-2024 Miscellaneous Notes RR- VB No. LOF No. CTXS No. Movement: present. Other c/o: No. Medication list reviewed. SENSITIVE EXAM: Sensitive exam not performed. Physical Exam See Flow Sheet Abd: soft, nontender, gravid Ext: edema: Trace A/P 33w6d Estimated Date of Delivery: 01/25/25 Assessment & Plan Supervision of high risk in third trimester (HCC) Orders: URINE OB DIP B/O 33 weeks gestation of (HCC) Orders: URINE OB DIP B/O kick counts gbs next visit Anabell Gasca M.D. documented in this encounter [facility] 12-13-2024 Instructions Ariane Machado FEDE - 12/13/2024 11:14 AM EDT SEQUENTIAL SCREENINGS The [facility] offers sequential screenings for women who are interested in screenings for chromosomal abnormalities and certain defects during a . The sequential screen combines ultrasound and blood tests to determine the risk of chromosomal abnormalities, including Down's Syndrome (Trisomy 21) and Trisomy 18, as well as open neural tube defects including spina bifida. Ultrasound examination is performed between 11 weeks and 13 weeks gestational age. Blood tests are drawn after the ultrasound and again later in the between 15 and 21 weeks gestational age. Please let your physician know if you are interested in this testing. It will require an appointment with our shop service technician. This is not an ultrasound performed by a physician in our office during a routine visit. SIGNS AND SYMPTOMS OF LABOR 1. Contractions every 10 minutes or more often 2. Clear, pink, or brownish fluid (water) leaking from vagina 3. Feeling that baby is pushing down, pressure 4. Low, dull backache 5. Cramps that feel like a period 6. Cramps with or without diarrhea If you notice any of the above symptoms, contact our office at [phone] and ask to speak with a nurse. After hours, you can call doctors registry at [phone] OR call [facility] at [phone] and ask to have the doctor personalized living manager nurse paged. If you consider this an emergency, dial 9--1 or go to your nearest emergency department. NEED HELP? Are you dealing with a violent or abusive relationship? Are you a victim of rape or sexual assult? Call [facility] ([place]) 24 hour Crisis Hotline: 691.986.2189 or 963-593-6260. MANUAL Your Guide to a Healthy manual is now on-line. Visit [email or web address] to download your free copy documented in this encounter [facility] 12-05-2024 Telephone encounter Note Order signed and faxed. Vicki Morataya RN [facility] 12-05-2024 Miscellaneous Notes Order signed and faxed. Vicki Morataya RN Received breast pump RX from [employer]. To to sign. Leona Heck RN documented in this encounter [facility] 12-04-2024 Telephone encounter Note Received breast pump RX from [email or web address]. To to sign. Leona Heck RN [facility] 11-28-2024 Progress note Formatting of t his note might be different from the original. EH - S: Vicky is a 24 year old female who presents at 31w5d for a routine visit. Feeling movement. Denies headache, visual changes, chest pain, shortness of breath, vaginal bleeding, leakage of fluid, or dysuria. Feeling well, no complaints. O: See flow sheet Gen: No apparent distress Abd: Gravid, nontender, S=D ASSESSMENT/PLAN: 1. Supervision of high risk in third trimester (HCC) - ICD9: V23.9, ICD10: O09.93 (primary diagnosis) - Continue PNV and LDA 2. 31 weeks gestation of ([facility]) - ICD9: V22.2, ICD10: Z3A.31 3. History of depression - ICD9: V11.8, ICD10: Z86.59 - Mood stable, denies concerns PTL precautions and kick counts reviewed. RTO in 2 weeks or sooner as needed. Franck Armando APRN.MIRYAM [facility] 11-28-2024 Miscellaneous Notes EH - S: Vicky is a 24 year old female who presents at 31w5d for a routine visit. Feeling movement. Denies headache, visual changes, chest pain, shortness of breath, vaginal bleeding, leakage of fluid, or dysuria. Feeling well, no complaints. O: See flow sheet Gen: No apparent distress Abd: Gravid, nontender, S=D ASSESSMENT/PLAN: 1. Supervision of high risk in third trimester (HCC) - ICD9: V23.9, ICD10: O09.93 (primary diagnosis) - Continue PNV and LDA 2. 31 weeks gestation of (HCC) - ICD9: V22.2, ICD10: Z3A.31 3. History of depression - ICD9: V11.8, ICD10: Z86.59 - Mood stable, denies concerns PTL precautions and kick counts reviewed. RTO in 2 weeks or sooner as needed. Franck Armando APRN.MIRYAM documented in this encounter [facility] 11-28-2024 Instructions Laura Palma MA - 11/28/2024 3:32 PM EDT SEQUENTIAL SCREENINGS The [facility] offers sequential screenings for women who are interested in screenings for chromosomal abnormalities and certain defects during a . The sequential screen combines ultrasound and blood tests to determine the risk of chromosomal abnormalities, including Down's Syndrome (Trisomy 21) and Trisomy 18, as well as open neural tube defects including spina bifida. Ultrasound examination is performed between 11 weeks and 13 weeks gestational age. Blood tests are drawn after the ultrasound and again later in the between 15 and 21 weeks gestational age. Please let your physician know if you are interested in this testing. It will require an appointment with our shop service technician. This is not an ultrasound performed by a physician in our office during a routine visit. SIGNS AND SYMPTOMS OF LABOR 1. Contractions every 10 minutes or more often 2. Clear, pink, or brownish fluid (water) leaking from vagina 3. Feeling that baby is pushing down, pressure 4. Low, dull backache 5. Cramps that feel like a period 6. Cramps with or without diarrhea If you notice any of the above symptoms, contact our office at [phone] and ask to speak with a nurse. After hours, you can call doctors registry at [phone] OR call [facility] at [phone] and ask to have the doctor personalized living manager nurse paged. If you consider this an emergency, dial 02-18- or go to your nearest emergency department. NEED HELP? Are you dealing with a violent or abusive relationship? Are you a victim of rape or sexual assult? Call [facility] ([place] 24 hour Crisis Hotline: 277.525.8439 or 628-797-7828. MANUAL Your Guide to a Healthy manual is now on-line. Visit [email or web address] to download your free copy documented in this encounter [facility] 11-16-2024 Telephone encounter Note 3rd risk assessment form submitted 11/16/24 Lorena Lui RN [facility] 11-16-2024 Miscellaneous Notes 3rd risk assessment form submitted 11/16/24 Lorena Lui RN documented in this encounter [facility] 11-15-2024 Progress note Formatting of t his note might be different from the original. EH - S: Vicky is a 24 year old female who presents at 29w6d for a routine visit. Feeling movement. Denies headache, visual changes, chest pain, shortness of breath, vaginal bleeding, leakage of fluid, or dysuria. Feeling well, no complaints. O: See flow sheet Gen: No apparent distress Abd: Gravid, nontender, S=D ASSESSMENT/PLAN: 1. Supervision of high risk in third trimester ([facility]) - ICD9: V23.9, ICD10: O09.93 (primary diagnosis) - Continue PNV and LDA 2. 29 weeks gestation of ([facility]) - ICD9: V22.2, ICD10: Z3A.29 - 28 week labs reviewed - Plans to pre register at [facility] PTL precautions and kick counts reviewed. RTO in 2 weeks or sooner as needed. Franck Armando APRN.LEASING COORDINATOR [facility] 11-15-2024 Miscellaneous Notes EH - S: Vicky is a 24 year old female who presents at 29w6d for a routine visit. Feeling movement. Denies headache, visual changes, chest pain, shortness of breath, vaginal bleeding, leakage of fluid, or dysuria. Feeling well, no complaints. O: See flow sheet Gen: No apparent distress Abd: Gravid, nontender, S=D ASSESSMENT/PLAN: 1. Supervision of high risk in third trimester ([facility]) - ICD9: V23.9, ICD10: O09.93 (primary diagnosis) - Continue PNV and LDA 2. 29 weeks gestation of ([facility]) - ICD9: V22.2, ICD10: Z3A.29 - 28 week labs reviewed - Plans to pre register at [facility] PTL precautions and kick counts reviewed. RTO in 2 weeks or sooner as needed. Franck Armando APRN.LEASING COORDINATOR documented in this encounter [facility] 10-29-2024 Progress note Formatting of t his note might be different from the original. RM-Pt doing well. Denies vaginal Bleeding, Leaking fluid, or regular Contractions. Pt reports good movement Physical Exam: Gen: no apparent distress Abd: soft, Gravid. Non tender to palpation. See flow sheet ASSESSMENT/PLAN: 1. 27 weeks gestation of ([facility]) - ICD9: V22.2, ICD10: Z3A.27 (primary diagnosis) Glucose test today 2. Supervision of high risk in second trimester ([facility]) - ICD9: V23.9, ICD10: O09.92 3. Need for vaccination - ICD9: V05.9, ICD10: Z23 Tdap given LARC declined RTO 2 weeks Adela Griggs APRN.LEASING COORDINATOR [facility] 10-29-2024 Miscellaneous Notes RM-Pt doing well. Denies vaginal Bleeding, Leaking fluid, or regular Contractions. Pt reports good movement Physical Exam: Gen: no apparent distress Abd: soft, Gravid. Non tender to palpation. See flow sheet ASSESSMENT/PLAN: 1. 27 weeks gestation of ([facility]) - ICD9: V22.2, ICD10: Z3A.27 (primary diagnosis) Glucose test today 2. Supervision of high risk in second trimester ([facility]) - ICD9: V23.9, ICD10: O09.92 3. Need for vaccination - ICD9: V05.9, ICD10: Z23 Tdap given LARC declined RTO 2 weeks Adela Griggs APRN.LEASING COORDINATOR documented in this encounter [facility] 10-29-2024 Note HNO ID: [id number] Author: JESSICA PLUNKETT MA Service: ? Author Type: Freelance Displayer Type: Progress Notes Filed: 10/29/2024 16:03 Note Text: Patient identified by name and date of . Vicky Mitchell presents today for a vaccination of Tdap. Patient denies an allergy to latex: yes Patient denies a severe (life-threatening) allergy to a previous dose of Tdap, DTP, DTaP, DT or Td vaccine. Yes Patient denies history of epilepsy or neurological problems: Yes Patient is afebrile and denies being moderately or severely ill: Yes Patient denies history of Guillain-Neeses Syndrome (a severe paralytic illness): Yes Tdap Adacel injection was given without incident. See immunizations for details of immunizations administered today. VIS sheet provided: Yes Provider Chloe Hyde CNM was present in office at time of injection. Jessica Plunkett MA [facility] 10-29-2024 History of Present illness Narrative Patient identified by name and date of . Vicky Mitchell presents today for a vaccination of Tdap. Patient denies an allergy to latex: yes Patient denies a severe (life-threatening) allergy to a previous dose of Tdap, DTP, DTaP, DT or Td vaccine. Yes Patient denies history of epilepsy or neurological problems: Yes Patient is afebrile and denies being moderately or severely ill: Yes Patient denies history of Guillain-Neeses Syndrome (a severe paralytic illness): Yes Tdap Adacel injection was given without incident. See immunizations for details of immunizations administered today. VIS sheet provided: Yes Provider Chloe Hyde CNM was present in office at time of injection. Jessica Plunkett MA documented in this encounter [facility] 10-29-2024 Instructions eJssica Plunkett MA - 10/29/2024 3:25 PM EDT SEQUENTIAL SCREENINGS The [facility] offers sequential screenings for women who are interested in screenings for chromosomal abnormalities and certain defects during a . The sequential screen combines ultrasound and blood tests to determine the risk of chromosomal abnormalities, including Down's Syndrome (Trisomy 21) and Trisomy 18, as well as open neural tube defects including spina bifida. Ultrasound examination is performed between 11 weeks and 13 weeks gestational age. Blood tests are drawn after the ultrasound and again later in the between 15 and 21 weeks gestational age. Please let your physician know if you are interested in this testing. It will require an appointment with our shop service technician. This is not an ultrasound performed by a physician in our office during a routine visit. SIGNS AND SYMPTOMS OF LABOR 1. Contractions every 10 minutes or more often 2. Clear, pink, or brownish fluid (water) leaking from vagina 3. Feeling that baby is pushing down, pressure 4. Low, dull backache 5. Cramps that feel like a period 6. Cramps with or without diarrhea If you notice any of the above symptoms, contact our office at [phone] and ask to speak with a nurse. After hours, you can call doctors registry at [phone] OR call [facility] at [phone] and ask to have the doctor personalized living manager nurse paged. If you consider this an emergency, dial --1 or go to your nearest emergency department. NEED HELP? Are you dealing with a violent or abusive relationship? Are you a victim of rape or sexual assult? Call [facility] ([place]) 24 hour Crisis Hotline: 207.750.9349 or 672-217-5398. MANUAL Your Guide to a Healthy manual is now on-line. Visit [email or web address] to download your free copy documented in this encounter [facility] 10-02-2024 Telephone encounter Note 2nd risk assessment form submitted 10/02/24 Lorena Lui RN [facility] 10-02-2024 Miscellaneous Notes 2nd risk assessment form submitted 10/02/24 Lorena Lui RN documented in this encounter [facility] 10-01-2024 Progress note Formatting of t his note might be different from the original. DM-Pt doing well. Denies vaginal Bleeding, Leaking fluid, or regular Contractions. Pt reports good movement Physical Exam: Gen: female in no apparent distress Abd: soft, Gravid. Non tender to palpation. See flow sheet @ 23.3 weeks Assessment & Plan Supervision of high risk in second trimester (HCC) Orders: SYPHILIS TREPONEMAL W/REFLEX; Future ANEMIA REFLEX PANEL; Future Screening for diabetes mellitus Orders: GESTATIONAL GLUCOSE SCREEN, 1-HOUR, 50 GRAM, NON-FASTING; Future 23 weeks gestation of (HCC) Orders: SYPHILIS TREPONEMAL W/REFLEX; Future ANEMIA REFLEX PANEL; Future RTO 4 wks Shira Mcfadden MD [facility] 10-01-2024 Miscellaneous Notes DM-Pt doing well. Denies vaginal Bleeding, Leaking fluid, or regular Contractions. Pt reports good movement Physical Exam: Gen: female in no apparent distress Abd: soft, Gravid. Non tender to palpation. See flow sheet @ 23.3 weeks Assessment & Plan Supervision of high risk in second trimester ([facility]) Orders: SYPHILIS TREPONEMAL W/REFLEX; Future ANEMIA REFLEX PANEL; Future Screening for diabetes mellitus Orders: GESTATIONAL GLUCOSE SCREEN, 1-HOUR, 50 GRAM, NON-FASTING; Future 23 weeks gestation of ([facility]) Orders: SYPHILIS TREPONEMAL W/REFLEX; Future ANEMIA REFLEX PANEL; Future RTO 4 wks Shira Mcfadden MD documented in this encounter [facility] 10-01-2024 Instructions Cassidy Rain MA - 10/01/2024 3:25 PM EDT SEQUENTIAL SCREENINGS The [facility] offers sequential screenings for women who are interested in screenings for chromosomal abnormalities and certain defects during a . The sequential screen combines ultrasound and blood tests to determine the risk of chromosomal abnormalities, including Down's Syndrome (Trisomy 21) and Trisomy 18, as well as open neural tube defects including spina bifida. Ultrasound examination is performed between 11 weeks and 13 weeks gestational age. Blood tests are drawn after the ultrasound and again later in the between 15 and 21 weeks gestational age. Please let your physician know if you are interested in this testing. It will require an appointment with our shop service technician. This is not an ultrasound performed by a physician in our office during a routine visit. SIGNS AND SYMPTOMS OF LABOR 1. Contractions every 10 minutes or more often 2. Clear, pink, or brownish fluid (water) leaking from vagina 3. Feeling that baby is pushing down, pressure 4. Low, dull backache 5. Cramps that feel like a period 6. Cramps with or without diarrhea If you notice any of the above symptoms, contact our office at [phone] and ask to speak with a nurse. After hours, you can call doctors registry at [phone] OR call [facility] at [phone] and ask to have the doctor personalized living manager nurse paged. If you consider this an emergency, dial 9--5 or go to your nearest emergency department. NEED HELP? Are you dealing with a violent or abusive relationship? Are you a victim of rape or sexual assult? Call [facility] ([place]) 24 hour Crisis Hotline: 281.461.9045 or 617-589-1852. MANUAL Your Guide to a Healthy manual is now on-line. Visit [email or web address] to download your free copy documented in this encounter [facility] 09-04-2024 Progress note Formatting of t his note might be different from the original. Anatomy ultrasound reviewed. No abnormalities identified. Follow up as clinically indicated. Please place copy in ob chart. Anabell Gasca MD [facility] Work Phone: 09-04-2024 Miscellaneous Notes Anatomy ultrasound reviewed. No abnormalities identified. Follow up as clinically indicated. Please place copy in ob chart. Anabell Gasca MD documented in this encounter [facility] 09-03-2024 Miscellaneous Notes EH - S: Vicky is a 24 year old female who presents at 19w3d for a routine visit. Not feeling movement yet. Denies headache, visual changes, chest pain, shortness of breath, vaginal bleeding, leakage of fluid, or dysuria. Feeling well, no complaints. O: See flow sheet Gen: No apparent distress Abd: Gravid, nontender ASSESSMENT/PLAN: 1. Supervision of high risk in second trimester - ICD9: V23.9, ICD10: O09.92 (primary diagnosis) - Continue LDA and PNV 2. 19 weeks gestation of - ICD9: V22.2, ICD10: Z3A.19 - Anatomy ultrasound today, report pending PTL precautions reviewed. RTO in 4 weeks or sooner as needed. Franck Armando APRN.MIRYAM documented in this encounter [facility] 09-03-2024 Progress note Formatting of t his note might be different from the original. EH - S: Vicky is a 24 year old female who presents at 19w3d for a routine visit. Not feeling movement yet. Denies headache, visual changes, chest pain, shortness of breath, vaginal bleeding, leakage of fluid, or dysuria. Feeling well, no complaints. O: See flow sheet Gen: No apparent distress Abd: Gravid, nontender ASSESSMENT/PLAN: 1. Supervision of high risk in second trimester - ICD9: V23.9, ICD10: O09.92 (primary diagnosis) - Continue LDA and PNV 2. 19 weeks gestation of - ICD9: V22.2, ICD10: Z3A.19 - Anatomy ultrasound today, report pending PTL precautions reviewed. RTO in 4 weeks or sooner as needed. Franck Armando APRN.MIRYAM [facility] 09-03-2024 Instructions Laura Palma MA - 09/03/2024 2:17 PM EDT SEQUENTIAL SCREENINGS The [facility] offers sequential screenings for women who are interested in screenings for chromosomal abnormalities and certain defects during a . The sequential screen combines ultrasound and blood tests to determine the risk of chromosomal abnormalities, including Down's Syndrome (Trisomy 21) and Trisomy 18, as well as open neural tube defects including spina bifida. Ultrasound examination is performed between 11 weeks and 13 weeks gestational age. Blood tests are drawn after the ultrasound and again later in the between 15 and 21 weeks gestational age. Please let your physician know if you are interested in this testing. It will require an appointment with our shop service technician. This is not an ultrasound performed by a physician in our office during a routine visit. SIGNS AND SYMPTOMS OF LABOR 1. Contractions every 10 minutes or more often 2. Clear, pink, or brownish fluid (water) leaking from vagina 3. Feeling that baby is pushing down, pressure 4. Low, dull backache 5. Cramps that feel like a period 6. Cramps with or without diarrhea If you notice any of the above symptoms, contact our office at [phone] and ask to speak with a nurse. After hours, you can call doctors registry at [phone] OR call [facility] at [phone] and ask to have the doctor personalized living manager nurse paged. If you consider this an emergency, dial 9-1- or go to your nearest emergency department. NEED HELP? Are you dealing with a violent or abusive relationship? Are you a victim of rape or sexual assult? Call [facility] ([place]) 24 hour Crisis Hotline: 835.290.5549 or 383-830-9690. MANUAL Your Guide to a Healthy manual is now on-line. Visit [email or web address] [email or web address] to download your free copy documented in this encounter [facility] 08-17-2024 Progress note Formatting of t his note might be different from the original. SW- pt doing well. No pain, vb, lof PE: Gen- NAD, well appearing Abd- Soft, gravid, NT See flowsheet A/p 17 wk gestation - Discussed upcoming expectations - Discussed travel in - RTO anatomy US and OB visit Santhosh Cee DO [facility] 08-17-2024 Miscellaneous Notes SW- pt doing well. No pain, vb, lof PE: Gen- NAD, well appearing Abd- Soft, gravid, NT See flowsheet A/p 17 wk gestation - Discussed upcoming expectations - Discussed travel in - RTO anatomy US and OB visit Santhosh Cee DO documented in this encounter [facility] 08-17-2024 Instructions Radha Fox LPN - 08/17/2024 2:56 PM EST SEQUENTIAL SCREENINGS The [facility] offers sequential screenings for women who are interested in screenings for chromosomal abnormalities and certain defects during a . The sequential screen combines ultrasound and blood tests to determine the risk of chromosomal abnormalities, including Down's Syndrome (Trisomy 21) and Trisomy 18, as well as open neural tube defects including spina bifida. Ultrasound examination is performed between 11 weeks and 13 weeks gestational age. Blood tests are drawn after the ultrasound and again later in the between 15 and 21 weeks gestational age. Please let your physician know if you are interested in this testing. It will require an appointment with our shop service technician. This is not an ultrasound performed by a physician in our office during a routine visit. SIGNS AND SYMPTOMS OF LABOR 1. Contractions every 10 minutes or more often 2. Clear, pink, or brownish fluid (water) leaking from vagina 3. Feeling that baby is pushing down, pressure 4. Low, dull backache 5. Cramps that feel like a period 6. Cramps with or without diarrhea If you notice any of the above symptoms, contact our office at [phone] and ask to speak with a nurse. After hours, you can call doctors registry at [phone] OR call [facility] at [phone] and ask to have the doctor personalized living manager nurse paged. If you consider this an emergency, dial 9-1-1 or go to your nearest emergency department. NEED HELP? Are you dealing with a violent or abusive relationship? Are you a victim of rape or sexual assult? Call [facility] ([facility] 24 hour Crisis Hotline: 349.123.5670 or 292-797-7696. MANUAL Your Guide to a Healthy manual is now on-line. Visit [email or web address] [email or web address] to download your free copy documented in this encounter [facility] 07-20-2024 Progress note Formatting of t his note might be different from the original. SW- pt doing well. No pain, vb, lof. PE: Gen- NAD, well appearing See flowsheet A/p 13 wk gestation - ADHD and history depression: Patient reports mood stable - NT today - NOB labs completed - Declined aneuploidy screening - RTO 4 wks BRETT Murray [facility] 07-20-2024 Miscellaneous Notes SW- pt doing well. No pain, vb, lof. PE: Gen- NAD, well appearing See flowsheet A/p 13 wk gestation - ADHD and history depression: Patient reports mood stable - NT today - NOB labs completed - Declined aneuploidy screening - RTO 4 wks BRETT Murray documented in this encounter [facility] 07-20-2024 Instructions Jessica Plunkett MA - 07/20/2024 3:55 PM EST SEQUENTIAL SCREENINGS The [facility] offers sequential screenings for women who are interested in screenings for chromosomal abnormalities and certain defects during a . The sequential screen combines ultrasound and blood tests to determine the risk of chromosomal abnormalities, including Down's Syndrome (Trisomy 21) and Trisomy 18, as well as open neural tube defects including spina bifida. Ultrasound examination is performed between 11 weeks and 13 weeks gestational age. Blood tests are drawn after the ultrasound and again later in the between 15 and 21 weeks gestational age. Please let your physician know if you are interested in this testing. It will require an appointment with our shop service technician. This is not an ultrasound performed by a physician in our office during a routine visit. SIGNS AND SYMPTOMS OF LABOR 1. Contractions every 10 minutes or more often 2. Clear, pink, or brownish fluid (water) leaking from vagina 3. Feeling that baby is pushing down, pressure 4. Low, dull backache 5. Cramps that feel like a period 6. Cramps with or without diarrhea If you notice any of the above symptoms, contact our office at [phone] and ask to speak with a nurse. After hours, you can call doctors registry at [phone] OR call [facility] at [phone] and ask to have the doctor personalized living manager nurse paged. If you consider this an emergency, dial 9--1 or go to your nearest emergency department. NEED HELP? Are you dealing with a violent or abusive relationship? Are you a victim of rape or sexual assult? Call [facility] ([place]) 24 hour Crisis Hotline: 756.955.9274 or 466-870-7742. MANUAL Your Guide to a Healthy manual is now on-line. Visit [email or web address] to download your free copy documented in this encounter [facility] 06-19-2024 Progress note Formatting of t his note might be different from the original. S: Vicky Mitchell is a 24 year old female who presents at 01/25/2025, by Ultrasound for a routine visit. Denies headache, visual changes, chest pain, shortness of breath, vaginal bleeding, leakage of fluid, or dysuria. Feeling well, no complaints. O: See flow sheet Gen: No apparent distress EDC not consistent with LMP EDC by US 01/25/25 Declined NT and Genetic screening ASSESSMENT/PLAN: 1. Encounter for supervision of high risk in first trimester, antepartum - ICD9: V23.9, ICD10: O09.91 (primary diagnosis) 2. Size of fetus inconsistent with dates in first trimester - ICD9: 649.63, ICD10: O26.841 EDC updated 3. 8 weeks gestation of - ICD9: V22.2, ICD10: Z3A.08 Leona Armando MD [facility] 06-19-2024 Miscellaneous Notes S: Vicky Mitchell is a 24 year old female who presents at 01/25/2025, by Ultrasound for a routine visit. Denies headache, visual changes, chest pain, shortness of breath, vaginal bleeding, leakage of fluid, or dysuria. Feeling well, no complaints. O: See flow sheet Gen: No apparent distress EDC not consistent with LMP EDC by US 01/25/25 Declined NT and Genetic screening ASSESSMENT/PLAN: 1. Encounter for supervision of high risk in first trimester, antepartum - ICD9: V23.9, ICD10: O09.91 (primary diagnosis) 2. Size of fetus inconsistent with dates in first trimester - ICD9: 649.63, ICD10: O26.841 EDC updated 3. 8 weeks gestation of - ICD9: V22.2, ICD10: Z3A.08 Leona Armando MD documented in this encounter [facility] 06-19-2024 Note HNO ID: [id number] Author: SRINIVASAN LIN MD Service: ? Author Type: Physician Type: Progress Notes Filed: 06/19/2024 14:55 Note Text: The patient presents for requested ultrasound. Full report available in the Imaging tab in [employer]. Srinivasan Lin MD [facility] 06-19-2024 History of Present illness Narrative The patient presents for requested ultrasound. Full report available in the Imaging tab in [employer]. Srinivasan Lin MD\ documented in this encounter [facility] 06-19-2024 Instructions Jessica Plunkett MA - 06/19/2024 2:35 PM EST SEQUENTIAL SCREENINGS The [facility] offers sequential screenings for women who are interested in screenings for chromosomal abnormalities and certain defects during a . The sequential screen combines ultrasound and blood tests to determine the risk of chromosomal abnormalities, including Down's Syndrome (Trisomy 21) and Trisomy 18, as well as open neural tube defects including spina bifida. Ultrasound examination is performed between 11 weeks and 13 weeks gestational age. Blood tests are drawn after the ultrasound and again later in the between 15 and 21 weeks gestational age. Please let your physician know if you are interested in this testing. It will require an appointment with our shop service technician. This is not an ultrasound performed by a physician in our office during a routine visit. SIGNS AND SYMPTOMS OF LABOR 1. Contractions every 10 minutes or more often 2. Clear, pink, or brownish fluid (water) leaking from vagina 3. Feeling that baby is pushing down, pressure 4. Low, dull backache 5. Cramps that feel like a period 6. Cramps with or without diarrhea If you notice any of the above symptoms, contact our office at [phone] and ask to speak with a nurse. After hours, you can call doctors registry at [phone] OR call [facility] at [phone] and ask to have the doctor personalized living manager nurse paged. If you consider this an emergency, dial 1-0-4 or go to your nearest emergency department. NEED HELP? Are you dealing with a violent or abusive relationship? Are you a victim of rape or sexual assult? Call [facility] ([place]) 24 hour Crisis Hotline: 427.700.1191 or 620-997-6255. MANUAL Your Guide to a Healthy manual is now on-line. Visit [email or web address] to download your free copy documented in this encounter [facility] 06-05-2024 Telephone encounter Note 1st risk assessment form submitted 06/05/24. Guadalupe Daley RN [facility] 06-05-2024 Miscellaneous Notes 1st risk assessment form submitted 06/05/24. Guadalupe Daley RN documented in this encounter [facility] 06-01-2024 Franck Goode APRN.MIRYAM - 06/01/2024 10:56 AM EST Images from the original note were not included. Please select the following link to access the [facility] Your Guide to a Healthy . [email or web address] Psychotherapy Services at [facility] Call Behavioral Health Access Line at [phone] to schedule Individual psychotherapy In-person or virtual Wait time for first evaluation may be 12 or more weeks. Wait list spots may be available. Due to the high volume of patients this option is recommended if you are looking for short term acute symptom coping strategies. 3-248-7-WNUD9FCYK - [place] [facility] Hotline If you are in suicidal crisis, please call or text 8-495-098-TALK ( ) or visit the National Suicide Prevention Lifeline website. [facility].gov If you are in crisis, call 871 or go to your nearest Emergency Department Here are some links for wonderful Providers here in the community and surrounding areas. Do not hesitate to contact their offices, many are offering virtual visits during this time. Psychotherapy Services outside of [facility] [employer] Online Provider Directory [email or web address] - can assist in finding providers in your area that might be more extensive then the list below. [facility] [place], [place] [address] [place] [address] [address] [facility] [address] [place] [address] [facility] [address] [place], [place] [id number] Adina Sanchez MD [address] [place] [address] [facility] [address] [facility], [address] [place] [address] [facility] [address] [place] [address] [facility] Services Pol[place] / Mather [phone]/ [phone] Salena Wang [address] [facility] [address] [facility] [phone] Aves of Counseling and Mediation Sherri / Sunni [phone] Behavioral health services of [facility] [address] [place] [address]/ [place] [phone] GLENN Cabello, CLC [facility] Therapy Workshops, telehealth and at home visits. [phone] [facility] counseling [place] 20 locations [place], [place], [place], [place], [place], [place], [facility] falls, [facility], [place], [place], [place], [place], [place], [place], [facility], [place], [place] ,[facility], [place], [place],[facility], [facility], [place], [facility], [place], [place] www.multicare health.[facility] sports medicine [phone] Psychotherapy resources outside of [facility] are listed below [facility] NewsPin Psychotherapy Web: https://www.Open Road Integrated Media/ Support International Online Provider Directory https://HealthPlan Data Solutions/ Insight Counseling https://Chasm.io (formerly Wahooly)/ Partners for Behavioral Health and Wellness Web: https://Yecuris/ CinemaWell.com for Effective Living Web: https://YourNextLeapliving.Novapost/ LifeStance Web: https://ABK Biomedical.Novapost/location/s briseno/[place]/ [facility] Web: https://www.WorldOnedr. [facility].or / [facility] Web: https://Muecs.org/ Recovery Resources Mental health and substance abuse help Web: https://www.Broadbus Technologiess.org & RESOURCES Support International Direct peer support and connection to professional resources Non-Emergency Helpline Phone: / Text: [phone] Web: https://www..net/ Online Provider Directory: https://HealthPlan Data Solutions/ Online Support Meetings: https://www..net/get-he lp/uej-amgadl-tprfssi-meetings/ KEITH Baby and Pot Fireman Services Web: https://www.NEXGRID/ M-Farm Expert information on medication use during and Text: [phone] Web: https://Human Demand/ NATIONAL REGISTRY FOR PSYCHIATRIC MEDICATIONS Currently studying the safety of antidepressants, ADHD medications and atypical antipsychotics taken during TO PARTICIPATE CALL TOLL-FREE: Web: https://womensmentalhealth.org/re search/pregnancyregistry/ Support Groups: [facility]- Follow on facebook Baby Bistro support group led by [facility] department Resilient Mamas - Support Group [facility].org The POEM support group [phone] Www.poemonline.org Follow on facebook - POCL[place]ON espan[place] chapter Online support meetings PSI https://www..net/get-he lp/gzu-notnqq-hgxonuy-meetings/ [facility] mommy and me virtual support group 11:30-1pm Support for mothers and new babies and toddlers [place] childbirth education: Childbirth @ccf.org or call [phone] CRISIS: CRISIS HOTLINE [phone], 911 or go to the nearest . [facility] [phone] / [facility] [phone] https://www.wmchealthrb.org Crisis text line text the word HOME to 368[address] [facility] [address] anabel [address] [facility] [address] www.Admazely.Novapost Nanette Amezquita clinical counseling [address] [address] www.bethbritton.Novapost [phone] Holding space psychotherapy Rosalee Campa FOUNDRY FINISHER INSPECTOR FUEL HOSE-S [address] [facility] www.SOAK (Smart Operational Agricultural toolKit) [phone]/ Mckay [phone] They all offer virtual. All work with trauma Support groups Online support meetings PSI https://www..net/get-he lp/rso-cqsfiw-dyjjouv-meetings/ Here are the support groups they offer: Support of parents of 1 to 4 years old children POEM ( Outreach and Encouragement for Moms) offers free support for mothers experiencing depression, anxiety, and other mood and anxiety disorders. Masks are recommended but not required. No pre-registration required. Babies in arms welcome. meetings now take place on the and Tuesday of each month Location: [facility] [address] [place] [address] Room 122 (library room) 7-8:00 p.m. When you enter the [facility] parking lot off of [address], the entrance door closest to our meeting room is on the front of the building toward the right. For those who are more comfortable with a virtual platform, POEM offers online support group options several days of the week. To register for an online group or to find out more about POEM, website at: https://mhaohio.org/get-help/[facility] university hospitalnmyh-vlljeo-hdknyk/poem-services/ offer a confidential helpline: private Facebook group is called OMAR Louis Here are the groups they offer: Traumatic childbirth resources: Http://pattch.org/ https://www.BestTravelWebsitesshanthiDigital Signal.Novapost/ Name Location (s) Phone # (s) Services Website [facility] [address] [place], [place] - [phone]; [address] [phone] In-Person GROUPS INDIVIDUAL THERAPY MATERNAL- MENTAL HEALTH MEDICATION MANAGEMENT PLAY AND ART THERAPY TELETHERAPY https://www.Open Road Integrated Media/s ervices/ Gadieltonyonny of Evelia DENTON? [address] [place], [place] [address] ? [address], [address] [place], [place] [id number] ? POPE [address] [place], [place] [address]? Grief Support Groups Individual Grief Counseling Spiritual Care Memorial Events https://altus.[facility].org/grief-services [facility] [address] [place], [place] [address]; ; Email: [email or web address] Women's Mental Health; Couples Counseling; Trauma (EMDR); Stress Management; Mood and Anxiety Related Disorders- and much more https://www.NeXplore/ LifeStance Numerous as they have contract providers: access website to find specific providers near you Counseling including CBT and EMDR as well as many more modalities; Medication Management; Telehealth and In-Person https://OPTIMIZERx/ [facility] [address] [place], [place] [address]; [phone] Personal, Family and Group Therapy; Psychological Testing and Diagnosis; Medication Management; Life and Career Coaching; Psychoanalysis; Literacy Testing; Yoga and Meditation https://Yecuris/ Optisort [facility] [address] [facility] [address], [place] [address] [address] ; [address] [place] [address], [address] [place] [address]; Office # for both sites: Individual and Couples Counseling https://www.EarthWise Ferries Uganda Limited/ paymentinsurance.html OCD & Anxiety Joint venture between [facility] [address] [facility], [address], [place] [address]; Specialize in Cognitive-Behavioral Therapy (CBT) for the treatment of anxiety disorders across the lifespan. TELEHEALTH ONLY. https://ocdandanxietycenteroBenzingav Calpian/faqs [facility] [address] [facility] 6th [place], [address] Ronda [address] [facility] [place] [address] [place] [address] [place], [address] [place] [address] [place], [address], [address] [place] [address] [place], [address] [place] [address] [place], [place], [id number] Transportation Services To minimize patient barriers, [facility] provides transportation services to patients who qualify. If you are unable to get to your appointment at any of our facilities, please let us know. Need help now? Stop by one of our walk-in clinics to establish behavioral health care. Counseling Indvidual, Group, Couples and Family Counseling and EMDR. Medication Management Case Management benefits applications housing assistance Substance abuse treatment Medication assisted treatment https://www.[facility] [facility].or g/mental-health/ [facility] OFFICE AT [facility] [address] [place] [address] [facility] OFFICE [address] [place] [address] [facility] OFFICE [address] [place] [address] [facility] (at [facility]) [address] [place] [address] [facility] SYRINGE EXCHANGE PROGRAM & HIV SCREENING [address] [place] [address] [facility] SYRINGE EXCHANGE PROGRAM [address] [place] [address] Behavioral Health Urgent Care: [facility] Sites Counseling Indvidual and Group Medication Management Case Management benefits applications housing assistance Substance abuse treatment Medication assisted treatment Employment Services/ Job Training https://theSwissmed Mobileersnjio.org/ Recovery Resources [address] [place], [place] [address]: P: [phone] [address] [facility], [address], [place] [address] P: [phone] Our services include: Addiction Mental Health Treatment Assessment Psychiatry Medical Care Employment Housing Drug and Alcohol Prevention HIV/AIDS Prevention https://www.recres.org/ [facility] [place] [address] [place] [address] [place] [address] HospitalJo Daviess [address] [place], [place] [address] [place] [address] [place] [address] [place] [address] [facility] [address] [place] [address] [place] [address] [address] [place] [address] TMS Therapy/ Counseling Psychocological Testing for ADHD Medication Management In-Person/ Telemedicine https://www.Recruits.com/suyapa ents-depression Memory & Psychological services [address] [place] [address], [place] [address] Neuropsychological Testing For ADHD https://www.memoryandpsych.com/ The Counseling Center [facility] [place] - Main Office [address] [place] [id number] [address] Providing thjh-kw-ligj and telehealth services. Adult Case Management Community Education and Prevention Employment Outpatient Treatment - Counseling & Psychotherapy Psychiatric Services http://www.[facility].org/ [facility] [address] [address] [facility] [place] [address] [place] [address] Virtual Appointments! Now offering safe and convenient virtual client appointments to anyone in [place]! Individual Therapy Couples/Relationship Therapy Trauma/EMDR Therapy Art Therapy Play Therapy Turner Splitter Machine Operator Support: Parenting Skills, Parent Child Interaction Therapy, Parent Interaction Therapy Meditation Dietitian/Swimming Pool Installer And Servicer Services Group Therapy Yoga https://www.BlisMedia. Novapost/ Melvina Bailey [phone] Private Practice: Telehealth Only Specializes in EMDR for Trauma None documented in this encounter [facility] 05-28-2024 Note HNO ID: [id number] Author: FRANCK ARMANDO APRN.CNP Service: ? Author Type: Nurse Practitioner Type: Progress Notes Filed: 06/01/2024 12:22 Note Text: Perlite Grinder offered: Patient declines. HPI: Vicky is a 24 year old White here to establish Obstetrical Care. Patient's last menstrual period was 03/30/2024 (exact date). from OB Dating Form. was planned Complaints: No OB History T2 L2 SAB0 IAB0 Ectopic0 Multiple0 Live Births2 # 1 - Date: 09/03/19, Sex: Female, Weight: 3.374 kg (7 lb 7 oz), GA: 39w6d, Type: Vaginal, Spontaneous, Apgar1: None, Apgar5: None, Living: Living, Comments: Pit aug, isolated maternal fever, right periurethral lacwith labial ext,500cc # 2 - Date: 06/18/21, Sex: Male, Weight: 3.232 kg (7 lb 2 oz), GA: 38w0d, Type: Vaginal, Spontaneous, Apgar1: None, Apgar5: None, Living: Living, Comments: 250cc, no episiotomy or lacerations, light MSF. CAN loose x2 # 3 - Date: None, Sex: None, Weight: None, GA: None, Type: None, Apgar1: None, Apgar5: None, Living: None, Comments: None Previous history: Prior : No History of 4th degree laceration: No History of shoulder dystocia: No History of Hypertensive disorders including pre-eclampsia or gestational hypertension: no History of gestational diabetes: no Patient's Risk Screening for delivery: Have you had a prior santacruz between 20w and 36w6d? No How many pregnancies have you had before? 2 Did you have a previous baby with a GBS Infection? No Please select all that apply for any prior : N/A MEDICAL/PSYCHOSOCIAL HISTORY: Severe bleeding with delivery: No Thyroid Disease: No GHTN: No Pre eclampsia: No Diabetes: No No results found for: ABORHD BMI 29.19 kg/(m2) Last Pap: History of abnormal pap: No Prior treatment for cervical dysplasia: none. Last HPV: History of STDs: N/A Partner History of STDs: None Did you have a partner with Herpes? No Tobacco use: No E-Cigarette/Vaping Use: No Caffeine use: Yes drinks 1-2 cups of focus drink Drug use: No Alcohol use: No Multivitamin with Folic acid: Yes Would refuse blood transfusion if medically necessary: No Social Needs: How often does this describe you? I don't have enough money to pay my bills: Never Within the past 12 months, have you worried that your food would run out before you had money to buy more? Never In the past 12 months, has lack of reliable transportation kept you from going to medical appointments or work, or from getting things needed for daily living? Never In the past 12 months, have you had any concerns about having a place to live, or about the condition or quality of your housing? Never Would you like more information on any of the following (please check all that apply)? Not interested Social History: Do you have any history of depression, anxiety, PTSD, or other mood problems? Yes Do you have a history of abuse or trauma that may impact your experience? No Are you currently employed? No Depression/Anxiety Screening: denies symptoms of depression. OB Depression and Anxiety Screening- This Encounter (since 05/31/2024) Over the past 2 weeks have you felt down, depressed, or hopeless? Negative Over the past two weeks, have you felt little interest or pleasure in doing things?? Negative Feeling nervous, anxious or on edge 0-Not at all Not being able to stop or control worrying 0-Not al all Anxiety Pre-Screening Total (If >/= 3 additional questions will be reviewed) 0 Genetic Screening: Partner present: No Patient verbalized knowledge of partner family health history: Yes Do you or your partner have any personal or family history of defects not previously discussed: No Do you have history of a complicated by anomaly, genetic condition, or demise: No Preeclampsia Risk Screening: Screening for prevention of preeclampsia: High risk factors: None Moderate risk ractors: None OB Risk Screening: Completed, no positive findings documented. Marital Status: Partner: Name: Ander Mitchell Age: 28 Occupation: customer services supervisor Gender: Male PAST MEDICAL HISTORY Diagnosis Date ADHD (attention deficit hyperactivity disorder) Binge eating disorder Bunion of left foot Depression/anxiety PAST SURGICAL HISTORY Procedure Laterality Date NONE Current Outpatient Medications Medication Sig Dispense Refill VIT 14-IRON FUM-FOLIC ORAL Take by mouth. No current facility-administered medications for this visit. Allergies As of Date: 06/01/2024 Allergen Noted Reaction LATEX 04/12/2007 Rash Fully Assessed 06/01/2024 Does patient have penicillin allergy: No REVIEW OF SYSTEMS: GENERAL: Negative for: Fever or Chills HEENT: Negative for: Headache, Impaired Vision, Ringing in Ears, Nosebleeds NECK: Negative for: Swelling, Pa (more content not included)... [facility] 05-[facility] History of Present illness Narrative Perlite Grinder offered: Patient declines. HPI: Vicky is a 24 year old White here to establish Obstetrical Care. Patient's last menstrual period was 03/30/2024 (exact date). from OB Dating Form. was planned Complaints: No OB History T2 L2 SAB0 IAB0 Ectopic0 Multiple0 Live Births2 # 1 - Date: 09/03/19, Sex: Female, Weight: 3.374 kg (7 lb 7 oz), GA: 39w6d, Type: Vaginal, Spontaneous, Apgar1: None, Apgar5: None, Living: Living, Comments: Pit jan, isolated maternal fever, right periurethral lacwith labial ext,500cc # 2 - Date: 06/18/21, Sex: Male, Weight: 3.232 kg (7 lb 2 oz), GA: 38w0d, Type: Vaginal, Spontaneous, Apgar1: None, Apgar5: None, Living: Living, Comments: 250cc, no episiotomy or lacerations, light MSF. CAN loose x2 # 3 - Date: None, Sex: None, Weight: None, GA: None, Type: None, Apgar1: None, Apgar5: None, Living: None, Comments: None Previous history: Prior : No History of 4th degree laceration: No History of shoulder dystocia: No History of Hypertensive disorders including pre-eclampsia or gestational hypertension: no History of gestational diabetes: no Patient's Risk Screening for delivery: Have you had a prior santacruz between 20w and 36w6d? No How many pregnancies have you had before? 2 Did you have a previous baby with a GBS Infection? No Please select all that apply for any prior : N/A MEDICAL/PSYCHOSOCIAL HISTORY: Severe bleeding with delivery: No Thyroid Disease: No GHTN: No Pre eclampsia: No Diabetes: No No results found for: ABORHD BMI 29.19 kg/(m^2) Last Pap: History of abnormal pap: No Prior treatment for cervical dysplasia: none. Last HPV: History of STDs: N/A Partner History of STDs: None Did you have a partner with Herpes? No Tobacco use: No E-Cigarette/Vaping Use: No Caffeine use: Yes drinks 1-2 cups of focus drink Drug use: No Alcohol use: No Multivitamin with Folic acid: Yes Would refuse blood transfusion if medically necessary: No Social Needs: How often does this describe you? I don't have enough money to pay my bills: Never Within the past 12 months, have you worried that your food would run out before you had money to buy more? Never In the past 12 months, has lack of reliable transportation kept you from going to medical appointments or work, or from getting things needed for daily living? Never In the past 12 months, have you had any concerns about having a place to live, or about the condition or quality of your housing? Never Would you like more information on any of the following (please check all that apply)? Not interested Social History: Do you have any history of depression, anxiety, PTSD, or other mood problems? Yes Do you have a history of abuse or trauma that may impact your experience? No Are you currently employed? No Depression/Anxiety Screening: denies symptoms of depression. OB Depression and Anxiety Screening- This Encounter (since 05/31/2024) Over the past 2 weeks have you felt down, depressed, or hopeless? Negative Over the past two weeks, have you felt little interest or pleasure in doing things? Negative Feeling nervous, anxious or on edge 0-Not at all Not being able to stop or control worrying 0-Not al all Anxiety Pre-Screening Total (If >/= 3 additional questions will be reviewed) 0 Genetic Screening: Partner present: No Patient verbalized knowledge of partner family health history: Yes Do you or your partner have any personal or family history of defects not previously discussed: No Do you have history of a complicated by anomaly, genetic condition, or demise: No Preeclampsia Risk Screening: Screening for prevention of preeclampsia: High risk factors: None Moderate risk ractors: None OB Risk Screening: Completed, no positive findings documented. Marital Status: Partner: Name: Ander Mitchell Age: 28 Occupation: customer services supervisor Gender: Male PAST MEDICAL HISTORY Diagnosis Date ADHD (attention deficit hyperactivity disorder) Binge eating disorder Bunion of left foot Depression/anxiety PAST SURGICAL HISTORY Procedure Laterality Date NONE Current Outpatient Medications Medication Sig Dispense Refill VIT 14-IRON FUM-FOLIC ORAL Take by mouth. No current facility-administered medications for this visit. Allergies As of Date: 06/01/2024 Allergen Noted Reaction LATEX 04/12/2007 Rash Fully Assessed 06/01/2024 Does patient have penicillin allergy: No REVIEW OF SYSTEMS: GENERAL: Negative for: Fever or Chills HEENT: Negative for: Headache, Impaired Vision, Ringing in Ears, Nosebleeds NECK: Negative for: Swelling, Pain, Stiffness RESPIRATORY: Negative for: Cough, Shortness of breath, Wheezing GASTROINTESTINAL: Negative for: Heartburn, Constipation, Diarrhea, Blood in stool, Vomiting MUSCULOSKELETAL: Negative for: Muscle or joint pain, stiffness, Joint swelling NEUROLOGIC/PSYCHIATRIC: Negative for: Weakness, Paralysis, Numbness, Tingling, Tremor, Anxiety, Depression, Memory loss SKIN: Negative for: Rash, Itching GENITOURINARY: Negative for: vaginal itching, vaginal discharge, hematuria or dysuria SENSITIVE EXAM: The sensitive examination was discussed with the Patient or Patient's Authorized Rides Attendant. As applicable, any other physician, advance practice provider, medical student, or other health professional student that will be observing or involved in the sensitive examination for educational or training purposes was discussed with the Patient or Authorized Rides Attendant. The Patient or Authorized Rides Attendant has agreed to proceed with the sensitive examination. (Sensitive examination includes inspection and/or palpation of the breasts, pelvis, prostate and anorectal regions). PHYSICAL EXAM: BP 112/60 Ht 5' 4.37 (1.64m) Wt 172 lb (78.0kg) LMP 03/30/2024 BMI 29.19 kg/(m^2). GENERAL: pleasant in no apparent distress DERMATOLOGY: Normal, without lesions, non-icteric, and non-hirsute NECK: Supple, full range of motion, no adenopathy, and thyroid normal CHEST: Normal inspiratory effort BREAST: soft, non-tender, symmetric, no dominant mass, normal nipple-areolar complex, no lymphadenopathy, and no nipple discharge + fibrocystic bilaterally ABDOMEN: soft, non-tender, and no masses NEURO: alert and oriented x3,exam grossly non-focal PELVIS: External genitalia normal without lesions. Perineal body intact. No vaginal or cervical lesions. Cervix closed. Uterus <8 week size. No adnexal masses or tenderness. Clinical Pelvimetry: Pelvimetry clinically assessed as adequate Limited OB ultrasound exam: single intrauterine and positive cardiac activity ASSESSMENT: 24 year old at 5w5d wks gestational age PLAN: 1) Patient oriented to practice. Patient given new OB orientation folder. Discussed nutrition, folic acid supplementation, dietary guidelines, exercise, smoking, alcohol, caffeine, and drug use. Discussed gestational weight gain guidelines. Discussed routine OB labs including STD/HIV. Discussed how to access Your guide to a health and the Sound Engineer. Discussed hemoglobin electrophoresis. Patient: Declines Reviewed midwifery and clothing worker services that are available. 2) Screening: Hemoglobin A1C: ordered Baby Aspirin: The patient has been counseled about the potential benefits of low dose aspirin in and our recommendation that this be offered to all patients, regardless of whether they meet the high risk criteria specified above. She Accepts Aneuploidy Screening: Discussed aneuploidy screening, nuchal translucency/first trimester early anatomy ultrasound and NIPT. The risks/benefits and limitations of NIPT/aneuploidy screening were reviewed including the potential for false negative and false positive results. The availability of genetic counseling was reviewed. Information on aneuploidy screening was provided. The patient chooses to proceed with First trimester early anatomy ultrasound (12-13w6d) and If concerns with insurance coverage, patient to call back for sequential order. Myriad Carrier Screening: Discussed myriad carrier screening. We discussed the availability of professional-society guided carrier screening and reviewed the conditions screened and limitations of screening. The availability of genetic counseling was reviewed. Information on carrier screening was provided. The patient Accepts 3) Patient offered option of Virtual Visits. Patient unsure. May consider in future. ACTIVE PROBLEM LIST Encounter for Supervision of High Risk in First Trimester, Antepartum - 06/01/2024 Comment: Care Checklist Vaccines: [] Flu vaccine [] declined [] RSV vaccine 32 0/7 - 36 6/7 (Feb - Jul) [] declined [] COVID vaccine [] declined [] TDaP 27-36 [] declined First trimester: [x] Dating US [x] 1st tri labs [x] Pap smear [x] Carrier screening [] declined [] NIPT screening [] declined [x] First trimester anatomy scan [] declined [x] universal ASA ordered (start 12w-16w) [] declined [] M Power Consult [] not indicated [] declined Second trimester: [] Anatomy scan [] Mode of Delivery - [] Feeding - [] Pump ordered [] Diabetes screen [] CBC, RPR [] Behavioral Health Screening Third trimester (28-30 weeks): [] Consent [] Contraception [] Fire Protection Equipment Technician [] TeamBirth handout Third trimester (36-40 weeks): [] GBS [] Presentation - [] Scheduled [] yes - Hibiclens, pre-op instructions, CBC, T&S ordered [] no [] H&P [] Preferences worksheet [] Scanned in EMR With Uncertain Dates in First Trimester - 06/01/2024 Comment: June 01, 2024 POCUS not consistent with LMP. Serial HCG ordered. Repeat dating in 2 weeks. Franck Armando APRN.CNP Family History of Blood Coagulation Disorder - 06/01/2024 Comment: June 01, 2024 Mother has blood clotting disorder. Patient reports that she has been tested and is negative. Franck Armando APRN.CNP Attention Deficit Hyperactivity Disorder (Adhd) - 06/01/2024 Comment: June 01, 2024 Has been on Vyvanse in the past. Franck Armando APRN.CNP History of Depression - 06/01/2024 Comment: June 01, 2024 History of anxiety/depression diagnosed 4 years ago and treated by her PCP. She has been off medication for 1 year. Has taken Paxil and fluoxetine in the past. Believes she is doing well off medication. Denies any history of depression denies ever having any suicidal thoughts or thoughts of hurting others.. Discussed increased risks of depression during and and importance of reporting the development or worsening of symptoms should they occur. Mental health resources provided. Franck Armando APRN.CNP Follow up in 2 weeks or sooner prn. Plan for dating. Franck Armando APRN.CNP documented in this encounter [facility] 05-28-2024 Telephone encounter Note 4:00 PM today [facility] 05-28-2024 Miscellaneous Notes 4:00 PM today Left message for patient to return phone call to complete nurse intake questions for her upcoming appointment. Patient has an appointment with Franck Armando for NOB appointment. I am here today and tomorrow morning if she calls back and I am available documented in this encounter [facility] 05-28-2024 Telephone encounter Note Left message for patient to return phone call to complete nurse intake questions for her upcoming appointment. Patient has an appointment with Franck Armando for NOB appointment. I am here today and tomorrow morning if she calls back and I am available [facility] 03-15-2023 Miscellaneous Notes Patient notified of provider's instructions. Patient requests order be sent to [facility]. Order faxed to [id number] and request office to fax back results when completed. Patient verbalizes understanding. Mabel López LPN Please call patient to inform her that I called in mobic but I want her to get blood work first before she starts. Need to check kidney function Have her make follow-up to if she is having pain Soto Trejo DPM documented in this encounter [facility] 03-11-2023 Miscellaneous Notes Patient notified of results and provider's instructions. Patient verbalizes understanding. Patient is schedule on 03/30/2023. Mabel López LPN Images from the original note were not included. Soto Trejo You 2 hours ago (12:02 PM) So patient did not have an injection given because they did not see the bursae on ultrasound apparently. She can continue with nsaids and good supportive shoes/inserts. If she feels the pain is still present, I would like to see her again Soto Trejo DPM Pt states she followed up with [facility] sports medicine as discussed with Dr. Trejo and requested the steroid injection, but they were not comfortable proceeding with an injection. Pt is requesting an alternative solution to obtain the steroid to ease left foot pain, as the oral medication did help previously. Please review and advise. Thank you. documented in this encounter [facility] 02-16-2023 Miscellaneous Notes Patient called in stating that she was not given a steroid injection today at her appointment. Patient asking for next steps in plan of care. Maricruz Sanchez RN Images from the original note were not included. Soto Trejo [facility] [place] 11 hours ago (9:01 PM) Order made Soto Trejo DPM Patient called stating that she received message stating that she was trying to schedule musculoskeletal injection orders not placed. documented in this encounter [facility] 02-04-2023 Miscellaneous Notes Pt is scheduled for their MSK US on 02/16 at [facility]. Visit Type: INJ ONLY 1 Visit Length: 60 MINUTES Order Name/Protocol: US ASP/INJ HAND/FINGER/FOOT/TOE JT BURSA LT - LEFT 5TH METATARSAL [facility] BURSA Preferred Provider: N/A Comment: N/A Location: [facility] Slot held: N/A documented in this encounter [facility] 01-26-2023 History of Present illness Narrative Radiology Service Progress Note DATE OF SERVICE: January 26, 2023 TIME: 3:20 PM PATIENT IDENTITY VERIFICATION COMPLETED USING TWO (2) STANDARD IDENTIFIERS: Name and Date of confirmed by patient verbally. FALL SCREENING: Has the patient had 2 falls in the last year or 1 fall with injury or currently using an Ambulatory Assistive Device (Walker, Cane, Wheelchair, Crutches, etc.)? No PATIENT GENDER DATA: Female. status: : No status: NO. PATIENT RELEVANT IMPLANT DATA REVIEWED: Yes ALLERGIES: Reviewed and unchanged CONTRAST ALLERGY: NO. EXAM: MRI - CONTRAST TYPE: GROUP II PERIPHERAL IV DATA: Ambulatory: A peripheral IV was started in the Left antecubital site with a Angio cath: 22 gauge. RADIOLOGY DEPARTMENT: MR; Exam(s) Completed: Lower MSK: Forefoot/Midfoot, left SIGNATURE: RT Faheem(R) PATIENT NAME: Vicky Mitchell DATE: January 26, 2023 TIME: 3:20 PM documented in this encounter [facility] 12-16-2022 History of Present illness Narrative Images from the original note were not included. FOLLOW UP PODIATRIC OFFICE VISIT Chief Complaint: This 22 year old who presents for follow up:left foot pain Patient presents to clinic for follow-up left foot pain Patient continues to have pain throughout the day to the left foot. She did use the gel inserts and did not feel that helped. She did take the oral steroid and that helped. Patient feels the pain moved more proximally. PAIN EVALUATION 12/15/20222128 Pain Level: 8 Pain Location: Foot-Left Description: Aching;Dull;Stabbing/Not Incision;Stiffness Duration Amount of Time: 4 Duration Units: Months Frequency: Intermittent Intervention/Comfort measure: Medication;Relaxation;Cold;Exerci se No results found for: HBA1C PCP: No primary care provider on file. PAST MEDICAL HISTORY Diagnosis Date NEGATIVE MEDICAL HISTORY normal color vision No current outpatient medications on file. No current facility-administered medications for this visit. ALLERGIES Allergen Reactions Latex Rash PAST SURGICAL HISTORY Procedure Laterality Date NONE Physical Exam: OBJECTIVE: Constitutional: Pt is a well developed 22 year old female who is alert, oriented, cooperative and in no apparent distress. Eyes: Following during examination. No redness or drainage. Respiratory: RR normal and nonlabored. Even breathing. No evidence of distress. Psychology: Patient is engaged during conversation. Normal affect and mood. Does not appear depressed or anxious. NVSI unchanged from previous visit. Dermatological: Nails 1-5 b/l are normal. Webspaces clean and dry 1-4 b/l. Skin appears well hydrated and supple. good color, texture, turgor. No open lesions present. No callosities present. Musculoskeletal/Orthopaedic: Patient has pain to palpation of left 5th metatarsal midshaft Swelling to lateral aspect of left 5th metatarsal head has resolved Minimal tailors bunion noted Xrays of left foot reviewed. Small exostosis to lateral aspect of left 5th metatarsal head. IM 4-5 is approximately 10 degrees. ASSESSMENT: (M89.9) Disorder of bone (primary encounter diagnosis) (M21.622) Tailor's bunion of left foot (M79.672) Left foot pain PLAN: Discussed pain in left 5th metatarsal. Last evaluation, the pain was more along the lateral aspect of left 5th metatarsal head. Now the pain is more midshaft. I reviewed xrays. She has very small tailors bunion. Her pain seems more along midshaft and less associated with tailors bunion. I am going to recommend getting mri to evaluate for possible soft-tissue mass, stress fracture or possible interspace neuroma. We discussed small tailors bunion . We discussed exostectomy with possible osteotomy but her deformity is rather small. Given the pain that she is experiencing more along the shaft, I am not certain that an osteotomy would resolve her pain. Recommend mri for further evaluation. Soto Trejo DPM AMB ROOMING INTAKE FLOWSHEET DATA Pain Pain Level: 8 Pain Location: Foot-Left Description: Aching, Dull, Stabbing/Not Incision, Stiffness Duration Amount of Time: 4 Duration Units: Months Frequency: Intermittent Intervention/Comfort measure: Medication, Relaxation, Cold, Exercise Patient presents with: Left Foot - Follow Up, Pain Patient is here for follow up of L foot pain and tailor's bunion. Gel inserts don't seem to make much of a difference but oral steroid did help some. documented in this encounter [facility] 11-12-2022 History of Present illness Narrative Radiology Service Progress Note PATIENT NAME: Vicky Mitchell DATE OF SERVICE: November 12, 2022 TIME: 11:45 AM PATIENT IDENTITY VERIFICATION COMPLETED USING TWO (2) IDENTIFIERS: Name and Date of confirmed by patient verbally. FALL SCREENING: Has the patient had 2 falls in the last year or 1 fall with injury or currently using an Ambulatory Assistive Device (Walker, Cane, Wheelchair, Crutches, etc.)? No PATIENT GENDER DATA: Female. status: : No status: NO. PATIENT RELEVANT IMPLANT DATA REVIEWED: Not Applicable RADIOLOGY DEPARTMENT: General X-ray: Exam(s) Completed: Lower Extremity X-Ray(s): Foot, Left and Wt. Bearing PERIPHERAL IV DATA: Not applicable SIGNED BY: RT Joshua(R) November 12, 2022 11:45 AM documented in this encounter [facility] 10-27-2022 Instructions Soto Trejo - 10/27/2022 1:59 PM EDT Powerstep Original Full length. Can purchase at [employer] here in [place], [employer] in [place] or [place]. Also can find in [place] in [facility]. Powersteps can also be purchased online, starting around $25.00 If you have a metatarsal or dancer pad for your feet apply the pad directly to the insole so you can interchange between your shoes. Find a shoe with a removable insole and take this out and replace with your powerstep insole. Always bring powersteps with you when shopping for shoes so that you can make sure that everything fits well together documented in this encounter [facility] 10-27-2022 History of Present illness Narrative Images from the original note were not included. Initial Podiatric Office Visit: Chief Complaint: This 22 year old female who presents with chief complaint:left foot pain HPI Patient presents to clinic for evaluation of left foot. Matt has pain to the plantar lateral aspect of left foot, along 5th toe Patient states the pain is present whenever she is ambulatory or getting up from a seated position She states the pain has been present for several months, denies any injury Patient has performed some stretching and that does provide some relief She does not do any medication. PAIN EVALUATION 10/23/2022 0802 Pain Level: 8 Pain Location: Foot-Left Description: Aching;Numbness;Shooting;Sore;Sta bbing/Not Incision;Stiffness;Throbbing;Tigh tness Duration Amount of Time: 3 Duration Units: Months Frequency: Continuous Intervention/Comfort measure: Relaxation;Cold;Exercise;Heat;Mas alpesh No results found for: HBA1C PCP: No primary care provider on file. PAST MEDICAL HISTORY Diagnosis Date NEGATIVE MEDICAL HISTORY normal color vision No current outpatient medications on file. No current facility-administered medications for this visit. ALLERGIES Allergen Reactions Latex Rash PAST SURGICAL HISTORY Procedure Laterality Date NONE FAMILY HISTORY Problem Relation Age of Onset other (heart disease [Other]) Maternal Grandmother Breast Cancer Maternal Grandmother other (glucoma [Other]) Paternal Grandmother other (heart disease [Other]) Maternal Grandfather Social History Tobacco Use Smoking status: Never Substance Use Topics Alcohol use: No Drug use: No REVIEW OF SYSTEMS GENERAL: Negative for Malaise, significant weight loss, fever RESPIRATORY: Negative for cough, wheezing and shortness of breath CARDIOVASCULAR: Negative for chest pain, leg swelling and palpitations GI: Negative for abdominal discomfort, blood in stools or black stools and change in bowel habits : Negative for dysuria, frequency and incontinence MUSCULOSKELETAL: Negative for joint pain or swelling, back pain, and muscle pain. SKIN: Negative for lesions, rash, and itching. HEMATOLOGY/LYMPHOLOGY Negative for prolonged bleeding, bruising easily, and swollen nodes. ENDOCRINE: Negative for cold or heat intolerance, polyuria, polydipsia and goiter. NEURO: negative Physical Exam: Constitutional: Pt is a well developed 22 year old female who is alert, oriented and cooperative Eyes: Following during examination. No redness or drainage. Respiratory: RR normal and nonlabored. Even breathing. No evidence of distress or shortness of breath. Psychology: Patient is engaged during conversation. Normal affect and mood. Does not appear depressed or anxious during encounter. Vascular: Dorsalis pedis and posterior tibial pulses palpable as b/l Capillary Fill time < 5 seconds to digits 1-5 b/l Skin temperature warm to warm proximal to distal b/l Hair growth present to digits Neurological: intact light touch/epicritic sensation b/l intact protective sensation no significant neurological deficits Dermatological: Nails 1-5 b/l appear normal. Webspaces clean and dry 1-4 b/l. Skin appears well hydrated and supple. good color, texture, turgor. No open lesions present. No callosities present. Musculoskeletal/Orthopaedic: Patient has pain to palpation of left lateral 5th metatarsal. Patient has pain to 3rd interspace of left foot Foot type is neutral structurally AJ ROM is full with knee extended and flexed 1st MPJ is full when loaded and no pain or crepitus are noted with ROM. Mild bunion of left foot. Small tailors bunion of left foot MTJ, STJ are full and free of pain and crepitus. +5/5 muscle strength dorsiflexion, plantarflexion, inversion, eversion b/l Radiographs: ordered ASSESSMENT: (M21.622) Tailor's bunion of left foot (primary encounter diagnosis) PLAN: 1. History and physical examination performed. 2. Discussed pain in left foot. Suspect component of tailors bunion. Will order xrays 3. Will place patient on oral steroid. 4. Recommend gel inserts 5. Will call with results. Soto Trejo DPM Podiatry [address] [facility] [address] Dept: [phone] Dept AMB ROOMING INTAKE FLOWSHEET DATA Risk Screening Do you have concerns about personal safety or safety in the home?: No Pain Pain Level: 8 Pain Location: Foot-Left Description: Aching, Numbness, Shooting, Sore, Stabbing/Not Incision, Stiffness, Throbbing, Tightness Duration Amount of Time: 3 Duration Units: Months Frequency: Continuous Intervention/Comfort measure: Relaxation, Cold, Exercise, Heat, Massage Patient presents with: Left Foot - New Patient, Pain Patient c/o L foot pain for several months. No imaging. Was evaluated at PCP's and given stretches to do for plantar fasciitis. Stretching did not help. Patient does not recall any injury. Pain is located laterally. Worse first thing in the morning. Nothing really helps ease pain. documented in this encounter [facility] Evaluation note Diagnosis Tailor's bunion of left foot- [facility] Disorder of bone- Primary Disorder of bone and cartilage, unspecified Tailor's bunion of left foot Left foot pain Pain in limb [facility] Diagnosis Left foot pain- Primary Pain in limb [facility] Diagnosis Left foot pain- Primary Pain in limb Bursitis of left foot [facility] Diagnosis Tailor's bunion of left foot [facility]* Diagnosis Disorder of bone Disorder of bone and cartilage, unspecified [facility] Diagnosis Encounter for supervision of high risk in first trimester, antepartum- Primary 5 weeks gestation of state, incidental with uncertain dates in first trimester Screening for cervical cancer Screening for malignant neoplasm of the cervix History of depression Personal history of other mental disorder Attention deficit hyperactivity disorder (ADHD), unspecified ADHD type Family history of blood coagulation disorder [facility] Diagnosis Size of fetus inconsistent with dates in first trimester- Primary 8 weeks gestation of state, incidental with uncertain dates in first trimester [facility] Encounter for supervision of high risk in first trimester, antepartum- Primary Size of fetus inconsistent with dates in first trimester 8 weeks gestation of state, incidental [facility] Diagnosis Encounter for supervision of high risk in first trimester, antepartum- Primary 13 weeks gestation of state, incidental Attention deficit hyperactivity disorder (ADHD), unspecified ADHD type History of depression Personal history of other mental disorder [facility] [place]* Diagnosis Encounter for screening for malformation using ultrasound- Primary 13 weeks gestation of state, incidental [facility] Diagnosis Supervision of high risk in second trimester- Primary Unspecified high-risk 17 weeks gestation of state, incidental History of depression Personal history of other mental disorder [facility] [place] [facility]* Diagnosis Supervision of high risk in second trimester- Primary Unspecified high-risk 19 weeks gestation of state, incidental documented in this encounter [facility] note* Diagnosis Encounter for anatomic survey- Primary 19 weeks gestation of state, incidental [facility] Diagnosis Supervision of high risk in second trimester (HCC)- Primary Unspecified high-risk Screening for diabetes mellitus 23 weeks gestation of (HCC) state, incidental * Assessment & Plan Note - Shira Blackwood MD - 10/01/2024 3:38 PM EDT Associated Problem(s): Supervision of high risk in second trimester (HCC) Orders: SYPHILIS TREPONEMAL W/REFLEX; Future ANEMIA REFLEX PANEL; Future documented in this encounter [facility] note* Diagnosis Supervision of high risk in second trimester (HCC)- Primary Unspecified high-risk Screening for diabetes mellitus 23 weeks gestation of (HCC) state, incidental 27 weeks gestation of (HCC)- Primary state, incidental Supervision of high risk in second trimester (HCC) Unspecified high-risk Need for vaccination Need for prophylactic vaccination and inoculation against unspecified single disease documented in this encounter [facility] note* Diagnosis Supervision of high risk in second trimester (HCC)- Primary Unspecified high-risk Screening for diabetes mellitus 23 weeks gestation of (HCC) state, incidental Supervision of high risk in third trimester (HCC)- Primary Unspecified high-risk 29 weeks gestation of (HCC) state, incidental documented in this encounter [facility] note* Diagnosis Supervision of high risk in second trimester (HCC)- Primary Unspecified high-risk Screening for diabetes mellitus 23 weeks gestation of (HCC) state, incidental Supervision of high risk in third trimester (HCC)- Primary Unspecified high-risk 31 weeks gestation of (HCC) state, incidental History of depression Personal history of other mental disorder documented in this encounter [facility] note* Diagnosis Supervision of high risk in second trimester (HCC)- Primary Unspecified high-risk Screening for diabetes mellitus 23 weeks gestation of (HCC) state, incidental Supervision of high risk in third trimester (HCC)- Primary Unspecified high-risk 33 weeks gestation of (HCC) state, incidental * Assessment & Plan Note - Anabell Gasca MD - 12/13/2024 11:44 AM EDT Associated Problem(s): Supervision of high risk in third trimester (HCC) Orders: URINE OB DIP B/O documented in this encounter [facility] note* Diagnosis Supervision of high risk in second trimester (HCC)- Primary Unspecified high-risk Screening for diabetes mellitus 23 weeks gestation of (HCC) state, incidental Supervision of high risk in third trimester (HCC)- Primary Unspecified high-risk 33 weeks gestation of (HCC) state, incidental 36 weeks gestation of (HCC)- Primary state, incidental Supervision of high risk in third trimester (HCC) Unspecified high-risk * Assessment & Plan Note - Anabell Gasca MD - 12/31/2024 4:21 PM EDT Associated Problem(s): Supervision of high risk in third trimester (HCC) Orders: URINE OB DIP B/O kick counts f/u in 1 week or prn documented in this encounter [facility] note* Diagnosis Supervision of high risk in second trimester (HCC)- Primary Unspecified high-risk Screening for diabetes mellitus 23 weeks gestation of (HCC) state, incidental Supervision of high risk in third trimester (HCC)- Primary Unspecified high-risk 33 weeks gestation of (HCC) state, incidental 36 weeks gestation of (HCC)- Primary state, incidental Supervision of high risk in third trimester (HCC) Unspecified high-risk Supervision of high risk in third trimester (HCC)- Primary Unspecified high-risk 37 weeks gestation of (HCC) state, incidental documented in this encounter [facility] note* Diagnosis Supervision of high risk in second trimester (HCC)- Primary Unspecified high-risk Screening for diabetes mellitus 23 weeks gestation of (HCC) state, incidental Supervision of high risk in third trimester (HCC)- Primary Unspecified high-risk 33 weeks gestation of (HCC) state, incidental 36 weeks gestation of (HCC)- Primary state, incidental Supervision of high risk in third trimester (HCC) Unspecified high-risk 38 weeks gestation of (HCC)- Primary state, incidental Supervision of high risk in third trimester (HCC) Unspecified high-risk documented in this encounter [facility] for referral (narrative)* Diagnostic Procedure Only (Routine) - Pending Review Specialty Diagnoses / Procedures Referred By Jewels t Referred To Contact XR IMAGING Diagnoses Tailor's bunion of left foot Procedures XR FOOT GENERAL 3V AP/LAT/OBL LEFT RADEX FOOT COMPLETE MINIMUM 3 VIEWS Soto Trejo [address] [place] [address] Xr Imaging Referral ID Status Reason Start Date Expiration Date Visits Requested Visits Authorized [id number] Pending Review Auto-Generat ed Referral 10/27/2022 11/26/2023 1 1 [facility] [facility] ([facility] Diagnostic Procedure Only (Routine) - Pending Review Specialty Diagnoses / Procedures Referred By Contac t Referred To Contact US IMAGING Diagnoses Left foot pain Procedures US ASP/INJ HAND/FINGER/FOOT/TOE JT BURSA LT ARTHROCNT ASPIR&/INJ SMALL JT/BURSAW/US REC RPRT Soto Trejo [address] [place] [address] [place] [address] Referral ID Status Reason Start Date Expiration Date Visits Requested Visits Authorized [id number] Pending Review Auto-Generat ed Referral 02/03/2023 03/04/2024 1 1 T [facility] for referral (narrative)* Diagnostic Procedure Only (Routine) - Closed Specialty Diagnoses / Procedures Referred By Contac t Referred To Contact XR IMAGING Diagnoses Tailor's bunion of left foot Procedures XR FOOT GENERAL 3V AP/LAT/OBL LEFT RADEX FOOT COMPLETE MINIMUM 3 VIEWS Soto Trejo [address] [place] [address] Xr Imaging [id number] Referral ID Status Reason Start Date Expiration Date V isits Requested Visits Authorized [id number] Closed Auto-Generate d Referral 10/27/2022 11/26/2023 1 1 T [facility] for referral (narrative)* Diagnostic Procedure Only (Routine) - Authorized Specialty Diagnoses / Procedures Referred By Contac t Referred To Contact [facility] Diagnoses with uncertain dates in first trimester 5 weeks gestation of Procedures PELVIC US WHI US PELVIC NONOBSTETRIC REAL-TIME IMAGE COMPLETE Franck Armando, KEVYN.LEASING COORDINATOR [address] [place] [address] [facility] [address] [place] [address] Referral ID Status Reason Start Date Expiration Date Visits Requested Visits Authorized [id number] Authorized Auto-Generat ed Referral 06/01/2025 1 1 * Diagnostic Procedure Only (Routine) - Authorized Specialty Diagnoses / Procedures Referred By Contac t Referred To Contact [facility] Diagnoses with uncertain dates in first trimester 5 weeks gestation of Procedures NUCHAL TRANSLUCENCY WHI US NUCHAL TRANSLUCENCY 1ST GESTATION Franck Armando APRN.LEASING COORDINATOR [address] [place] [address] [address] Referral ID Status Reason Start Date Expiration Date Visits Requested Visits Authorized [id number] Authorized Auto-Generat ed Referral 4 06/01/2025 1 1 * Diagnostic Procedure Only (Routine) - Authorized Specialty Diagnoses / Procedures Referred By Jewels t Referred To Contact [facility] Diagnoses with uncertain dates in first trimester Procedures OBSTETRIC ULTRASOUND WHI US PREG UTERUS AFTER 1ST TRIMEST 1/ GESTATION Franck Armando APRN.LEASING COORDINATOR [address] [place] [address] [address] Referral ID Status Reason Start Date Expiration Date Visits Requested Visits Authorized [id number] Authorized Auto-Generat ed Referral 4 06/01/2025 1 1 [facility] for visit Narrative* Diagnostic Procedure Only (Routine) - Closed Specialty Diagnoses / Procedures Referred By Contac t Referred To Contact XR IMAGING Diagnoses Tailor's bunion of left foot Procedures XR FOOT GENERAL 3V AP/LAT/OBL LEFT RADEX FOOT COMPLETE MINIMUM 3 VIEWS Soto Trejo [address] [place] [address] [place] [address] Referral ID Status Reason Start Date Expiration Date V isits Requested Visits Authorized [id number] Closed Auto-Generate d Referral 10/27/2022 11/26/2023 1 1 [facility] for visit Narrative* Diagnostic Procedure Only (Routine) - Closed Specialty Diagnoses / Procedures Referred By Contac t Referred To Contact [facility] Diagnoses with uncertain dates in first trimester 5 weeks gestation of Procedures PELVIC US WHI US PELVIC NONOBSTETRIC REAL-TIME IMAGE COMPLETE Franck Armando APRN.LEASING COORDINATOR [address] [place] [address] [address] Referral ID Status Reason Start Date Expiration Date V isits Requested Visits Authorized [id number] Closed Auto-Generate d Referral 06/15/2024 06/01/2025 1 1 [facility] for visit Narrative* Diagnostic Procedure Only (Routine) - Closed Specialty Diagnoses / Procedures Referred By Contac t Referred To Contact [facility] Diagnoses with uncertain dates in first trimester Procedures OBSTETRIC ULTRASOUND WHI US PREG UTERUS AFTER 1ST TRIMEST GESTATION Franck Armando APRN.CNP [address] [place] [address] Phone: tel: fax: [address] [address] Referral ID Status Reason Start Date Expiration Date V isits Requested Visits Authorized [id number] Closed Auto-Generate d Referral 06/01/2024 06/01/2025 1 1 [facility] Summary Purpose Family History No Family History Records FoundNo Family History Records FoundNo Family History Records FoundNo Family History Records FoundNo Family History Records Found Advance Directives No Advanced Directives Records FoundNo Advanced Directives Records FoundNo Advanced Directives Records FoundNo Advanced Directives Records FoundNo Advanced Directives Records Found Reason for Referral Specialty Diagnoses / Procedures Referred By Contac t Referred To Contact MR IMAGING Diagnoses Disorder of bone Procedures MRI FOOT/TOES WO/W IVCON LEFT MRI LOWER EXTREM OTH/THN JT W/O & W/CONTR MATR Soto Trejo [address] [place] [address] Mr Imaging Referral ID Status Reason Start Date Expiration Date Visits Requested Visits Authorized [id number] Pending Review Auto-Generat ed Referral 12/16/2022 01/15/2024 1 1 Specialty Diagnoses / Procedures Referred By Jewels stein Referred To Contact MR IMAGING Diagnoses Disorder of bone Procedures MRI FOOT/TOES WO/W IVCON LEFT MRI LOWER EXTREM OTH/THN JT W/O & W/CONTR JAYCEE [address] [place] [address] [place] [address] Referral ID Status Reason Start Date Expiration Date V isits Requested Visits Authorized [id number] Closed Auto-Generate d Referral 01/11/2023 02/10/2023 1 1 Additional Source Comments INFORMATION SOURCE (unrecogn ized section and content) DATE CREATED AUTHOR 02/22/2019 [facility] DATE CREATED AUTHOR AUTHOR'S ORGANIZ ATION 08/07/2020 [facility] DATE CREATED AUTHOR AUTHOR'S ORGANIZ ATION 05/26/2023 [facility] DATE CREATED AUTHOR AUTHOR'S ORGANIZ ATION 01/19/2025 [facility] DATE CREATED AUTHOR AUTHOR'S ORGANIZ ATION 01/20/2025 [facility] Source Comments (unrecognize d section and content) In the event this informatio n is protected by the Federal Confidentiality of Alcohol and Drug Abuse Patient Records regulations: The Federal rules restrict any use of the information to criminally investigate or prosecute any alcohol or drug abuse patient.[facility] the event this information is protected by the Federal Confidentiality of Alcohol and Drug Abuse Patient Records regulations: The Federal rules restrict any use of the information to criminally investigate or prosecute any alcohol or drug abuse patient.[facility] the event this information is protected by the Federal Confidentiality of Alcohol and Drug Abuse Patient Records regulations: The Federal rules restrict any use of the information to criminally investigate or prosecute any alcohol or drug abuse patient.[facility] the event this information is protected by the Federal Confidentiality of Alcohol and Drug Abuse Patient Records regulations: The Federal rules restrict any use of the information to criminally investigate or prosecute any alcohol or drug abuse patient.[facility]In the event this information is protected by the Federal Confidentiality of Alcohol and Drug Abuse Patient Records regulations: The Federal rules restrict any use of the information to criminally investigate or prosecute any alcohol or drug abuse patient.[facility]In the event this information is protected by the Federal Confidentiality of Alcohol and Drug Abuse Patient Records regulations: The Federal rules restrict any use of the information to criminally investigate or prosecute any alcohol or drug abuse patient.[facility] HospitalIn the event this information is protected by the Federal Confidentiality of Alcohol and Drug Abuse Patient Records regulations: The Federal rules restrict any use of the information to criminally investigate or prosecute any alcohol or drug abuse patient.[facility] HospitalIn the event this information is protected by the Federal Confidentiality of Alcohol and Drug Abuse Patient Records regulations: The Federal rules restrict any use of the information to criminally investigate or prosecute any alcohol or drug abuse patient.[facility] HospitalIn the event this information is protected by the Federal Confidentiality of Alcohol and Drug Abuse Patient Records regulations: The Federal rules restrict any use of the information to criminally investigate or prosecute any alcohol or drug abuse patient.[facility]In the event this information is protected by the Federal Confidentiality of Alcohol and Drug Abuse Patient Records regulations: The Federal rules restrict any use of the information to criminally investigate or prosecute any alcohol or drug abuse patient.[facility] HospitalIn the event this information is protected by the Federal Confidentiality of Alcohol and Drug Abuse Patient Records regulations: The Federal rules restrict any use of the information to criminally investigate or prosecute any alcohol or drug abuse patient.[facility] HospitalIn the event this information is protected by the Federal Confidentiality of Alcohol and Drug Abuse Patient Records regulations: The Federal rules restrict any use of the information to criminally investigate or prosecute any alcohol or drug abuse patient.[facility] HospitalIn the event this information is protected by the Federal Confidentiality of Alcohol and Drug Abuse Patient Records regulations: The Federal rules restrict any use of the information to criminally investigate or prosecute any alcohol or drug abuse patient.[facility] HospitalIn the event this information is protected by the Federal Confidentiality of Alcohol and Drug Abuse Patient Records regulations: The Federal rules restrict any use of the information to criminally investigate or prosecute any alcohol or drug abuse patient.[facility] HospitalIn the event this information is protected by the Federal Confidentiality of Alcohol and Drug Abuse Patient Records regulations: The Federal rules restrict any use of the information to criminally investigate or prosecute any alcohol or drug abuse patient.[facility] HospitalIn the event this information is protected by the Federal Confidentiality of Alcohol and Drug Abuse Patient Records regulations: The Federal rules restrict any use of the information to criminally investigate or prosecute any alcohol or drug abuse patient.[facility] HospitalIn the event this information is protected by the Federal Confidentiality of Alcohol and Drug Abuse Patient Records regulations: The Federal rules restrict any use of the information to criminally investigate or prosecute any alcohol or drug abuse patient.[facility] HospitalIn the event this information is protected by the Federal Confidentiality of Alcohol and Drug Abuse Patient Records regulations: The Federal rules restrict any use of the information to criminally investigate or prosecute any alcohol or drug abuse patient.[facility] HospitalIn the event this information is protected by the Federal Confidentiality of Alcohol and Drug Abuse Patient Records regulations: The Federal rules restrict any use of the information to criminally investigate or prosecute any alcohol or drug abuse patient.[facility] HospitalIn the event this information is protected by the Federal Confidentiality of Alcohol and Drug Abuse Patient Records regulations: The Federal rules restrict any use of the information to criminally investigate or prosecute any alcohol or drug abuse patient.[facility] HospitalIn the event this information is protected by the Federal Confidentiality of Alcohol and Drug Abuse Patient Records regulations: The Federal rules restrict any use of the information to criminally investigate or prosecute any alcohol or drug abuse patient.[facility] HospitalIn the event this information is protected by the Federal Confidentiality of Alcohol and Drug Abuse Patient Records regulations: The Federal rules restrict any use of the information to criminally investigate or prosecute any alcohol or drug abuse patient.[facility] HospitalIn the event this information is protected by the Federal Confidentiality of Alcohol and Drug Abuse Patient Records regulations: The Federal rules restrict any use of the information to criminally investigate or prosecute any alcohol or drug abuse patient.[facility] HospitalIn the event this information is protected by the Federal Confidentiality of Alcohol and Drug Abuse Patient Records regulations: The Federal rules restrict any use of the information to criminally investigate or prosecute any alcohol or drug abuse patient.[facility] HospitalIn the event this information is protected by the Federal Confidentiality of Alcohol and Drug Abuse Patient Records regulations: The Federal rules restrict any use of the information to criminally investigate or prosecute any alcohol or drug abuse patient.[facility] HospitalIn the event this information is protected by the Federal Confidentiality of Alcohol and Drug Abuse Patient Records regulations: The Federal rules restrict any use of the information to criminally investigate or prosecute any alcohol or drug abuse patient.[facility] HospitalIn the event this information is protected by the Federal Confidentiality of Alcohol and Drug Abuse Patient Records regulations: The Federal rules restrict any use of the information to criminally investigate or prosecute any alcohol or drug abuse patient.[facility] HospitalIn the event this information is protected by the Federal Confidentiality of Alcohol and Drug Abuse Patient Records regulations: The Federal rules restrict any use of the information to criminally investigate or prosecute any alcohol or drug abuse patient.[facility] HospitalIn the event this information is protected by the Federal Confidentiality of Alcohol and Drug Abuse Patient Records regulations: The Federal rules restrict any use of the information to criminally investigate or prosecute any alcohol or drug abuse patient.[facility] HospitalIn the event this information is protected by the Federal Confidentiality of Alcohol and Drug Abuse Patient Records regulations: The Federal rules restrict any use of the information to criminally investigate or prosecute any alcohol or drug abuse patient.[facility] HospitalIn the event this information is protected by the Federal Confidentiality of Alcohol and Drug Abuse Patient Records regulations: The Federal rules restrict any use of the information to criminally investigate or prosecute any alcohol or drug abuse patient.[facility] HospitalIn the event this information is protected by the Federal Confidentiality of Alcohol and Drug Abuse Patient Records regulations: The Federal rules restrict any use of the information to criminally investigate or prosecute any alcohol or drug abuse patient.[facility] HospitalIn the event this information is protected by the Federal Confidentiality of Alcohol and Drug Abuse Patient Records regulations: The Federal rules restrict any use of the information to criminally investigate or prosecute any alcohol or drug abuse patient.[facility] HospitalIn the event this information is protected by the Federal Confidentiality of Alcohol and Drug Abuse Patient Records regulations: The Federal rules restrict any use of the information to criminally investigate or prosecute any alcohol or drug abuse patient.[facility] HospitalIn the event this information is protected by the Federal Confidentiality of Alcohol and Drug Abuse Patient Records regulations: The Federal rules restrict any use of the information to criminally investigate or prosecute any alcohol or drug abuse patient.[facility] Reason for Visit (unrecogniz ed section and content) Reason Comments New Patient Pain Reason Comments Follow Up Pain Reason Comments Appointment Reason Comments Orders Patient Update Reason Comments Orders Specialty Diagnoses / Procedures Referred By Contac t Referred To Contact MR IMAGING Diagnoses Disorder of bone Procedures MRI FOOT/TOES WO/W IVCON LEFT MRI LOWER EXTREM OTH/THN JT W/O & W/CONTR Soto Hooker [address] [place] [address] [place] [address] Referral ID Status Reason Start Date Expiration Date V isits Requested Visits Authorized [id number] Closed Auto-Generate d Referral 01/11/2023 02/10/2023 1 1 Reason Comments Initial OB Visit Reason Comments PRAF Reason Onset Date Comments Care 06/19/2024 Reason Onset Date Comments Care 07/20/2024 Reason Comments US Specialty Diagnoses / Procedures Referred By Jewels stein Referred To Contact [facility] Diagnoses with uncertain dates in first trimester 5 weeks gestation of Procedures NUCHAL TRANSLUCENCY WHI US NUCHAL TRANSLUCENCY 1ST GESTATION Franck Armando APRN.LEASING COORDINATOR [address] [place] [address] [facility] [address] [place] [address] Referral ID Status Reason Start Date Expiration Date V isits Requested Visits Authorized [id number] Closed Auto-Generate d Referral 06/01/2024 06/01/2025 1 1 Reason Onset Date Comments Care 08/17/2024 Reason Onset Date Comments Care 09/03/2024 Reason Onset Date Comments Care 10/01/2024 Reason Onset Date Comments Care 10/29/2024 Reason Onset Date Comments Care 11/28/2024 Reason Comments Breast Pump Reason Onset Date Comments Care 12/13/2024 Reason Onset Date Comments Care 12/31/2024 Reason Onset Date Comments Care 01/07/2025 Reason Onset Date Comments Care 01/14/2025 FOR RECORDS PERTAINING TO PATIENTS WHO ARE OR HAVE BEEN ENROLLED IN A CHEMICAL DEPENDENCY/SUBSTANCEABUSE PROGRAM, SOME INFORMATION MAY BE OMITTED. This clinical summary was aggregated from multiple sources. Caution should be exercised in using it in the provision of clinical care. This summary normalizes information from multiple sources, and as a consequence, information in this document may materially change the coding, format and clinical context of patient data. In addition, data may be omitted in some cases. CLINICAL DECISIONS SHOULD BE BASED ON THE PRIMARY CLINICAL RECORDS. [employer] provides no warranty or guarantee of the accuracy or completeness of information in this document.
--- OUTSIDE RECORDS SUMMARY | 2025-01-24 02:15 | XMS RPT_ITS | CCD ---
Author Organization [facility] Care Team Providers Care Finger Buff Sewer Name Role Phone OSVALDO DAMON Admitting Unavailable Manpreet Saravia [phone] Consulting Unav ailable CHELA HIGH Primary Care [...] Unavailable PROVIDER, UNKNOWN Consulting Unavailable UNGERER, ILANA DIRECTOR MEDICAID Admitting Unavailable UNGERER, ILANA DIRECTOR MEDICAID Primary Care Unavailable UNGERER, ILANA DIRECTOR MEDICAID Consulting Unavailable UNGERER, ILANA DIRECTOR MEDICAID Attending Unavailable PROVIDER, UNKNOWN Consulting Unavailable Unavailable [...] Latex; Translations: [LATEX] Drug allergy (disorder) 7 [facility] Repository (20 sources) Latex Propensity to adverse reactions 7 Rash [facility] Work Phone: (1 source) Furosemide Drug Allergy [facility] Repository (17 sources) Furosemide; Translations: [FUROSEMIDE] Drug Allergy 5 Unknown [facility] (1 source) Latex Drug allergy (disorder) 1 [facility] Repository Medications Current Medications Medication Drug Class(es) [...] of ; Translations: [23 weeks gestation of ([facility])] Onset: 10-29-2024 Episodic Unclassified (20 sources) CCF [...] 5 Glucose Ql (U) Negative Neg mg/dL [facility] Interpretation and review of laboratory results Normal [facility] Protein.monoclonal (U) [Mass/Vol] Negative Neg mg/dL [facility] URINE OB DIP B/Oon 5 Glucose Ql (U) Negative Neg mg/dL [facility] Interpretation and review of laboratory results Normal [facility] Protein.monoclonal (U) [Mass/Vol] Negative Neg mg/dL [facility] ROUTINE, GROUP B ST REPTOCOCCUS BY PCRon 12-31-2024 ROUTINE, GROUP B STREPTOCOCCUS BY PCR Not detected Normal [facility] Comment on above: Performed By: #### 5 7021-8 #### [facility] CLIA [id number] [address] [place] [address] [place] URINE OB DIP B/Oon 5 Glucose Ql (U) Negative Neg mg/dL [facility] Interpretation and review of laboratory results Normal [facility] Protein.monoclonal (U) [Mass/Vol] Negative Neg mg/dL [facility] CNPNon 12-04-2024 CNPN Telephone (OBGYWM) VICKY MITCHELL ([id number]) 2000 F Date Time Provider Department 12/04/24 FRANCK ARMANDO During your visit today, we recorded the following information about you: Leona Heck RN 12/04/2024 11:46 AM Signed Received breast pump RX from [employer]. To to sign. HARSHAD Vallejo Trisha, RN 12/05/2024 3:10 PM Signed Order signed and faxed. Vicki Moratyaa RN Allergies As of Date: 12/04/2024 Noted Allergy Reaction FUROSEMIDE 08/17/2024 16 - Unknown LATEX 04/12/2007 2 - Rash Date Reviewed: 11/28/2024 Reviewed by: Franck Armando APRN.WICK TENDER - Fully Assessed Reason for Visit: Breast [...] Encounter Status:Closed by VICKI MORATAYA on 12/05/24 [facility] VICK[facility] MITCHELL ([id number]) 2000 F Date Time Provider Department 11/16/24 [facility] During your visit today, we recorded the following information about you: Lorena Lui, RN 11/16/2024 1:55 PM Signed 3rd risk assessment form submitted 11/16/24 Lorena Lui RN Allergies As of Date: 11/16/2024 Noted Allergy Reaction FUROSEMIDE 08/17/2024 16 - Unknown LATEX 04/12/2007 2 - Rash Date Reviewed: 11/15/2024 Reviewed by: Franck Armando APRN.WICK TENDER - Fully Assessed Reason for Visit: PRAF [...] Status:Closed by LORENA LUI on 11/16/24 Normal [facility] CBC W Auto Differential pane l (Bld)on 10-29-2024 Basophils (Bld) [#/Vol] 10*3/uL Normal <0.11 [facility] Comment on above: Order Comment: Speci men Type: BLOOD SPECIMEN Ordering Facility: [facility] Address: [address] [place] [address] Performed By: #### 5 7021-8 #### [facility] CLIA [id number] [address] [place] [address] [place] Basophils/100 WBC (Bld) 0.2 % Normal [facility] Comment on above: Order Comment: Speci men Type: BLOOD SPECIMEN Ordering Facility: [facility] Address: [address] [place] [address] Performed By: #### 5 7021-8 #### [facility] CLIA [id number] [address] [place] [address] [place] Differential cell count method Nom (Bld) Auto Normal [facility] Comment on above: Order Comment: Speci men Type: BLOOD SPECIMEN Ordering Facility: [facility] Address: [address] [place] [address] Performed By: #### 5 7021-8 #### [facility] CLIA [id number] [address] [place] [address] [place] Eosinophils (Bld) [#/Vol] 0.03 10*3/uL Normal <0.46 [facility] Comment on above: Order Comment: Speci men Type: BLOOD SPECIMEN Ordering Facility: [facility] Address: [address] [place] [address] Performed By: #### 5 7021-8 #### [facility] CLIA [id number] [address] [place] [address] [place] Eosinophils/100 WBC (Bld) 0.3 % Normal [facility] Comment on above: Order Comment: Speci men Type: BLOOD SPECIMEN Ordering Facility: [facility] Address: [address] [place] [address] Performed By: #### 5 7021-8 #### [facility] CLIA [id number] [address] [place] [address] [place] Erythrocyte distribution width (RBC) [Ratio] 12.3 % Normal 11.5-15.0 [facility] Comment on above: Order Comment: Speci men Type: BLOOD SPECIMEN Ordering Facility: [facility] Address: [address] [place] [address] Performed By: #### 5 7021-8 #### [facility] CLIA [id number] [address] [place] [address] [place] Hematocrit (Bld) [Volume fraction] 34.8 % Low 36.0-46.0 [facility] Comment on above: Order Comment: Speci men Type: BLOOD SPECIMEN Ordering Facility: [facility] Address: [address] [place] [address] Performed By: #### 5 7021-8 #### [facility] CLIA [id number] [address] [place] [address] [place] Hemoglobin (Bld) [Mass/Vol] 11.9 g/dL Normal 11.5-15.5 [facility] Comment on above: Order Comment: Speci men Type: BLOOD SPECIMEN Ordering Facility: [facility] Address: [address] [place] [address] Performed By: #### 5 7021-8 #### [facility] CLIA [id number] [address] [place] [address] [place] Immature granulocytes (Bld) [#/Vol] 10*3/uL Normal <0.10 [facility] Comment on above: Order Comment: Speci men Type: BLOOD SPECIMEN Ordering Facility: [facility] Address: [address] [place] [address] Performed By: #### 5 7021-8 #### [facility] CLIA [id number] [address] [place] [address] [place] Immature granulocytes/100 WBC (Bld) 0.2 % Normal [facility] Comment on above: Order Comment: Speci men Type: BLOOD SPECIMEN Ordering Facility: [facility] Address: [address] [place] [address] Performed By: #### 5 7021-8 #### [facility] CLIA [id number] [address] [place] [address] [place] Lymphocytes (Bld) [#/Vol] 2.29 10*3/uL Normal 1.00-4.00 [facility] Comment on above: Order Comment: Speci men Type: BLOOD SPECIMEN Ordering Facility: [facility] Address: [address] [place] [address] Performed By: #### 5 7021-8 #### [facility] CLIA [id number] [address] [place] [address] [place] Lymphocytes/100 WBC (Bld) 24.1 % Normal [facility] Comment on above: Order Comment: Speci men Type: BLOOD SPECIMEN Ordering Facility: [facility] Address: [address] [place] [address] Performed By: #### 5 7021-8 #### [facility] CLIA [id number] [address] [place] [address] [place] MCH (RBC) [Entitic mass] 30.5 pg Normal 26.0-34.0 [facility] Comment on above: Order Comment: Speci men Type: BLOOD SPECIMEN Ordering Facility: [facility] Address: [address] [place] [address] Performed By: #### 5 7021-8 #### [facility] CLIA [id number] [address] [place] [address] [place] MCHC (RBC) [Mass/Vol] 34.2 g/dL Normal 30.5-36.0 [facility] Comment on above: Order Comment: Speci men Type: BLOOD SPECIMEN Ordering Facility: [facility] Address: [address] [place] [address] Performed By: #### 5 7021-8 #### [facility] CLIA [id number] [address] [place] [address] [place] MCV (RBC) [Entitic vol] 89.2 fL Normal 80.0-100.0 [facility] Comment on above: Order Comment: Speci men Type: BLOOD SPECIMEN Ordering Facility: [facility] Address: [address] [place] [address] Performed By: #### 5 7021-8 #### [facility] CLIA [id number] [address] [place] [address] [place] Monocytes (Bld) [#/Vol] 0.56 10*3/uL Normal <0.87 [facility] Comment on above: Order Comment: Speci men Type: BLOOD SPECIMEN Ordering Facility: [facility] Address: [address] [place] [address] Performed By: #### 5 7021-8 #### [facility] CLIA [id number] [address] [place] [address] [place] Monocytes/100 WBC (Bld) 5.9 % Normal [facility] Comment on above: Order Comment: Speci men Type: BLOOD SPECIMEN Ordering Facility: [facility] Address: [address] [place] [address] Performed By: #### 5 7021-8 #### [facility] CLIA [id number] [address] [place] [address] [place] Neutrophils (Bld) [#/Vol] 6.58 10*3/uL Normal 1.45-7.50 [facility] Comment on above: Order Comment: Speci men Type: BLOOD SPECIMEN Ordering Facility: [facility] Address: [address] [place] [address] Performed By: #### 5 7021-8 #### [facility] CLIA [id number] [address] [place] [address] [place] Neutrophils/100 WBC (Bld) 69.3 % Normal [facility] Comment on above: Order Comment: Speci men Type: BLOOD SPECIMEN Ordering Facility: [facility] Address: [address] [place] [address] Performed By: #### 5 7021-8 #### [facility] CLIA [id number] [address] [place] [address] [place] Nucleated RBC (Bld) [#/Vol] 10*3/uL Normal <0.01 [facility] Comment on above: Order Comment: Speci men Type: BLOOD SPECIMEN Ordering Facility: [facility] Address: [address] [place] [address] Performed By: #### 5 7021-8 #### [facility] CLIA [id number] [address] [place] [address] [place] Nucleated RBC/100 WBC (Bld) [Ratio] 0.0 /100 WBC Normal [facility] Comment on above: Order Comment: Speci men Type: BLOOD SPECIMEN Ordering Facility: [facility] Address: [address] [place] [address] Performed By: #### 5 7021-8 #### [facility] CLIA [id number] [address] [place] [address] [place] Platelet mean volume (Bld) [Entitic vol] 11.0 fL Normal 9.0-12.7 [facility] Comment on above: Order Comment: Speci men Type: BLOOD SPECIMEN Ordering Facility: [facility] Address: [address] [place] [address] Performed By: #### 5 7021-8 #### [facility] CLIA [id number] [address] [place] [address] [place] Platelets (Bld) [#/Vol] 232 10*3/uL Normal 150-400 [facility] Comment on above: Order Comment: Speci men Type: BLOOD SPECIMEN Ordering Facility: [facility] Address: [address] [place] [address] Performed By: #### 5 7021-8 #### [facility] CLIA [id number] [address] [place] [address] [place] RBC (Bld) [#/Vol] 3.90 10*6/uL Normal 3.90-5.20 [facility] Comment on above: Order Comment: Speci men Type: BLOOD SPECIMEN Ordering Facility: [facility] Address: [address] [place] [address] Performed By: #### 5 7021-8 #### [facility] CLIA [id number] [address] [place] [address] [place] WBC (Bld) [#/Vol] 9.50 10*3/uL Normal 3.70-11.00 [facility] Comment on above: Order Comment: Speci men Type: BLOOD SPECIMEN Ordering Facility: [facility] Address: [address] [place] [address] Performed By: #### 5 7021-8 #### [facility] CLIA [id number] [address] [place] [address] [place] GESTATIONAL GLUCOSE SCREEN, 1-HOUR, 50 GRAM, NON-FASTINGon 10-29-2024 Glucose [Mass/Vol] 92 mg/dL Normal 74-134 [facility] Comment on above: Order Comment: Speci men Type: BLOOD SPECIMEN Ordering Facility: [facility] Address: [address] [place] [address] Result Comment: [facility] Congress of Obstetricians and Gynecologists (Layla/Lizet) guidelines state a gestational diabetes mellitus positive screen is made, in women not previously diagnosed with overt diabetes, when the 1 hr plasma glucose level is equal to or above 140 mg/dL. [facility] [employer] and [facility] [employer] recommends a 135 mg/dL cutoff. Performed By: #### 5 7021-8 #### [facility] CLIA [id number] [address] [place] [address] [place] Reagin and Treponema pallidu m IgG and IgM [Interp]on 10-29-2024 T. pallidum IgG+IgM IA Ql (S) Non-Reactive Normal Nonreactive [facility] Comment on above: Order Comment: Speci men Type: BLOOD SPECIMEN Ordering Facility: [facility] Address: [address] [place] [address] Performed By: #### 5 7021-8 #### [facility] CLIA [id number] [address] [place] [address] [place] Reagin+T pallidum IgG+IgM Se rPl-Impon 10-29-2024 Reagin and Treponema pallidum IgG and IgM [Interp] Cannot exclude recent Treponemal infection if specimen collected within 7-10 days after appearance of suspect lesions or 2-3 weeks after an exposure. Clinical correlation is required. Normal [facility] Comment on above: Order Comment: Speci men Type: BLOOD SPECIMEN Ordering Facility: [facility] Address: [address] [place] [address] Performed By: #### 5 7021-8 #### [facility] CLIA [id number] [address] [place] [address] [place] CNPYa 10-02-2024 CNPN Telephone (OGFVWE) VICKY MITCHELL ([id number]) 2000 F Date Time Provider Department 10/02/24 [facility] visit today, we recorded [...] Status:Closed by LORENA LUI on 10/02/24 Normal [facility] Examination level ultrasound on 09-03-2024 Indication Standard [...] 11 oz EFW by: [employer] (HC-AC-FL) [employer] Libr[employer] 5.7 mm CM 4.7 mm 45% Nicolaides [...] normal LVOT view: normal 3-vessel view: normal 6-jlbirw-sbexxpd view: normal Heart / Thorax Situs: situs [...] Read By: Corie Monge M.D. MATERNAL MEDICINE [facility] Radiology Study observation (narrative) [facility] nuchal translucency me asured by [place] 07-20-2024 Indication First trimester anatomic survey Impression REMOTE READ The patient is referred for a first trimester anatomy scan including nuchal translucency measurement as clinically indicated. - Single, live, intrauterine . - [place] rump length measurement is consistent with the [...] view: suboptimal 4-chamber view with color: suboptimal 9-osgtzo-ajqdoga view: suboptima Abdominal cord insertion: normal Stomach: [...] MEDICINE [facility] Radiology Study observation (narrative) [facility] US Pelvison 06-19-2024 Indication dating, Viability Impression Maternal Structures: Right Ovary: Size 28 mm x 14 mm x 10 mm Left Ovary: Size 21 mm x 19 mm x 12 mm - Single, live, intrauterine . - An intrauterine gestational sac with a yolk sac and pole is present. - [place] rump length measurement is NOT consistent with [...] Read By: Srinivasan Lin M.D. MATERNAL MEDICINE [facility] (SPMOBA) VICKY MITCHELL ([id number]) 2000 F Date Time Provider Department 06/05/24 GUADALUPE DALEYEVER During your visit today, we recorded the following information about you: Guadalupe Daley RN 06/05/2024 8:53 AM Signed 1st risk assessment form submitted 06/05/24. Guadalupe Daley RN Allergies As of Date: 06/05/2024 Noted Allergy Reaction LATEX 04/12/2007 2 - Rash Date Reviewed: 06/01/2024 Reviewed by: Franck Armando APRN.WICK TENDER - Fully Assessed Reason for Visit: PRAF [...] Status:Closed by GUADALUPE DALEY on 06/05/24 Normal [facility] B-HCG SerPl-[place]Cncon 4 [place] [address].0 m[IU]/mL High <5.0 [facility] Comment on above: Order Comment: Speci men Type: BLOOD SPECIMEN Ordering Facility: [facility] Address: [address] [place] [address] Result Comment: LOTUS TITATIVE HCG NORMAL RANGES Weeks of Gestation (Weeks Since LMP) 3 Weeks (5.8-71.2 mIU/mL) 4 Weeks (9.5-750 mIU/mL) 5 Weeks (217-7138 mIU/mL) 6 Weeks (158-39980 mIU/mL) 7 Weeks (3697-958528 mIU/mL) 8 Weeks (31099-188563 mIU/mL) 9 Weeks (95960-577157 mIU/mL) 10 Weeks (07679-874417 mIU/mL) 12 Weeks (67347-532634 mIU/mL) Referenced to 4th IS of NIBS Performed By: #### 5 7021-8 #### [facility] CLIA [id number] [address] [place] [address] [place] [facility] HCG.beta subunit Qn 7819.0 m[IU]/mL High <5.0 [facility] Comment on above: Order Comment: Speci men Type: FLUID SPECIMEN Ordering Facility: [facility] Address: [address] [place] [address] Result Comment: LOTUS TITATIVE HCG NORMAL RANGES Weeks of Gestation (Weeks Since LMP) 3 Weeks (5.8-71.2 mIU/mL) 4 Weeks (9.5-750 mIU/mL) 5 Weeks (217-7138 mIU/mL) 6 Weeks (158-29462 mIU/mL) 7 Weeks (3697-216523 mIU/mL) 8 Weeks (36113-833579 mIU/mL) 9 Weeks (06048-697466 mIU/mL) 10 Weeks (69192-510130 mIU/mL) 12 Weeks (76057-196637 mIU/mL) Referenced to 4th IS of [facility] Performed By: #### L [id number] #### [facility] CLIA [id number] [address] [place] [address] [place] Bacteria Ur Culton 4 Bacteria identified Cx Nom (U) ORGANISM ID: 1 10,000 -<50,000 CFU/ml Normal urogenital alejo Normal [facility] Comment on above: Performed By: #### 5 7021-8 #### [facility] CLIA [id number] [address] [place] [address] [place] C. trachomatis+N. gonorrhoea e DNA BRAD+probe Ql (Unsp spec)on 06-01-2024 C. trachomatis rRNA BRAD+probe Ql (Unsp spec) Not detected Normal Not detected [facility] Comment on above: Order Comment: Speci men Type: BLOOD SPECIMEN Ordering Facility: [facility] Address: [address] [place] [address] Performed By: #### 5 7021-8 #### [facility] CLIA [id number] [address] [place] [address] N. gonorrhoeae rRNA BRAD+probe Ql (Unsp spec) Not detected Normal Not detected [facility] Comment on above: Order Comment: Speci men Type: BLOOD SPECIMEN Ordering Facility: [facility] Address: [address] [place] [address] Performed By: #### 5 7021-8 #### [facility] CLIA [id number] [address] [place] [address] [place] CARRIER SCREEN, STANDARDon 1 08-02-2023 CARRIER SCREEN RESULTS View results in Scanned Documents link when available. Normal [facility] Comment on above: Order Comment: Speci men Type: FLUID SPECIMEN Ordering Facility: [facility] Address: [address] [place] [address] Performed By: #### L [id number] #### [facility] CLIA [id number] [address] [place] [address] [place] CBC W Auto Differential pane l (Bld)on 06-01-2024 Basophils (Bld) [#/Vol] 10*3/uL Normal <0.11 [facility] Comment on above: Order Comment: Speci men Type: FLUID SPECIMEN Ordering Facility: [facility] Address: [address] [place] [address] Performed By: #### L [id number] #### [facility] CLIA [id number] [address] [place] [address] [place] Basophils/100 WBC (Bld) 0.3 % Normal [facility] Comment on above: Order Comment: Speci men Type: FLUID SPECIMEN Ordering Facility: [facility] Address: [address] [place] [address] Performed By: #### L [id number] #### [facility] CLIA [id number] [address] [place] [address] [place] Differential cell count method Nom (Bld) Auto Normal [facility] Comment on above: Order Comment: Speci men Type: FLUID SPECIMEN Ordering Facility: [facility] Address: [address] [place] [address] Performed By: #### L [id number] #### [facility] CLIA [id number] [address] [place] [address] [place] Eosinophils (Bld) [#/Vol] 10*3/uL Normal <0.46 [facility] Comment on above: Order Comment: Speci men Type: FLUID SPECIMEN Ordering Facility: [facility] Address: [address] [place] [address] Performed By: #### L [id number] #### [facility] CLIA [id number] [address] [place] [address] [place] Eosinophils/100 WBC (Bld) 0.3 % Normal [facility] Comment on above: Order Comment: Speci men Type: FLUID SPECIMEN Ordering Facility: [facility] Address: [address] [place] [address] Performed By: #### L [id number] #### [facility] CLIA [id number] [address] [place] [address] [place] Erythrocyte distribution width (RBC) [Ratio] 11.9 % Normal 11.5-15.0 [facility] Comment on above: Order Comment: Speci men Type: FLUID SPECIMEN Ordering Facility: [facility] Address: [address] [place] [address] Performed By: #### L [id number] #### [facility] CLIA [id number] [address] [place] [address] [place] Hematocrit (Bld) [Volume fraction] 35.7 % Low 36.0-46.0 [facility] Comment on above: Order Comment: Speci men Type: FLUID SPECIMEN Ordering Facility: [facility] Address: [address] [place] [address] Performed By: #### L [id number] #### [facility] CLIA [id number] [address] [place] [address] [place] Hemoglobin (Bld) [Mass/Vol] 12.3 g/dL Normal 11.5-15.5 [facility] Comment on above: Order Comment: Speci men Type: FLUID SPECIMEN Ordering Facility: [facility] Address: [address] [place] [address] Performed By: #### L [id number] #### [facility] CLIA [id number] [address] [place] [address] [place] Immature granulocytes (Bld) [#/Vol] 10*3/uL Normal <0.10 [facility] Comment on above: Order Comment: Speci men Type: FLUID SPECIMEN Ordering Facility: [facility] Address: [address] [place] [address] Performed By: #### L [id number] #### [facility] CLIA [id number] [address] [place] [address] [place] Immature granulocytes/100 WBC (Bld) 0.2 % Normal [facility] Comment on above: Order Comment: Speci men Type: FLUID SPECIMEN Ordering Facility: [facility] Address: [address] [place] [address] Performed By: #### L [id number] #### [facility] CLIA [id number] [address] [place] [address] [place] Lymphocytes (Bld) [#/Vol] 2.30 10*3/uL Normal 1.00-4.00 [facility] Comment on above: Order Comment: Speci men Type: FLUID SPECIMEN Ordering Facility: [facility] Address: [address] [place] [address] Performed By: #### L [id number] #### [facility] CLIA [id number] [address] [place] [address] [place] Lymphocytes/100 WBC (Bld) 38.0 % Normal [facility] Comment on above: Order Comment: Speci men Type: FLUID SPECIMEN Ordering Facility: [facility] Address: [address] [place] [address] Performed By: #### L [id number] #### [facility] CLIA [id number] [address] [place] [address] [place] MCH (RBC) [Entitic mass] 29.9 pg Normal 26.0-34.0 [facility] Comment on above: Order Comment: Speci men Type: FLUID SPECIMEN Ordering Facility: [facility] Address: [address] [place] [address] Performed By: #### L [id number] #### [facility] CLIA [id number] [address] [place] [address] [place] MCHC (RBC) [Mass/Vol] 34.5 g/dL Normal 30.5-36.0 [facility] Comment on above: Order Comment: Speci men Type: FLUID SPECIMEN Ordering Facility: [facility] Address: [address] [place] [address] Performed By: #### L [id number] #### [facility] CLIA [id number] [address] [place] [address] [place] MCV (RBC) [Entitic vol] 86.9 fL Normal 80.0-100.0 [facility] Comment on above: Order Comment: Speci men Type: FLUID SPECIMEN Ordering Facility: [facility] Address: [address] [place] [address] Performed By: #### L [id number] #### [facility] CLIA [id number] [address] [place] [address] [place] Monocytes (Bld) [#/Vol] 0.34 10*3/uL Normal <0.87 [facility] Comment on above: Order Comment: Speci men Type: FLUID SPECIMEN Ordering Facility: [facility] Address: [address] [place] [address] Performed By: #### L [id number] #### [facility] CLIA [id number] [address] [place] [address] [place] Monocytes/100 WBC (Bld) 5.6 % Normal [facility] Comment on above: Order Comment: Speci men Type: FLUID SPECIMEN Ordering Facility: [facility] Address: [address] [place] [address] Performed By: #### L [id number] #### [facility] CLIA [id number] [address] [place] [address] [place] Neutrophils (Bld) [#/Vol] 3.36 10*3/uL Normal 1.45-7.50 [facility] Comment on above: Order Comment: Speci men Type: FLUID SPECIMEN Ordering Facility: [facility] Address: [address] [place] [address] Performed By: #### L [id number] #### [facility] CLIA [id number] [address] [place] [address] [place] Neutrophils/100 WBC (Bld) 55.6 % Normal [facility] Comment on above: Order Comment: Speci men Type: FLUID SPECIMEN Ordering Facility: [facility] Address: [address] [place] [address] Performed By: #### L [id number] #### [facility] CLIA [id number] [address] [place] [address] [place] Nucleated RBC (Bld) [#/Vol] 10*3/uL Normal <0.01 [facility] Comment on above: Order Comment: Speci men Type: FLUID SPECIMEN Ordering Facility: [facility] Address: [address] [place] [address] Performed By: #### L [id number] #### [facility] CLIA [id number] [address] [place] [address] [place] Nucleated RBC/100 WBC (Bld) [Ratio] 0.0 /100 WBC Normal [facility] Comment on above: Order Comment: Speci men Type: FLUID SPECIMEN Ordering Facility: [facility] Address: [address] [place] [address] Performed By: #### L [id number] #### [facility] CLIA [id number] [address] [place] [address] [place] Platelet mean volume (Bld) [Entitic vol] 9.7 fL Normal 9.0-12.7 [facility] Comment on above: Order Comment: Speci men Type: FLUID SPECIMEN Ordering Facility: [facility] Address: [address] [place] [address] Performed By: #### L [id number] #### [facility] CLIA [id number] [address] [place] [address] [place] Platelets (Bld) [#/Vol] 223 10*3/uL Normal 150-400 [facility] Comment on above: Order Comment: Speci men Type: FLUID SPECIMEN Ordering Facility: [facility] Address: [address] [place] [address] Performed By: #### L [id number] #### [facility] CLIA [id number] [address] [place] [address] [place] RBC (Bld) [#/Vol] 4.11 10*6/uL Normal 3.90-5.20 [facility] Comment on above: Order Comment: Speci men Type: FLUID SPECIMEN Ordering Facility: [facility] Address: [address] [place] [address] Performed By: #### L [id number] #### [facility] CLIA [id number] [address] [place] [address] [place] WBC (Bld) [#/Vol] 6.05 10*3/uL Normal 3.70-11.00 [facility] Comment on above: Order Comment: Speci men Type: FLUID SPECIMEN Ordering Facility: [facility] Address: [address] [place] [address] Performed By: #### L [id number] #### [facility] CLIA [id number] [address] [place] [address] [place] HBV surface Ag Ser Qlon 05-20 HBV surface Ag Ql (S) Negative Normal Negative [facility] Comment on above: Order Comment: Speci men Type: BLOOD SPECIMEN Ordering Facility: [facility] Address: [address] [place] [address] Performed By: #### 5 [id number] #### [facility] CLIA [id number] [address] [place] [address] [place] HCV Ab Ser Qlon 06-01-2024 HCV Ab Ql (S) Negative Normal Negative [facility] Comment on above: Order Comment: Speci men Type: FLUID SPECIMEN Ordering Facility: [facility] Address: [address] [place] [address] Result Comment: The result suggests no evidence of active infection with Hepatitis C virus. Should recent infection be suspected, repeat testing may be considered 4-6 weeks after this draw. Performed By: #### L [id number] #### [facility] CLIA [id number] [address] [place] [address] [place] HIV 1+2 Ab IA Qlon HIV 1 and 2 Ab IA.rapid Nom (S/P/Bld) Normal [facility] Comment on above: Order Comment: Speci men Type: FLUID SPECIMEN Ordering Facility: [facility] Address: [address] [place] [address] Result Comment: Test not indicated. Performed By: #### L [id number] #### [facility] CLIA [id number] [address] [place] [address] [place] HIV 1+2 Ab+HIV1 p24 Ag IA Ql Non-Reactive Normal Nonreactive [facility] Comment on above: Order Comment: Speci men Type: FLUID SPECIMEN Ordering Facility: [facility] Address: [address] [place] [address] Performed By: #### L [id number] #### [facility] CLIA [id number] [address] [place] [address] [place] HIV immunoassay testing algorithm interpretation (S/P/Bld) [Interp] Normal [facility] Comment on above: Order Comment: Speci men Type: FLUID SPECIMEN Ordering Facility: [facility] Address: [address] [place] [address] Result Comment: No e vidence of HIV-1 or HIV-2 infection. Should recent infection be suspected, repeat testing may be considered 2-3 weeks after this draw. [place] Rev. Code 3701.243(E): This information has been [...] results or diagnoses. Performed By: #### L [id number] #### [facility] CLIA [id number] [address] [place] [address] [place] HbA1c (Bld)on 06-01-2024 Average glucose Estimated from glycated hemoglobin (Bld) [Mass/Vol] 97 mg/dL Normal [facility] Comment on above: Order Comment: Speci men Type: BLOOD SPECIMEN Ordering Facility: [facility] Address: [address] [place] [address] Result Comment: eAG: (Estimated average glucose) is a calculated value from HgbA1c and is pharmaceutical sales representative of the average blood glucose level in the last 2-3 month period. Performed By: #### 5 5454-3 #### [facility] CLIA [id number] [address] [place] [address] [place] HbA1c (Bld) [Mass fraction] 5.0 % Normal 4.3-5.6 [facility] Comment on above: Order Comment: Speci men Type: BLOOD SPECIMEN Ordering Facility: [facility] Address: [address] [place] [address] Result Comment: [place] Diabetes Association guidelines indicate that patients with HgbA1c in the range 5.7-6.4% are at increased risk for development of diabetes, and intervention by lifestyle modification may be beneficial. HgbA1c greater or equal to 6.5% is considered diagnostic of diabetes. Performed By: #### 5 5454-3 #### [facility] CLIA [id number] [address] [place] [address] [place] PAP TESTon 06-01-2024 ADEQUACY Satisfactory for interpretation. Normal [facility] Comment on above: Order Comment: Speci men Type: FLUID SPECIMEN Ordering Facility: [facility] Address: [address] [place] [address] Performed By: #### L [id number] #### [facility] CLIA [id number] [address] [place] [address] [place] CASE REPORT Normal [facility] Comment on above: Order Comment: Speci men Type: FLUID SPECIMEN Ordering Facility: [facility] Address: [address] [place] [address] Result Comment: Gyne cologic Cytology Report Case: [id number] Authorizing Provider: Franck Armando APRN.WICK TENDER Collected: 06/01/2024 11:47 AM Ordering Location: OB/Gynecology Received: 06/01/2024 04:43 PM First Screen: [place], [place], [place], ASCP Specimen: Pap Test, ThinPrep, Cervix Performed By: #### L [id number] #### [facility] CLIA [id number] [address] [place] [address] [place] CLINICAL HISTORY, CYTOLOGY, WOMEN'S STUDIES LECTURER (Indicate Weeks) Normal [facility] Comment on above: Order Comment: Speci men Type: FLUID SPECIMEN Ordering Facility: [facility] Address: [address] [place] [address] Performed By: #### L [id number] #### [facility] CLIA [id number] [address] [place] [address] [place] FINAL PERFORMING LAB Normal [facility] Comment on above: Order Comment: Speci men Type: FLUID SPECIMEN Ordering Facility: [facility] Address: [address] [place] [address] Result Comment: Tech nical component, metallurgical tester screening performed at [facility], [address] [place] [address] CLIA# [id number] Diagnostic interpretation performed at [facility], [address] [place], [place] [id number] CLIA# [id number] Engine Hostler: Jony Macedo M.D. Performed By: #### L [id number] #### [facility] CLIA [id number] [address] [place] [address] [place] INTERPRETATION, CYTOLOGY, WOMEN'S STUDIES LECTURER Normal [facility] Comment on above: Order Comment: Speci men Type: FLUID SPECIMEN Ordering Facility: [facility] Address: [address] [place] [address] Result Comment: Nega tive for intraepithelial lesion or malignancy. Performed By: #### L [id number] #### [facility] CLIA [id number] [address] [place] [address] [place] LMP 03/30/2024 Normal [facility] Comment on above: Order Comment: Specdaniel waldrop Type: FLUID SPECIMEN Ordering Facility: [facility] Address: [address] [place] [address] Performed By: #### L [id number] #### [facility] CLIA [id number] [address] [place] [address] [place] PAP DISCLAIMER COMMENT The Pap Smear is a screening test for cervical cancer. False negative results occur with all screening tests, emphasizing the need for rescreening at recommended intervals, and clinical correlation. Normal [facility] Comment on above: Order Comment: Zaheer waldrop Type: FLUID SPECIMEN Ordering Facility: [facility] Address: [address] [place] [address] Performed By: #### L [id number] #### [facility] CLIA [id number] [address] [place] [address] [place] PAP POURER COMMENT This specimen has been analyzed by the ThinPrep Imaging System, an automated imaging and review system, which assists the laboratory in evaluating cells on ThinPrep Pap tests. Following automated imaging, selected trevino from every slide are reviewed by a metallurgical tester. Normal [facility] Comment on above: Order Comment: Zaheer waldrop Type: FLUID SPECIMEN Ordering Facility: [facility] Address: [address] [place] [address] Performed By: #### L [id number] #### [facility] CLIA [id number] [address] [place] [address] [place] POC STEWARD/STEWARDESS NIGHT ULTRASOUNDon 06-01-20 Indication Viability; confirm cardiac activity [...] Read By: Franck Armando NP MATERNAL MEDICINE [facility] Radiology Study observation (narrative) [facility] RUBELLA IGG ANTIBODYon 06-01 RUBELLA IGG AB, QUAL Positive Normal Positive [facility] Comment on above: Order Comment: Specdaniel waldrop Type: BLOOD SPECIMEN Ordering Facility: [facility] Address: [address] [place] [address] Result Comment: The result suggests recent or past exposure to Rubella virus or history of Rubella vaccination. Positive result may also be seen due to presence of passively-transferred antibodies. Please correlate with patient's history. Performed By: #### 5 7021-8 #### [facility] CLIA [id number] [address] [place] [address] [place] Reagin and Treponema pallidu m IgG and IgM [Interp]on 06-01-2024 T. pallidum IgG+IgM IA Ql (S) Non-Reactive Normal Nonreactive [facility] Comment on above: Order Comment: Speci palma Type: FLUID SPECIMEN Ordering Facility: [facility] Address: [address] [place] [address] Performed By: #### L [id number] #### [facility] CLIA [id number] [address] [place] [address] [place] Reagin+T pallidum IgG+IgM Se rPl-Impon 06-01-2024 Reagin and Treponema pallidum IgG and IgM [Interp] Cannot exclude recent Treponemal infection if specimen collected within 7-10 days after appearance of suspect lesions or 2-3 weeks after an exposure. Clinical correlation is required. Normal [facility] Comment on above: Order Comment: Speci men Type: FLUID SPECIMEN Ordering Facility: [facility] Address: [address] [place] [address] Performed By: #### L [id number] #### [facility] CLIA [id number] [address] [place] [address] TYPE + SCREEN PRENATALon ABO AB Normal [facility] Comment on above: Order Comment: Speci men Type: BLOOD SPECIMEN Ordering Facility: [facility] Address: [address] [place] [address] Performed By: #### T SPN #### [facility] CLIA [id number] [address] [place] [address] [place] Rh Nom (Bld) Positive Normal [facility] Comment on above: Order Comment: Speci men Type: BLOOD SPECIMEN Ordering Facility: [facility] Address: [address] [place] [address] Performed By: #### T SPN #### [facility] CLIA [id number] [address] [place] [address] TYPE AND SCREEN EXPIRATION 06/04/2024 23:59 Normal [facility] Comment on above: Order Comment: Speci men Type: BLOOD SPECIMEN Ordering Facility: [facility] Address: [address] [place] [address] Performed By: #### T SPN #### [facility] CLIA [id number] [address] [place] [address] [place] CNPYa 05-28-2024 ERIC Telephone (OBGY) MADIVICKY Mandy ([id number]) 2000 F Date Time Provider Department 05/28/24 [...] Status:Closed by LEONA HECK on 05/28/24 Normal [facility] CBC + DIFFon 05-25-2023 Baso # 0.00 x10EE3/UL Normal 0.00 - 0.10 [facility] Comment on above: Performed By: #### 2 [id number] #### [facility],[address] [place] [address] Basophils/100 WBC (Bld) 0.4 % Normal 0.0 - 2.0 [facility] Comment on above: Performed By: #### 2 [id number] #### [facility],[address] [place] [address] CBC + DIFF Normal [facility] Comment on above: Result Comment: CBC- COMPLETE BLOOD COUNT Performed By: #### 2 [id number] #### [facility],[address] [place] [address] EO 2.0 % Normal 0.0 - 4.0 [facility] Comment on above: Performed By: #### 2 [id number] #### [facility],[address] [place] [address] EO # 0.10 x10EE3/UL Normal 0.00 - 0.50 [facility] Comment on above: Performed By: #### 2 [id number] #### [facility],[address] [place] [address] Eosinophils/100 WBC (Bld) 1.4 % Normal 0.0 - 7.0 [facility] Comment on above: Performed By: #### 2 [id number] #### [facility],[address] [place], [place] [id number] Erythrocyte distribution width (RBC) [Ratio] 12.9 % Normal 12.0 - 15.6 [facility] Comment on above: Performed By: #### 2 [id number] #### [facility],[address] [place], [place] [id number] Hematocrit (Bld) [Volume fraction] 42.1 % Normal 34.0 - 46.0 [facility] Comment on above: Performed By: #### 2 15729 #### [facility],[address] [place] [address] Hemoglobin (Bld) [Mass/Vol] 13.7 g/dL Normal 12.0 - 16.0 [facility] Comment on above: Performed By: #### 2 17738 #### [facility],[address] [place] [address] Lymph # 2.80 x10EE3/UL Normal 0.80 - 2.80 [facility] Comment on above: Performed By: #### 2 80484 #### [facility],[address] [place] [address] Lymphocytes/100 WBC (Bld) 45.4 % High 20.0 - 45.0 [facility] Comment on above: Performed By: #### 2 51049 #### [facility],[address] [place] [address] Lymphocytes/100 WBC (Bld) 50 % High 20 - 40 [facility] Comment on above: Performed By: #### 2 30942 #### [facility],[address] [place] [address] MANUAL DIFF SEE BELOW Normal [facility] Comment on above: Performed By: #### 2 53273 #### [facility],[address] [place] [address] MCH (RBC) [Entitic mass] 29 pg Normal 27 - 33 [facility] Comment on above: Performed By: #### 2 59575 #### [facility],[address] [place] [address] MCHC 33 X10 3 Normal 32 - 36 [facility] Comment on above: Performed By: #### 2 37236 #### [facility],[address] [place] [address] MCV (RBC) [Entitic vol] 90 fL Normal 80 - 99 [facility] Comment on above: Performed By: #### 2 82156 #### [facility],[address] [place] [address] Perry # 0.30 x10EE3/UL Normal 0.20 - 1.00 [facility] Comment on above: Performed By: #### 2 73045 #### [facility],[address] [place] [address] MONOS 5 % Normal 0 - 8 [facility] Comment on above: Performed By: #### 2 57932 #### [facility],[address] [place] [address] MONOS % 5.4 % Normal 0.0 - 10.0 [facility] Comment on above: Performed By: #### 2 28614 #### [facility],[address] [place] [address] Morphology Jeremiah (Bld) [Interp] N/A Normal [facility] Comment on above: Result Comment: {CD] Performed By: #### 2 62318 #### [facility],[address],[place] [address] Neut # 3.00 x10EE3/UL Normal 1.50 - 7.10 [facility] Comment on above: Performed By: #### 2 30113 #### [facility],[address] [place] [address] 14202 Neutrophils/100 WBC (Bld) 47.4 % Normal 46.0 - 76.0 [facility] Comment on above: Performed By: #### 2 23160 #### [facility],[address] [place] [address] 10261 PLATELET 279 x10EE3/UL Normal 150 - 450 [facility] Comment on above: Performed By: #### 2 03556 #### [facility],[address] [place] [address] 07198 Platelet mean volume (Bld) [Entitic vol] 8.5 fL Normal 6.6 - 10.5 [facility] Comment on above: Result Comment: AUTO MATED DIFFERENTIAL Performed By: #### 2 40044 #### [facility],[address] [place] [address] 72435 RBC 4.70 x 10EE6/UL Normal 4.10 - 5.30 [facility] Comment on above: Performed By: #### 2 36111 #### [facility],[address] [place] [address] 56735 SEGS 43 % Low 50 - 70 [facility] Comment on above: Performed By: #### 2 79854 #### [facility],[address] [place] [address] 02904 WBC 6.2 x 10EE3/UL Normal 4.5 - 10.[address] [facility] Comment on above: Performed By: #### 2 63372 #### [facility],[address] [place] [address] 32296 HEMOGLOBIN A1C (POM)on 05-25 HbA1c (Bld) [Mass fraction] 5.6 % Normal 0.0 - 6.5 [facility] Comment on above: Result Comment: BLDo HEMOGLOBIN A1C REFERENCE RANGESBLDo Suggested Diagnosis HbA1c(%) HbA1C (mmol/mol Diabetic >/=6.5 >/=48 Prediabetes 5.7 - 6.4 39 - 47 Normal <5.7 <39 Performed By: #### 2 75421 #### [facility],[address] [place], [place] [address] T4-FREE (FREE THYROXINE)on 1 07-26-2022 Free T4 [Mass/Vol] 1.06 ng/dL Normal 0.76 - 1.46 [facility] Comment on above: Result Comment: P otential of falsely elevated results when biotin concentrations are > 10 ng/mL. Performed By: #### 2 03231 #### [facility],[address] [place] [address] 04384 TSHon 05-25-2023 TSH Qn 1.56 m[IU]/L Normal 0.35 - 3.74 [facility] Comment on above: Performed By: #### 2 27553 #### [facility],[address] [place] [address] 60834 CMP with eGFRon 03-15-2023 AGE 22 years Normal [facility] Comment on above: Performed By: #### 2 01506 #### [facility],[address] [place] [address] 70966 Albumin [Mass/Vol] 3.8 g/dL Normal 3.4 - 5.0 [facility] Comment on above: Performed By: #### 2 54252 #### [facility],[address] [place] [address] 45766 Albumin/Globulin [Mass ratio] 1.0 {ratio} Normal 0.9 - 1.6 [facility] Comment on above: Performed By: #### 2 11860 #### [facility],[address] [place] [address] 90655 ALK PHOS 61 U/L Normal 46 - 116 [facility] Comment on above: Performed By: #### 2 69830 #### [facility],[address] [place] [address] 15833 ALT [Catalytic activity/Vol] 35 U/L Normal 14 - 59 [facility] Comment on above: Performed By: #### 2 59635 #### [facility],[address] [place] [address] 20682 Anion gap [Moles/Vol] 14 mmol/L Normal 10 - 20 [facility] Comment on above: Performed By: #### 2 91830 #### [facility],[address] [place] [address] 17335 AST [Catalytic activity/Vol] 29 U/L Normal 13 - 39 [facility] Comment on above: Performed By: #### 2 69940 #### [facility],[address] [place] [address] 66072 B/C RATIO 24 ratio Normal 0 - 30 [facility] Comment on above: Performed By: #### 2 39562 #### [facility],[address] [place] [address] 90233 Bilirubin [Mass/Vol] 0.2 mg/dL Normal 0.2 - 1.0 [facility] Comment on above: Performed By: #### 2 19891 #### [facility],[address] [place] [address] 32814 Calcium [Mass/Vol] 9.1 mg/dL Normal 8.5 - 10.1 [facility] Comment on above: Performed By: #### 2 83532 #### [facility],[address] [place] [address] 30480 Chloride [Moles/Vol] 105 mmol/L Normal 98 - 107 [facility] Comment on above: Performed By: #### 2 25165 #### [facility],[address] [place] [address] 91167 CMP with eGFR Normal [facility] Comment on above: Result Comment: COMP REHENSIVE METABOLIC PANEL Performed By: #### 2 73815 #### [facility],[address] [place] [address] 20294 CO2 [Moles/Vol] 27.6 mmol/L Normal 21.0 - 32.0 [facility] Comment on above: Performed By: #### 2 17749 #### [facility],[address] [place] [address] 57164 Creatinine [Mass/Vol] 0.70 mg/dL Normal 0.55 - 1.02 [facility] Comment on above: Performed By: #### 2 24005 #### [facility],[address] [place] [address] 81177 GFR/1.73 sq M.predicted among non-blacks MDRD (S/P/Bld) [Vol rate/Area] mL/min/{1.73_m2} Normal 60 - 999 [facility] Comment on above: Performed By: #### 2 94915 #### [facility],[address] [place] [address] 11692 Result Comment: ACCO RDING TO THE NATIONAL KIDNEY DISEASE EDUCATION PROGRAM(NKDE), A NORMAL eGFR IS A VALUE GREATER THAN OR EQUAL TO 60 ML/MIN/1.73 SQ METERS. CHRONIC KIDNEY DISEASE: <60mL/MIN/1.73 SQ METERS KIDNEY FAILURE: <15mL/MIN/1.73 SQ METERS THIS TEST SHOULD ONLY BE USED FOR PATIENTS 18 YEARS OF AGE AND OLDER. Globulin (S) [Mass/Vol] 3.8 g/dL Normal 1.5 - 3.8 [facility] Comment on above: Performed By: #### 2 72465 #### [facility],[address] [place] [address] 80290 Glucose [Mass/Vol] 98 mg/dL Normal 74 - 106 [facility] Comment on above: Performed By: #### 2 48000 #### [facility],[address] [place] [address] 13409 Potassium [Moles/Vol] 4.1 mmol/L Normal 3.5 - 5.1 [facility] Comment on above: Performed By: #### 2 53626 #### [facility],[address] [place] [address] 70239 Protein [Mass/Vol] 7.6 g/dL Normal 6.4 - 8.2 [facility] Comment on above: Performed By: #### 2 37865 #### [facility],[address] [place] [address] 60832 Sodium [Moles/Vol] 142 mmol/L Normal 136 - 145 [facility] Comment on above: Performed By: #### 2 18296 #### [facility],[address] [place] [address] 80957 Urea nitrogen [Mass/Vol] 17 mg/dL Normal 7 - 18 [facility] Comment on above: Performed By: #### 2 03824 #### [facility],[address] [place] [address] 29773 MRI FOOT/TOES WO/W IVCON LEF Ton 01-26-2023 [facility] XR FOOT GENERAL 3V AP/LAT/OB L LEFTon 11-12-2022 [facility] INSULIN [CCL]on 08-16-2022 Insulin 17.8 mU/L Normal 3.0-25.0 [facility] Comment on above: Result Comment: [facility] [address] [place] [address] Jony Macedo III, M.D. [id number] Performed By: #### 2 35328 #### [facility],[address] [place] [address] 38055 CBC + DIFFon 08-15-2022 Baso # 0.00 x10EE3/UL Normal 0.00 - 0.10 [facility] Comment on above: Performed By: #### 2 14968 #### [facility],[address] [place] [address] 70240 Basophils/100 WBC (Bld) 0.4 % Normal 0.0 - 2.0 [facility] Comment on above: Performed By: #### 2 13735 #### [facility],[address] [place] [address] 24251 CBC + DIFF Normal [facility] Comment on above: Result Comment: CBC- COMPLETE BLOOD COUNT Performed By: #### 2 75209 #### [facility],[address] [place] [address] 81757 EO # 0.10 x10EE3/UL Normal 0.00 - 0.50 [facility] Comment on above: Performed By: #### 2 17557 #### [facility],[address] [place] [address] 58802 Eosinophils/100 WBC (Bld) 1.0 % Normal 0.0 - 7.0 [facility] Comment on above: Performed By: #### 2 61561 #### [facility],[address] [place] [address] Erythrocyte distribution width (RBC) [Ratio] 12.8 % Normal 12.0 - 15.6 [facility] Comment on above: Performed By: #### 2 37213 #### [facility],[address] [place], [place] [address] Hematocrit (Bld) [Volume fraction] 40.8 % Normal 34.0 - 46.0 [facility] Comment on above: Performed By: #### 2 47195 #### [facility],[address] [place] [address] 41291 Hemoglobin (Bld) [Mass/Vol] 13.4 g/dL Normal 12.0 - 16.0 [facility] Comment on above: Performed By: #### 2 02875 #### [facility],[address] [place] [address] 99518 Lymph # 1.80 x10EE3/UL Normal 0.80 - 2.80 [facility] Comment on above: Performed By: #### 2 02025 #### [facility],[address] [place] [address] 27340 Lymphocytes/100 WBC (Bld) 35.0 % Normal 20.0 - 45.0 [facility] Comment on above: Performed By: #### 2 03550 #### [facility],[address] [place] [address] MANUAL DIFF N/A Normal [facility] Comment on above: Performed By: #### 2 39223 #### [facility],[address] [place] [address] MCH (RBC) [Entitic mass] 29 pg Normal 27 - 33 [facility] Comment on above: Performed By: #### 2 33782 #### [facility],[address] [place] [address] MCHC 33 X10 3 Normal 32 - 36 [facility] Comment on above: Performed By: #### 2 27016 #### [facility],[address] [place] [address] MCV (RBC) [Entitic vol] 88 fL Normal 80 - 99 [facility] Comment on above: Performed By: #### 2 98925 #### [facility],[address] [place] [address] Perry # 0.40 x10EE3/UL Normal 0.20 - 1.00 [facility] Comment on above: Performed By: #### 2 08622 #### [facility],[address] [place] [address] MONOS % 7.7 % Normal 0.0 - 10.0 [facility] Comment on above: Performed By: #### 2 74969 #### [facility],[address] [place], [place] [address] Morphology Jeremiah (Bld) [Interp] N/A Normal [facility] Comment on above: Result Comment: {CD] Performed By: #### 2 73113 #### [facility],[address] [place] [address] Neut # 2.90 x10EE3/UL Normal 1.50 - 7.10 [facility] Comment on above: Performed By: #### 2 34845 #### [facility],[address] [place] [address] 90428 Neutrophils/100 WBC (Bld) 55.9 % Normal 46.0 - 76.0 [facility] Comment on above: Performed By: #### 2 72758 #### [facility],[address] [place] [address] 90150 PLATELET 241 x10EE3/UL Normal 150 - 450 [facility] Comment on above: Performed By: #### 2 53667 #### [facility],[address] [place] [address] 32290 Platelet mean volume (Bld) [Entitic vol] 8.5 fL Normal 6.6 - 10.5 [facility] Comment on above: Result Comment: AUTO MATED DIFFERENTIAL Performed By: #### 2 18491 #### [facility],[address] [place] [address] RBC 4.64 x 10EE6/UL Normal 4.10 - 5.30 [facility] Comment on above: Performed By: #### 2 96677 #### [facility],[address] [place], [place] [address] WBC 5.2 x 10EE3/UL Normal 4.5 - 10.[address] [facility] Comment on above: Performed By: #### 2 87702 #### [facility],[address] [place] [address] 32924 CMP with eGFRon 08-15-2022 AGE 22 years Normal [facility] Comment on above: Performed By: #### 2 75094 #### [facility],[address] [place] [address] 79186 Albumin [Mass/Vol] 3.8 g/dL Normal 3.4 - 5.0 [facility] Comment on above: Performed By: #### 2 08641 #### [facility],[address] [place] [address] 51678 Albumin/Globulin [Mass ratio] 1.0 {ratio} Normal 0.9 - 1.6 [facility] Comment on above: Performed By: #### 2 63424 #### [facility],[address] [place] [address] 90398 ALK PHOS 69 U/L Normal 46 - 116 [facility] Comment on above: Performed By: #### 2 50503 #### [facility],[address] [place] [address] ALT [Catalytic activity/Vol] 17 U/L Normal 14 - 59 [facility] Comment on above: Performed By: #### 2 16506 #### [facility],[address] [place] [address] Anion gap [Moles/Vol] 14 mmol/L Normal 10 - 20 [facility] Comment on above: Performed By: #### 2 14392 #### [facility],[address] [place] [address] AST [Catalytic activity/Vol] 18 U/L Normal 13 - 39 [facility] Comment on above: Performed By: #### 2 52310 #### [facility],[address] [place], [place] [address] B/C RATIO 18 ratio Normal 0 - 30 [facility] Comment on above: Performed By: #### 2 68680 #### [facility],[address] [place] [address] 51294 Bilirubin [Mass/Vol] 0.4 mg/dL Normal 0.2 - 1.0 [facility] Comment on above: Performed By: #### 2 50822 #### [facility],[address] [place] [address] 95639 Calcium [Mass/Vol] 9.1 mg/dL Normal 8.5 - 10.1 [facility] Comment on above: Performed By: #### 2 12905 #### [facility],[address] [place], [place] [address] Chloride [Moles/Vol] 106 mmol/L Normal 98 - 107 [facility] Comment on above: Performed By: #### 2 88203 #### [facility],[address] [place] [address] CMP with eGFR Normal [facility] Comment on above: Result Comment: COMP REHENSIVE METABOLIC PANEL Performed By: #### 2 22117 #### [facility],[address] [place] [address] CO2 [Moles/Vol] 26.1 mmol/L Normal 21.0 - 32.0 [facility] Comment on above: Performed By: #### 2 20212 #### [facility],[address] [place] [address] Creatinine [Mass/Vol] 0.76 mg/dL Normal 0.55 - 1.02 [facility] Comment on above: Performed By: #### 2 92145 #### [facility],[address] [place] [address] GFR/1.73 sq M.predicted among non-blacks MDRD (S/P/Bld) [Vol rate/Area] mL/min/{1.73_m2} Normal 60 - 999 [facility] Comment on above: Performed By: #### 2 25136 #### [facility],[address] [place] [address] Result Comment: ACCO RDING TO THE NATIONAL KIDNEY DISEASE EDUCATION PROGRAM(NKDE), A NORMAL eGFR IS A VALUE GREATER THAN OR EQUAL TO 60 ML/MIN/1.73 SQ METERS. CHRONIC KIDNEY DISEASE: <60mL/MIN/1.73 SQ METERS KIDNEY FAILURE: <15mL/MIN/1.73 SQ METERS THIS TEST SHOULD ONLY BE USED FOR PATIENTS 18 YEARS OF AGE AND OLDER. Globulin (S) [Mass/Vol] 3.8 g/dL Normal 1.5 - 3.8 [facility] Comment on above: Performed By: #### 2 75594 #### [facility],[address] [place] [address] 28494 Glucose [Mass/Vol] 93 mg/dL Normal 74 - 106 [facility] Comment on above: Performed By: #### 2 98810 #### [facility],[address] [place] [address] 02148 Potassium [Moles/Vol] 4.1 mmol/L Normal 3.5 - 5.1 [facility] Comment on above: Performed By: #### 2 23044 #### [facility],[address] [place] [address] 52097 Protein [Mass/Vol] 7.6 g/dL Normal 6.4 - 8.2 [facility] Comment on above: Performed By: #### 2 24421 #### [facility],[address] [place] [address] 76174 Sodium [Moles/Vol] 142 mmol/L Normal 136 - 145 [facility] Comment on above: Performed By: #### 2 23977 #### [facility],[address] [place] [address] 49620 Urea nitrogen [Mass/Vol] 14 mg/dL Normal 7 - 18 [facility] Comment on above: Performed By: #### 2 33517 #### [facility],[address] [place] [address] 09562 LIPID PROFILEon 08-15-2022 Cholesterol [Mass/Vol] 188 mg/dL Normal 0 - 240 [facility] Comment on above: Performed By: #### 2 01385 #### [facility],[address] [place] [address] 98059 Cholesterol in HDL [Mass/Vol] 60 mg/dL Normal 40 - 60 [facility] Comment on above: Performed By: #### 2 59856 #### [facility],[address] [place] [address] 73580 Cholesterol in LDL [Mass/Vol] 114 mg/dL Normal 0 - 129 [facility] Comment on above: Performed By: #### 2 50530 #### [facility],[address] [place] [address] 37350 Cholesterol.total/C holesterol in HDL [Mass ratio] 3.1 {ratio} Normal 0.0 - 5.0 [facility] Comment on above: Performed By: #### 2 66505 #### [facility],[address] [place] [address] 18216 Lipid 1996 panel Normal [facility] Comment on above: Result Comment: LIPI D PROFILE Performed By: #### 2 22806 #### [facility],[address] [place] [address] 80787 Triglyceride [Mass/Vol] 72 mg/dL Normal 0 - 150 [facility] Comment on above: Performed By: #### 2 45846 #### [facility],[address] [place] [address] 26284 MRI IACon 07-28-2020 MRI IAC EXAM: MRI [...] no mass effect or abnormal enhancement. Normal [facility] Hep C Ab IA w/Confon 019 Hepatitis C Ab IA NEGAT Normal Negative [facility] Comment on above: Performed By: #### P OMER3 #### [facility] Immuno Assay [address] [place], [place] [address] [phone] #### AHCV1B #### [facility] Routine Lab [address] [place], [place] [address] NLYon 02-21-2019 Reagin Ab RPR Ql (S) NR Normal Non Reactive [facility] Comment on above: Performed By: #### P OMER3 #### [facility] [address] [place] [phone] #### AHCV1B #### [facility] [address] [place] [phone] Hepatitis B Surf. Ag NEGAT Normal Negative [facility] Comment on above: Performed By: #### P OMER3 #### [facility] [address] [place] [phone] #### AHCV1B #### [facility] [address] [place] [phone] Rubella IgG Ab 4.40 Index Value Normal [facility] Comment on above: Performed By: #### P OMER3 #### [facility] [address] [place] [phone] #### AHCV1B #### [facility] [address] [place], [place] [address] [phone] Rubella IgG Ab, Qual Positive Abnormal Negative [facility] Comment on above: Performed By: #### P OMER3 #### [facility] [address] [place], [place] [address] [phone] #### AHCV1B #### [facility]ine [facility] [address] [place] [phone] Vital Signs Date Time Vital Sign Value Performing Clinician Niyah chavarria 01-14-2025 16:20-0400 Body mass index (BMI) [Ratio] 35.26 kg/m2 Chloe Hyde [employer] Work Phone: [facility] 01-14-2025 16:20-0400 Body weight 94.26 kg Chloe Hyde [employer]IDE[employer]CNM Work Phone: [facility] 01-14-2025 16:20-0400 Diastolic blood pressure 64 mm[Hg] Chloe Hyde [employer]SR[employer] AIDE[employer]CNM Work Phone: [facility] 01-14-2025 16:20-0400 Systolic blood pressure 118 mm[Hg] Chloe Hyde [employer]SRO[employer] AIDE[employer]CNM Work Phone: [facility] 01-07-2025 13:12-0400 Body mass index (BMI) [Ratio] 34.85 kg/m2 Santhosh Cee MD Work Phone: [facility] 01-07-2025 13:12-0400 Body weight 93.17 kg Santhosh Cee MD Work Phone: [facility] 01-07-2025 13:12-0400 Diastolic blood pressure 62 mm[Hg] Santhosh Cee MD Work Phone: [facility] 01-07-2025 13:12-0400 Systolic blood pressure 100 mm[Hg] Santhosh Cee MD Work Phone: [facility] 12-31-2024 15:59-0400 Body mass index (BMI) [Ratio] 34.62 kg/m2 Anabell Gasca MD Work Phone: [facility] 12-31-2024 15:59-0400 Body weight 92.53 kg Anabell Gasca MD Work Phone: [facility] 12-31-2024 15:59-0400 Diastolic blood pressure 70 mm[Hg] Anabell Gasca MD Work Phone: [facility] 12-31-2024 15:59-0400 Systolic blood pressure 112 mm[Hg] Anabell Gasca MD Work Phone: [facility] 12-13-2024 11:18-0400 Body mass index (BMI) [Ratio] 33.43 kg/m2 Anabell Gasca MD Work Phone: [facility] 12-13-2024 11:18-0400 Body weight 89.36 kg Anabell Gasca MD Work Phone: [facility] 12-13-2024 11:18-0400 Diastolic blood pressure 70 mm[Hg] Anabell Gasca MD Work Phone: [facility] 12-13-2024 11:18-0400 Systolic blood pressure 108 mm[Hg] Anabell Gasca MD Work Phone: [facility] 11-28-2024 15:35-0400 Body mass index (BMI) [Ratio] 33.77 kg/m2 Franck Haury CLASSROOM AIDE.WICK TENDER Work Phone: [facility] 11-28-2024 15:35-0400 Body weight 90.27 kg Franck Haury CLASSROOM AIDE.WICK TENDER Work Phone: [facility] 11-28-2024 15:35-0400 Diastolic blood pressure 64 mm[Hg] Franck Haury CLASSROOM AIDE.WICK TENDER Work Phone: [facility] 11-28-2024 15:35-0400 Systolic blood pressure 112 mm[Hg] Franck Haury CLASSROOM AIDE.WICK TENDER Work Phone: [facility] 11-15-2024 15:37-0400 Body mass index (BMI) [Ratio] 32.92 kg/m2 Franck Haury CLASSROOM AIDE.WICK TENDER Work Phone: [facility] 11-15-2024 15:37-0400 Body weight 88 kg Franck Haury CLASSROOM AIDE.WICK TENDER Work Phone: [facility] 11-15-2024 15:37-0400 Diastolic blood pressure 68 mm[Hg] Franck Haury CLASSROOM AIDE.WICK TENDER Work Phone: [facility] 11-15-2024 15:37-0400 Systolic blood pressure 108 mm[Hg] Franck Haury CLASSROOM AIDE.WICK TENDER Work Phone: [facility] 10-29-2024 15:27-0400 Body mass index (BMI) [Ratio] 32.41 kg/m2 Adela [place] CLASSROOM AIDE.WICK TENDER Work Phone: [facility] 10-29-2024 15:27-0400 Body weight 86.64 kg Adela [place] CLASSROOM AIDE.WICK TENDER Work Phone: [facility] 10-29-2024 15:27-0400 Diastolic blood pressure 60 mm[Hg] Adela Indu CLASSROOM AIDE.WICK TENDER Work Phone: [facility] 10-29-2024 15:27-0400 Systolic blood pressure 102 mm[Hg] Adela [place] CLASSROOM AIDE.WICK TENDER Work Phone: [facility] 10-01-2024 15:30-0400 Body mass index (BMI) [Ratio] 32.07 kg/m2 Shira Pereira MD Work Phone: [facility] 10-01-2024 15:30-0400 Body weight 85.73 kg Shira Pereira MD Work Phone: [facility] 10-01-2024 15:30-0400 Diastolic blood pressure 74 mm[Hg] Shira Pereira MD Work Phone: [facility] 10-01-2024 15:30-0400 Systolic blood pressure 118 mm[Hg] Shira Pereira MD Work Phone: [facility] 09-03-2024 14:19-0400 Body mass index (BMI) [Ratio] 31.39 kg/m2 Franck Armando CLASSROOM AIDE.WICK TENDER Work Phone: [facility] 09-03-2024 14:19-0400 Body weight 83.92 kg Franck Armando CLASSROOM AIDE.WICK TENDER Work Phone: [facility] 09-03-2024 14:19-0400 Diastolic blood pressure 62 mm[Hg] Franck Armando CLASSROOM AIDE.WICK TENDER Work Phone: [facility] 09-03-2024 14:19-0400 Systolic blood pressure 112 mm[Hg] Franck Lincolnalisia MARIE Work Phone: [facility] 08-17-2024 15:05-0500 Body mass index (BMI) [Ratio] 30.95 kg/m2 aSnthosh Cee MD Work Phone: [facility] 08-17-2024 15:05-0500 Body weight 82.74 kg Santhosh Cee MD Work Phone: [facility] 08-17-2024 15:05-0500 Diastolic blood pressure 60 mm[Hg] Santhosh Cee MD Work Phone: [facility] 08-17-2024 15:05-0500 Systolic blood pressure 122 mm[Hg] Santhosh Cee MD Work Phone: [facility] 07-20-2024 16:10-0500 Body mass index (BMI) [Ratio] 30.1 kg/m2 Santhosh Cee MD Work Phone: [facility] 07-20-2024 16:10-0500 Body weight 80.47 kg Santhosh Cee MD Work Phone: [facility] 07-20-2024 16:10-0500 Diastolic blood pressure 72 mm[Hg] Santhosh Cee MD Work Phone: [facility] 07-20-2024 16:10-0500 Systolic blood pressure 120 mm[Hg] Santhosh Cee MD Work Phone: [facility] 06-19-2024 14:37-0500 Body mass index (BMI) [Ratio] 29.76 kg/m2 Leona Armando MD Work Phone: [facility] 06-19-2024 14:37-0500 Body weight 79.56 kg Leona Armando MD Work Phone: [facility] 06-19-2024 14:37-0500 Diastolic blood pressure 72 mm[Hg] Leona Armando MD Work Phone: [facility] 06-19-2024 14:37-0500 Systolic blood pressure 112 mm[Hg] Leona Armando MD Work Phone: [facility] 06-01-2024 11:03-0500 Body height 163.5 cm Franckedith Lincolnalisia CLASSROOM AIDE.WICK TENDER Work Phone: [facility] 06-01-2024 11:03-0500 Body mass index (BMI) [Ratio] 29.19 kg/m2 Franck Haalisia CLASSROOM AIDE.WICK TENDER Work Phone: [facility] 06-01-2024 11:03-0500 Body weight 78.02 kg Franck Prabha CLASSROOM AIDE.WICK TENDER Work Phone: [facility] 06-01-2024 11:03-0500 Diastolic blood pressure 60 mm[Hg] Franck Haury CLASSROOM AIDE.WICK TENDER Work Phone: [facility] 06-01-2024 11:03-0500 Systolic blood pressure 112 mm[Hg] Franck Haury CLASSROOM AIDE.WICK TENDER Work Phone: [facility] Encounters Encounter Date Encounter Type Care Provider Facility Start: 01-25-[address] [facility] Start: 01-14-2025 End: 01-14-2025 Patient encounter procedure Chloe Hyde APRN.CNM Work Phone: OB/Gynecology Comment on above: 38 weeks gestation o f (HCC) (Primary Dx); Supervision of high risk in third trimester (HCC) Start: 01-14-2025 End: 01-14-2025 ambulatory CHLOE HYDE Facility:[facility] Start: 01-07-2025 End: 01-07-2025 Patient encounter procedure Santhosh Cee MD Work Phone: OB/Gynecology Comment on above: Supervision of high risk in third trimester (HCC) (Primary Dx); 37 weeks gestation of (HCC) Start: 01-07-2025 End: 01-07-2025 ambulatory SANTHOSH CEE Facility:[facility] Start: 12-31-2024 End: 12-31-2024 Patient encounter procedure Anabell Gasca MD Work Phone: OB/Gynecology Comment on above: 36 weeks gestation o f (HCC) (Primary Dx); Supervision of high risk in third trimester (HCC) Start: 12-31-2024 End: 12-31-2024 ambulatory ANABELL GASCA Facility:[facility] Start: 12-13-2024 End: 12-13-2024 Patient encounter procedure Anabell Gasca MD Work Phone: OB/Gynecology Comment on above: Supervision of high risk in third trimester (HCC) (Primary Dx); 33 weeks gestation of (HCC) Start: 12-13-2024 End: 12-13-2024 ambulatory ANABELL GASCA Facility:[facility] Start: 12-04-2024 End: 12-05-2024 Telephone encounter Franck Armando APRN.WICK TENDER Work Phone: OB/Gynecology Comment on above: Breast Pump Start: 11-28-2024 End: 11-28-2024 Patient encounter procedure Franck Armando APRN.WICK TENDER Work Phone: OB/Gynecology Comment on above: Supervision of high risk in third trimester (HCC) (Primary Dx); 31 weeks gestation of (HCC); History of depression Start: 11-28-2024 End: 11-28-2024 ambulatory FRANCK ARMANDO Facility:[facility] Start: 11-16-2024 End: 11-16-2024 Telephone encounter Nurse Sole Polisher Orestes Kan Work Phone: Obstetrics/Gynecolog y Comment on above: PRAF Start: 11-15-2024 End: 11-15-2024 Patient encounter procedure Franck Armando APRN.WICK TENDER Work Phone: OB/Gynecology Comment on above: Supervision of high risk in third trimester (HCC) (Primary Dx); 29 weeks gestation of (HCC) Start: 11-15-2024 End: 11-15-2024 ambulatory FRANCK ARMANDO Facility:[facility] Start: 11-02-2024 End: 01-02-2025 Follow-up encounter Shira Pereira MD Work Phone: OB/Gynecology Start: 10-29-2024 End: 10-29-2024 Patient encounter procedure Adela Laracalf CLASSROOM AIDE.WICK TENDER Work Phone: OB/Gynecology Comment on above: 27 weeks gestation o f (HCC) (Primary Dx); Supervision of high risk in second trimester (HCC); Need for vaccination Start: 10-29-2024 End: 10-29-2024 ambulatory ADELAGINA LARAINDU Facility:[facility] Start: 10-02-2024 End: 10-02-2024 Telephone encounter Nurse Sole Polisher Orestes Kan Work Phone: Obstetrics/Gynecolog y Comment on above: PRAF Start: 10-01-2024 End: 10-01-2024 ambulatory SHIRA PEREIRA Facility:[facility] Start: 10-01-2024 End: 10-01-2024 Patient encounter procedure Shira Pereira MD Work Phone: OB/Gynecology Comment on above: Supervision of high risk in second trimester (HCC) (Primary Dx); Screening for diabetes mellitus; 23 weeks gestation of (HCC) Start: 09-04-2024 End: 11-05-2024 Follow-up encounter Anabell Gasca MD Work Phone: OB/Gynecology Start: 09-03-2024 End: 09-03-2024 Patient encounter procedure Franck Armando CLASSROOM AIDE.WICK TENDER Work Phone: OB/Gynecology Comment on above: Supervision of high risk in second trimester (Primary Dx); 19 weeks gestation of Encounter for anatomic survey (Primary Dx); 19 weeks gestation of Start: 09-03-2024 End: 09-03-2024 ambulatory FRANCK ARMANDO Facility:[facility] Start: 08-17-2024 End: 08-17-2024 ambulatory SANTHOSH CEE Facility:[facility] Start: 08-17-2024 End: 08-17-2024 Patient encounter procedure Santhosh Cee MD Work Phone: OB/Gynecology Comment on above: Supervision of high risk in second trimester (Primary Dx); 17 weeks gestation of ; History of depression Start: 07-20-2024 End: 07-20-2024 ambulatory FRANCK ARMANDO Facility:[facility] Start: 07-20-2024 End: 07-20-2024 Patient encounter [...] gestation of Start: 06-19-2024 End: 06-19-2024 ambulatory Sole Polisher [employer] Work Phone: OB/Gynecology Start: 06-19-2024 End: 06-19-2024 Patient encounter procedure [employer] OB/Gynecology Start: 06-05-2024 End: 06-05-2024 Telephone encounter Guadalupe Daley RN Obstetrics/Gynecolo g y Comment on above: PRAF Start: 06-04-2024 End: 06-04-2024 ambulatory FRANCK ARMANDO Facility:[facility] Start: 06-01-2024 End: 06-01-2024 ambulatory FRANCK ARMANDO Facility:[facility] Start: 06-01-2024 End: 06-01-2024 Patient encounter procedure Franck Armando APRN.WICK TENDER Work Phone: OB/Gynecology Comment on above: Encounter for superv ision of high risk in first trimester, antepartum (Primary Dx); 5 weeks gestation of ; with uncertain dates in first trimester; Screening for cervical cancer; History of depression; Attention deficit hyperactivity disorder (ADHD), unspecified ADHD type; Family history of blood coagulation disorder Start: 05-28-2024 End: 05-28-2024 Telephone encounter Franck Armando APRN.WICK TENDER Work Phone: OB/Gynecology Comment on above: Appointment Start: 05-25-2023 End: 05-25-2023 ambulatory ILANA GILLIAM [facility] Start: 03-15-2023 End: 03-15-2023 ambulatory CHELA CARO [facility] Start: 03-15-2023 Telephone encounter Soto Jensen Work [...] larios caregiver Soto Trejo Work Phone: [place] [facility] Start: 01-26-2023 End: 01-26-2023 Subsequent hospital visit by physician [facility] (I-Stat/1.5t) Work Phone: Radiology Comment on above: Disorder of bone [M8 9.9] Start: 12-16-2022 End: 12-16-2022 Patient encounter procedure Soto Trejo Work Phone: Podiatry Comment on above: Disorder of bone (Pr imary Dx); Tailor's bunion of left foot; Left foot pain Start: 11-12-2022 End: 11-12-2022 Subsequent hospital visit by physician [facility] Work Phone: Radiology Comment on above: Tailor's bunion of l eft foot [M21.622] Start: 10-27-2022 End: 10-27-2022 Patient encounter procedure Soto Trejo Work Phone: Podiatry Comment on above: Tailor's bunion of l eft foot (Primary Dx) Start: 08-15-2022 End: 08-15-2022 ambulatory [facility] Start: 08-15-2022 Encounter for genera l adult medical examination without abnormal findings [facility] Start: 08-06-2020 [facility] Start: 07-28-2020 End: 07-29-2020 Patient encounter procedure ANGELSEAN NEUMANNNELSON Facility:[facility] Procedures Date Procedure Procedure Detail [...] after 1st trimest 1/ gestation Franck Armando APRN.WICK TENDER Work Phone: Start: 07-20-2024 Us nuchal translucency 1st gestation Franck Armando APRN.WICK TENDER Work Phone: Start: 06-19-2024 Us pelvic nonobstetr ic real-time image complete Franck Armando APRN.WICK TENDER Work Phone: Start: 06-01-2024 Antibody screen SANTHOSH OWEN Comment on above: Order Comment: Speci men Type: BLOOD SPECIMEN Ordering Facility: [facility] Address: [address] [place] [address] Performed By: #### T SPN #### [facility] CLIA [id number] [address] [place], [place] [address] [address] [place] Start: 06-01-2024 Us uterus l imited 1/> fetuses Franck Armando KEVYN.WICK TENDER Work Phone: Start: 01-26-2023 Mri lower extrem oth /thn jt w/o & w/contr matr Soto Trejo Work Phone: Start: 11-12-2022 Radex foot complete minimum 3 views Soto Maya Work Phone: Plan of Treatment Date Care Activity Detail Author Start: 10-29-2034 Urine microalbumin profile DTaP,Tdap,Td Vaccine (7 - Td or Tdap) [facility] Start: 06-01-2027 Screening for malign ant neoplasm of cervix Cervical Cancer Screening [facility] Start: 02-18-2025 Influenza vaccination C [facility] Start: 01-23-2025 End: 01-23-2025 Patient encounter procedure 01/23/2025 4:20 PM EDT Routine Office Visit OB/Gynecology [address] [place] [address] Shira Blackwood MD [address] [place], [place] [id number] OB OB/Gynecology Comment on above: OB Start: 01-14-2025 End: 01-14-2025 Patient encounter procedure 01/14/2025 4:30 PM EDT Routine Office Visit OB/Gynecology [address] [place] [address] Chloe Hyde APRN.CN [address] [place] [address] OB OB/Gynecology Comment on above: OB Start: 01-07-2025 End: 01-07-2025 Patient encounter procedure 01/07/2025 1:10 PM EDT Routine Office Visit OB/Gynecology [address] [place] [address] Santhosh Cee MD [address] [place] [address] OB OB/Gynecology Comment on above: OB Start: 12-31-2024 End: 12-31-2024 Patient encounter procedure 12/31/2024 3:50 PM EDT Routine Office Visit OB/Gynecology [address] [place] [address] Anabell Gasca MD [address] [place] [address] OB OB/Gynecology Comment on above: OB Start: 12-13-2024 End: 12-13-2024 Patient encounter procedure 12/13/2024 11:20 AM EDT Routine Office Visit OB/Gynecology [address] [place] [address] Anabell Gasca MD [address] [place] [address] Return in about 2 wks for ENRIKE OB/Gynecology Comment on above: Return in about 2 wk s for ENRIKE Start: 11-28-2024 End: 11-28-2024 Patient encounter procedure 11/28/2024 3:45 PM EDT Routine Office Visit OB/Gynecology [address] [place] [address] Franck Armando APRN.WICK TENDER [address] [place] [address] Ob OB/Gynecology Comment on above: Ob Start: 11-15-2024 End: 11-15-2024 Patient encounter procedure 11/15/2024 8:00 AM EDT Routine Office Visit OB/Gynecology [address] [place] [address] Franck Armando APRN.WICK TENDER [address] [place] [address] Ob OB/Gynecology Comment on above: Ob Start: 10-31-2024 End: 01-30-2025 ANEMIA REFLEX PANEL ANEMIA REFLEX PANEL Lab Routine Supervision of high risk in second trimester (HCC) 23 weeks gestation of (HCC) Expected: 10/31/2024, Expires: 01/30/2025 [facility] Comment on above: Expected: 10/31/2024 , Expires: 01/30/2025 Start: 10-31-2024 End: 10-01-2025 GESTATIONAL GLUCOSE SCREEN, 1-HOUR, 50 GRAM, NON-FASTING GESTATIONAL GLUCOSE SCREEN, 1-HOUR, 50 GRAM, NON-FASTING Lab Routine Screening for diabetes mellitus Expected: 10/31/2024, Expires: 10/01/2025 [facility] Work Phone: Comment on above: Expected: 10/31/2024 , Expires: 10/01/2025 Start: 10-31-2024 End: 10-01-2025 SYPHILIS TREPONEMAL W/REFLEX SYPHILIS TREPONEMAL W/REFLEX Lab Routine Supervision of high risk in second trimester (HCC) 23 weeks gestation of (HCC) Expected: 10/31/2024, Expires: 10/01/2025 [facility] Comment on above: Expected: 10/31/2024 , Expires: 10/01/2025 Start: 10-29-2024 End: 10-29-2024 Patient encounter procedure 10/29/2024 3:40 PM EDT Routine Office Visit OB/Gynecology [address] [place] [address] Santhosh Cee MD [address] [place] [address] Glucose Test /OB OB/Gynecology Comment on above: Glucose Test /OB Start: 10-29-2024 End: 10-29-2024 ambulatory 10/29/2024 3:30 PM EDT Results Only Cecy Solis [facility] [address] [place] [address] Glucose Test Cecy Solis [facility] Comment on above: Glucose Test Start: 10-01-2024 End: 10-01-2024 Patient encounter procedure 10/01/2024 3:40 PM EDT Routine Office Visit OB/Gynecology [address] [place] [address] Shira Blackwood MD [address] [place] [address] OB OB/Gynecology Comment on above: OB Start: 09-14-2024 End: 09-14-2024 Patient encounter procedure 09/14/2024 2:40 PM EDT Routine Office Visit OB/Gynecology [address] [place] [address] Michael Edwards MD [address] [place] [address] OB Routine OB/Gynecology Comment on above: OB Routine Start: 09-14-2024 End: 09-14-2024 Patient encounter procedure 09/14/2024 1:30 PM EDT Routine Office Visit [facility] [address] [place] [address] Anatomy Scan [facility] Comment on above: Anatomy Scan Start: 09-03-2024 End: 09-03-2024 Patient encounter procedure OB/Gynecology Comment on above: OB Routine Anatomy Scan Start: 08-17-2024 End: 08-17-2024 Patient encounter procedure 08/17/2024 3:10 PM EST Routine Office Visit OB/Gynecology [address] [place] [address] Santhosh Cee MD [address] [place] [address] OB Routine OB/Gynecology Comment on above: OB Routine Start: 07-20-2024 End: 07-20-2024 Patient encounter procedure [facility] Comment on above: Nuchal OB Routine Start: 06-19-2024 End: 06-19-2024 Patient encounter procedure 06/19/2024 2:40 PM EST Routine Office Visit OB/Gynecology [address] [place] [address] Leona Armando MD [address] [place] [address] OB Routine OB/Gynecology Comment on above: OB Routine Start: 06-19-2024 End: 06-19-2024 ambulatory 06/19/2024 2:00 PM EST Procedure OB/Gynecology [address] [place] [address] Remote, Sole Polisher [employer] [facility] [address] [place] [address] with uncertain dates in first trimester [Z34.91]; 5 weeks gestation of [Z3A.01] OB/Gynecology Comment on above: with uncer tain dates in first trimester [Z34.91]; 5 weeks gestation of [Z3A.01] Start: 06-15-2024 End: 06-01-2025 US Pelvis PELVIC US [facility] Routine with uncertain dates in first trimester 5 weeks gestation of Expected: 06/15/2024, Expires: 06/01/2025 [facility] Comment on above: Expected: 06/15/2024 , Expires: 06/01/2025 Start: 06-01-2024 End: 08-31-2024 ANEMIA REFLEX PANEL [facility] Work Phone: Comment on above: Expected: 06/01/2024 , Expires: 08/31/2024 Start: 06-01-2024 End: 08-31-2024 CARRIER SCREEN, STANDARD [facility] Comment on above: Expected: 06/01/2024 , Expires: 08/31/2024 Start: 06-01-2024 End: 08-31-2024 Hemoglobin A1c in Blood [facility] Comment on above: Expected: 06/01/2024 , Expires: 08/31/2024 Start: 06-01-2024 End: 03-14-2025 Hepatitis B virus surface Ag [Presence] in Serum [facility] Comment on above: Expected: 06/01/2024 , Expires: 08/31/2024 Start: 06-01-2024 End: 08-31-2024 Hepatitis C virus Ab [Presence] in Serum [facility] Comment on above: Expected: 06/01/2024 , Expires: 08/31/2024 Start: 06-01-2024 End: 08-31-2024 HIV 1+2 Ab [Presence] in Serum or Plasma by Immunoassay [facility] Comment on above: Expected: 06/01/2024 , Expires: 08/31/2024 Start: 06-01-2024 End: 06-01-2025 NUCHAL TRANSLUCENCY [facility] NUCHAL TRANSLUCENCY [facility] Imaging Routine with uncertain dates in first trimester 5 weeks gestation of Expected: 06/01/2024, Expires: 06/01/2025 [facility] Comment on above: Expected: 06/01/2024 , Expires: 06/01/2025 Start: 06-01-2024 End: 06-01-2025 OBSTETRIC ULTRASOUND [facility] OBSTETRIC ULTRASOUND [facility] Routine with uncertain dates in first trimester Expected: 06/01/2024, Expires: 06/01/2025 [facility] Comment on above: Expected: 06/01/2024 , Expires: 06/01/2025 Start: 06-01-2024 End: 08-31-2024 RUBELLA IGG ANTIBODY [facility] Comment on above: Expected: 06/01/2024 , Expires: 08/31/2024 Start: 06-01-2024 End: 08-31-2024 SYPHILIS TREPONEMAL W/REFLEX [facility] Comment on above: Expected: 06/01/2024 , Expires: 08/31/2024 Start: 06-01-2024 End: 08-31-2024 TYPE + SCREEN [facility] Comment on above: Expected: 06/01/2024 , Expires: 08/31/2024 Start: 06-01-2024 End: 06-01-2024 Patient encounter procedure 06/01/2024 11:00 AM EST Initial Office Visit OB/Gynecology [address] [place], [place] [id number] Franck Armando APRN.WICK TENDER [address] [place] [address] OB/Gynecology Start: 02-19-2024 Covid-19 Vaccine ( season) Covid-19 Vaccine ( season) [facility] Start: 02-19-2024 Influenza vaccination Influenza Vacc ine (#1) [facility] Start: 03-15-2023 End: 05-15-2023 Comprehensive metabolic 2000 panel - Serum or Plasma COMP METABOLIC PANEL Lab Routine Left foot pain Bursitis of left foot Expected: 03/15/2023, Expires: 05/15/2023 [facility] Work Phone: Comment on above: Expected: 03/15/2023 , Expires: 05/15/2023 Start: 02-18-2023 Covid-19 Vaccine ( season) Covid-19 Vaccine () [facility] Start: 02-18-2023 [facility] Start: 06-20-2022 DEPRESSION ASSESSMENT DEPRESSION ASS ESSMENT [facility] Start: 01-17-2022 Urine microalbumin profile [facility] Start: 02-23-2021 COVID-19 VACCINE (5 - Booster for Moderna series) COVID-19 VACCINE (5 - Booster for Moderna series) [facility] Start: 02-23-2021 COVID-19 VACCINE (5 - Moderna series) COVID-19 VACCINE (5 - Moderna series) [facility] Start: 2020 PAP TESTING PAP TESTING [facility] Start: 2020 Screening for malign ant neoplasm of cervix Cervical Cancer Screening [facility] Start: 2017 Anxiety Screening Anxiety Screening [facility] Start: 2017 CHLAMYDIA SCREENING (18-24) CHLAMYDIA SCREENING (18-) [facility] Start: 2017 Depression Screening Depression Scre ening [facility] Start: 2017 GC (GONORRHEA) SCREE DEYANIRA (18-24) GC (GONORRHEA) SCREENING (18-24) [facility] Start: 2017 HEPATITIS C SCREENING HEPATITIS C SC JANUARY [facility] Start: 2017 Hepatitis C screening Hepatitis C Asael january [facility] Start: 2017 HIV SCREENING HIV SCREENING [facility] Start: 2017 HIV screening HIV Screening [facility] Start: 2015 Meningococcal B Vacc ine: Consider Based On Risk (1 of 2 - Patient Seeks Protection) Meningococcal B Vaccine: Consider Based On Risk (1 of 2 - Patient Seeks Protection) [facility] Start: 2015 MENINGOCOCCAL B: Consider based on risk (1 of 2 - Patient Seeks Protection) MENINGOCOCCAL B: Consider based on risk (1 of 2 - Patient Seeks Protection) [facility] Start: 2014 HPV Vaccine (1 - 3-d ose series) HPV Vaccine (1 - 3-dose series) [facility] Start: 2013 PEDS TO ADULT TRANSI TION ANNUAL ASSESSMENT PEDS TO ADULT TRANSITION ANNUAL ASSESSMENT [facility] Start: 2011 PEDS TO ADULT TRANSI TION INITIAL DISCUSSION PEDS TO ADULT TRANSITION INITIAL DISCUSSION [facility] Start: 2010 HPV VACCINE (1 - 2-d ose series) HPV VACCINE (1 - 2-dose series) [facility] Start: 2009 MENINGOCOCCAL B: Consider based on risk (1 of 2 - Risk Bexsero 2-dose series) MENINGOCOCCAL B: Consider based on risk (1 of 2 - Risk Bexsero 2-dose series) [facility] Start: 2008 HPV VACCINE (1 - 2-d ose series) HPV VACCINE (1 - 2-dose series) [facility] End: 03-04-2024 Arthrocnt aspir&/inj small jt/bursaw/us rec rprt US ASP/INJ HAND/FINGER/FOOT/TOE JT BURSA LT Radiology Routine Left foot pain 1 Occurrences starting 02/03/2023 until 03/04/2024 [facility] Work Phone: Comment on above: 1 Occurrences starti ng 02/03/2023 until 03/04/2024 Bacteria identified in Urine by Culture URINE CULTURE Microbiology Routine with uncertain dates in first trimester 06/01/2024 11:47 AM EST [facility] Chlamydia trachomatis+Neisseria gonorrhoeae DNA [Presence] in Unspecified specimen by BRAD with probe detection GONORRHEA/CHLAMYDIA NAAT Lab Routine with uncertain dates in first trimester 06/01/2024 11:47 AM [facility] End: 06-01-2025 Choriogonadotropin.beta subunit [Units/volume] in Serum or Plasma HCG QUANTITATIVE Lab Routine with uncertain dates in first trimester 2x per week for 6 Occurrences starting 06/01/2024 until 06/01/2025 [facility] Comment on above: 2x per week for 6 Oc currences starting 06/01/2024 until 06/01/2025 Choriogonadotropin.b eta subunit [Units/volume] in Serum or Plasma HCG QUANTITATIVE Lab Routine with uncertain dates in first trimester 06/01/2024 12:06 PM [facility] End: 01-15-2024 MRI FOOT/TOES WO/W IVCON LEFT MRI FOOT/TOES WO/W IVCON LEFT Radiology Routine Disorder of bone 1 Occurrences starting 12/16/2022 until 01/15/2024 [facility] Work Phone: Comment on above: 1 Occurrences starti ng 12/16/2022 until 01/15/2024 PAP TEST PAP TEST Lab Rou pieter with uncertain dates in first trimester Screening for cervical cancer 06/01/2024 11:47 AM [facility] ROUTINE, GR OUP B STREPTOCOCCUS BY PCR ROUTINE, GROUP B STREPTOCOCCUS BY PCR Microbiology Routine 36 weeks gestation of ([facility]) 12/31/2024 4:24 PM EDT [facility] Work Phone: URINE OB DIP B/O URINE OB DIP B/ O Lab Routine Supervision of high risk in third trimester (HCC) 33 weeks gestation of ([facility]) Ordered: 12/13/2024 [facility] Work Phone: Comment on above: Ordered: 12/13/2024 End: 11-26-2023 XR FOOT GENERAL 3V AP/LAT/OBL LEFT XR FOOT GENERAL 3V AP/LAT/OBL LEFT Radiology Routine Tailor's bunion of left foot 1 Occurrences starting 10/27/2022 until 11/26/2023 [facility] Work Phone: Comment on above: 1 Occurrences starti ng 10/27/2022 until 11/26/2023 [facility] Immunizations Immunization Date Immunization Notes Care Provider Kenji morris 10-29-2024 tetanus toxoid, redu mago diphtheria toxoid, and acellular pertussis vaccine, adsorbed Adela Griggs APRN.CNP Work Phone: [facility] 06-19-2021 influenza virus vacc ine, unspecified formulation [employer] Work Phone: [facility] 02-01-2017 meningococcal polysaccharide (groups A, C, Y and W-135) diphtheria toxoid conjugate vaccine (MCV4P) [facility] [employer] Work Phone: [facility] Work Phone: 08-24-2012 Meningococcal, MCV4, unspecified conjugate formulation(groups A, C, Y and W-135) [employer] Work Phone: [facility] Work Phone: 08-24-2012 poliovirus vaccine, inactivated [employer] Work Phone: [facility] Work Phone: 08-24-2012 varicella virus vaccine Aldo [employer] Work Phone: [facility] Work Phone: 01-18-2012 tetanus toxoid, redu mago diphtheria toxoid, and acellular pertussis vaccine, adsorbed [employer] Work Phone: [facility] Work Phone: 04-29-2009 novel influenza-H1N1 -09, all formulations [employer] Work Phone: [facility] Work Phone: 05-02-2007 influenza virus vacc ine, unspecified formulation [employer] Work Phone: [facility] Work Phone: 06-04-2005 hepatitis B vaccine, pediatric or pediatric/adolescent dosage [employer] Work Phone: [facility] 02-02-2005 diphtheria, tetanus toxoids and acellular pertussis vaccine [employer] Work Phone: [facility] Work Phone: 02-02-2005 hepatitis B vaccine, pediatric or pediatric/adolescent dosage [facility] [employer] Work Phone: [facility] Work Phone: 02-02-2005 measles, mumps and rubella virus vaccine [employer] Work Phone: [facility] Work Phone: 02-02-2005 poliovirus vaccine, inactivated [employer] Work Phone: [facility] Work Phone: 06-28-2000 hepatitis B vaccine, pediatric or pediatric/adolescent dosage [facility] [employer] Work Phone: [facility] Work Phone: 06-28-2000 measles, mumps and rubella virus vaccine [employer] Work Phone: [facility] Work Phone: 1999 diphtheria, tetanus toxoids and acellular pertussis vaccine [employer] Work Phone: [facility] Work Phone: 1999 haemophilus influenz ae type b vaccine, HbOC conjugate [employer] Work Phone: [facility] Work Phone: 1999 diphtheria, tetanus toxoids and acellular pertussis vaccine [facility] [employer] Work Phone: [facility] Work Phone: 1999 haemophilus influenz ae type b vaccine, HbOC conjugate [employer] Work Phone: [facility] Work Phone: 1999 poliovirus vaccine, inactivated [email or web address] Work Phone: [facility] Work Phone: 1999 diphtheria, tetanus toxoids and acellular pertussis vaccine [employer] Work Phone: [facility] Work Phone: 1999 haemophilus influenz ae type b vaccine, HbOC conjugate [employer] Work Phone: [facility] Work Phone: 1999 poliovirus vaccine, inactivated [employer] Work Phone: [facility] Work Phone: Payers Date Payer Category Payer Self-pay 2022 Medicaid [id number] 1999 Unknown [id number] 1999 Unknown [id number] 1999 Unknown [id number] 1999 Unknown [id number] 1959 Unknown [id number] Unknown [id number] Unknown [id number] Social History Date Type Detail Facility Start: 05-28-2024 Tobacco smoking stat [facility] Never smoked tobacco [facility] Start: 10-27-2022 End: 01-14-2025 Alcohol intake Current non-drinker of alcohol (finding) [facility] Start: 2000 Sex Assigned At Not on file [facility] Start: 10-27-2022 End: 12-16-2022 History of Social function [facility] Start: 10-27-2022 End: 12-16-2022 Tobacco use panel [facility] National Score (1-10 0), lower number is lower risk 65 [facility] Start: 05-28-2024 Tobacco use and exposure Smoke less tobacco non-user [facility] Start: 05-28-2024 Education 17 [facility] Start: 04-13-2024 [facility] Goals Date Patient Goal Desired Activity [...] this week if undelivered Chloe Hyde APRN.CNM [facility] Work Phone: 01-14-2025 Miscellaneous Notes S: [...] later this week if undelivered Chloe Plotts, CLASSROOM AIDE.CNM documented in this encounter [facility] 01-14-2025 Instructions Radha Fox LPN - 01/14/2025 4:16 PM EDT SEQUENTIAL SCREENINGS The [facility] offers sequential screenings for women who [...] It will require an appointment with our underwriting technician. This is not an ultrasound performed [...] the above symptoms, contact our office at [phone] and ask to speak with a nurse. After hours, you can call doctors registry at [phone] OR call [facility] at [phone] and ask to have the doctor front office supervisor paged. If you consider this an emergency, dial 9-1-0 or go to your nearest emergency department. NEED HELP? Are you dealing with a violent or abusive relationship? Are you a victim of rape or sexual assult? Call [facility] (Mobile) 24 hour Crisis Hotline: 478.274.3852 or 926-789-4557. MANUAL Your Guide to a Healthy manual is now on-line. Visit [email or web address] to download your free copy documented in this encounter [facility] 01-07-2025 Progress note Formatting of t his note might be different from the original. SW- Pt doing well. No ctx, vb, lof. Good FM PE: Gen- NAD, well appearing Abd- Soft, gravid, NT, S=D See flowsheet A/p 37 wk gestation - GBS negative - Weekly visits Santhosh Cee DO [facility] 01-07-2025 Miscellaneous Notes SW- Pt doing well. No ctx, vb, lof. Good FM PE: Gen- NAD, well appearing Abd- Soft, gravid, NT, S=D See flowsheet A/p 37 wk gestation - GBS negative - Weekly visits Santhosh Cee DO documented in this encounter [facility] 01-07-2025 Instructions Jessica Plunkett MA - 01/07/2025 1:10 PM EDT SEQUENTIAL SCREENINGS The [facility] offers sequential screenings for women who [...] It will require an appointment with our underwriting technician. This is not an ultrasound performed [...] the above symptoms, contact our office at [phone] and ask to speak with a nurse. After hours, you can call doctors registry at [phone] OR call [facility] at [phone] and ask to have the doctor front office supervisor paged. If you consider this an emergency, dial 9--7 or go to your nearest emergency department. NEED HELP? Are you dealing with a violent or abusive relationship? Are you a victim of rape or sexual assult? Call [facility] (Mobile) 24 hour Crisis Hotline: 429.176.1560 or 979-013-1097. MANUAL Your Guide to a Healthy manual is now on-line. Visit [email or web address] to download your free copy documented in this encounter [facility] 12-31-2024 Progress note Formatting of t his note might be different from the original. RR- VB No. LOF No. CTXS No. Movement: present. Other c/o: No. Medication list reviewed. SENSITIVE EXAM: The sensitive examination was discussed with the Patient or Patient's Authorized Candle [employer]. As applicable, any other physician, advance practice provider, medical student, or other health professional student that will be observing or involved in the sensitive examination for educational or training purposes was discussed with the Patient or Authorized Candle M[employer] Machine. The Patient or Authorized Candle Molder Machine has agreed to proceed with the sensitive [...] brief US confirms vtx Anabell Gasca M.D. [facility] 12-31-2024 Miscellaneous Notes RR- VB No. LOF No. CTXS No. Movement: present. Other c/o: No. Medication list reviewed. SENSITIVE EXAM: The sensitive examination was discussed with the Patient or Patient's Authorized Cand[employer]. As applicable, any other physician, advance practice provider, medical student, or other health professional student that will be observing or involved in the sensitive examination for educational or training purposes was discussed with the Patient or Authorized Candle M[employer] Machine. The Patient or Authorized Candle M[employer] has agreed to proceed with the sensitive examination. (Sensitive examination includes inspection and/or palpation of the breasts, pelvis, prostate and anorectal regions). Physical Exam See Flow Sheet Abd: soft, nontender, gravid Ext: edema: Trace A/P 36w3d Estimated Date of Delivery: 01/25/25 Assessment & Plan 36 weeks gestation of ([facility]) Orders: URINE OB DIP B/O ROUTINE, GROUP B STREPTOCOCCUS BY PCR Supervision of high risk in third trimester ([facility]) Orders: URINE OB DIP B/O kick counts f/u in 1 week or prn brief US confirms vtx Anabell Gasca M.D. documented in this encounter [facility] 12-31-2024 Instructions Ariane Machado MA - 12/31/2024 4:00 PM EDT SEQUENTIAL SCREENINGS The [facility] offers sequential screenings for women who [...] It will require an appointment with our underwriting technician. This is not an ultrasound performed [...] the above symptoms, contact our office at [phone] and ask to speak with a nurse. After hours, you can call doctors registry at [phone] OR call [facility] at [phone] and ask to have the doctor front office supervisor paged. If you consider this an emergency, dial 9-1-1 or go to your nearest emergency department. NEED HELP? Are you dealing with a violent or abusive relationship? Are you a victim of rape or sexual assult? Call [facility] (Mobile) 24 hour Crisis Hotline: 831.744.5208 or 320-569-2264. MANUAL Your Guide to a Healthy manual is now on-line. Visit [email or web address] to download your free copy documented in this encounter [facility] 12-13-2024 Progress note Formatting of t [...] counts gbs next visit Anabell Gasca M.D. [facility] 12-13-2024 Miscellaneous Notes RR- VB No. [...] Anabell Gasca M.D. documented in this encounter [facility] 12-13-2024 Instructions Ariane Machado FEDE - 12/13/2024 11:14 AM EDT SEQUENTIAL SCREENINGS The [facility] offers sequential screenings for women who [...] It will require an appointment with our underwriting technician. This is not an ultrasound performed [...] the above symptoms, contact our office at [phone] and ask to speak with a nurse. After hours, you can call doctors registry at [phone] OR call [facility] at [phone] and ask to have the doctor front office supervisor paged. If you consider this an emergency, dial 9--1 or go to your nearest emergency department. NEED HELP? Are you dealing with a violent or abusive relationship? Are you a victim of rape or sexual assult? Call [facility] (Mobile) 24 hour Crisis Hotline: 202.809.6921 or 432-127-1161. MANUAL Your Guide to a Healthy manual is now on-line. Visit [email or web address] to download your free copy documented in this encounter [facility] 12-05-2024 Telephone encounter Note Order signed and faxed. Vicki Morataya RN [facility] 12-05-2024 Miscellaneous Notes Order signed and faxed. Vicki Morataya RN Received breast pump RX from [employer]. To to sign. Leona Heck RN documented in this encounter [facility] 12-04-2024 Telephone encounter Note Received breast pump RX from [employer]. To to sign. Leona Heck RN [facility] 11-28-2024 Progress note Formatting of t [...] and LDA 2. 31 weeks gestation of ([facility]) - ICD9: V22.2, ICD10: Z3A.31 3. History of depression - ICD9: V11.8, ICD10: Z86.59 - Mood stable, denies concerns PTL precautions and kick counts reviewed. RTO in 2 weeks or sooner as needed. Franck Armando APRN.MIRYAM [facility] 11-28-2024 Miscellaneous Notes EH - S: [...] Franck Armando APRN.MIRYAM documented in this encounter [facility] 11-28-2024 Instructions Laura Palma MA - 11/28/2024 3:32 PM EDT SEQUENTIAL SCREENINGS The [facility] offers sequential screenings for women who [...] It will require an appointment with our underwriting technician. This is not an ultrasound performed [...] the above symptoms, contact our office at [phone] and ask to speak with a nurse. After hours, you can call doctors registry at [phone] OR call [facility] at [phone] and ask to have the doctor front office supervisor paged. If you consider this an emergency, dial 02-18-5 or go to your nearest emergency department. NEED HELP? Are you dealing with a violent or abusive relationship? Are you a victim of rape or sexual assult? Call [facility] (Mobile) 24 hour Crisis Hotline: 326.962.8924 or 592-680-9663. MANUAL Your Guide to a Healthy manual is now on-line. Visit [email or web address] to download your free copy documented in this encounter [facility] 11-16-2024 Telephone encounter Note 3rd risk assessment form submitted 11/16/24 Lorena Lui RN [facility] 11-16-2024 Miscellaneous Notes 3rd risk assessment form submitted 11/16/24 Lorena Lui RN documented in this encounter [facility] 11-15-2024 Progress note Formatting of t [...] Supervision of high risk in third trimester ([facility]) - ICD9: V23.9, ICD10: O09.93 (primary diagnosis) - Continue PNV and LDA 2. 29 weeks gestation of ([facility]) - ICD9: V22.2, ICD10: Z3A.29 - 28 week labs reviewed - Plans to pre register at [facility] PTL precautions and kick counts reviewed. RTO in 2 weeks or sooner as needed. Franck Armando APRN.WICK TENDER [facility] 11-15-2024 Miscellaneous Notes EH - S: [...] Supervision of high risk in third trimester ([facility]) - ICD9: V23.9, ICD10: O09.93 (primary diagnosis) - Continue PNV and LDA 2. 29 weeks gestation of ([facility]) - ICD9: V22.2, ICD10: Z3A.29 - 28 week labs reviewed - Plans to pre register at [facility] PTL precautions and kick counts reviewed. RTO in 2 weeks or sooner as needed. Franck Armando APRN.WICK TENDER documented in this encounter [facility] 10-29-2024 Progress note Formatting of t his note might be different from the original. RM-Pt doing well. Denies vaginal Bleeding, Leaking fluid, or regular Contractions. Pt reports good movement Physical Exam: Gen: no apparent distress Abd: soft, Gravid. Non tender to palpation. See flow sheet ASSESSMENT/PLAN: 1. 27 weeks gestation of ([facility]) - ICD9: V22.2, ICD10: Z3A.27 (primary diagnosis) Glucose test today 2. Supervision of high risk in second trimester ([facility]) - ICD9: V23.9, ICD10: O09.92 3. Need for vaccination - ICD9: V05.9, ICD10: Z23 Tdap given LARC declined RTO 2 weeks Adela Griggs APRN.WICK TENDER [facility] 10-29-2024 Miscellaneous Notes RM-Pt doing well. Denies vaginal Bleeding, Leaking fluid, or regular Contractions. Pt reports good movement Physical Exam: Gen: no apparent distress Abd: soft, Gravid. Non tender to palpation. See flow sheet ASSESSMENT/PLAN: 1. 27 weeks gestation of ([facility]) - ICD9: V22.2, ICD10: Z3A.27 (primary diagnosis) Glucose test today 2. Supervision of high risk in second trimester ([facility]) - ICD9: V23.9, ICD10: O09.92 3. Need for vaccination - ICD9: V05.9, ICD10: Z23 Tdap given LARC declined RTO 2 weeks Adela Griggs APRN.WICK TENDER documented in this encounter [facility] 10-29-2024 Note HNO ID: [id number] Author: JESSICA PLUNKETT MA Service: ? Author Type: Control Operator Flow Coat Type: Progress Notes Filed: 10/29/2024 16:03 Note [...] severely ill: Yes Patient denies history of Guillain-Franklin Syndrome (a severe paralytic illness): Yes Tdap Adacel injection was given without incident. See immunizations for details of immunizations administered today. VIS sheet provided: Yes Provider Chloe Hyde CNM was present in office at time of injection. Jessica Plunkett MA [facility] 10-29-2024 History of Present illness Narrative Patient [...] severely ill: Yes Patient denies history of Guillain-Franklin Syndrome (a severe paralytic illness): Yes Tdap Adacel injection was given without incident. See immunizations for details of immunizations administered today. VIS sheet provided: Yes Provider Chloe Hyde CNM was present in office at time of injection. Jessica Plunkett MA documented in this encounter [facility] 10-29-2024 Instructions Jessica Plunkett MA - 10/29/2024 3:25 PM EDT SEQUENTIAL SCREENINGS The [facility] offers sequential screenings for women who [...] It will require an appointment with our underwriting technician. This is not an ultrasound performed [...] the above symptoms, contact our office at [phone] and ask to speak with a nurse. After hours, you can call doctors registry at [phone] OR call [facility] at [phone] and ask to have the doctor front office supervisor paged. If you consider this an emergency, dial --1 or go to your nearest emergency department. NEED HELP? Are you dealing with a violent or abusive relationship? Are you a victim of rape or sexual assult? Call [facility] (Mobile) 24 hour Crisis Hotline: 327.949.3716 or 463-895-4275. MANUAL Your Guide to a Healthy manual is now on-line. Visit [email or web address] to download your free copy documented in this encounter [facility] 10-02-2024 Telephone encounter Note 2nd risk assessment form submitted 10/02/24 Lorena Lui RN [facility] 10-02-2024 Miscellaneous Notes 2nd risk assessment form submitted 10/02/24 Loerna Lui RN documented in this encounter [facility] 10-01-2024 Progress note Formatting of t [...] Future RTO 4 wks Shira Mcfadden MD [facility] 10-01-2024 Miscellaneous Notes DM-Pt doing well. Denies vaginal Bleeding, Leaking fluid, or regular Contractions. Pt reports good movement Physical Exam: Gen: female in no apparent distress Abd: soft, Gravid. Non tender to palpation. See flow sheet @ 23.3 weeks Assessment & Plan Supervision of high risk in second trimester ([facility]) Orders: SYPHILIS TREPONEMAL W/REFLEX; Future ANEMIA REFLEX PANEL; Future Screening for diabetes mellitus Orders: GESTATIONAL GLUCOSE SCREEN, 1-HOUR, 50 GRAM, NON-FASTING; Future 23 weeks gestation of ([facility]) Orders: SYPHILIS TREPONEMAL W/REFLEX; Future ANEMIA REFLEX PANEL; Future RTO 4 wks Shira Mcfadden MD documented in this encounter [facility] 10-01-2024 Instructions Cassidy Rain MA - 10/01/2024 3:25 PM EDT SEQUENTIAL SCREENINGS The [facility] offers sequential screenings for women who [...] It will require an appointment with our underwriting technician. This is not an ultrasound performed [...] the above symptoms, contact our office at [phone] and ask to speak with a nurse. After hours, you can call doctors registry at [phone] OR call [facility] at [phone] and ask to have the doctor front office supervisor paged. If you consider this an emergency, dial 9--3 or go to your nearest emergency department. NEED HELP? Are you dealing with a violent or abusive relationship? Are you a victim of rape or sexual assult? Call [facility] (Mobile) 24 hour Crisis Hotline: 608.483.8396 or 861-885-8807. MANUAL Your Guide to a Healthy manual is now on-line. Visit [email or web address] to download your free copy documented in this encounter [facility] 09-04-2024 Progress note Formatting of t his note might be different from the original. Anatomy ultrasound reviewed. No abnormalities identified. Follow up as clinically indicated. Please place copy in ob chart. Anabell Gasca MD [facility] Work Phone: 09-04-2024 Miscellaneous Notes Anatomy ultrasound reviewed. No abnormalities identified. Follow up as clinically indicated. Please place copy in ob chart. Anabell Gasca MD documented in this encounter [facility] 09-03-2024 Miscellaneous Notes EH - S: [...] Franck Armando APRN.MIRYAM documented in this encounter [facility] 09-03-2024 Progress note Formatting of t [...] or sooner as needed. Franck Armando APRN.MIRYAM [facility] 09-03-2024 Instructions Laura Palma MA - 09/03/2024 2:17 PM EDT SEQUENTIAL SCREENINGS The [facility] offers sequential screenings for women who [...] It will require an appointment with our underwriting technician. This is not an ultrasound performed [...] the above symptoms, contact our office at [phone] and ask to speak with a nurse. After hours, you can call doctors registry at [phone] OR call [facility] at [phone] and ask to have the doctor front office supervisor paged. If you consider this an emergency, dial 9-1-5 or go to your nearest emergency department. NEED HELP? Are you dealing with a violent or abusive relationship? Are you a victim of rape or sexual assult? Call [facility] (Mobile) 24 hour Crisis Hotline: 554.274.6324 or 660-243-0076. MANUAL Your Guide to a Healthy manual is now on-line. [email or web address] to download your free copy documented in this encounter [facility] 08-17-2024 Progress note Formatting of t his note might be different from the original. SW- pt doing well. No pain, vb, lof PE: Gen- NAD, well appearing Abd- Soft, gravid, NT See flowsheet A/p 17 wk gestation - Discussed upcoming expectations - Discussed travel in - RTO anatomy US and OB visit Santhosh Cee DO [facility] 08-17-2024 Miscellaneous Notes SW- pt doing well. No pain, vb, lof PE: Gen- NAD, well appearing Abd- Soft, gravid, NT See flowsheet A/p 17 wk gestation - Discussed upcoming expectations - Discussed travel in - RTO anatomy US and OB visit Santhosh Cee DO documented in this encounter [facility] 08-17-2024 Instructions Radha Fox LPN - 08/17/2024 2:56 PM EST SEQUENTIAL SCREENINGS The [facility] offers sequential screenings for women who [...] It will require an appointment with our underwriting technician. This is not an ultrasound performed [...] the above symptoms, contact our office at [phone] and ask to speak with a nurse. After hours, you can call doctors registry at [phone] OR call [facility] at [phone] and ask to have the doctor front office supervisor paged. If you consider this an emergency, dial 9-1-1 or go to your nearest emergency department. NEED HELP? Are you dealing with a violent or abusive relationship? Are you a victim of rape or sexual assult? Call [facility] ([facility] 24 hour Crisis Hotline: 997.899.9941 or 050-125-9401. MANUAL Your Guide to a Healthy manual is now on-line. Visit [facility].org/HealthyPregna ncyGuide to download your free copy documented in this encounter [facility] 07-20-2024 Progress note Formatting of t his note might be different from the original. SW- pt doing well. No pain, vb, lof. PE: Gen- NAD, well appearing See flowsheet A/p 13 wk gestation - ADHD and history depression: Patient reports mood stable - NT today - NOB labs completed - Declined aneuploidy screening - RTO 4 wks BRETT Murray [facility] 07-20-2024 Miscellaneous Notes SW- pt doing well. No pain, vb, lof. PE: Gen- NAD, well appearing See flowsheet A/p 13 wk gestation - ADHD and history depression: Patient reports mood stable - NT today - NOB labs completed - Declined aneuploidy screening - RTO 4 wks BRETT Murray documented in this encounter [facility] 07-20-2024 Instructions Jessica Plunkett MA - 07/20/2024 3:55 PM EST SEQUENTIAL SCREENINGS The [facility] offers sequential screenings for women who [...] It will require an appointment with our underwriting technician. This is not an ultrasound performed [...] the above symptoms, contact our office at [phone] and ask to speak with a nurse. After hours, you can call doctors registry at [phone] OR call [facility] at [phone] and ask to have the doctor front office supervisor paged. If you consider this an emergency, dial 9--1 or go to your nearest emergency department. NEED HELP? Are you dealing with a violent or abusive relationship? Are you a victim of rape or sexual assult? Call [facility] ([place]) 24 hour Crisis Hotline: 905.404.5778 or 160-511-7249. MANUAL Your Guide to a Healthy manual is now on-line. Visit [facility]org/HealthyPregna ncyGuide to download your free copy documented in this encounter [facility] 06-19-2024 Progress note Formatting of t [...] ICD9: V22.2, ICD10: Z3A.08 Leona Armando MD [facility] 06-19-2024 Miscellaneous Notes S: Vicky Mitchell [...] Leona Armando MD documented in this encounter [facility] 06-19-2024 Note HNO ID: [id number] Author: SRINIVASAN LIN MD Service: ? Author Type: Physician Type: Progress Notes Filed: 06/19/2024 14:55 Note Text: The patient presents for requested ultrasound. Full report available in the Imaging tab in Boardvote. Srinivasan Lin MD [facility] 06-19-2024 History of Present illness Narrative The patient presents for requested ultrasound. Full report available in the Imaging tab in Boardvote. Srinivasan Lin MD\ documented in this encounter [facility] 06-19-2024 Instructions Jessica Plunkett MA - 06/19/2024 2:35 PM EST SEQUENTIAL SCREENINGS The [facility] offers sequential screenings for women who [...] It will require an appointment with our underwriting technician. This is not an ultrasound performed [...] the above symptoms, contact our office at [phone] and ask to speak with a nurse. After hours, you can call doctors registry at [phone] OR call [facility] at [phone] and ask to have the doctor front office supervisor paged. If you consider this an emergency, dial 1-7-7 or go to your nearest emergency department. NEED HELP? Are you dealing with a violent or abusive relationship? Are you a victim of rape or sexual assult? Call [facility] ([place]) 24 hour Crisis Hotline: 254.905.7460 or 358-914-5881. MANUAL Your Guide to a Healthy manual is now on-line. Visit [facility]org/HealthyPregna ncyGuide to download your free copy documented in this encounter [facility] 06-05-2024 Telephone encounter Note 1st risk assessment form submitted 06/05/24. Guadalupe Daley RN [facility] 06-05-2024 Miscellaneous Notes 1st risk assessment form submitted 06/05/24. Guadalupe Daley RN documented in this encounter [facility] 06-01-2024 Franck Goode APRN.MIRYAM - 06/01/2024 10:56 AM EST Images from the original note were not included. Please select the following link to access the [facility] Your Guide to a Healthy . www.Ccf.org/healthypregnancyguide Psychotherapy Services at [facility] Call Behavioral Health Access Line at [phone] to schedule Individual psychotherapy In-person or virtual Wait time for first evaluation may be 12 or more weeks. Wait list spots may be available. Due to the high volume of patients this option is recommended if you are looking for short term acute symptom coping strategies. 4-051-6-SQYK3RDGV - [place] Maternal Mental Health Hotline If you are in suicidal crisis, please call or text 2-833-472-TALK ( ) or visit the National Suicide Prevention Lifeline website. mchb.[facility].gov If you are in crisis, call 571 or go to your nearest Emergency Department Here are some links for wonderful Providers here in the community and surrounding areas. Do not hesitate to contact their offices, many are offering virtual visits during this time. Psychotherapy Services outside of [facility] Support International Online Provider Directory https://Quick2LAUNCH.WeMonitor/ - can assist in finding providers in your area that might be more extensive then the list below. [facility] [place], [place] [address] [place] [address] [address] [facility] [address] [place] [address] [facility] [address] [place], [place] [id number] Adina Sanchez MD [address] [place] [address] [facility] [address] [facility], [address] [place] [address] [facility] Services [address] [place] [address] [facility] Counseling Services [place] / [place] [phone]/ [phone] Salena Wang [address] [facility] [address] [facility] [phone] Aves of Counseling and Mediation Sherri / Sunni [phone] Behavioral health services of [facility] [address] [place] [address]/ [facility] [phone] GLENN Cabello, CLC [facility] Therapy Workshops, telehealth and at home visits. [phone] [facility] counseling milfay 20 locations [place], [place], [place], [place], [place], [place], [facility] falls, [facility], [place], [place], [place], [place], [place], [place], [facility], [place], [place] ,[facility], [place], [place],[facility], [facility], [place], [facility], [place], [place] www.[facility] [phone] Psychotherapy resources outside of [facility] are listed below [facility] U4EA Wireless Psychotherapy Web: https://www.ComCam/ Support International Online Provider Directory https://GoPlanit/ Insight [facility] https://Nantero/ Partners for Behavioral Health and Wellness Web: https://Tabletize.com/ Chomp for Effective Living Web: https://Relifyliving.WeMonitor/ LifeStance Web: https://[place] Everywhere.WeMonitor/location/s briseno/wis[place]/ [facility] Web: https://www.MusicPlay Analyticszia health clinic.or / [facility] Web: https://alooma.org/ Recovery Resources Mental health and substance abuse help Web: https://www.Sophia Searchs.org & RESOURCES Support International Direct peer support and connection to professional resources Non-Emergency Helpline Phone: / Text: [phone] Web: https://www..net/ Online Provider Directory: https://GoPlanit/ Online Support Meetings: https://www..net/get-he lp/fae-mgrrvf-ftiavth-meetings/ KEITH Baby and Non Food Receiving Clerk Services Web: https://www.Red Rover/ Thalchemy Expert information on medication use during and Text: [phone] Web: https://Applimation/ NATIONAL REGISTRY FOR PSYCHIATRIC MEDICATIONS Currently studying the safety of antidepressants, ADHD medications and atypical antipsychotics taken during TO PARTICIPATE CALL TOLL-FREE: Web: https://womensmentalhealth.org/re search/pregnancyregistry/ Support Groups: [facility]- Follow on facebook Baby Bistro support group led by [facility] department Resilient Mamas - Support Group [facility].org The POEM support group [phone] Www.poemonline.org Follow on facebook - [place] espan[place] chapter Online support meetings PSI https://www..net/get-he lp/jea-wifiig-dzetjwg-meetings/ [facility] mommy and me virtual support group 11:30-1pm Support for mothers and new babies and toddlers [place] childbirth education: Childbirth @ccf.org or call [phone] CRISIS: CRISIS HOTLINE [phone], 911 or go to the nearest . [facility] [phone] / [facility] [phone] https://www.[facility] vernon hospitalrb.org Crisis text line text the word HOME to [address] [facility] [address] anabel [address] [facility] [address] www.Phase Holographic Imaging.WeMonitor Nanette Amezquita clinical counseling [address] [address] www.bethbritton.WeMonitor [phone] Holding space psychotherapy Rosalee Campa FILM PRODUCER ELECTRONIC ENGINEERING DRAFTSPERSON-S [address] [facility] www.elmenus [phone]/ Mckay [phone] They all offer virtual. All work with trauma Support groups Online support meetings PSI https://www..net/get-he lp/vin-gguggh-twfblvl-meetings/ Here are the support groups they offer: Support of parents of 1 to 4 years old children POEM ( Outreach and Encouragement for Moms) offers free support for mothers experiencing depression, anxiety, and other mood and anxiety disorders. Masks are recommended but not required. No pre-registration required. Babies in arms welcome. meetings now take place on the and Tuesday of each month Location: [facility] [address] [place] [address] Room 122 (library room) 7-8:00 p.m. When you enter the [facility] parking lot off of [address], the entrance door closest to our meeting room is on the front of the building toward the right. For those who are more comfortable with a virtual platform, POEM offers online support group options several days of the week. To register for an online group or to find out more about POEM, website at: https://mhaohio.org/get-help/[facility] hospitalssay-kqeedo-tzqxls/poem-services/ offer a confidential helpline: private Facebook group is called OMAR Louis Here are the groups they offer: Traumatic childbirth resources: Http://pattch.org/ https://www.Thing LabsshanthiSyncro Medical Innovations.WeMonitor/ Name Location (s) Phone # (s) Services Website [facility] Psychotherapy [address] [place], [place] - [phone]; [address] [phone] In-Person GROUPS INDIVIDUAL THERAPY MATERNAL- MENTAL HEALTH MEDICATION MANAGEMENT PLAY AND ART THERAPY TELETHERAPY https://www.ComCam/s ervices/ Gadieltonyonny of Evelia DENTON? [address] [place], [place] [address] ? [address], [address] [place], [place] [id number] ? POPE [address] [place], [place] [address]? Grief Support Groups Individual Grief Counseling Spiritual Care Memorial Events https://[place].[facility].org/grief-services [facility] [address] [place], [place] [address]; ; Email: [email or web address] Services Women's Mental Health; Couples Counseling; Trauma (EMDR); Stress Management; Mood and Anxiety Related Disorders- and much more https://www.Free All Media/ LifeStance Numerous as they have contract providers: access website to find specific providers near you Counseling including CBT and EMDR as well as many more modalities; Medication Management; Telehealth and In-Person https://Clix Software/ Sankaty Learning Ventures Behavioral Health and Wellness [address] [place], [place] [address]; [phone] Personal, Family and Group Therapy; Psychological Testing and Diagnosis; Medication Management; Life and Career Coaching; Psychoanalysis; Literacy Testing; Yoga and Meditation https://Tabletize.com/ iHydroRun [facility] [address] [facility] [address], [place] [address] [address] ; [address] [place] [address], [address] [place] [address]; Office # for both sites: Individual and Couples Counseling https://www.Auvik Networks/ paymentinsurance.html OCD & Anxiety [facility] [address] [facility], [address], [place] [address]; Specialize in Cognitive-Behavioral Therapy (CBT) for the treatment of anxiety disorders across the lifespan. TELEHEALTH ONLY. https://ocdandanxietycenteroLimav Movinary/faqs [facility] [address] [facility] [address]th [place], [address] [place], [address] [place] [address] [place], [address] [place] [address] [place], [address], [address] [place], [address] [place] [address] [place], [place], [id number] Transportation Services To minimize patient barriers, [facility] provides transportation services to patients who [...] assistance Substance abuse treatment Medication assisted treatment https://www.[facility].or g/mental-health/ [facility] OFFICE AT [facility] [address] [place] [address] [facility] [address] [place] [address] [facility] [address] [place] [address] [facility] OFFICE (at [facility]) [address] [place] [address] [facility] SYRINGE EXCHANGE PROGRAM & HIV SCREENING [address] [place] [address] [place] SYRINGE EXCHANGE PROGRAM [address] [place] [address] Behavioral Health Urgent Care: [facility] Sites Counseling Indvidual and Group Medication Management Case Management benefits applications housing assistance Substance abuse treatment Medication assisted treatment Employment Services/ Job Training https://theEcoFactorersncio.org/ Recovery Resources [address] [place], [place] [address]: P: [phone] [address] [facility], [address], [place] [address] P: [phone] Our services include: Addiction Mental Health Treatment Assessment Psychiatry Medical Care Employment Housing Drug and Alcohol Prevention HIV/AIDS Prevention https://www.recres.org/ [facility] [place] [address] [place] [address] [place] [address] Hospital[facility] Jen[address] [place], [place] [address] [place] [address] [place] [address] [place] [address] [facility] [address] [place] [address] [place] [address] [place] [address] TMS Therapy/ Counseling Psychocological Testing for ADHD Medication Management In-Person/ Telemedicine https://www.[facility]/suyapa ents-depression Memory & Psychological services [address], [place] [address] Neuropsychological Testing For ADHD https://www.memoryandpsych.com/ [facility] - Main Office [address] [place] [phone] [place] [address] [address] Providing isio-we-dtmq and telehealth services. Adult Case Management Community Education and Prevention Employment Outpatient Treatment - Counseling & Psychotherapy Psychiatric Services http://www.[facility].org/ [facility] [address] [address] [facility] [address] [place] [address] Virtual Appointments! Now offering safe and convenient virtual client appointments to anyone in [place]! Individual Therapy Couples/Relationship Therapy Trauma/EMDR Therapy Art Therapy Play Therapy Finish Photographer Support: Parenting Skills, Parent Child Interaction Therapy, Parent Interaction Therapy Meditation Dietitian/Policy Change Clerks Supervisor Services Group Therapy Yoga https://www.Justworks. WeMonitor/ Melvina Bailey [phone] Private Practice: Telehealth Only Specializes in EMDR for Trauma None documented in this encounter [facility] 05-28-2024 Note HNO ID: [id number] Author: FRANCK ARMANDO APRN.CNP Service: ? Author Type: Nurse Practitioner Type: Progress Notes Filed: 06/01/2024 12:22 Note Text: It Infrastructure Engineer offered: Patient declines. HPI: Vicky is a [...] Partner: Name: Ander Mitchell Age: 28 Occupation: community service patrol officer Gender: Male PAST MEDICAL HISTORY Diagnosis Date [...] [place] 05-28-2024 History of Present illness Narrative It Infrastructure Engineer offered: Patient declines. HPI: Vicky is a [...] Partner: Name: Ander Mitchell Age: 28 Occupation: community service patrol officer Gender: Male PAST MEDICAL HISTORY Diagnosis Date [...] discussed with the Patient or Patient's Authorized Candle Molder Machine. As applicable, any other physician, advance practice provider, medical student, or other health professional student that will be observing or involved in the sensitive examination for educational or training purposes was discussed with the Patient or Authorized Candle Molder Machine. The Patient or Authorized Candle Molder Machine has agreed to proceed with the sensitive [...] Your guide to a health and the Collections Clerk. Discussed hemoglobin electrophoresis. Patient: Declines Reviewed midwifery and director of patient financial services services that are available. 2) Screening: Hemoglobin [...] (28-30 weeks): [] Consent [] Contraception [] Pharmaceutical Process Engineer [] TeamBirth handout Third trimester (36-40 weeks): [...] Franck Armando APRN.CNP documented in this encounter [facility] 05-28-2024 Telephone encounter Note 4:00 PM today [facility] 05-28-2024 Miscellaneous Notes 4:00 PM today Left message for patient to return phone call to complete nurse intake questions for her upcoming appointment. Patient has an appointment with Franck Armando for NOB appointment. I am here today and tomorrow morning if she calls back and I am available documented in this encounter [facility] 05-28-2024 Telephone encounter Note Left message for patient to return phone call to complete nurse intake questions for her upcoming appointment. Patient has an appointment with Franck Armando for NOB appointment. I am here today and tomorrow morning if she calls back and I am available [facility] 03-15-2023 Miscellaneous Notes Patient notified of provider's instructions. Patient requests order be sent to [facility]. Order faxed to [id number] and request office to fax back results when completed. Patient verbalizes understanding. Mabel López LPN Please call patient to inform her that I called in mobic but I want her to get blood work first before she starts. Need to check kidney function Have her make follow-up to if she is having pain Soto Trejo DPM documented in this encounter [facility] 03-11-2023 Miscellaneous Notes Patient notified of [...] DPM Pt states she followed up with [facility] sports medicine as discussed with Dr. Trejo and requested the steroid injection, but they were not comfortable proceeding with an injection. Pt is requesting an alternative solution to obtain the steroid to ease left foot pain, as the oral medication did help previously. Please review and advise. Thank you. documented in this encounter [facility] 02-16-2023 Miscellaneous Notes Patient called in stating that she was not given a steroid injection today at her appointment. Patient asking for next steps in plan of care. Maricruz Sanchez RN Images from the original note were not included. Soto Trejo [facility] Podiatry [place] 11 hours ago (9:01 PM) Order made Soto Trejo DPM Patient called stating that she received message stating that she was trying to schedule musculoskeletal injection orders not placed. documented in this encounter [facility] 02-04-2023 Miscellaneous Notes Pt is scheduled for their [facility] US on 02/16 at [facility]. Visit Type: INJ ONLY 1 Visit Length: 60 MINUTES Order Name/Protocol: US ASP/INJ HAND/FINGER/FOOT/TOE JT BURSA LT - LEFT 5TH METATARSAL ADVENTITIAL BURSA Preferred Provider: N/A Comment: N/A [facility] Slot held: N/A documented in this encounter [facility] 01-26-2023 History of Present illness Narrative [...] TIME: 3:20 PM documented in this encounter [facility] 12-16-2022 History of Present illness Narrative [...] did help some. documented in this encounter [facility] 11-12-2022 History of Present illness Narrative [...] 2022 11:45 AM documented in this encounter [facility] 10-27-2022 Instructions Soto Trejo - 10/27/2022 1:59 PM EDT Powerstep Original Full length. Can purchase at [employer] Runner here in [place], [employer] in [place] or [place]. Also can find in [place] in [facility]. Powersteps can also be purchased [...] fits well together documented in this encounter [facility] 10-27-2022 History of Present illness Narrative [...] Trejo DPM Podiatry [address] [facility] [address] Dept: [phone] Dept AMB ROOMING INTAKE FLOWSHEET DATA Risk [...] helps ease pain. documented in this encounter [facility] Evaluation note Diagnosis Tailor's bunion of [...] in first trimester [facility] Encounter for supervision of high risk in first trimester, antepartum- Primary Size of fetus inconsistent with dates in first trimester 8 weeks gestation of state, incidental documented [facility]* Diagnosis Encounter for supervision of high risk in first trimester, antepartum- Primary 13 weeks gestation of state, incidental Attention deficit hyperactivity disorder (ADHD), unspecified ADHD type History of depression Personal history of other mental disorder documented [facility] encounter [facility]* Diagnosis Encounter for screening for malformation using ultrasound- Primary 13 weeks gestation of state, incidental [facility] Diagnosis Supervision of high risk in second trimester- Primary Unspecified high-risk 17 weeks gestation of state, incidental History of depression Personal history of other mental disorder documented in this encounter [facility]* Diagnosis Supervision of high risk in second trimester- Primary Unspecified high-risk 19 weeks gestation of state, incidental documented in this encounter [facility] note* Diagnosis Encounter for anatomic survey- Primary 19 weeks gestation of state, incidental [facility] [facility] Diagnosis Supervision of high risk in second trimester (HCC)- Primary Unspecified high-risk Screening for diabetes mellitus 23 weeks gestation of (HCC) state, incidental * Assessment & Plan Note - Shira Blackwood MD - 10/01/2024 3:38 PM EDT Associated Problem(s): Supervision of high risk in second trimester (HCC) Orders: SYPHILIS TREPONEMAL W/REFLEX; Future ANEMIA REFLEX PANEL; Future documented in this encounter [facility] note* Diagnosis Supervision of high risk in second trimester (HCC)- Primary Unspecified high-risk Screening for diabetes mellitus 23 weeks gestation of (HCC) state, incidental 27 weeks gestation of (HCC)- Primary state, incidental Supervision of high risk in second trimester (HCC) Unspecified high-risk Need for vaccination Need for prophylactic vaccination and inoculation against unspecified single disease documented in this encounter [facility] note* Diagnosis Supervision of high risk in second trimester (HCC)- Primary Unspecified high-risk Screening for diabetes mellitus 23 weeks gestation of (HCC) state, incidental Supervision of high risk in third trimester (HCC)- Primary Unspecified high-risk 29 weeks gestation of (HCC) state, incidental documented in this encounter [facility] note* Diagnosis Supervision of high risk in second trimester (HCC)- Primary Unspecified high-risk Screening for diabetes mellitus 23 weeks gestation of (HCC) state, incidental Supervision of high risk in third trimester (HCC)- Primary Unspecified high-risk 31 weeks gestation of (HCC) state, incidental History of depression Personal history of other mental disorder documented in this encounter [facility] note* Diagnosis Supervision of high risk in [...] OB DIP B/O documented in this encounter [facility] note* Diagnosis Supervision of high risk in [...] week or prn documented in this encounter [facility] note* Diagnosis Supervision of high risk in [...] (HCC) state, incidental documented in this encounter [facility] note* Diagnosis Supervision of high risk in [...] (HCC) Unspecified high-risk documented in this encounter [facility] for referral (narrative)* Diagnostic Procedure Only (Routine) - Pending Review Specialty Diagnoses / Procedures Referred By Jewels t Referred To Contact XR IMAGING Diagnoses Tailor's bunion of left foot Procedures XR FOOT GENERAL 3V AP/LAT/OBL LEFT RADEX FOOT COMPLETE MINIMUM 3 VIEWS S[facility] Trejo [address] [place] [address] Xr Imaging Referral ID Status Reason Start Date Expiration Date Visits Requested Visits Authorized [id number] Pending Review Auto-Generat ed Referral 10/27/2022 11/26/2023 1 1 [facility] for referral (narrative)* Diagnostic Procedure Only (Routine) - Pending Review Specialty Diagnoses / Procedures Referred By Contac t Referred To Contact US IMAGING Diagnoses Left foot pain Procedures US ASP/INJ HAND/FINGER/FOOT/TOE JT BURSA LT ARTHROCNT ASPIR&/INJ SMALL JT/BURSAW/US REC RPRT S[facility] Trejo [address] [place] [address] [place] [address] Referral ID Status Reason Start Date Expiration Date Visits Requested Visits Authorized [id number] Pending Review Auto-Generat ed Referral 02/03/2023 03/04/2024 1 1 T [facility] for referral (narrative)* Diagnostic Procedure Only (Routine) - Closed Specialty Diagnoses / Procedures Referred By Contac t Referred To Contact XR IMAGING Diagnoses Tailor's bunion of left foot Procedures XR FOOT GENERAL 3V AP/LAT/OBL LEFT RADEX FOOT COMPLETE MINIMUM 3 VIEWS [facility] Trejo [address] [place] [address] Xr Imaging [id number] Referral ID Status Reason Start Date Expiration Date V isits Requested Visits Authorized [id number] Closed Auto-Generate d Referral 10/27/2022 11/26/2023 1 1 T [facility] for referral (narrative)* Diagnostic Procedure Only (Routine) - Authorized Specialty Diagnoses / Procedures Referred By Contac t Referred To Contact [facility] Diagnoses with uncertain dates in first trimester 5 weeks gestation of Procedures PELVIC US WHI US PELVIC NONOBSTETRIC REAL-TIME IMAGE COMPLETE Franck Armando, KEYVN.WICK TENDER [address] [place] [address] [facility] [address] [place] [address] Referral ID Status Reason Start Date Expiration Date Visits Requested Visits Authorized [id number] Authorized Auto-Generat ed Referral 06/01/2025 1 1 * Diagnostic Procedure Only (Routine) - Authorized Specialty Diagnoses / Procedures Referred By Contac t Referred To Contact [facility] Diagnoses with uncertain dates in first trimester 5 weeks gestation of Procedures NUCHAL TRANSLUCENCY WHI US NUCHAL TRANSLUCENCY 1ST GESTATION Franck Armando APRN.WICK TENDER [address] [place] [address] [address] Referral ID Status Reason Start Date Expiration Date Visits Requested Visits Authorized [id number] Authorized Auto-Generat ed Referral 4 06/01/2025 1 1 * Diagnostic Procedure Only (Routine) - Authorized Specialty Diagnoses / Procedures Referred By Jewels t Referred To Contact [facility] Diagnoses with uncertain dates in first trimester Procedures OBSTETRIC ULTRASOUND WHI US PREG UTERUS AFTER 1ST TRIMEST 1/ GESTATION Franck Armando APRN.WICK TENDER [address] [place] [address] [address] Referral ID Status Reason Start Date Expiration Date Visits Requested Visits Authorized [id number] Authorized Auto-Generat ed Referral 4 06/01/2025 1 1 [facility] for visit Narrative* Diagnostic Procedure Only (Routine) - Closed Specialty Diagnoses / Procedures Referred By Contac t Referred To Contact XR IMAGING Diagnoses Tailor's bunion of left foot Procedures XR FOOT GENERAL 3V AP/LAT/OBL LEFT RADEX FOOT COMPLETE MINIMUM 3 VIEWS S[facility] Trejo [address] [place] [address] [place] [address] Referral ID Status Reason Start Date Expiration Date V isits Requested Visits Authorized [id number] Closed Auto-Generate d Referral 10/27/2022 11/26/2023 1 1 [facility] for visit Narrative* Diagnostic Procedure Only (Routine) - Closed Specialty Diagnoses / Procedures Referred By Contac t Referred To Contact [facility] Diagnoses with uncertain dates in first trimester 5 weeks gestation of Procedures PELVIC US WHI US PELVIC NONOBSTETRIC REAL-TIME IMAGE COMPLETE Franck Armando APRN.WICK TENDER [address] [place] [address] [address] Referral ID Status Reason Start Date Expiration Date V isits Requested Visits Authorized [id number] Closed Auto-Generate d Referral 06/15/2024 06/01/2025 1 1 [facility] for visit Narrative* Diagnostic Procedure Only (Routine) - Closed Specialty Diagnoses / Procedures Referred By Contac t Referred To Contact [facility] Diagnoses with uncertain dates in first trimester Procedures OBSTETRIC ULTRASOUND WHI US PREG UTERUS AFTER 1ST TRIMEST GESTATION Franck Armando APRN.CNP [address] [place] [address] Phone: tel: fax: [address] [address] Referral ID Status Reason Start Date Expiration Date V isits Requested Visits Authorized [id number] Closed Auto-Generate d Referral 06/01/2024 06/01/2025 1 1 [facility] Summary Purpose Family History No Family [...] & W/CONTR MATR [address] [place] [address] Mr Imaging Referral ID Status Reason Start Date Expiration Date Visits Requested Visits Authorized [id number] Pending Review Auto-Generat ed Referral 12/16/2022 01/15/2024 1 1 Specialty Diagnoses / Procedures Referred By Jewels stein Referred To Contact MR IMAGING Diagnoses Disorder of bone Procedures MRI FOOT/TOES WO/W IVCON LEFT MRI LOWER EXTREM OTH/THN JT W/O & W/CONTR JAYCEE [address] [place] [address] [place] [address] Referral ID Status Reason Start Date Expiration Date V isits Requested Visits Authorized [id number] Closed Auto-Generate d Referral 01/11/2023 02/10/2023 1 1 Additional Source Comments INFORMATION SOURCE (unrecogn ized section and content) DATE CREATED AUTHOR 02/22/2019 [facility] DATE CREATED AUTHOR AUTHOR'S ORGANIZ ATION 08/07/2020 [facility] DATE CREATED AUTHOR AUTHOR'S ORGANIZ ATION 05/26/2023 [facility] DATE CREATED AUTHOR AUTHOR'S ORGANIZ ATION 01/19/2025 [facility] DATE CREATED AUTHOR AUTHOR'S ORGANIZ ATION 01/20/2025 [facility] Source Comments (unrecognize d section and content) In the event this informatio n is protected by the Federal Confidentiality of Alcohol and Drug Abuse Patient Records regulations: The Federal rules restrict any use of the information to criminally investigate or prosecute any alcohol or drug abuse patient.[facility] the event this information is protected by the Federal Confidentiality of Alcohol and Drug Abuse Patient Records regulations: The Federal rules restrict any use of the information to criminally investigate or prosecute any alcohol or drug abuse patient.[facility] the event this information is protected by the Federal Confidentiality of Alcohol and Drug Abuse Patient Records regulations: The Federal rules restrict any use of the information to criminally investigate or prosecute any alcohol or drug abuse patient.[facility] the event this information is protected by the Federal Confidentiality of Alcohol and Drug Abuse Patient Records regulations: The Federal rules restrict any use of the information to criminally investigate or prosecute any alcohol or drug abuse patient.[facility] the event this information is protected by the Federal Confidentiality of Alcohol and Drug Abuse Patient Records regulations: The Federal rules restrict any use of the information to criminally investigate or prosecute any alcohol or drug abuse patient.[facility] the event this information is protected by the Federal Confidentiality of Alcohol and Drug Abuse Patient Records regulations: The Federal rules restrict any use of the information to criminally investigate or prosecute any alcohol or drug abuse patient.[facility] the event this information is protected by the Federal Confidentiality of Alcohol and Drug Abuse Patient Records regulations: The Federal rules restrict any use of the information to criminally investigate or prosecute any alcohol or drug abuse patient.[facility] the event this information is protected by the Federal Confidentiality of Alcohol and Drug Abuse Patient Records regulations: The Federal rules restrict any use of the information to criminally investigate or prosecute any alcohol or drug abuse patient.[facility] the event this information is protected by the Federal Confidentiality of Alcohol and Drug Abuse Patient Records regulations: The Federal rules restrict any use of the information to criminally investigate or prosecute any alcohol or drug abuse patient.[facility] the event this information is protected by the Federal Confidentiality of Alcohol and Drug Abuse Patient Records regulations: The Federal rules restrict any use of the information to criminally investigate or prosecute any alcohol or drug abuse patient.[facility] the event this information is protected by the Federal Confidentiality of Alcohol and Drug Abuse Patient Records regulations: The Federal rules restrict any use of the information to criminally investigate or prosecute any alcohol or drug abuse patient.[facility] the event this information is protected by the Federal Confidentiality of Alcohol and Drug Abuse Patient Records regulations: The Federal rules restrict any use of the information to criminally investigate or prosecute any alcohol or drug abuse patient.[facility] the event this information is protected by the Federal Confidentiality of Alcohol and Drug Abuse Patient Records regulations: The Federal rules restrict any use of the information to criminally investigate or prosecute any alcohol or drug abuse patient.[facility] the event this information is protected by the Federal Confidentiality of Alcohol and Drug Abuse Patient Records regulations: The Federal rules restrict any use of the information to criminally investigate or prosecute any alcohol or drug abuse patient.[facility] the event this information is protected by the Federal Confidentiality of Alcohol and Drug Abuse Patient Records regulations: The Federal rules restrict any use of the information to criminally investigate or prosecute any alcohol or drug abuse patient.[facility] the event this information is protected by the Federal Confidentiality of Alcohol and Drug Abuse Patient Records regulations: The Federal rules restrict any use of the information to criminally investigate or prosecute any alcohol or drug abuse patient.[facility] the event this information is protected by the Federal Confidentiality of Alcohol and Drug Abuse Patient Records regulations: The Federal rules restrict any use of the information to criminally investigate or prosecute any alcohol or drug abuse patient.[facility] the event this information is protected by the Federal Confidentiality of Alcohol and Drug Abuse Patient Records regulations: The Federal rules restrict any use of the information to criminally investigate or prosecute any alcohol or drug abuse patient.[facility] the event this information is protected by the Federal Confidentiality of Alcohol and Drug Abuse Patient Records regulations: The Federal rules restrict any use of the information to criminally investigate or prosecute any alcohol or drug abuse patient.[facility] the event this information is protected by the Federal Confidentiality of Alcohol and Drug Abuse Patient Records regulations: The Federal rules restrict any use of the information to criminally investigate or prosecute any alcohol or drug abuse patient.[facility] the event this information is protected by the Federal Confidentiality of Alcohol and Drug Abuse Patient Records regulations: The Federal rules restrict any use of the information to criminally investigate or prosecute any alcohol or drug abuse patient.[facility] the event this information is protected by the Federal Confidentiality of Alcohol and Drug Abuse Patient Records regulations: The Federal rules restrict any use of the information to criminally investigate or prosecute any alcohol or drug abuse patient.[facility] the event this information is protected by the Federal Confidentiality of Alcohol and Drug Abuse Patient Records regulations: The Federal rules restrict any use of the information to criminally investigate or prosecute any alcohol or drug abuse patient.[facility] Hospital[facility] the event this information is protected by the Federal Confidentiality of Alcohol and Drug Abuse Patient Records regulations: The Federal rules restrict any use of the information to criminally investigate or prosecute any alcohol or drug abuse patient.[facility] the event this information is protected by the Federal Confidentiality of Alcohol and Drug Abuse Patient Records regulations: The Federal rules restrict any use of the information to criminally investigate or prosecute any alcohol or drug abuse patient.[facility] the event this information is protected by the Federal Confidentiality of Alcohol and Drug Abuse Patient Records regulations: The Federal rules restrict any use of the information to criminally investigate or prosecute any alcohol or drug abuse patient.[facility] the event this information is protected by the Federal Confidentiality of Alcohol and Drug Abuse Patient Records regulations: The Federal rules restrict any use of the information to criminally investigate or prosecute any alcohol or drug abuse patient.[facility] the event this information is protected by the Federal Confidentiality of Alcohol and Drug Abuse Patient Records regulations: The Federal rules restrict any use of the information to criminally investigate or prosecute any alcohol or drug abuse patient.[facility] the event this information is protected by the Federal Confidentiality of Alcohol and Drug Abuse Patient Records regulations: The Federal rules restrict any use of the information to criminally investigate or prosecute any alcohol or drug abuse patient.[facility] the event this information is protected by the Federal Confidentiality of Alcohol and Drug Abuse Patient Records regulations: The Federal rules restrict any use of the information to criminally investigate or prosecute any alcohol or drug abuse patient.[facility] the event this information is protected by the Federal Confidentiality of Alcohol and Drug Abuse Patient Records regulations: The Federal rules restrict any use of the information to criminally investigate or prosecute any alcohol or drug abuse patient.[facility] the event this information is protected by the Federal Confidentiality of Alcohol and Drug Abuse Patient Records regulations: The Federal rules restrict any use of the information to criminally investigate or prosecute any alcohol or drug abuse patient.[facility] the event this information is protected by the Federal Confidentiality of Alcohol and Drug Abuse Patient Records regulations: The Federal rules restrict any use of the information to criminally investigate or prosecute any alcohol or drug abuse patient.[facility]In the event this information is protected by the Federal Confidentiality of Alcohol and Drug Abuse Patient Records regulations: The Federal rules restrict any use of the information to criminally investigate or prosecute any alcohol or drug abuse patient.[facility] the event this information is protected by the Federal Confidentiality of Alcohol and Drug Abuse Patient Records regulations: The Federal rules restrict any use of the information to criminally investigate or prosecute any alcohol or drug abuse patient.[facility] Reason for Visit (unrecogniz ed section [...] W/CONTR Soto Hooker [address] [place] [address] [place] [address] Referral ID Status Reason Start Date Expiration Date V isits Requested Visits Authorized [id number] Closed Auto-Generate d Referral 01/11/2023 02/10/2023 1 1 Reason Comments Initial OB Visit Reason Comments PRAF Reason Onset Date Comments Care 06/19/2024 Reason Onset Date Comments Care 07/20/2024 Reason Comments US Specialty Diagnoses / Procedures Referred By Jewels stein Referred To Contact [facility] Diagnoses with uncertain dates in first trimester 5 weeks gestation of Procedures NUCHAL TRANSLUCENCY WHI US NUCHAL TRANSLUCENCY 1ST GESTATION Franck Armando APRN.WICK TENDER [address] [place] [address] [facility] [address] [place] [address] Referral ID Status Reason Start Date Expiration Date V isits Requested Visits Authorized [id number] Closed Auto-Generate d Referral 06/01/2024 06/01/2025 1 [...] BE BASED ON THE PRIMARY CLINICAL RECORDS. [employer] provides no warranty or guarantee of the accuracy or completeness of information in this document.
[2025-01-24] MEDS: Oxytocin 15 Units/NS 250ml 15 UNITS/250 ML IV.SOLN 334 UNITS IV (02:25)
[2025-01-24 02:29] LABS: Hematocrit 35.4 % (37-47); Hemoglobin 12.0 g/dL (12.0-15.0); Immature Granulocytes Count 0.070 X10^3/uL (0.0-0.0); Mean Corp Hgb Conc 33.9 g/dL (32-36); Mean Corpuscular Volume 85.5 fL (81-99); Mean Platelet Vol. 11.3 fl (6.2-12.0); NRBC Flagged by Analyzer 0 % (0-5); Platelet Count 237 K/mm3 (150-450); RBC Distribution Width CV 12.9 % (11.6-14.6); RBC Distribution Width SD 39.7 fl (35.1-43.9); Red Blood Count 4.14 M/mm3 (4.2-5.4); White Blood Count 15.6 K/mm3 (4.4-11.0)
--- NOTE | 2025-01-24 02:35 | PCM.HP.OB ---
HPI - General General Date of Admission: 01/24/25 HPI Narrative PERLA BARRAZA, is a 24 F G 3 P2 at 39 weeks who presents in spontaneous labor. Maternal Data Information MICHEL Calculator Estimated Delivery Date Method Current WG Current Estimate 01/25/25 Manual 39w 6d PFSH PFSH Medical History (Updated 01/24/25 @ 02:36 by Chloe Hyde CNM) Depression Patient denies medical problems Home Medications ?Medication ?Instructions ?Recorded ?Last Taken ?Type 103-folic acid 400 1 ea PO DAILY Check with primary 08/07/19 06/17/21 History mcg-omeg3 32.5 mg-dha-fish oil doctor chew tablet fluoxetine 20 mg capsule 20 mg PO DAILY depression 06/18/21 06/17/21 History ibuprofen 600 mg tablet 600 mg PO Q8H PRN PRN Pain Score 06/19/21 Unknown Rx 1-3 #30 tabs Allergy/AdvReac Type Severity Reaction Status Date / Time latex AdvReac Rash Verified 06/18/21 04:56 Family History (Updated 06/18/21 @ 05:53 by Charisse Ramos) Mother Diabetes Social History Smoking Status: Never smoker History Elective abortions Hx Para 1 Spontaneous abortions Hx # Term Pregnancies Ectopic pregnancies Hx # Pregnancies Multiple births # of living children NST FHR Rate Baby A Baseline: 140 Variability:: Moderate Accelerations:: 15 x 15 Decelerations:: None NST Reactive:: Yes FHR Category:: Category I Uterine Activity:: TOCO reading every 2-3 minutes ROS Eyes Eyes: Denies blurry vision, change in vision or spots in vision ENT HEENT: Denies dizziness or headache(s) Cardiovascular Cardiovascular: Denies abdominal pain, chest pain or dyspnea Respiratory/Chest Respiratory/Chest: Denies cough, dyspnea, shortness of breath at rest or shortness of breath with exertion Gastrointestinal Gastrointestinal: Denies abdominal pain, diarrhea or vomiting Genitourinary Genitourinary: Denies change in urinary stream, difficulty urinating or dysuria Musculoskeletal Musculoskeletal: Reports none Integumentary Integumentary: Denies rash Neurologic Neurologic: Denies dizziness, headache(s), memory loss or weakness Psychiatric Psychiatric: Reports none Vital Signs Vital Signs Vital Signs: 01/24/25 01:52 01/24/25 01:52 01/24/25 01:52 Temperature Temperature Source Pulse Rate 90 Respiratory Rate Blood Pressure 124/79 H BP Systolic 124 BP Diastolic 79 Pulse Ox 100 01/24/25 01:52 01/24/25 01:52 01/24/25 01:52 Temperature 97.3 F L Temperature Source Temporal Pulse Rate Respiratory Rate 16 Blood Pressure BP Systolic BP Diastolic Pulse Ox 01/24/25 02:33 01/24/25 02:33 01/24/25 02:33 Temperature Temperature Source Pulse Rate 58 L Respiratory Rate Blood Pressure 133/80 H BP Systolic 133 BP Diastolic 80 Pulse Ox 98 Physical Exam Const alert, oriented x3 and no apparent distress General Appearance: cooperative Orientation / Consciousness: awake Exam Limitations: no limitations HEENT normocephalic Head and Scalp: normal to inspection Eyes General Eye: normal appearance of both eyes Neck full ROM and no lymphadenopathy Lymph Lymphatic: no lymphadenopathy noted Chest inspection of chest normal Resp normal respiratory effort, normal air movement and clear to auscultation bilaterally Effort and Inspection: able to speak in complete sentences and symmetric chest movement Cardio regular rate and regular rhythm GI normal to inspection, nondistended, normoactive bowel sounds Manual OB Exam: presentation cephalic Back/Spine normal ROM Extremity full ROM and no calf tenderness Skin no rashes or lesions noted General Skin Exam: no breakdown Neuro oriented x3 and CN's II-XII intact bilaterally Psych mental status grossly normal and thought process normal Labs Labs Labs: Blood Type AB POSITIVE Antibody Screen NEGATIVE Hct 35.4 % (37-47) L Hgb 12.0 g/dL (12.0-15.0) Syphilis Total Ab Non-reactive Rubella IgG Antibody Reactive (Nonreactive) Hep Bs Antigen Non-Reactive (Nonreactive) Hepatitis C Antibody Non-Reactive (Nonreactive) Chlamydia DNA (BRAD) Negative (Negative) N.gonorrhoeae DNA (BRAD) Negative (Negative) HIV 1&2 Antibody Non-Reactive (Nonreactive) Glucose 1 Hr 50 gm 114 mg/dL (70-140) Rhogam given: No Assessment & Plan (1) Spontaneous onset of labor: (2) 39 weeks gestation of : PLAN: Plan GBS negative - Admit to labor and delivery Desires unmedicated delivery Dr. Iraheta notified of admission
--- NOTE | 2025-01-24 02:41 | OB.VAGDELI_ITS ---
Assessment & Plan (1) Depression: (2) (spontaneous vaginal delivery): (3) Spontaneous rupture of amniotic membranes: (4) Precipitous delivery: (5) Spontaneous onset of labor: Maternal Data Information MICHEL Calculator Estimated Delivery Date Method Current WG Current Estimate 01/25/25 Manual 39w 6d Vaginal Delivery Maternal Presentation Maternal Presentation: Active Labor Vaginal Delivery Information Procedure Performed: Spontaneous Vaginal Delivery Surgeon/Practitioner: Chloe Hyde Date of Procedure: 01/24/25 Pre-Procedure Diagnosis: Term gestation, spontaneous labor Post-Procedure Diagnosis: , Live female Type of anesthesia: None Estimated Blood Loss: 200 Time of Delivery: 02:23 Findings Description of procedure: Called to bedside due to patient feeling pushy. Upon arrival to room, nurse supporting perineum with hand. With good maternal effort, head delivered followed by anterior shoulder and remainder of body without any force, delay, or traction. Vigorous female was delivered atraumatically and placed on maternal abdomen. Pitocin IV started for active management of the third stage of labor. 3 vessel cord clamped and cut after delay and placed immediately skin to skin with patient. Placenta delivered spontaneously and intact. After inspection, vagina and perineum are intact. Vaginal sweep performed. Fundus is firm 2 below U and bleeding is hemostatic. Sponge and sharps counts correct. Patient and bonding well at this time. Dr. Iraheta notified of delivery. Routine post orders placed. Presentation: Vertex Amniotic Membrane Rupture Type: Spontaneous Amniotic Fluid Description: Clear Placental Delivery Description: Spontaneous Placenta Disposition: [facility] Specimen collected: No Cord Vessel Description: 3 Vessels Cord Entanglement: None Nuchal Cord Compression: Without compression A Gender: Female (1 minute): 9 (5 minute): 9 Delayed Cord Clamping: Yes Registered Health Nurse flame burner: No Post Vaginal Deli Medications given after delivery: IV Pitocin Episiotomy Description: None Laceration: None Complication Complications: No
[2025-01-24 02:53] LABS: Syphilis Antibodies Nonreactive (Nonreactive)
[2025-01-24] MEDS: Oxytocin 15 Units/NS 250ml 15 UNITS/250 ML IV.SOLN 83 UNITS IV (02:58)
--- OUTSIDE RECORDS SUMMARY | 2025-01-24 03:32 | XMS RPT_ITS | CCD ---
Author Organization [facility] Care Team Providers Care Riveter Hand Name Role Phone OSVALDO DAMON Admitting Unavailable Manpreet Saravia [phone] Consulting Unav ailable CHELA HIGH Primary Care Unavailable ANGEL DAMONER Attending Unavailable NELSON, CHRISTNEYDAER Consulting Unavailable LENNOX CHELA Consulting Unavailable NELSON, CHRISTNEYDAER Consulting Unavailable NELSON, CHRISTNEYDAER Admitting Unavailable LENNOX CHELA Primary Care Unavailable ANGEL DAMONER Attending Unavailable Unavailable Primary Care Provider Unavailabl e CHELA HIGH DO Admitting Unavailable CHELA HIGH DO Primary Care Unavailable CHELA HIGH DO Consulting Unavailable CHELA HIGH DO Attending Unavailable PROVIDER, UNKNOWN Consulting Unavailable PROVIDER, UNKNOWN Consulting Unavailable CHELA HIGH DO Consulting Unavailable TESTRAKE, SOTO Admitting Unavailable TESTRAKE, SOTO Primary Care Unavailable TESTKE, SOTO Attending Unavailable PROVIDER, UNKNOWN Consulting Unavailable PROVIDER, UNKNOWN Consulting Unavailable JARENRILANA SIGNS SALES REPRESENTATIVE Admitting Unavailable UNGERER, ILANA SIGNS SALES REPRESENTATIVE Primary Care Unavailable JARENRILANA SIGNS SALES REPRESENTATIVE Consulting Unavailable JARENRILANA SIGNS SALES REPRESENTATIVE Attending Unavailable PROVIDER, UNKNOWN Consulting Unavailable Unavailable Primary Care Provider UnavailChloe Ramirez Attending Unavailable Chloe Hyde Admitting Unavailable Ungerer, Ilana Primary Care Unavailable HAURY, FRANCK Attending Unavailable HAURY, FRANCK Referring Unavailable HAURY, FRANCK Referring Unavailable HAURY, FRANCK Referring Unavailable ADELA GRIGGS Attending Unavailable SANTHOSH CEE Attending Unavailable HAURY, FRANCK Referring Unavailable LEONA ARMANDO Attending Unavailable HAURY, FRANCK Referring Unavailable HAURY, FRANCK Attending Unavailable HAURY, FRANCK Referring Unavailable SANTHOSH CEE Attending Unavailable MARTINEZURY, FRANCK Referring Unavailable ANABELL GASCA Attending Unavailable CHAD, FRANCK Attending Unavailable ILANA SPICER Attending Unavailable SHIRA BLACKWOOD Attending Unavail ANABELL Bae Attending Unavailable SANTHOSH CEE Attending Unavailable FRANCK ARMANDO Referring Unavailable FRANCK ARMANDO Attending Unavailable CHLOE HYDE Attending Unavailable SHIRA BLACKWOOD Attending Unavail angelina Allergies Allergy Classification Reported Allergen(s) Allergy Type Date of Onset Reaction(s) Facility (2 sources) Latex; Translations: [LATEX] Drug allergy (disorder) 7 [facility] Repository (20 sources) Latex Propensity to adverse reactions 7 Rash [facility] Work Phone: (1 source) Furosemide Drug Allergy [facility] Repository (17 sources) Furosemide; Translations: [FUROSEMIDE] Drug Allergy 5 Unknown [facility] (1 source) Latex Drug allergy (disorder) 1 [facility] Repository Medications Current Medications Medication Drug [...] on above: Take 1 tablet by natali th once daily. methylPREDNISolone (1 source) Corticosteroid Start: [...] 01-14-2025 Episodic Residual codes; unclassified (1 source) 39 weeks gestation of ; Translations: [39 weeks gestation of (HCC)] Onset: 01-21-2025 Episodic Residual codes; unclassified (1 source) 38 [...] of ; Translations: [23 weeks gestation of (HCC)] Onset: 10-29-2024 Episodic Unclassified (20 sources) [facility] [...] 5 Glucose Ql (U) Negative Neg mg/dL [facility] Interpretation and review of laboratory results Normal [facility] Protein.monoclonal (U) [Mass/Vol] Negative Neg mg/dL [facility] URINE OB DIP B/Oon 5 Glucose Ql (U) Negative Neg mg/dL [facility] Interpretation and review of laboratory results Normal [facility] Protein.monoclonal (U) [Mass/Vol] Negative Neg mg/dL [facility] ROUTINE, GROUP B ST REPTOCOCCUS BY PCRon 12-31-2024 ROUTINE, GROUP B STREPTOCOCCUS BY PCR Not detected Normal [facility] Comment on above: Performed By: #### 5 7021-8 #### [facility] CLIA [id number] [address] [place] [address] [place] URINE OB DIP B/Oon 5 Glucose Ql (U) Negative Neg mg/dL [facility] Interpretation and review of laboratory results Normal [facility] Protein.monoclonal (U) [Mass/Vol] Negative Neg mg/dL [facility] CNPNon 12-04-2024 CNPN Telephone (OBGYWM) VICKY MITCHELL ([id number]) 2000 F Date Time Provider Department 12/04/24 FRANCK ARMANDO During your visit today, we recorded the following information about you: Leona Heck, HARSHAD 12/04/2024 11:46 AM Signed Received breast pump RX from [employer]. To to sign. HARSHAD Vallejo Trisha, RN 12/05/2024 3:10 PM Signed Order signed and faxed. 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11 [facility] Comment on above: Order Comment: Speci men Type: BLOOD SPECIMEN Ordering Facility: [facility] Address: [address] [place] [address] Performed By: #### 5 7021-8 #### [facility] CLIA [id number] [address] [place] [address] [place] Basophils/100 WBC (Bld) 0.2 % Normal [facility] Comment on above: Order Comment: Daliai palma Type: BLOOD SPECIMEN Ordering Facility: [facility] Address: [address] [place] [address] Performed By: #### 5 7021-8 #### [facility] CLIA [id number] [address] [place] [address] [place] Differential cell count method Nom (Bld) Auto Normal [facility] Comment on above: Order Comment: Speci men Type: BLOOD SPECIMEN Ordering Facility: [facility] Address: [address] [place] [address] Performed By: #### 5 7021-8 #### [facility] CLIA [id number] [address] [place] [address] [place] Eosinophils (Bld) [#/Vol] 0.03 10*3/uL Normal <0.46 [facility] Comment on above: Order Comment: Speci men Type: BLOOD SPECIMEN Ordering Facility: [facility] Address: [address] [place] [address] Performed By: #### 5 7021-8 #### [facility] CLIA [id number] [address] [place] [address] [place] Eosinophils/100 WBC (Bld) 0.3 % Normal [facility] Comment on above: Order Comment: Speci men Type: BLOOD SPECIMEN Ordering Facility: [facility] Address: [address] [place] [address] Performed By: #### 5 7021-8 #### [facility] CLIA [id number] [address] [place] [address] [place] Erythrocyte distribution width (RBC) [Ratio] 12.3 % Normal 11.5-15.0 [facility] Comment on above: Order Comment: Speci men Type: BLOOD SPECIMEN Ordering Facility: [facility] Address: [address] [place] [address] Performed By: #### 5 7021-8 #### [facility] CLIA [id number] [address] [place] [address] [place] Hematocrit (Bld) [Volume fraction] 34.8 % Low 36.0-46.0 [facility] Comment on above: Order Comment: Speci men Type: BLOOD SPECIMEN Ordering Facility: [facility] Address: [address] [place] [address] Performed By: #### 5 7021-8 #### [facility] CLIA [id number] [address] [place] [address] [place] Hemoglobin (Bld) [Mass/Vol] 11.9 g/dL Normal 11.5-15.5 [facility] Comment on above: Order Comment: Speci men Type: BLOOD SPECIMEN Ordering Facility: [facility] Address: [address] [place] [address] Performed By: #### 5 7021-8 #### [facility] CLIA [id number] [address] [place] [address] [place] Immature granulocytes (Bld) [#/Vol] 10*3/uL Normal <0.10 [facility] Comment on above: Order Comment: Speci men Type: BLOOD SPECIMEN Ordering Facility: [facility] Address: [address] [place] [address] Performed By: #### 5 7021-8 #### [facility] CLIA [id number] [address] [place] [address] [place] Immature granulocytes/100 WBC (Bld) 0.2 % Normal [facility] Comment on above: Order Comment: Speci men Type: BLOOD SPECIMEN Ordering Facility: [facility] Address: [address] [place] [address] Performed By: #### 5 7021-8 #### [facility] CLIA [id number] [address] [place] [address] [place] Lymphocytes (Bld) [#/Vol] 2.29 10*3/uL Normal 1.00-4.00 [facility] Comment on above: Order Comment: Speci men Type: BLOOD SPECIMEN Ordering Facility: [facility] Address: [address] [place] [address] Performed By: #### 5 7021-8 #### [facility] CLIA [id number] [address] [place] [address] [place] Lymphocytes/100 WBC (Bld) 24.1 % Normal [facility] Comment on above: Order Comment: Speci men Type: BLOOD SPECIMEN Ordering Facility: [facility] Address: [address] [place] [address] Performed By: #### 5 7021-8 #### [facility] CLIA [id number] [address] [place] [address] [place] MCH (RBC) [Entitic mass] 30.5 pg Normal 26.0-34.0 [facility] Comment on above: Order Comment: Speci men Type: BLOOD SPECIMEN Ordering Facility: [facility] Address: [address] [place] [address] Performed By: #### 5 7021-8 #### [facility] CLIA [id number] [address] [place] [address] [place] MCHC (RBC) [Mass/Vol] 34.2 g/dL Normal 30.5-36.0 [facility] Comment on above: Order Comment: Speci men Type: BLOOD SPECIMEN Ordering Facility: [facility] Address: [address] [place] [address] Performed By: #### 5 7021-8 #### [facility] CLIA [id number] [address] [place] [address] [place] MCV (RBC) [Entitic vol] 89.2 fL Normal 80.0-100.0 [facility] Comment on above: Order Comment: Speci men Type: BLOOD SPECIMEN Ordering Facility: [facility] Address: [address] [place] [address] Performed By: #### 5 7021-8 #### [facility] CLIA [id number] [address] [place] [address] [place] Monocytes (Bld) [#/Vol] 0.56 10*3/uL Normal <0.87 [facility] Comment on above: Order Comment: Speci men Type: BLOOD SPECIMEN Ordering Facility: [facility] Address: [address] [place] [address] Performed By: #### 5 7021-8 #### [facility] CLIA [id number] [address] [place] [address] [place] Monocytes/100 WBC (Bld) 5.9 % Normal [facility] Comment on above: Order Comment: Speci men Type: BLOOD SPECIMEN Ordering Facility: [facility] Address: [address] [place] [address] Performed By: #### 5 7021-8 #### [facility] CLIA [id number] [address] [place] [address] [place] Neutrophils (Bld) [#/Vol] 6.58 10*3/uL Normal 1.45-7.50 [facility] Comment on above: Order Comment: Speci men Type: BLOOD SPECIMEN Ordering Facility: [facility] Address: [address] [place] [address] Performed By: #### 5 7021-8 #### [facility] CLIA [id number] [address] [place] [address] [place] Neutrophils/100 WBC (Bld) 69.3 % Normal [facility] Comment on above: Order Comment: Speci men Type: BLOOD SPECIMEN Ordering Facility: [facility] Address: [address] [place] [address] Performed By: #### 5 7021-8 #### [facility] CLIA [id number] [address] [place] [address] [place] Nucleated RBC (Bld) [#/Vol] 10*3/uL Normal <0.01 [facility] Comment on above: Order Comment: Speci men Type: BLOOD SPECIMEN Ordering Facility: [facility] Address: [address] [place] [address] Performed By: #### 5 7021-8 #### [facility] CLIA [id number] [address] [place] [address] [place] Nucleated RBC/100 WBC (Bld) [Ratio] 0.0 /100 WBC Normal [facility] Comment on above: Order Comment: Speci men Type: BLOOD SPECIMEN Ordering Facility: [facility] Address: [address] [place] [address] Performed By: #### 5 7021-8 #### [facility] CLIA [id number] [address] [place], [place] [address] [place] Platelet mean volume (Bld) [Entitic vol] 11.0 fL Normal 9.0-12.7 [facility] Comment on above: Order Comment: Speci men Type: BLOOD SPECIMEN Ordering Facility: [facility] Address: [address] [place] [address] Performed By: #### 5 7021-8 #### [facility] CLIA [id number] [address] [place] [address] [place] Platelets (Bld) [#/Vol] 232 10*3/uL Normal 150-400 [facility] Comment on above: Order Comment: Speci men Type: BLOOD SPECIMEN Ordering Facility: [facility] Address: [address] [place] [address] Performed By: #### 5 7021-8 #### [facility] CLIA [id number] [address] [place] [address] [place] RBC (Bld) [#/Vol] 3.90 10*6/uL Normal 3.90-5.20 [facility] Comment on above: Order Comment: Speci men Type: BLOOD SPECIMEN Ordering Facility: [facility] Address: [address] [place] [address] Performed By: #### 5 7021-8 #### [facility] CLIA [id number] [address] [place] [address] [place] WBC (Bld) [#/Vol] 9.50 10*3/uL Normal 3.70-11.00 [facility] Comment on above: Order Comment: Speci men Type: BLOOD SPECIMEN Ordering Facility: [facility] Address: [address] [place] [address] Performed By: #### 5 7021-8 #### [facility] CLIA [id number] [address] [place] [address] [place] GESTATIONAL GLUCOSE SCREEN, 1-HOUR, 50 GRAM, NON-FASTINGon 10-29-2024 Glucose [Mass/Vol] 92 mg/dL Normal 74-134 [facility] Comment on above: Order Comment: Speci palma Type: BLOOD SPECIMEN Ordering Facility: [facility] Address: [address] [place] [address] Result Comment: [facility] Congress of Obstetricians and Gynecologists (Layla/Lizet) guidelines state a gestational diabetes mellitus positive screen is made, in women not previously diagnosed with overt diabetes, when the 1 hr plasma glucose level is equal to or above 140 mg/dL. The [facility] [employer] [facility] [place] recommends a 135 mg/dL cutoff. Performed By: #### 5 7021-8 #### [facility] CLIA [id number] [address] [place] [address] [place] Reagin and Treponema pallidu m IgG and IgM [Interp]on 10-29-2024 T. pallidum IgG+IgM IA Ql (S) Non-Reactive Normal Nonreactive [facility] Comment on above: Order Comment: Speci men Type: BLOOD SPECIMEN Ordering Facility: [facility] Address: [address] [place] [address] Performed By: #### 5 7021-8 #### [facility] CLIA [id number] [address] [place] [address] [place] Reagin+T pallidum IgG+IgM Se rPl-Impon 10-29-2024 Reagin and Treponema pallidum IgG and IgM [Interp] Cannot exclude recent Treponemal infection if specimen collected within 7-10 days after appearance of suspect lesions or 2-3 weeks after an exposure. Clinical correlation is required. 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 MATERNAL MEDICINE [facility] Radiology Study observation (narrative) [facility] nuchal translucency me asured by [place] 07-20-2024 Indication First trimester anatomic survey Impression REMOTE READ The patient is referred for a first trimester anatomy scan including nuchal translucency measurement as clinically indicated. - Single, live, intrauterine . - Paige rump length measurement is consistent with the [...] view: suboptimal 4-chamber view with color: suboptimal 0-xmhdnm-eabhqpo view: suboptima Abdominal cord insertion: normal Stomach: [...] Lt ovary: Not visualized Performed By: Kelsy Moses RDMS, RVT Read By: Corie Monge M.D. MATERNAL MEDICINE [facility] Radiology Study observation (narrative) [facility] US Pelvison 06-19-2024 Indication dating, Viability Impression Maternal Structures: Right Ovary: Size 28 mm x 14 mm x 10 mm Left Ovary: Size 21 mm x 19 mm x 12 mm - Single, live, intrauterine . - An intrauterine gestational sac with a yolk sac and pole is present. - Paige rump length measurement is NOT consistent with [...] Read By: Srinivasan Lin M.D. MATERNAL MEDICINE [facility] Radiology Study observation (narrative) [facility] Kavon 06-05-2024 CNPN Telephone (SPMOBA) VICKY MITCHELL ([id number]) 2000 F Date Time Provider Department 06/05/24 [facility] During your visit today, we recorded the following information about you: Guadalupe Daley RN 06/05/2024 8:53 AM Signed 1st risk assessment form submitted 06/05/24. Guadalupe Daley RN Allergies As of Date: 06/05/2024 Noted Allergy Reaction LATEX 04/12/2007 2 - Rash Date Reviewed: 06/01/2024 Reviewed by: Franck Armando APRN.[facility] - Fully Assessed Reason for Visit: PRAF [...] Status:Closed by GUADALUPE DALEY on 06/05/24 Normal [facility] B-HCG SerPl-[place]Cncon 4 [place] [address].0 m[IU]/mL High <5.0 [facility] Comment on above: Order Comment: Speci men Type: BLOOD SPECIMEN Ordering Facility: [facility] Address: [address] [place] [address] Result Comment: LOTUS TITATIVE HCG NORMAL RANGES Weeks of Gestation (Weeks Since LMP) 3 Weeks (5.8-71.2 mIU/mL) 4 Weeks (9.5-750 mIU/mL) 5 Weeks (217-7138 mIU/mL) 6 Weeks (158-64986 mIU/mL) 7 Weeks (3697-273028 mIU/mL) 8 Weeks (28734-928373 mIU/mL) 9 Weeks (75514-106329 mIU/mL) 10 Weeks (43561-311285 mIU/mL) 12 Weeks (88702-517140 mIU/mL) Referenced to 4th IS of NIBSC Performed By: #### 5 7021-8 #### [facility] CLIA [id number] [address] [place] [address] [place] B-HCG [facility] 4 HCG.beta subunit Qn 7819.0 m[IU]/mL High <5.0 [facility] Comment on above: Order Comment: Speci men Type: FLUID SPECIMEN Ordering Facility: [facility] Address: [address] [place] [address] Result Comment: LOTUS TITATIVE HCG NORMAL RANGES Weeks of Gestation (Weeks Since LMP) 3 Weeks (5.8-71.2 mIU/mL) 4 Weeks (9.5-750 mIU/mL) 5 Weeks (217-7138 mIU/mL) 6 Weeks (158-50549 mIU/mL) 7 Weeks (3697-812318 mIU/mL) 8 Weeks (28142-664231 mIU/mL) 9 Weeks (35391-087875 mIU/mL) 10 Weeks (92636-641532 mIU/mL) 12 Weeks (72488-149565 mIU/mL) Referenced to 4th IS of NIBSC Performed By: #### L [id number] #### [facility] CLIA [id number] [address] [place] [address] [place] Bacteria Ur Culton Bacteria identified Cx Nom (U) ORGANISM ID: 1 10,000 -<50,000 CFU/ml Normal urogenital alejo Normal [facility] Comment on above: Performed By: #### 5 7021-8 #### [facility] CLIA [id number] [address] [place] [address] [place] C. trachomatis+N. gonorrhoea e DNA BRAD+probe Ql (Unsp spec)on 06-01-2024 C. trachomatis rRNA BRAD+probe Ql (Unsp spec) Not detected Normal Not detected [facility] Comment on above: Order Comment: Speci men Type: BLOOD SPECIMEN Ordering Facility: [facility] Address: [address] [place] [address] Performed By: #### 5 7021-8 #### [facility] CLIA [id number] [address] [place] [address] [facility] N. gonorrhoeae rRNA BRAD+probe Ql (Unsp spec) Not detected Normal Not detected [facility] Comment on above: Order Comment: Speci men Type: BLOOD SPECIMEN Ordering Facility: [facility] Address: [address] [place] [address] Performed By: #### 5 7021-8 #### [facility] CLIA [id number] [address] [place] [address] [place] CARRIER SCREEN, STANDARDon 1 08-02-2023 CARRIER SCREEN RESULTS View results in Scanned Documents link when available. Normal [facility] Comment on above: Order Comment: Speci men Type: FLUID SPECIMEN Ordering Facility: [facility] Address: [address] [place] [address] Performed By: #### L [id number] #### [facility] CLIA [id number] [address] [place] [address] [place] CBC W Auto Differential pane l (Bld)on 06-01-2024 Basophils (Bld) [#/Vol] 10*3/uL Normal <0.11 [facility] Comment on above: Order Comment: Speci men Type: FLUID SPECIMEN Ordering Facility: [facility] Address: [address] [place] [address] Performed By: #### L [id number] #### [facility] CLIA [id number] [address] [place] [address] [place] Basophils/100 WBC (Bld) 0.3 % Normal [facility] Comment on above: Order Comment: Speci men Type: FLUID SPECIMEN Ordering Facility: [facility] Address: [address] [place] [address] Performed By: #### L [id number] #### [facility] CLIA [id number] [address] [place] [address] [place] Differential cell count method Nom (Bld) Auto Normal [facility] Comment on above: Order Comment: Speci men Type: FLUID SPECIMEN Ordering Facility: [facility] Address: [address] [place] [address] Performed By: #### L [id number] #### [facility] CLIA [id number] [address] [place] [address] [place] Eosinophils (Bld) [#/Vol] 10*3/uL Normal <0.46 [facility] Comment on above: Order Comment: Speci men Type: FLUID SPECIMEN Ordering Facility: [facility] Address: [address] [place] [address] Performed By: #### L [id number] #### [facility] CLIA [id number] [address] [place] [address] [place] Eosinophils/100 WBC (Bld) 0.3 % Normal [facility] Comment on above: Order Comment: Speci men Type: FLUID SPECIMEN Ordering Facility: [facility] Address: [address] [place] [address] Performed By: #### L [id number] #### [facility] CLIA [id number] [address] [place] [address] [place] Erythrocyte distribution width (RBC) [Ratio] 11.9 % Normal 11.5-15.0 [facility] Comment on above: Order Comment: Speci men Type: FLUID SPECIMEN Ordering Facility: [facility] Address: [address] [place] [address] Performed By: #### L [id number] #### [facility] CLIA [id number] [address] [place] [address] [place] Hematocrit (Bld) [Volume fraction] 35.7 % Low 36.0-46.0 [facility] Comment on above: Order Comment: Speci men Type: FLUID SPECIMEN Ordering Facility: [facility] Address: [address] [place] [address] Performed By: #### L [id number] #### [facility] CLIA [id number] [address] [place] [address] [place] Hemoglobin (Bld) [Mass/Vol] 12.3 g/dL Normal 11.5-15.5 [facility] Comment on above: Order Comment: Speci men Type: FLUID SPECIMEN Ordering Facility: [facility] Address: [address] [place] [address] Performed By: #### L [id number] #### [facility] CLIA [id number] [address] [place] [address] [place] Immature granulocytes (Bld) [#/Vol] 10*3/uL Normal <0.10 [facility] Comment on above: Order Comment: Speci men Type: FLUID SPECIMEN Ordering Facility: [facility] Address: [address] [place] [address] Performed By: #### L [id number] #### [facility] CLIA [id number] [address] [place] [address] [place] Immature granulocytes/100 WBC (Bld) 0.2 % Normal [facility] Comment on above: Order Comment: Speci men Type: FLUID SPECIMEN Ordering Facility: [facility] Address: [address] [place] [address] Performed By: #### L [id number] #### [facility] CLIA [id number] [address] [place] [address] [place] Lymphocytes (Bld) [#/Vol] 2.30 10*3/uL Normal 1.00-4.00 [facility] Comment on above: Order Comment: Speci men Type: FLUID SPECIMEN Ordering Facility: [facility] Address: [address] [place] [address] Performed By: #### L [id number] #### [facility] CLIA [id number] [address] [place] [address] [place] Lymphocytes/100 WBC (Bld) 38.0 % Normal [facility] Comment on above: Order Comment: Speci men Type: FLUID SPECIMEN Ordering Facility: [facility] Address: [address] [place] [address] Performed By: #### L [id number] #### [facility] CLIA [id number] [address] [place] [address] [place] MCH (RBC) [Entitic mass] 29.9 pg Normal 26.0-34.0 [facility] Comment on above: Order Comment: Speci men Type: FLUID SPECIMEN Ordering Facility: [facility] Address: [address] [place] [address] Performed By: #### L [id number] #### [facility] CLIA [id number] [address] [place] [address] [place] MCHC (RBC) [Mass/Vol] 34.5 g/dL Normal 30.5-36.0 [facility] Comment on above: Order Comment: Speci men Type: FLUID SPECIMEN Ordering Facility: [facility] Address: [address] [place] [address] Performed By: #### L [id number] #### [facility] CLIA [id number] [address] [place] [address] [place] MCV (RBC) [Entitic vol] 86.9 fL Normal 80.0-100.0 [facility] Comment on above: Order Comment: Speci men Type: FLUID SPECIMEN Ordering Facility: [facility] Address: [address] [place] [address] Performed By: #### L [id number] #### [facility] CLIA [id number] [address] [place] [address] [place] Monocytes (Bld) [#/Vol] 0.34 10*3/uL Normal <0.87 [facility] Comment on above: Order Comment: Speci men Type: FLUID SPECIMEN Ordering Facility: [facility] Address: [address] [place] [address] Performed By: #### L [id number] #### [facility] CLIA [id number] [address] [place] [address] [place] Monocytes/100 WBC (Bld) 5.6 % Normal [facility] Comment on above: Order Comment: Speci men Type: FLUID SPECIMEN Ordering Facility: [facility] Address: [address] [place] [address] Performed By: #### L [id number] #### [facility] CLIA [id number] [address] [place] [address] [place] Neutrophils (Bld) [#/Vol] 3.36 10*3/uL Normal 1.45-7.50 [facility] Comment on above: Order Comment: Speci men Type: FLUID SPECIMEN Ordering Facility: [facility] Address: [address] [place] [address] Performed By: #### L [id number] #### [facility] CLIA [id number] [address] [place] [address] [place] Neutrophils/100 WBC (Bld) 55.6 % Normal [facility] Comment on above: Order Comment: Speci men Type: FLUID SPECIMEN Ordering Facility: [facility] Address: [address] [place] [address] Performed By: #### L [id number] #### [facility] CLIA [id number] [address] [place] [address] [place] Nucleated RBC (Bld) [#/Vol] 10*3/uL Normal <0.01 [facility] Comment on above: Order Comment: Speci men Type: FLUID SPECIMEN Ordering Facility: [facility] Address: [address] [place] [address] Performed By: #### L [id number] #### [facility] CLIA [id number] [address] [place] [address] [place] Nucleated RBC/100 WBC (Bld) [Ratio] 0.0 /100 WBC Normal [facility] Comment on above: Order Comment: Speci men Type: FLUID SPECIMEN Ordering Facility: [facility] Address: [address] [place] [address] Performed By: #### L [id number] #### [facility] CLIA [id number] [address] [place] [address] [place] Platelet mean volume (Bld) [Entitic vol] 9.7 fL Normal 9.0-12.7 [facility] Comment on above: Order Comment: Speci men Type: FLUID SPECIMEN Ordering Facility: [facility] Address: [address] [place] [address] Performed By: #### L [id number] #### [facility] CLIA [id number] [address] [place] [address] [place] Platelets (Bld) [#/Vol] 223 10*3/uL Normal 150-400 [facility] Comment on above: Order Comment: Speci men Type: FLUID SPECIMEN Ordering Facility: [facility] Address: [address] [place] [address] Performed By: #### L [id number] #### [facility] CLIA [id number] [address] [place] [address] [place] RBC (Bld) [#/Vol] 4.11 10*6/uL Normal 3.90-5.20 [facility] Comment on above: Order Comment: Speci men Type: FLUID SPECIMEN Ordering Facility: [facility] Address: [address] [place] [address] Performed By: #### L [id number] #### [facility] CLIA [id number] [address] [place] [address] [place] WBC (Bld) [#/Vol] 6.05 10*3/uL Normal 3.70-11.00 [facility] Comment on above: Order Comment: Speci men Type: FLUID SPECIMEN Ordering Facility: [facility] Address: [address] [place] [address] Performed By: #### L [id number] #### [facility] CLIA [id number] [address] [place] [address] [place] HBV surface Ag Ser Qlon 05-20 HBV surface Ag Ql (S) Negative Normal Negative [facility] Comment on above: Order Comment: Speci men Type: BLOOD SPECIMEN Ordering Facility: [facility] Address: [address] [place] [address] Performed By: #### 5 7021-8 #### [facility] CLIA [id number] [address] [place] [address] [place] HCV Ab Ser Qlon 06-01-2024 HCV Ab Ql (S) Negative Normal Negative [facility] Comment on above: Order Comment: Speci men Type: FLUID SPECIMEN Ordering Facility: [facility] Address: [address] [place] [address] Result Comment: The result suggests no evidence of active infection with Hepatitis C virus. Should recent infection be suspected, repeat testing may be considered 4-6 weeks after this draw. Performed By: #### L [id number] #### [facility] CLIA [id number] [address] [place] [address] [place] HIV 1+2 Ab IA Qlon 4 HIV 1 and 2 Ab IA.rapid Nom (S/P/Bld) Normal [facility] Comment on above: Order Comment: Speci men Type: FLUID SPECIMEN Ordering Facility: [facility] Address: [address] [place] [address] Result Comment: Test not indicated. Performed By: #### L [id number] #### [facility] CLIA [id number] [address] [place] [address] [place] HIV 1+2 Ab+HIV1 p24 Ag IA Ql Non-Reactive Normal Nonreactive [facility] Comment on above: Order Comment: Speci men Type: FLUID SPECIMEN Ordering Facility: [facility] Address: [address] [place] [address] Performed By: #### L [id number] #### [facility] CLIA [id number] [address] [place] [address] [place] HIV immunoassay testing algorithm interpretation (S/P/Bld) [Interp] Normal [facility] Comment on above: Order Comment: Speci men Type: FLUID SPECIMEN Ordering Facility: [facility] Address: [address] [place] [address] Result Comment: No e vidence of HIV-1 or HIV-2 infection. Should recent infection be suspected, repeat testing may be considered 2-3 weeks after this draw. [place] Rev. Code 3701.243(E): This information has been [...] results or diagnoses. Performed By: #### L [id number] #### [facility] CLIA [id number] [address] [place] [address] [place] HbA1c (Bld)on 06-01-2024 Average glucose Estimated from glycated hemoglobin (Bld) [Mass/Vol] 97 mg/dL Normal [facility] Comment on above: Order Comment: Speci men Type: BLOOD SPECIMEN Ordering Facility: [facility] Address: [address] [place] [address] Result Comment: eAG: (Estimated average glucose) is a calculated value from HgbA1c and is termite control representative of the average blood glucose level in the last 2-3 month period. Performed By: #### 5 5454-3 #### [facility] CLIA [id number] [address] [place] [address] [place] HbA1c (Bld) [Mass fraction] 5.0 % Normal 4.3-5.6 [facility] Comment on above: Order Comment: Zaheer men Type: BLOOD SPECIMEN Ordering Facility: [facility] Address: [address] [place] [address] Result Comment: Amer [place] Diabetes Association guidelines indicate that patients with HgbA1c in the range 5.7-6.4% are at increased risk for development of diabetes, and intervention by lifestyle modification may be beneficial. HgbA1c greater or equal to 6.5% is considered diagnostic of diabetes. Performed By: #### 5 5454-3 #### [facility] CLIA [id number] [address] [place] [address] [place] PAP TESTon 06-01-2024 ADEQUACY Satisfactory for interpretation. Normal [facility] Comment on above: Order Comment: Speci men Type: FLUID SPECIMEN Ordering Facility: [facility] Address: [address] [place] [address] Performed By: #### L [id number] #### [facility] CLIA [id number] [address] [place] [address] [place] CASE REPORT Normal [facility] Comment on above: Order Comment: Daliai men Type: FLUID SPECIMEN Ordering Facility: [facility] Address: [address] [place] [address] Result Comment: Gyne cologic Cytology Report Case: [id number] Authorizing Provider: Franck Armando APRN.[employer] Collected: 06/01/2024 11:47 AM Ordering Location: OB/Gynecology Received: 06/01/2024 04:43 PM First Screen: Musa Danielson, CT, ASCP Specimen: Pap Test, ThinPrep, Cervix Performed By: #### L [id number] #### [facility] CLIA [id number] [address] [place] [address] [place] CLINICAL HISTORY, CYTOLOGY, SALESPERSON RECREATIONAL VEHICLES (Indicate Weeks) Normal [facility] Comment on above: Order Comment: Speci men Type: FLUID SPECIMEN Ordering Facility: [facility] Address: [address] [place] [address] Performed By: #### L [id number] #### [facility] CLIA [id number] [address] [place] [address] [place] FINAL PERFORMING LAB Normal [facility] Comment on above: Order Comment: Speci men Type: FLUID SPECIMEN Ordering Facility: [facility] Address: [address] [place] [address] Result Comment: Tech nical component, lead ingot molder screening performed at [facility], [address] [place] [address] CLIA# [id number] Diagnostic interpretation performed at [facility], [address] [place] [address] CLIA# [id number] Photographer'S Model: Jony Macedo M.D. Performed By: #### L [id number] #### [facility] CLIA [id number] [address] [place] [address] [place] INTERPRETATION, CYTOLOGY, SALESPERSON RECREATIONAL VEHICLES Normal [facility] Comment on above: Order Comment: Speci men Type: FLUID SPECIMEN Ordering Facility: [facility] Address: [address] [place] [address] Result Comment: Nega tive for intraepithelial lesion or malignancy. Performed By: #### L [id number] #### [facility] CLIA [id number] [address] [place] [address] [place] LMP 03/30/2024 Normal [facility] Comment on above: Order Comment: Speci men Type: FLUID SPECIMEN Ordering Facility: [facility] Address: [address] [place] [address] Performed By: #### L [id number] #### [facility] CLIA [id number] [address] [place] [address] [place] PAP DISCLAIMER COMMENT The Pap Smear is a screening test for cervical cancer. False negative results occur with all screening tests, emphasizing the need for rescreening at recommended intervals, and clinical correlation. Normal [facility] Comment on above: Order Comment: Speci men Type: FLUID SPECIMEN Ordering Facility: [facility] Address: [address] [place] [address] Performed By: #### L [id number] #### [facility] CLIA [id number] [address] [place] [address] [place] PAP QUANTITATIVE ASSOCIATE COMMENT This specimen has been analyzed by the ThinPrep Imaging System, an automated imaging and review system, which assists the laboratory in evaluating cells on ThinPrep Pap tests. Following automated imaging, selected trevino from every slide are reviewed by a lead ingot molder. Normal [facility] Comment on above: Order Comment: Speci men Type: FLUID SPECIMEN Ordering Facility: [facility] Address: [address] [place] [address] Performed By: #### L [id number] #### [facility] CLIA [id number] [address] [place] [address] [place] POC DIRECTOR MARKETING ANALYTICS ULTRASOUNDon 06-01-20 24 Indication Viability; confirm cardiac activity Impression Single [...] Read By: Franck Armando NP MATERNAL MEDICINE [facility] Radiology Study observation (narrative) [facility] RUBELLA IGG ANTIBODYon 06-01 RUBELLA IGG AB, QUAL Positive Normal Positive [facility] Comment on above: Order Comment: Speci men Type: BLOOD SPECIMEN Ordering Facility: [facility] Address: [address] [place] [address] Result Comment: The result suggests recent or past exposure to Rubella virus or history of Rubella vaccination. Positive result may also be seen due to presence of passively-transferred antibodies. Please correlate with patient's history. Performed By: #### 5 7021-8 #### [facility] CLIA [id number] [address] [place] [address] [place] Reagin and Treponema pallidu m IgG and IgM [Interp]on 06-01-2024 T. pallidum IgG+IgM IA Ql (S) Non-Reactive Normal Nonreactive [facility] Comment on above: Order Comment: Speci men Type: FLUID SPECIMEN Ordering Facility: [facility] Address: [address] [place] [address] Performed By: #### L [id number] #### [facility] CLIA [id number] [address] [place], [place] [address] [place] [address] [place] Reagin+T pallidum IgG+IgM Se rPl-Impon 06-01-2024 Reagin and Treponema pallidum IgG and IgM [Interp] Cannot exclude recent Treponemal infection if specimen collected within 7-10 days after appearance of suspect lesions or 2-3 weeks after an exposure. Clinical correlation is required. Normal [facility] Comment on above: Order Comment: Speci men Type: FLUID SPECIMEN Ordering Facility: [facility] Address: [address] [place] [address] Performed By: #### L [id number] #### [facility] CLIA [id number] [address] [place] [address] [place] TYPE + SCREEN PRENATALon ABO AB Normal [facility] Comment on above: Order Comment: Speci men Type: BLOOD SPECIMEN Ordering Facility: [facility] Address: [address] [place] [address] Performed By: #### T SPN #### [facility] CLIA [id number] [address] [place] [address] [place] Rh Nom (Bld) Positive Normal [facility] Comment on above: Order Comment: Speci men Type: BLOOD SPECIMEN Ordering Facility: [facility] Address: [address] [place] [address] Performed By: #### T SPN #### [facility] CLIA [id number] [address] [place] [address] [place] TYPE AND SCREEN EXPIRATION 06/04/2024 23:59 Normal [facility] Comment on above: Order Comment: Speci men Type: BLOOD SPECIMEN Ordering Facility: [facility] Address: [address] [place] [address] Performed By: #### T SPN #### [facility] CLIA [id number] [address] [place] [address] [place] CNPNon 05-28-2024 CNPN Telephone (OBGYW) VICKY MITCHELL ([id number]) 2000 F Date Time Provider Department 05/28/24 FRANCK ARMANDO During your visit today, we recorded the following information about you: Renetta Lucero, HARSHAD 05/28/2024 1:55 PM Signed Left message for [...] Status:Closed by LEONA HECK on 05/28/24 Normal [facility] CBC + DIFFon 05-25-2023 Baso # 0.00 x10EE3/UL Normal 0.00 - 0.10 [facility] Comment on above: Performed By: #### 2 [id number] #### [facility],[address] [place] [address] Basophils/100 WBC (Bld) 0.4 % Normal 0.0 - 2.0 [facility] Comment on above: Performed By: #### 2 [id number] #### [place] [address] CBC + DIFF Normal [facility] Comment on above: Result Comment: CBC- COMPLETE BLOOD COUNT Performed By: #### 2 [id number] #### [facility],[address] [place] [address] EO 2.0 % Normal 0.0 - 4.0 [facility] Comment on above: Performed By: #### 2 60263 #### [facility],[address] [place] [address] EO # 0.10 x10EE3/UL Normal 0.00 - 0.50 [facility] Comment on above: Performed By: #### 2 60539 #### [facility],[address] [place] [address] Eosinophils/100 WBC (Bld) 1.4 % Normal 0.0 - 7.0 [facility] Comment on above: Performed By: #### 2 78119 #### [facility],[address] [place], [place] [id number] Erythrocyte distribution width (RBC) [Ratio] 12.9 % Normal 12.0 - 15.6 [facility] Comment on above: Performed By: #### 2 [id number] #### [facility],[address] [place], [place] [id number] Hematocrit (Bld) [Volume fraction] 42.1 % Normal 34.0 - 46.0 [facility] Comment on above: Performed By: #### 2 24159 #### [facility],[address] [place] [address] Hemoglobin (Bld) [Mass/Vol] 13.7 g/dL Normal 12.0 - 16.0 [facility] Comment on above: Performed By: #### 2 67224 #### [facility],[address] [place] [address] Lymph # 2.80 x10EE3/UL Normal 0.80 - 2.80 [facility] Comment on above: Performed By: #### 2 43174 #### [facility],[address] [place] [address] Lymphocytes/100 WBC (Bld) 45.4 % High 20.0 - 45.0 [facility] Comment on above: Performed By: #### 2 87310 #### [facility],[address] [place] [address] Lymphocytes/100 WBC (Bld) 50 % High 20 - 40 [facility] Comment on above: Performed By: #### 2 65460 #### [facility],[address] [place] [address] MANUAL DIFF SEE BELOW Normal [facility] Comment on above: Performed By: #### 2 82857 #### [facility],[address] [place] [address] MCH (RBC) [Entitic mass] 29 pg Normal 27 - 33 [facility] Comment on above: Performed By: #### 2 83882 #### [facility],[address] [place] [address] MCHC 33 X10 3 Normal 32 - 36 [facility] Comment on above: Performed By: #### 2 03567 #### [facility],[address] [place] [address] MCV (RBC) [Entitic vol] 90 fL Normal 80 - 99 [facility] Comment on above: Performed By: #### 2 34828 #### [facility],[address] [place] [address] Zapata # 0.30 x10EE3/UL Normal 0.20 - 1.00 [facility] Comment on above: Performed By: #### 2 98930 #### [facility],[address] [place] [address] MONOS 5 % Normal 0 - 8 [facility] Comment on above: Performed By: #### 2 55281 #### [facility] [facility],[address] [place] [address] MONOS % 5.4 % Normal 0.0 - 10.0 [facility] Comment on above: Performed By: #### 2 47451 #### [facility],[address],[place] [address] Morphology Jeremiah (Bld) [Interp] N/A Normal [facility] Comment on above: Result Comment: {CD] Performed By: #### 2 02082 #### [facility],[address] [place] [address] 68271 Neut # 3.00 x10EE3/UL Normal 1.50 - 7.10 [facility] Comment on above: Performed By: #### 2 63981 #### [facility],[address] [place] [address] 31008 Neutrophils/100 WBC (Bld) 47.4 % Normal 46.0 - 76.0 [facility] Comment on above: Performed By: #### 2 82680 #### [facility],[address] [place] [address] 82633 PLATELET 279 x10EE3/UL Normal 150 - 450 [facility] Comment on above: Performed By: #### 2 48682 #### [facility],[address] [place] [address] 29830 Platelet mean volume (Bld) [Entitic vol] 8.5 fL Normal 6.6 - 10.5 [facility] Comment on above: Result Comment: AUTO MATED DIFFERENTIAL Performed By: #### 2 85281 #### [facility],[address] [place] [address] 25954 RBC 4.70 x 10EE6/UL Normal 4.10 - 5.30 [facility] Comment on above: Performed By: #### 2 68730 #### [facility],[address] [place] [address] 23680 SEGS 43 % Low 50 - 70 [facility] Comment on above: Performed By: #### 2 12045 #### [facility],[address] [place] [address] 66493 WBC 6.2 x 10EE3/UL Normal 4.5 - 10.8 [facility] Comment on above: Performed By: #### 2 95515 #### [facility],[address] [place] [address] 36406 HEMOGLOBIN A1C (POM)on 05-25 HbA1c (Bld) [Mass fraction] 5.6 % Normal 0.0 - 6.5 [facility] Comment on above: Result Comment: BLDo HEMOGLOBIN A1C REFERENCE RANGESBLDo Suggested Diagnosis HbA1c(%) HbA1C (mmol/mol Diabetic >/=6.5 >/=48 Prediabetes 5.7 - 6.4 39 - 47 Normal <5.7 <39 Performed By: #### 2 94355 #### [facility],[address] [place], [place] [id number] T4-FREE (FREE THYROXINE)on 07-26-2022 Free T4 [Mass/Vol] 1.06 ng/dL Normal 0.76 - 1.46 [facility] Comment on above: Result Comment: P otential of falsely elevated results when biotin concentrations are > 10 ng/mL. Performed By: #### 2 04246 #### [facility],[address] [place] [address] 51291 TSHon 05-25-2023 TSH Qn 1.56 m[IU]/L Normal 0.35 - 3.74 [facility] Comment on above: Performed By: #### 2 96913 #### [facility],[address] [place] [address] 79203 CMP with eGFRon 03-15-2023 AGE 22 years Normal [facility] Comment on above: Performed By: #### 2 93565 #### [facility],[address] [place] [address] 70722 Albumin [Mass/Vol] 3.8 g/dL Normal 3.4 - 5.0 [facility] Comment on above: Performed By: #### 2 40669 #### [facility],[address] [place] [address] 47193 Albumin/Globulin [Mass ratio] 1.0 {ratio} Normal 0.9 - 1.6 [facility] Comment on above: Performed By: #### 2 68868 #### [facility],[address] [place] [address] 86481 ALK PHOS 61 U/L Normal 46 - 116 [facility] Comment on above: Performed By: #### 2 88361 #### [facility],[address] [place] [address] 48255 ALT [Catalytic activity/Vol] 35 U/L Normal 14 - 59 [facility] Comment on above: Performed By: #### 2 02369 #### [facility],[address] [place] [address] 24260 Anion gap [Moles/Vol] 14 mmol/L Normal 10 - 20 [facility] Comment on above: Performed By: #### 2 42928 #### [facility],[address] [place] [address] 14421 AST [Catalytic activity/Vol] 29 U/L Normal 13 - 39 [facility] Comment on above: Performed By: #### 2 20997 #### [facility],[address] [place] [address] 32454 B/C RATIO 24 ratio Normal 0 - 30 [facility] Comment on above: Performed By: #### 2 40494 #### [facility],[address] [place] [address] 85695 Bilirubin [Mass/Vol] 0.2 mg/dL Normal 0.2 - 1.0 [facility] Comment on above: Performed By: #### 2 83963 #### [facility],[address] [place] [address] 63132 Calcium [Mass/Vol] 9.1 mg/dL Normal 8.5 - 10.1 [facility] Comment on above: Performed By: #### 2 77359 #### [facility],[address] [place] [address] 98581 Chloride [Moles/Vol] 105 mmol/L Normal 98 - 107 [facility] Comment on above: Performed By: #### 2 51382 #### [facility],[address] [place] [address] 17415 CMP with eGFR Normal [facility] Comment on above: Result Comment: COMP REHENSIVE METABOLIC PANEL Performed By: #### 2 09935 #### [facility],[address] [place] [address] 84474 CO2 [Moles/Vol] 27.6 mmol/L Normal 21.0 - 32.0 [facility] Comment on above: Performed By: #### 2 99726 #### [facility],[address] [place] [address] 83187 Creatinine [Mass/Vol] 0.70 mg/dL Normal 0.55 - 1.02 [facility] Comment on above: Performed By: #### 2 11058 #### [facility],[address] [place] [address] 66741 GFR/1.73 sq M.predicted among non-blacks MDRD (S/P/Bld) [Vol rate/Area] mL/min/{1.73_m2} Normal 60 - 999 [facility] Comment on above: Performed By: #### 2 18025 #### [facility],[address] [place] [address] 84998 Result Comment: ACCO RDING TO THE NATIONAL KIDNEY DISEASE EDUCATION PROGRAM(NKDE), A NORMAL eGFR IS A VALUE GREATER THAN OR EQUAL TO 60 ML/MIN/1.73 SQ METERS. CHRONIC KIDNEY DISEASE: <60mL/MIN/1.73 SQ METERS KIDNEY FAILURE: <15mL/MIN/1.73 SQ METERS THIS TEST SHOULD ONLY BE USED FOR PATIENTS 18 YEARS OF AGE AND OLDER. Globulin (S) [Mass/Vol] 3.8 g/dL Normal 1.5 - 3.8 [facility] Comment on above: Performed By: #### 2 37296 #### [facility],[address] [place] [address] 61248 Glucose [Mass/Vol] 98 mg/dL Normal 74 - 106 [facility] Comment on above: Performed By: #### 2 03708 #### [facility],[address] [place] [address] 68765 Potassium [Moles/Vol] 4.1 mmol/L Normal 3.5 - 5.1 [facility] Comment on above: Performed By: #### 2 71964 #### [facility],[address] [place] [address] 28524 Protein [Mass/Vol] 7.6 g/dL Normal 6.4 - 8.2 [facility] Comment on above: Performed By: #### 2 89871 #### [facility],[address] [place] [address] 27151 Sodium [Moles/Vol] 142 mmol/L Normal 136 - 145 [facility] Comment on above: Performed By: #### 2 79811 #### [facility],[address] [place] [address] 40092 Urea nitrogen [Mass/Vol] 17 mg/dL Normal 7 - 18 [facility] Comment on above: Performed By: #### 2 34315 #### [facility],[address] [place] [address] 05398 MRI FOOT/TOES WO/W IVCON LEF Ton 01-26-2023 [facility] XR FOOT GENERAL 3V AP/LAT/OB L LEFTon 11-12-2022 [facility] INSULIN [CCL]on 08-16-2022 Insulin 17.8 mU/L Normal 3.0-25.0 [facility] Comment on above: Result Comment: [facility] [address] [place] [address] Jony Macedo III, M.D. [id number] Performed By: #### 2 90681 #### [facility],[address] [place] [address] 71419 CBC + DIFFon 08-15-2022 Baso # 0.00 x10EE3/UL Normal 0.00 - 0.10 [facility] Comment on above: Performed By: #### 2 64023 #### [facility],[address] [place] [address] 27591 Basophils/100 WBC (Bld) 0.4 % Normal 0.0 - 2.0 [facility] Comment on above: Performed By: #### 2 34702 #### [facility],[address] [place] [address] CBC + DIFF Normal [facility] Comment on above: Result Comment: CBC- COMPLETE BLOOD COUNT Performed By: #### 2 90431 #### [facility],[address] [place] [address] EO # 0.10 x10EE3/UL Normal 0.00 - 0.50 [facility] Comment on above: Performed By: #### 2 17880 #### [facility],[address] [place], [place] [address] Eosinophils/100 WBC (Bld) 1.0 % Normal 0.0 - 7.0 [facility] Comment on above: Performed By: #### 2 71827 #### [facility],[address] [place] [address] Erythrocyte distribution width (RBC) [Ratio] 12.8 % Normal 12.0 - 15.6 [facility] Comment on above: Performed By: #### 2 13777 #### [facility],[address] [place], [place] [address] Hematocrit (Bld) [Volume fraction] 40.8 % Normal 34.0 - 46.0 [facility] Comment on above: Performed By: #### 2 06759 #### [facility],[address] [place] [address] 40648 Hemoglobin (Bld) [Mass/Vol] 13.4 g/dL Normal 12.0 - 16.0 [facility] Comment on above: Performed By: #### 2 57557 #### [facility],[address] [place], [place] [address] Lymph # 1.80 x10EE3/UL Normal 0.80 - 2.80 [facility] Comment on above: Performed By: #### 2 80734 #### [facility],[address] [place] [address] 76812 Lymphocytes/100 WBC (Bld) 35.0 % Normal 20.0 - 45.0 [facility] Comment on above: Performed By: #### 2 38455 #### [facility],[address] [place] [address] MANUAL DIFF N/A Normal [facility] Comment on above: Performed By: #### 2 76195 #### [facility],[address] [place] [address] MCH (RBC) [Entitic mass] 29 pg Normal 27 - 33 [facility] Comment on above: Performed By: #### 2 90154 #### [facility],[address] [place] [address] MCHC 33 X10 3 Normal 32 - 36 [facility] Comment on above: Performed By: #### 2 83663 #### [facility],[address] [place] [address] 59454 MCV (RBC) [Entitic vol] 88 fL Normal 80 - 99 [facility] Comment on above: Performed By: #### 2 37935 #### [facility],[address] [place] [address] 61632 Zapata # 0.40 x10EE3/UL Normal 0.20 - 1.00 [facility] Comment on above: Performed By: #### 2 48986 #### [facility],[address] [place] [address] 04360 MONOS % 7.7 % Normal 0.0 - 10.0 [facility] Comment on above: Performed By: #### 2 00932 #### [facility],[address] [place] [address] 75141 Morphology Jeremiah (Bld) [Interp] N/A Normal [facility] Comment on above: Result Comment: {CD] Performed By: #### 2 95798 #### [facility],[address] [place] [address] 52504 Neut # 2.90 x10EE3/UL Normal 1.50 - 7.10 [facility] Comment on above: Performed By: #### 2 80048 #### [facility],[address] [place] [address] 71938 Neutrophils/100 WBC (Bld) 55.9 % Normal 46.0 - 76.0 [facility] Comment on above: Performed By: #### 2 49725 #### [facility],[address] [place] [address] 17053 PLATELET 241 x10EE3/UL Normal 150 - 450 [facility] Comment on above: Performed By: #### 2 08468 #### [facility],[address] [place] [address] 92229 Platelet mean volume (Bld) [Entitic vol] 8.5 fL Normal 6.6 - 10.5 [facility] Comment on above: Result Comment: AUTO MATED DIFFERENTIAL Performed By: #### 2 89206 #### [facility],[address] [place] [address] 51081 RBC 4.64 x 10EE6/UL Normal 4.10 - 5.30 [facility] Comment on above: Performed By: #### 2 30545 #### [facility],[address] [place] [address] 74125 WBC 5.2 x 10EE3/UL Normal 4.5 - 10.8 [facility] Comment on above: Performed By: #### 2 39684 #### [facility],[address] [place] [address] 42665 CMP with eGFRon 08-15-2022 AGE 22 years Normal [facility] Comment on above: Performed By: #### 2 04978 #### [facility],[address] [place] [address] 44556 Albumin [Mass/Vol] 3.8 g/dL Normal 3.4 - 5.0 [facility] Comment on above: Performed By: #### 2 69502 #### [facility],[address] [place], [place] [address] Albumin/Globulin [Mass ratio] 1.0 {ratio} Normal 0.9 - 1.6 [facility] Comment on above: Performed By: #### 2 70211 #### [facility],[address] [place] [address] ALK PHOS 69 U/L Normal 46 - 116 [facility] Comment on above: Performed By: #### 2 49966 #### [facility],[address] [place] [address] ALT [Catalytic activity/Vol] 17 U/L Normal 14 - 59 [facility] Comment on above: Performed By: #### 2 90167 #### [facility],[address] [place] [address] Anion gap [Moles/Vol] 14 mmol/L Normal 10 - 20 [facility] Comment on above: Performed By: #### 2 08300 #### [facility],[address] [place] [address] AST [Catalytic activity/Vol] 18 U/L Normal 13 - 39 [facility] Comment on above: Performed By: #### 2 93111 #### [facility],[address] [place], [place] [address] B/C RATIO 18 ratio Normal 0 - 30 [facility] Comment on above: Performed By: #### 2 07319 #### [facility],[address] [place] [address] 58505 Bilirubin [Mass/Vol] 0.4 mg/dL Normal 0.2 - 1.0 [facility] Comment on above: Performed By: #### 2 10642 #### [facility],[address] [place] [address] 27403 Calcium [Mass/Vol] 9.1 mg/dL Normal 8.5 - 10.1 [facility] Comment on above: Performed By: #### 2 07121 #### [facility],[address] [place] [address] 57886 Chloride [Moles/Vol] 106 mmol/L Normal 98 - 107 [facility] Comment on above: Performed By: #### 2 17511 #### [facility],[address] [place] [address] 84138 CMP with eGFR Normal [facility] Comment on above: Result Comment: COMP REHENSIVE METABOLIC PANEL Performed By: #### 2 42542 #### [address] [address] CO2 [Moles/Vol] 26.1 mmol/L Normal 21.0 - 32.0 [facility] Comment on above: Performed By: #### 2 38298 #### [facility],[address] [place], [place] [address] Creatinine [Mass/Vol] 0.76 mg/dL Normal 0.55 - 1.02 [facility] Comment on above: Performed By: #### 2 53384 #### [facility],[address] [place] [address] 44801 GFR/1.73 sq M.predicted among non-blacks MDRD (S/P/Bld) [Vol rate/Area] mL/min/{1.73_m2} Normal 60 - 999 [facility] Comment on above: Performed By: #### 2 30385 #### [facility],[address] [place] [address] 66015 Result Comment: ACCO RDING TO THE NATIONAL KIDNEY DISEASE EDUCATION PROGRAM(NKDE), A NORMAL eGFR IS A VALUE GREATER THAN OR EQUAL TO 60 ML/MIN/1.73 SQ METERS. CHRONIC KIDNEY DISEASE: <60mL/MIN/1.73 SQ METERS KIDNEY FAILURE: <15mL/MIN/1.73 SQ METERS THIS TEST SHOULD ONLY BE USED FOR PATIENTS 18 YEARS OF AGE AND OLDER. Globulin (S) [Mass/Vol] 3.8 g/dL Normal 1.5 - 3.8 [facility] Comment on above: Performed By: #### 2 48991 #### [facility],[address] [place] [address] 16984 Glucose [Mass/Vol] 93 mg/dL Normal 74 - 106 [facility] Comment on above: Performed By: #### 2 67557 #### [facility],[address] [place] [address] 99680 Potassium [Moles/Vol] 4.1 mmol/L Normal 3.5 - 5.1 [facility] Comment on above: Performed By: #### 2 82803 #### [facility],[address] [place] [address] 67994 Protein [Mass/Vol] 7.6 g/dL Normal 6.4 - 8.2 [facility] Comment on above: Performed By: #### 2 14733 #### [facility],[address] [place] [address] 15415 Sodium [Moles/Vol] 142 mmol/L Normal 136 - 145 [facility] Comment on above: Performed By: #### 2 57359 #### [facility],[address] [place] [address] 08882 Urea nitrogen [Mass/Vol] 14 mg/dL Normal 7 - 18 [facility] Comment on above: Performed By: #### 2 24274 #### [facility],[address] [place] [address] 41886 LIPID PROFILEon 08-15-2022 Cholesterol [Mass/Vol] 188 mg/dL Normal 0 - 240 [facility] Comment on above: Performed By: #### 2 96618 #### [facility],[address] [place] [address] 14578 Cholesterol in HDL [Mass/Vol] 60 mg/dL Normal 40 - 60 [facility] Comment on above: Performed By: #### 2 45730 #### [facility],[address] [place] [address] 98662 Cholesterol in LDL [Mass/Vol] 114 mg/dL Normal 0 - 129 [facility] Comment on above: Performed By: #### 2 34605 #### [facility],[address] [place] [address] 05909 Cholesterol.total/C holesterol in HDL [Mass ratio] 3.1 {ratio} Normal 0.0 - 5.0 [facility] Comment on above: Performed By: #### 2 94900 #### [facility],[address] [place] [address] 77408 Lipid 1996 panel Normal [facility] Comment on above: Result Comment: LIPI D PROFILE Performed By: #### 2 50399 #### [facility],[address] [place] [address] 08490 Triglyceride [Mass/Vol] 72 mg/dL Normal 0 - 150 [facility] Comment on above: Performed By: #### 2 55290 #### [facility],[address] [place] [address] 67202 MRI IACon 07-28-2020 MRI IAC EXAM: MRI [...] no mass effect or abnormal enhancement. Normal [facility] Hep C Ab IA w/Confon 019 Hepatitis C Ab IA NEGAT Normal Negative [facility] Comment on above: Performed By: #### P OMER3 #### [facility] [employer] [facility] [address] [place] [phone] #### [id number] #### [facility] [employer] [facility] [address] [place] [phone] NLYon 02-21-2019 Reagin Ab RPR Ql (S) NR Normal Non Reactive [facility] Comment on above: Performed By: #### P OMER3 #### [facility] [employer] [facility] [address] [place] [phone] #### [id number] #### [facility] [address] [place] [phone] Hepatitis B Surf. Ag NEGAT Normal Negative [facility] Comment on above: Performed By: #### P OMER3 #### [facility] [employer] [facility] [address] [place] [phone] #### [id number] #### [facility] [employer] [facility] [address] [place] [phone] Rubella IgG Ab 4.40 Index Value Normal [facility] Comment on above: Performed By: #### P [id number] #### [facility] [employer] [facility] [address] [place] [phone] #### [id number] #### [facility] [employer] [facility] [address] [place] [phone] Rubella IgG Ab, Qual Positive Abnormal Negative [facility] Comment on above: Performed By: #### P [id number] #### [facility] [address] [place], [place] [address] #### [id number] #### [facility] [address] [place], [place] [address] Vital Signs Date Time Vital Sign Value Performing Clinician Niyah chavarria 01-14-2025 16:20-0400 Body mass index (BMI) [Ratio] 35.26 kg/m2 Chloe Hyde CERTIFIED PHARMACY TECHNICIAN.CNM Work Phone: [facility] 01-14-2025 16:20-0400 Body weight 94.26 kg Chloe Hyde CERTIFIED PHARMACY TECHNICIAN.CNM Work Phone: [facility] 01-14-2025 16:20-0400 Diastolic blood pressure 64 mm[Hg] Chloe Plotts CERTIFIED PHARMACY TECHNICIAN.CNM Work Phone: [facility] 01-14-2025 16:20-0400 Systolic blood pressure 118 mm[Hg] Chloe Hyde CERTIFIED PHARMACY TECHNICIAN.CNM Work Phone: [facility] 01-07-2025 13:12-0400 Body mass index (BMI) [Ratio] 34.85 kg/m2 Santhosh Cee MD Work Phone: [facility] 01-07-2025 13:12-0400 Body weight 93.17 kg Santhosh Cee MD Work Phone: [facility] 01-07-2025 13:12-0400 Diastolic blood pressure 62 mm[Hg] Santhosh Cee MD Work Phone: [facility] 01-07-2025 13:12-0400 Systolic blood pressure 100 mm[Hg] Santhosh Cee MD Work Phone: [facility] 12-31-2024 15:59-0400 Body mass index (BMI) [Ratio] 34.62 kg/m2 Anabell Gasca MD Work Phone: [facility] 12-31-2024 15:59-0400 Body weight 92.53 kg Anabell Gasca MD Work Phone: [facility] 12-31-2024 15:59-0400 Diastolic blood pressure 70 mm[Hg] Anabell Gasca MD Work Phone: [facility] 12-31-2024 15:59-0400 Systolic blood pressure 112 mm[Hg] Anabell Gasca MD Work Phone: [facility] 12-13-2024 11:18-0400 Body mass index (BMI) [Ratio] 33.43 kg/m2 Anabell Gasca MD Work Phone: [facility] 12-13-2024 11:18-0400 Body weight 89.36 kg Anabell Gasca MD Work Phone: [facility] 12-13-2024 11:18-0400 Diastolic blood pressure 70 mm[Hg] Anabell Gasca MD Work Phone: [facility] 12-13-2024 11:18-0400 Systolic blood pressure 108 mm[Hg] Anabell Gasca MD Work Phone: [facility] 11-28-2024 15:35-0400 Body mass index (BMI) [Ratio] 33.77 kg/m2 Franck Haury CERTIFIED PHARMACY TECHNICIAN.[employer] OPERATOR Work Phone: [facility] 11-28-2024 15:35-0400 Body weight 90.27 kg Franck Haury CERTIFIED PHARMACY TECHNICIAN.[employer] OPERATOR Work Phone: [facility] 11-28-2024 15:35-0400 Diastolic blood pressure 64 mm[Hg] Franck Haury CERTIFIED PHARMACY TECHNICIAN.[employer] OPERATOR Work Phone: [facility] 11-28-2024 15:35-0400 Systolic blood pressure 112 mm[Hg] Franck Haury CERTIFIED PHARMACY TECHNICIAN.[employer] OPERATOR Work Phone: [facility] 11-15-2024 15:37-0400 Body mass index (BMI) [Ratio] 32.92 kg/m2 Franck Haury CERTIFIED PHARMACY TECHNICIAN.[employer] OPERATOR Work Phone: [facility] 11-15-2024 15:37-0400 Body weight 88 kg Franck Haury CERTIFIED PHARMACY TECHNICIAN.[employer] OPERATOR Work Phone: [facility] 11-15-2024 15:37-0400 Diastolic blood pressure 68 mm[Hg] Franck Haury CERTIFIED PHARMACY TECHNICIAN.[employer] OPERATOR Work Phone: [facility] 11-15-2024 15:37-0400 Systolic blood pressure 108 mm[Hg] Franck Haury CERTIFIED PHARMACY TECHNICIAN.[employer] OPERATOR Work Phone: [facility] 10-29-2024 15:27-0400 Body mass index (BMI) [Ratio] 32.41 kg/m2 Adela Indu CERTIFIED PHARMACY TECHNICIAN.[employer] OPERATOR Work Phone: [facility] 10-29-2024 15:27-0400 Body weight 86.64 kg Adela [place] CERTIFIED PHARMACY TECHNICIAN.[employer] OPERATOR Work Phone: [facility] 10-29-2024 15:27-0400 Diastolic blood pressure 60 mm[Hg] Adela Indu CERTIFIED PHARMACY TECHNICIAN.[employer] OPERATOR Work Phone: [facility] 10-29-2024 15:27-0400 Systolic blood pressure 102 mm[Hg] Adela [place] CERTIFIED PHARMACY TECHNICIAN.[employer] OPERATOR Work Phone: [facility] 10-01-2024 15:30-0400 Body mass index (BMI) [Ratio] 32.07 kg/m2 Shira Pereira MD Work Phone: [facility] 10-01-2024 15:30-0400 Body weight 85.73 kg Shira Pereira MD Work Phone: [facility] 10-01-2024 15:30-0400 Diastolic blood pressure 74 mm[Hg] Shira Pereira MD Work Phone: [facility] 10-01-2024 15:30-0400 Systolic blood pressure 118 mm[Hg] Shira Pereira MD Work Phone: [facility] 09-03-2024 14:19-0400 Body mass index (BMI) [Ratio] 31.39 kg/m2 Franck Haury CERTIFIED PHARMACY TECHNICIAN.[employer] OPERATOR Work Phone: [facility] 09-03-2024 14:19-0400 Body weight 83.92 kg Franck Armando CERTIFIED PHARMACY TECHNICIAN.[employer] OPERATOR Work Phone: [facility] 09-03-2024 14:19-0400 Diastolic blood pressure 62 mm[Hg] Franck Armando CERTIFIED PHARMACY TECHNICIAN.[employer] OPERATOR Work Phone: [facility] 09-03-2024 14:19-0400 Systolic blood pressure 112 mm[Hg] Franck Armando CERTIFIED PHARMACY TECHNICIAN.[employer] OPERATOR Work Phone: [facility] 08-17-2024 15:05-0500 Body mass index (BMI) [Ratio] 30.95 kg/m2 Santhosh Cee MD Work Phone: [facility] 08-17-2024 15:05-0500 Body weight 82.74 kg Santhosh Cee MD Work Phone: [facility] 08-17-2024 15:05-0500 Diastolic blood pressure 60 mm[Hg] Santhosh Cee MD Work Phone: [facility] 08-17-2024 15:05-0500 Systolic blood pressure 122 mm[Hg] Santhosh Cee MD Work Phone: [facility] 07-20-2024 16:10-0500 Body mass index (BMI) [Ratio] 30.1 kg/m2 Santhosh Cee MD Work Phone: [facility] 07-20-2024 16:10-0500 Body weight 80.47 kg Santhosh Cee MD Work Phone: [facility] 07-20-2024 16:10-0500 Diastolic blood pressure 72 mm[Hg] Santhosh Cee MD Work Phone: [facility] 07-20-2024 16:10-0500 Systolic blood pressure 120 mm[Hg] Santhosh Cee MD Work Phone: [facility] 06-19-2024 14:37-0500 Body mass index (BMI) [Ratio] 29.76 kg/m2 Leona Armando MD Work Phone: [facility] 06-19-2024 14:37-0500 Body weight 79.56 kg Leona Armando MD Work Phone: [facility] 06-19-2024 14:37-0500 Diastolic blood pressure 72 mm[Hg] Leona Armando MD Work Phone: [facility] 06-19-2024 14:37-0500 Systolic blood pressure 112 mm[Hg] Leona Armando MD Work Phone: [facility] 06-01-2024 11:03-0500 Body height 163.5 cm Franck Haalisia CERTIFIED PHARMACY TECHNICIAN.[employer] OPERATOR Work Phone: [facility] 06-01-2024 11:03-0500 Body mass index (BMI) [Ratio] 29.19 kg/m2 Franck Haury CERTIFIED PHARMACY TECHNICIAN.[employer] OPERATOR Work Phone: [facility] 06-01-2024 11:03-0500 Body weight 78.02 kg Franck Haury CERTIFIED PHARMACY TECHNICIAN.[employer] OPERATOR Work Phone: [facility] 06-01-2024 11:03-0500 Diastolic blood pressure 60 mm[Hg] Franck Haury CERTIFIED PHARMACY TECHNICIAN.[employer] OPERATOR Work Phone: [facility] 06-01-2024 11:03-0500 Systolic blood pressure 112 mm[Hg] Franck Haury CERTIFIED PHARMACY TECHNICIAN.[employer] OPERATOR Work Phone: [facility] Encounters Encounter Date Encounter Type Care Provider Facility Start: 01-25-2025 ambulatory Chloe Garcia y:[facility] Start: 01-23-2025 End: 01-23-2025 ambulatory SHIRA PEREIRA Facility:[facility] Start: 01-21-2025 End: 01-21-2025 ambulatory ILANA SPICER Facility:[facility] Start: 01-14-2025 End: 01-14-2025 Patient encounter procedure Chloe Hyde APRN.CNM Work Phone: OB/Gynecology Comment on above: 38 weeks gestation o f (HCC) (Primary Dx); Supervision of high risk in third trimester (HCC) Start: 01-14-2025 End: 01-14-2025 ambulatory CHLOE HYDE Facility:[facility] Start: 01-07-2025 End: 01-07-2025 Patient encounter procedure Santhosh Cee MD Work Phone: OB/Gynecology Comment on above: Supervision of high risk in third trimester (HCC) (Primary Dx); 37 weeks gestation of (HCC) Start: 01-07-2025 End: 01-07-2025 ambulatory SANTHOSH CEE Facility:[facility] Start: 12-31-2024 End: 12-31-2024 Patient encounter procedure Anabell Gasca MD Work Phone: OB/Gynecology Comment on above: 36 weeks gestation o f (HCC) (Primary Dx); Supervision of high risk in third trimester (HCC) Start: 12-31-2024 End: 12-31-2024 ambulatory ANABELL GASCA Facility:[facility] Start: 12-13-2024 End: 12-13-2024 Patient encounter procedure Anabell Gasca MD Work Phone: OB/Gynecology Comment on above: Supervision of high risk in third trimester (HCC) (Primary Dx); 33 weeks gestation of (HCC) Start: 12-13-2024 End: 12-13-2024 ambulatory ANABELL GASCA Facility:[facility] Start: 12-04-2024 End: 12-05-2024 Telephone encounter Franck Armando APRN.CNP Work Phone: OB/Gynecology Comment on above: Breast Pump Start: 11-28-2024 End: 11-28-2024 Patient encounter procedure Franck Armando APRN.CNP Work Phone: OB/Gynecology Comment on above: Supervision of high risk in third trimester (HCC) (Primary Dx); 31 weeks gestation of (HCC); History of depression Start: 11-28-2024 End: 11-28-2024 ambulatory FRANCK ARMANDO Facility:[facility] Start: 11-16-2024 End: 11-16-2024 Telephone encounter Nurse Clinical Nurse Reviewer Orestes Kan Work Phone: Obstetrics/Gynecolog y Comment on above: PRAF Start: 11-15-2024 End: 11-15-2024 Patient encounter procedure Franck Haury CERTIFIED PHARMACY TECHNICIAN.[employer] OPERATOR Work Phone: OB/Gynecology Comment on above: Supervision of high risk in third trimester (HCC) (Primary Dx); 29 weeks gestation of (HCC) Start: 11-15-2024 End: 11-15-2024 ambulatory FRANCK ARMANDO Facility:[facility] Start: 11-02-2024 End: 01-02-2025 Follow-up encounter Shira Pereira MD Work Phone: OB/Gynecology Start: 10-29-2024 End: 10-29-2024 Patient encounter procedure Adela Griggs CERTIFIED PHARMACY TECHNICIAN.[employer] OPERATOR Work Phone: OB/Gynecology Comment on above: 27 weeks gestation o f (HCC) (Primary Dx); Supervision of high risk in second trimester (HCC); Need for vaccination Start: 10-29-2024 End: 10-29-2024 ambulatory ADELA CEDENOCALF Facility:[facility] Start: 10-02-2024 End: 10-02-2024 Telephone encounter Nurse Clinical Nurse Reviewer Oretses Logan Work Phone: Obstetrics/Gynecolog y Comment on above: PRAF Start: 10-01-2024 End: 10-01-2024 ambulatory SHIRA PEREIRA Facility:[facility] Start: 10-01-2024 End: 10-01-2024 Patient encounter procedure Shira Pereira MD Work Phone: OB/Gynecology Comment on above: Supervision of high risk in second trimester (HCC) (Primary Dx); Screening for diabetes mellitus; 23 weeks gestation of (HCC) Start: 09-04-2024 End: 11-05-2024 Follow-up encounter Anabell Gasca MD Work Phone: OB/Gynecology Start: 09-03-2024 End: 09-03-2024 Patient encounter procedure Franck Armando CERTIFIED PHARMACY TECHNICIAN.[employer] OPERATOR Work Phone: OB/Gynecology Comment on above: Supervision of high risk in second trimester (Primary Dx); 19 weeks gestation of Encounter for anatomic survey (Primary Dx); 19 weeks gestation of Start: 09-03-2024 End: 09-03-2024 ambulatory FRANCK ARMANDO Facility:[facility] Start: 08-17-2024 End: 08-17-2024 ambulatory SANTHOSH CEE Facility:[facility] Start: 08-17-2024 End: 08-17-2024 Patient encounter procedure Santhosh Cee MD Work Phone: OB/Gynecology Comment on above: Supervision of high risk in second trimester (Primary Dx); 17 weeks gestation of ; History of depression Start: 07-20-2024 End: 07-20-2024 ambulatory FRANCK ARMANDO Facility:[facility] Start: 07-20-2024 End: 07-20-2024 Patient encounter procedure Santhosh Cee MD Work Phone: OB/Gynecology Comment on above: Encounter for superv ision of high risk in first trimester, antepartum (Primary Dx); 13 weeks gestation of ; Attention deficit hyperactivity disorder (ADHD), unspecified ADHD type; History of depression Encounter for caroline vital screening for malformation using ultrasound (Primary Dx); 13 weeks gestation of Start: 06-19-2024 End: 06-19-2024 Office outpatient visit 15 minutes Leona Armando MD Work Phone: OB/Gynecology Comment on above: Encounter for superv ision of high risk in first trimester, antepartum (Primary Dx); Size of fetus inconsistent with dates in first trimester; 8 weeks gestation of Start: 06-19-2024 End: 06-19-2024 ambulatory Clinical Nurse Reviewer [employer] Remote Work Phone: OB/Gynecology Start: 06-19-2024 End: 06-19-2024 Patient encounter procedure Us Tech 1 [employer] OB/Gynecology Start: 06-05-2024 End: 06-05-2024 Telephone encounter Guadalupe Daley RN Obstetrics/Gynecolo g y Comment on above: PRAF Start: 06-04-2024 End: 06-04-2024 ambulatory FRANCK ARMANDO Facility:[facility] Start: 06-01-2024 End: 06-01-2024 ambulatory FRANCK ARMANDO Facility:[facility] Start: 06-01-2024 End: 06-01-2024 Patient encounter procedure Fracnk Armando CERTIFIED PHARMACY TECHNICIAN.[employer] OPERATOR Work Phone: OB/Gynecology Comment on above: Encounter for superv ision of high risk in first trimester, antepartum (Primary Dx); 5 weeks gestation of ; with uncertain dates in first trimester; Screening for cervical cancer; History of depression; Attention deficit hyperactivity disorder (ADHD), unspecified ADHD type; Family history of blood coagulation disorder Start: 05-28-2024 End: 05-28-2024 Telephone encounter Franckedith Lincolnalisia BAGLEY.LEAD SE[employer]AGE PLANT OPERATOR Work Phone: OB/Gynecology Comment on above: Appointment Start: 05-25-2023 End: 05-25-2023 ambulatory [facility] Start: 03-15-2023 End: 03-15-2023 ambulatory CHELA DO BLAIRMIRIAMSTEPAN [facility] Start: 03-15-2023 Telephone encounter Soto Jensen Work Phone: Podiatry Comment on above: Orders Start: 02-20-2023 Orders Only Soto jimenez Work Phone: Podiatry Start: 02-17-2023 ambulatory Soto jimenez Work Phone: Podiatry Comment on above: Injection Start: 02-17-2023 Telephone encounter Soto Ernesto correa Work Phone: Podiatry Comment on above: Orders; Patient Upda te Start: 02-04-2023 Telephone encounter Kriss lara RDMS, RVT Radiology Comment on above: Appointment Start: 02-03-2023 Orders Only Soto jimenez Work Phone: Podiatry Comment on above: Left foot pain (Prim yaya Dx) Start: 01-29-2023 ambulatory Soto jimenez Work Phone: Podiatry Comment on above: mri Start: 01-29-2023 E-mail encounter lawanda m caregiver Soto Trejo Work Phone: [place] [facility] Start: 01-26-2023 End: 01-26-2023 Subsequent hospital visit by physician Mri Radio [facility] Wstr (I-Stat/1.5t) Work Phone: Radiology Comment on above: Disorder of bone [M8 9.9] Start: 12-16-2022 End: 12-16-2022 Patient encounter procedure Soto Trejo Work Phone: Podiatry Comment on above: Disorder of bone (Pr imary Dx); Tailor's bunion of left foot; Left foot pain Start: 11-12-2022 End: 11-12-2022 Subsequent hospital visit by physician Lisa [facility] [place] Hu Work Phone: Radiology Comment on above: Tailor's bunion of l eft foot [M21.622] Start: 10-27-2022 End: 10-27-2022 Patient encounter procedure Soto Trejo Work Phone: Podiatry Comment on above: Tailor's bunion of l eft foot (Primary Dx) Start: 08-15-2022 End: 08-15-2022 ambulatory [facility] Start: 08-15-2022 Encounter for genera l adult medical examination without abnormal findings [facility] Start: 08-06-2020 Patient encounter procedure OSVALDO DAMON Facility:[facility] Start: 07-28-2020 End: 07-29-2020 Patient encounter procedure OSVALDO DAMON Facility:[facility] Procedures Date Procedure Procedure Detail Performing Clinician Start: 01-14-2025 Urnls dip stick/tabl et rgnt non-auto w/o micrscp Chloe Hyde APRN.CNM Work Phone: Start: 01-07-2025 Urnls dip stick/tabl et rgnt non-auto w/o micrscp Santhosh Cee MD Work Phone: Start: 12-31-2024 Urnls dip stick/tabl et rgnt non-auto w/o micrscp Anabell Gasca MD Work Phone: Start: 09-03-2024 Us preg uterus after 1st trimest 06/20 gestation Franck Armando APRN.[employer] OPERATOR Work Phone: Start: 07-20-2024 Us nuchal translucency 1st gestation Franck Lincolnalisia MARIE Work Phone: Start: 06-19-2024 Us pelvic nonobstetr ic real-time image complete Franck Armando CYNTHIA Work Phone: Start: 06-01-2024 Antibody screen FRANCK WEN Comment on above: Order Comment: Speci men Type: BLOOD SPECIMEN Ordering Facility: [facility] Address: [address] [place] [address] Performed By: #### T SPN #### [facility] CLIA [id number] [address] [place] [address] [place] Start: 06-01-2024 Us uterus l imited 1/> fetuses Franck Lincolnalisia MARIE Work Phone: Start: 01-26-2023 Mri lower extrem oth /thn jt w/o & w/contr matr Soto Trejo Work Phone: Start: 11-12-2022 Radex foot complete minimum 3 views Soto Trejo Work Phone: Plan of Treatment Date Care Activity Detail Author Start: 10-29-2034 Urine microalbumin profile DTaP,Tdap,Td Vaccine (7 - Td or Tdap) [facility] Start: 06-01-2027 Screening for malign ant neoplasm of cervix Cervical Cancer Screening [facility] Start: 02-18-2025 Influenza vaccination C [facility] Start: 01-23-2025 End: 01-23-2025 Patient encounter procedure 01/23/2025 4:20 PM EDT Routine Office Visit OB/Gynecology [address] [place] [address] Shira Blackwood MD [address] [place] [id number] OB OB/Gynecology Comment on above: OB Start: 01-14-2025 End: 01-14-2025 Patient encounter procedure 01/14/2025 4:30 PM EDT Routine Office Visit OB/Gynecology [address] [place] [address] Chloe Hyde APRN.[facility] [address] [place] [address] OB OB/Gynecology Comment on above: OB Start: 01-07-2025 End: 01-07-2025 Patient encounter procedure 01/07/2025 1:10 PM EDT Routine Office Visit OB/Gynecology [address] [place] [address] Santhosh Cee MD [address] [place] [address] OB OB/Gynecology Comment on above: OB Start: 12-31-2024 End: 12-31-2024 Patient encounter procedure 12/31/2024 3:50 PM EDT Routine Office Visit OB/Gynecology [address] [place] [address] Anabell Gasca MD [address] [place] [address] OB OB/Gynecology Comment on above: OB Start: 12-13-2024 End: 12-13-2024 Patient encounter procedure 12/13/2024 11:20 AM EDT Routine Office Visit OB/Gynecology [address] [place] [address] Anabell Gasca MD [address] [place] [address] Return in about 2 wks for ENRIKE OB/Gynecology Comment on above: Return in about 2 wk s for ENRIKE Start: 11-28-2024 End: 11-28-2024 Patient encounter procedure 11/28/2024 3:45 PM EDT Routine Office Visit OB/Gynecology [address] [place] [address] Franck Armando APRN.[employer] OPERATOR [address] [place] [address] Ob OB/Gynecology Comment on above: Ob Start: 11-15-2024 End: 11-15-2024 Patient encounter procedure 11/15/2024 8:00 AM EDT Routine Office Visit OB/Gynecology [address] [place] [address] Franck Armando APRN.[employer] OPERATOR [address] [place] [address] Ob OB/Gynecology Comment on above: Ob Start: 10-31-2024 End: 01-30-2025 ANEMIA REFLEX PANEL ANEMIA REFLEX PANEL Lab Routine Supervision of high risk in second trimester (HCC) 23 weeks gestation of (HCC) Expected: 10/31/2024, Expires: 01/30/2025 [facility] Comment on above: Expected: 10/31/2024 , Expires: 01/30/2025 Start: 10-31-2024 End: 10-01-2025 GESTATIONAL GLUCOSE SCREEN, 1-HOUR, 50 GRAM, NON-FASTING GESTATIONAL GLUCOSE SCREEN, 1-HOUR, 50 GRAM, NON-FASTING Lab Routine Screening for diabetes mellitus Expected: 10/31/2024, Expires: 10/01/2025 [facility] Work Phone: Comment on above: Expected: 10/31/2024 , Expires: 10/01/2025 Start: 10-31-2024 End: 10-01-2025 SYPHILIS TREPONEMAL W/REFLEX SYPHILIS TREPONEMAL W/REFLEX Lab Routine Supervision of high risk in second trimester (HCC) 23 weeks gestation of (HCC) Expected: 10/31/2024, Expires: 10/01/2025 [facility] Comment on above: Expected: 10/31/2024 , Expires: 10/01/2025 Start: 10-29-2024 End: 10-29-2024 Patient encounter procedure 10/29/2024 3:40 PM EDT Routine Office Visit OB/Gynecology [address] [place] [address] Santhosh Cee MD [address] [place] [address] Glucose Test /OB OB/Gynecology Comment on above: Glucose Test /OB Start: 10-29-2024 End: 10-29-2024 ambulatory 10/29/2024 3:30 PM EDT Results Only [place] [facility] [address] [place] [address] Glucose Test [facility] [facility] Comment on above: Glucose Test Start: 10-01-2024 End: 10-01-2024 Patient encounter procedure 10/01/2024 3:40 PM EDT Routine Office Visit OB/Gynecology [address] [place] [address] Shira Blackwood MD [address] [place] [address] OB OB/Gynecology Comment on above: OB Start: 09-14-2024 End: 09-14-2024 Patient encounter procedure 09/14/2024 2:40 PM EDT Routine Office Visit OB/Gynecology [address] [place] [address] Michael Edwards MD [address] [place] [address] OB Routine OB/Gynecology Comment on above: OB Routine Start: 09-14-2024 End: 09-14-2024 Patient encounter procedure 09/14/2024 1:30 PM EDT Routine Office Visit [facility] [address] [place] [address] Anatomy Scan [facility]aternal [facility] Comment on above: Anatomy Scan Start: 09-03-2024 End: 09-03-2024 Patient encounter procedure OB/Gynecology Comment on above: OB Routine Anatomy Scan Start: 08-17-2024 End: 08-17-2024 Patient encounter procedure 08/17/2024 3:10 PM EST Routine Office Visit OB/Gynecology [address] [place] [address] Santhosh Cee MD [address] [place] [address] OB Routine OB/Gynecology Comment on above: OB Routine Start: 07-20-2024 End: 07-20-2024 Patient encounter procedure [facility] Comment on above: Nuchal OB Routine Start: 06-19-2024 End: 06-19-2024 Patient encounter procedure 06/19/2024 2:40 PM EST Routine Office Visit OB/Gynecology [address] [place] [address] Leona Armando MD [address] [place] [address] OB Routine OB/Gynecology Comment on above: OB Routine Start: 06-19-2024 End: 06-19-2024 ambulatory 06/19/2024 2:00 PM EST Procedure OB/Gynecology [address] [place] [address] Remote, Clinical Nurse Reviewer [employer] [address] [place] [address] with uncertain dates in first trimester [Z34.91]; 5 weeks gestation of [Z3A.01] OB/Gynecology Comment on above: with uncer tain dates in first trimester [Z34.91]; 5 weeks gestation of [Z3A.01] Start: 06-15-2024 End: 06-01-2025 US Pelvis PELVIC US WHI Anc Imaging Routine with uncertain dates in first trimester 5 weeks gestation of Expected: 06/15/2024, Expires: 06/01/2025 [facility] Comment on above: Expected: 06/15/2024 , Expires: 06/01/2025 Start: 06-01-2024 End: 08-31-2024 ANEMIA REFLEX PANEL [facility] Work Phone: Comment on above: Expected: 06/01/2024 , Expires: 08/31/2024 Start: 06-01-2024 End: 08-31-2024 CARRIER SCREEN, STANDARD [facility] Comment on above: Expected: 06/01/2024 , Expires: 08/31/2024 Start: 06-01-2024 End: 08-31-2024 Hemoglobin A1c in Blood [facility] Comment on above: Expected: 06/01/2024 , Expires: 08/31/2024 Start: 06-01-2024 End: 08-31-2024 Hepatitis B virus surface Ag [Presence] in Serum [facility] Comment on above: Expected: 06/01/2024 , Expires: 08/31/2024 Start: 06-01-2024 End: 08-31-2024 Hepatitis C virus Ab [Presence] in Serum [facility] Comment on above: Expected: 06/01/2024 , Expires: 08/31/2024 Start: 06-01-2024 End: 08-31-2024 HIV 1+2 Ab [Presence] in Serum or Plasma by Immunoassay [facility] Comment on above: Expected: 06/01/2024 , Expires: 08/31/2024 Start: 06-01-2024 End: 06-01-2025 NUCHAL TRANSLUCENCY WHI NUCHAL TRANSLUCENCY WHI Anc Imaging Routine with uncertain dates in first trimester 5 weeks gestation of Expected: 06/01/2024, Expires: 06/01/2025 [facility] Comment on above: Expected: 06/01/2024 , Expires: 06/01/2025 Start: 06-01-2024 End: 06-01-2025 OBSTETRIC ULTRASOUND WHI OBSTETRIC ULTRASOUND WHI Anc Imaging Routine with uncertain dates in first trimester Expected: 06/01/2024, Expires: 06/01/2025 [facility] Comment on above: Expected: 06/01/2024 , Expires: 06/01/2025 Start: 06-01-2024 End: 08-31-2024 RUBELLA IGG ANTIBODY [facility] Comment on above: Expected: 06/01/2024 , Expires: 08/31/2024 Start: 06-01-2024 End: 08-31-2024 SYPHILIS TREPONEMAL W/REFLEX [facility] Comment on above: Expected: 06/01/2024 , Expires: 08/31/2024 Start: 06-01-2024 End: 08-31-2024 TYPE + SCREEN [facility] Comment on above: Expected: 06/01/2024 , Expires: 08/31/2024 Start: 06-01-2024 End: 06-01-2024 Patient encounter procedure 06/01/2024 11:00 AM EST Initial Office Visit OB/Gynecology [address] [place], [place] [id number] Franck Armando, KEVYN.LEAD SEWAGE PLANT OPERATOR [address] [place] [address] OB/Gynecology Start: 02-19-2024 Covid-19 Vaccine ( season) Covid-19 Vaccine () [facility] Start: 02-19-2024 Influenza vaccination Influenza Vacc ine (#1) [facility] Start: 03-15-2023 End: 05-15-2023 Comprehensive metabolic 2000 panel - Serum or Plasma COMP METABOLIC PANEL Lab Routine Left foot pain Bursitis of left foot Expected: 03/15/2023, Expires: 05/15/2023 [facility] Work Phone: Comment on above: Expected: 03/15/2023 , Expires: 05/15/2023 Start: 02-18-2023 Covid-19 Vaccine ( season) Covid-19 Vaccine () [facility] Start: 02-18-2023 Influenza vaccination C [facility] Start: 06-20-2022 DEPRESSION ASSESSMENT DEPRESSION ASS ESSMENT [facility] Start: 01-17-2022 Urine microalbumin profile [facility] Start: 02-23-2021 COVID-19 VACCINE (5 - Booster for Moderna series) COVID-19 VACCINE (5 - Booster for Moderna series) [facility] Start: 02-23-2021 COVID-19 VACCINE (5 - Moderna series) COVID-19 VACCINE (5 - Moderna series) [facility] Start: 2020 PAP TESTING PAP TESTING [facility] Start: 2020 Screening for malign ant neoplasm of cervix Cervical Cancer Screening [facility] Start: 2017 Anxiety Screening Anxiety Screening [facility] Start: 2017 CHLAMYDIA SCREENING (18-24) CHLAMYDIA SCREENING (18-24) [facility] Start: 2017 Depression Screening Depression Scre ening [facility] Start: 2017 GC (GONORRHEA) SCREYonny MCMILLAN (18-24) GC (GONORRHEA) SCREENING (18-24) [facility] Start: 2017 HEPATITIS C SCREENING HEPATITIS C SC [facility] Start: 2017 Hepatitis C screening Hepatitis C [facility] Start: 2017 HIV SCREENING HIV SCREENING [facility] Start: 2017 HIV screening HIV Screening [facility] Start: 2015 Meningococcal B Vacc ine: Consider Based On Risk (1 of 2 - Patient Seeks Protection) Meningococcal B Vaccine: Consider Based On Risk (1 of 2 - Patient Seeks Protection) [facility] Start: 2015 MENINGOCOCCAL B: Consider based on risk (1 of 2 - Patient Seeks Protection) MENINGOCOCCAL B: Consider based on risk (1 of 2 - Patient Seeks Protection) [facility] Start: 2014 HPV Vaccine (1 - 3-d ose series) HPV Vaccine (1 - 3-dose series) [facility] Start: 2013 PEDS TO ADULT TRANSI TION ANNUAL ASSESSMENT PEDS TO ADULT TRANSITION ANNUAL ASSESSMENT [facility] Start: 2011 PEDS TO ADULT TRANSI TION INITIAL DISCUSSION PEDS TO ADULT TRANSITION INITIAL DISCUSSION [facility] Start: 2010 HPV VACCINE (1 - 2-d ose series) HPV VACCINE (1 - 2-dose series) [facility] Start: 2009 MENINGOCOCCAL B: Consider based on risk (1 of 2 - Risk Bexsero 2-dose series) MENINGOCOCCAL B: Consider based on risk (1 of 2 - Risk Bexsero 2-dose series) [facility] Start: 2008 HPV VACCINE (1 - 2-d ose series) HPV VACCINE (1 - 2-dose series) [facility] End: 03-04-2024 Arthrocnt aspir&/inj small jt/bursaw/us rec rprt US ASP/INJ HAND/FINGER/FOOT/TOE JT BURSA LT Radiology Routine Left foot pain 1 Occurrences starting 02/03/2023 until 03/04/2024 [facility] Work Phone: Comment on above: 1 Occurrences starti ng 02/03/2023 until 03/04/2024 Bacteria identified in Urine by Culture URINE CULTURE Microbiology Routine with uncertain dates in first trimester 06/01/2024 11:47 AM [facility] Chlamydia trachomatis+Neisseria gonorrhoeae DNA [Presence] in Unspecified specimen by BRAD with probe detection GONORRHEA/CHLAMYDIA NAAT Lab Routine with uncertain dates in first trimester 06/01/2024 11:47 AM [facility] End: 06-01-2025 Choriogonadotropin.beta subunit [Units/volume] in Serum or Plasma HCG QUANTITATIVE Lab Routine with uncertain dates in first trimester 2x per week for 6 Occurrences starting 06/01/2024 until 06/01/2025 [facility] Comment on above: 2x per week for 6 Oc currences starting 06/01/2024 until 06/01/2025 Choriogonadotropin.b eta subunit [Units/volume] in Serum or Plasma HCG QUANTITATIVE Lab Routine with uncertain dates in first trimester 06/01/2024 12:06 PM [facility] End: 01-15-2024 MRI FOOT/TOES WO/W IVCON LEFT MRI FOOT/TOES WO/W IVCON LEFT Radiology Routine Disorder of bone 1 Occurrences starting 12/16/2022 until 01/15/2024 [facility] Work Phone: Comment on above: 1 Occurrences starti ng 12/16/2022 until 01/15/2024 PAP TEST PAP TEST Lab Rou pieter with uncertain dates in first trimester Screening for cervical cancer 06/01/2024 11:47 AM [facility] ROUTINE, GR OUP B STREPTOCOCCUS BY PCR ROUTINE, GROUP B STREPTOCOCCUS BY PCR Microbiology Routine 36 weeks gestation of ([facility]) 12/31/2024 4:24 PM EDT [facility] Work Phone: URINE OB DIP B/O URINE OB DIP B/ O Lab Routine Supervision of high risk in third trimester (HCC) 33 weeks gestation of (HCC) Ordered: 12/13/2024 [facility] Work Phone: Comment on above: Ordered: 12/13/2024 End: 11-26-2023 XR FOOT GENERAL 3V AP/LAT/OBL LEFT XR FOOT GENERAL 3V AP/LAT/OBL LEFT Radiology Routine Tailor's bunion of left foot 1 Occurrences starting 10/27/2022 until 11/26/2023 [facility] Work Phone: Comment on above: 1 Occurrences starti ng 10/27/2022 until 11/26/2023 [facility] Immunizations Immunization Date Immunization Notes Care Provider Kenji morris 10-29-2024 tetanus toxoid, redu mago diphtheria toxoid, and acellular pertussis vaccine, adsorbed Adela Griggs APRN.CNP Work Phone: [facility] 06-19-2021 influenza virus vacc ine, unspecified formulation [employer] Work Phone: [facility] 02-01-2017 meningococcal polysaccharide (groups A, C, Y and W-135) diphtheria toxoid conjugate vaccine (MCV4P) [facility] [employer] Work Phone: [facility] Work Phone: 08-24-2012 Meningococcal, MCV4, unspecified conjugate formulation(groups A, C, Y and W-135) [facility] [employer] Work Phone: [facility] Work Phone: 08-24-2012 poliovirus vaccine, inactivated [employer] Work Phone: [facility] Work Phone: 08-24-2012 varicella virus vaccine Aldo mehdi [employer] Work Phone: [facility] Work Phone: 01-18-2012 tetanus toxoid, redu mago diphtheria toxoid, and acellular pertussis vaccine, adsorbed [employer] Work Phone: [facility] Work Phone: 04-29-2009 novel influenza-H1N1 -09, all formulations [facility] [employer] Work Phone: [facility] Work Phone: 05-02-2007 influenza virus vacc ine, unspecified formulation [employer] Work Phone: [facility] Work Phone: 06-04-2005 hepatitis B vaccine, pediatric or pediatric/adolescent dosage [employer] Work Phone: [facility] 02-02-2005 diphtheria, tetanus toxoids and acellular pertussis vaccine [employer] Work Phone: [facility] Work Phone: 02-02-2005 hepatitis B vaccine, pediatric or pediatric/adolescent dosage [employer] Work Phone: [facility] Work Phone: 02-02-2005 measles, mumps and rubella virus vaccine [employer] Work Phone: [facility] Work Phone: 02-02-2005 poliovirus vaccine, inactivated [employer] Work Phone: [facility] Work Phone: 06-28-2000 hepatitis B vaccine, pediatric or pediatric/adolescent dosage [employer] Work Phone: [facility] Work Phone: 06-28-2000 measles, mumps and rubella virus vaccine [employer] Work Phone: [facility] Work Phone: 1999 diphtheria, tetanus toxoids and acellular pertussis vaccine [employer] Work Phone: [facility] Work Phone: 1999 haemophilus influenz ae type b vaccine, HbOC conjugate [employer] Work Phone: [facility] Work Phone: 1999 diphtheria, tetanus toxoids and acellular pertussis vaccine [employer] Work Phone: [facility] Work Phone: 1999 haemophilus influenz ae type b vaccine, HbOC conjugate [employer] Work Phone: [facility] Work Phone: 1999 poliovirus vaccine, inactivated [employer] Work Phone: [facility] Work Phone: 1999 diphtheria, tetanus toxoids and acellular pertussis vaccine [facility] [employer] Work Phone: [facility] Work Phone: 1999 haemophilus influenz ae type b vaccine, HbOC conjugate [facility] Work Phone: [facility] Work Phone: 1999 poliovirus vaccine, inactivated [employer] Boykin Work Phone: [facility] Work Phone: Payers Date Payer Category Payer Self-pay 2022 Medicaid [id number] 1999 Unknown [id number] 1999 Unknown [id number] 1999 Unknown [id number] 1999 Unknown [id number] 1959 Unknown [id number] Unknown [id number] Unknown [id number] Social History Date Type Detail Facility Start: 05-28-2024 Tobacco smoking stat [facility] Never smoked tobacco [facility] Start: 10-27-2022 End: 01-14-2025 Alcohol intake Current non-drinker of alcohol (finding) [facility] Start: 2000 Sex Assigned At Not on file [facility] Start: 10-27-2022 End: 12-16-2022 History of Social function [facility] Start: 10-27-2022 End: 12-16-2022 Tobacco use panel [facility] National Score (1-10 0), lower number is lower risk 65 [facility] Start: 05-28-2024 Tobacco use and exposure Smoke less tobacco non-user [facility] Start: 05-28-2024 Education 17 [facility] Start: 04-13-2024 [facility] Goals Date Patient Goal Desired Activity [...] distress Abd: Gravid, non tender CE - 60/-2 membranes swept without difficulty ASSESSMENT/PLAN: 1. 38 weeks gestation of 2. Supervision of high risk in third trimester - GBS negative - Hx of precipitous delivery with last delivery - Labor precautions reviewed - October schedule CE with another membrane sweep later this week if undelivered Chloe Hyde APRN.CNM [facility] Work Phone: 01-14-2025 Miscellaneous Notes S: [...] distress Abd: Gravid, non tender CE - /-2 membranes swept without difficulty ASSESSMENT/PLAN: 1. 38 weeks gestation of 2. Supervision of high risk in third trimester - GBS negative - Hx of precipitous delivery with last delivery - Labor precautions reviewed - May schedule CE with another membrane sweep later this week if undelivered Chloe Hyde APRN.CNM documented in this encounter [facility] 01-14-2025 Instructions Radha Fox LPN - 01/14/2025 4:16 PM EDT SEQUENTIAL SCREENINGS The [facility] offers sequential screenings for women who [...] It will require an appointment with our career guidance technician. This is not an ultrasound performed [...] the above symptoms, contact our office at [phone] and ask to speak with a nurse. After hours, you can call doctors registry at [phone] OR call [facility] at [phone] and ask to have the doctor control integration engineer paged. If you consider this an emergency, dial 02-18- or go to your nearest emergency department. NEED HELP? Are you dealing with a violent or abusive relationship? Are you a victim of rape or sexual assult? Call [facility] ([place]) 24 hour Crisis Hotline: 532.552.1859 or 059-026-9698. MANUAL Your Guide to a Healthy manual is now on-line. Visit [email or web address] to download your free copy documented in this encounter [facility] 01-07-2025 Progress note Formatting of t his note might be different from the original. SW- Pt doing well. No ctx, vb, lof. Good FM PE: Gen- NAD, well appearing Abd- Soft, gravid, NT, S=D See flowsheet A/p 37 wk gestation - GBS negative - Weekly visits Santhosh Cee DO [facility] 01-07-2025 Miscellaneous Notes SW- Pt doing well. No ctx, vb, lof. Good FM PE: Gen- NAD, well appearing Abd- Soft, gravid, NT, S=D See flowsheet A/p 37 wk gestation - GBS negative - Weekly visits Santhosh Cee DO documented in this encounter [facility] 01-07-2025 Instructions Jessica Plunkett MA - 01/07/2025 1:10 PM EDT SEQUENTIAL SCREENINGS The [facility] offers sequential screenings for women who [...] It will require an appointment with our career guidance technician. This is not an ultrasound performed [...] the above symptoms, contact our office at [phone] and ask to speak with a nurse. After hours, you can call doctors registry at [phone] OR call [facility] at [phone] and ask to have the doctor control integration engineer paged. If you consider this an emergency, dial 2-4-6 or go to your nearest emergency department. NEED HELP? Are you dealing with a violent or abusive relationship? Are you a victim of rape or sexual assult? Call [facility] ([place]) 24 hour Crisis Hotline: 625.853.6721 or 895-402-7151. MANUAL Your Guide to a Healthy manual is now on-line. Visit [email or web address] to download your free copy documented in this encounter [facility] 12-31-2024 Progress note Formatting of t his note might be different from the original. RR- VB No. LOF No. CTXS No. Movement: present. Other c/o: No. Medication list reviewed. SENSITIVE EXAM: The sensitive examination was discussed with the Patient or Patient's Authorized File Machine Operator. As applicable, any other physician, advance practice provider, medical student, or other health professional student that will be observing or involved in the sensitive examination for educational or training purposes was discussed with the Patient or Authorized File Machine Operator. The Patient or Authorized File Machine Operator has agreed to proceed with the sensitive [...] brief US confirms vtx Anabell Gasca M.D. [facility] 12-31-2024 Miscellaneous Notes RR- VB No. LOF No. CTXS No. Movement: present. Other c/o: No. Medication list reviewed. SENSITIVE EXAM: The sensitive examination was discussed with the Patient or Patient's Authorized File Machine Operator. As applicable, any other physician, advance practice provider, medical student, or other health professional student that will be observing or involved in the sensitive examination for educational or training purposes was discussed with the Patient or Authorized File Machine Operator. The Patient or Authorized File Machine Operator has agreed to proceed with the sensitive [...] Anabell Gasca M.D. documented in this encounter [facility] 12-31-2024 Instructions Ariane Machado MA - 12/31/2024 4:00 PM EDT SEQUENTIAL SCREENINGS The [facility] offers sequential screenings for women who [...] It will require an appointment with our career guidance technician. This is not an ultrasound performed [...] the above symptoms, contact our office at [phone] and ask to speak with a nurse. After hours, you can call doctors registry at [phone] OR call [facility] at [phone] and ask to have the doctor control integration engineer paged. If you consider this an emergency, dial 91- or go to your nearest emergency department. NEED HELP? Are you dealing with a violent or abusive relationship? Are you a victim of rape or sexual assult? Call [facility] ([place]) 24 hour Crisis Hotline: 520.192.9116 or 641-817-3403. MANUAL Your Guide to a Healthy manual is now on-line. Visit [email or web address] to download your free copy documented in this encounter [facility] 12-13-2024 Progress note Formatting of t [...] counts gbs next visit Anabell Gasca M.D. [facility] 12-13-2024 Miscellaneous Notes RR- VB No. [...] Anabell Gasca M.D. documented in this encounter [facility] 12-13-2024 Instructions David MachadoathaFEDE - 12/13/2024 11:14 AM EDT SEQUENTIAL SCREENINGS The [facility] offers sequential screenings for women who [...] It will require an appointment with our career guidance technician. This is not an ultrasound performed [...] the above symptoms, contact our office at [phone] and ask to speak with a nurse. After hours, you can call [facility] at [phone] OR call [facility] at [phone] and ask to have the doctor control integration engineer paged. If you consider this an emergency, dial 9--1 or go to your nearest emergency department. NEED HELP? Are you dealing with a violent or abusive relationship? Are you a victim of rape or sexual assult? Call [facility] ([place]) 24 hour Crisis Hotline: 724.272.4827 or 324-902-9455. MANUAL Your Guide to a Healthy manual is now on-line. Visit [email or web address] to download your free copy documented in this encounter [facility] 12-05-2024 Telephone encounter Note Order signed and faxed. Vicki Morataya RN [facility] 12-05-2024 Miscellaneous Notes Order signed and faxed. Vicki Morataya RN Received breast pump RX from [employer]. To to sign. Leona Heck RN documented in this encounter [facility] 12-04-2024 Telephone encounter Note Received breast pump RX from [employer]. To to sign. Leona Heck, HARSHAD [facility] 11-28-2024 Progress note Formatting of t [...] weeks or sooner as needed. Franck Armando APRN.LEAD SEWAGE PLANT OPERATOR [facility] 11-28-2024 Miscellaneous Notes EH - S: [...] 2. 31 weeks gestation of ([facility]) - ICD9: V22.2, ICD10: Z3A.31 3. History of depression - ICD9: V11.8, ICD10: Z86.59 - Mood stable, denies concerns PTL precautions and kick counts reviewed. RTO in 2 weeks or sooner as needed. Franck Armando APRN.LEAD SEWAGE PLANT OPERATOR documented in this encounter [facility] 11-28-2024 Laura Scott MA - 11/28/2024 3:32 PM EDT SEQUENTIAL SCREENINGS The [facility] offers sequential screenings for women who [...] It will require an appointment with our career guidance technician. This is not an ultrasound performed [...] the above symptoms, contact our office at [phone] and ask to speak with a nurse. After hours, you can call doctors registry at [phone] OR call [facility] at [phone] and ask to have the doctor control integration engineer paged. If you consider this an emergency, dial 9-1-2 or go to your nearest emergency department. NEED HELP? Are you dealing with a violent or abusive relationship? Are you a victim of rape or sexual assult? Call [facility] ([place]) 24 hour Crisis Hotline: 117.650.4401 or 078-273-1062. MANUAL Your Guide to a Healthy manual is now on-line. Visit [email or web address] to download your free copy documented in this encounter [facility] 11-16-2024 Telephone encounter Note 3rd risk assessment form submitted 11/16/24 Lorena uLi RN [facility] 11-16-2024 Miscellaneous Notes 3rd risk assessment form submitted 11/16/24 Lorena Lui RN documented in this encounter [facility] 11-15-2024 Progress note Formatting of t [...] 2. 29 weeks gestation of ([facility]) - ICD9: V22.2, ICD10: Z3A.29 - 28 week labs reviewed - Plans to pre register at [facility] PTL precautions and kick counts reviewed. RTO in 2 weeks or sooner as needed. Franck Armando APRN.LEAD SEWAGE PLANT OPERATOR [facility] 11-15-2024 Miscellaneous Notes EH - S: [...] 2. 29 weeks gestation of ([facility]) - ICD9: V22.2, ICD10: Z3A.29 - 28 week labs reviewed - Plans to pre register at [facility] PTL precautions and kick counts reviewed. RTO in 2 weeks or sooner as needed. Franck Armando APRN.LEAD SEWAGE PLANT OPERATOR documented in this encounter [facility] 10-29-2024 Progress note Formatting of t his note might be different from the original. RM-Pt doing well. Denies vaginal Bleeding, Leaking fluid, or regular Contractions. Pt reports good movement Physical Exam: Gen: no apparent distress Abd: soft, Gravid. Non tender to palpation. See flow sheet ASSESSMENT/PLAN: 1. 27 weeks gestation of (HCC) - ICD9: V22.2, ICD10: Z3A.27 (primary diagnosis) Glucose test today 2. Supervision of high risk in second trimester ([facility]) - ICD9: V23.9, ICD10: O09.92 3. Need for vaccination - ICD9: V05.9, ICD10: Z23 Tdap given LARC declined RTO 2 weeks Adela Griggs APRN.CNP [facility] 10-29-2024 Miscellaneous Notes RM-Pt doing well. Denies vaginal Bleeding, Leaking fluid, or regular Contractions. Pt reports good movement Physical Exam: Gen: no apparent distress Abd: soft, Gravid. Non tender to palpation. See flow sheet ASSESSMENT/PLAN: 1. 27 weeks gestation of ([facility]) - ICD9: V22.2, ICD10: Z3A.27 (primary diagnosis) Glucose test today 2. Supervision of high risk in second trimester ([facility]) - ICD9: V23.9, ICD10: O09.92 3. Need for vaccination - ICD9: V05.9, ICD10: Z23 Tdap given LARC declined RTO 2 weeks Adela Griggs APRN.MIRYAM documented in this encounter [facility] 10-29-2024 Note HNO ID: [id number] Author: JESSICA PLUNKETT MA Service: ? Author Type: Iron Cutter Type: Progress Notes Filed: 10/29/2024 16:03 Note [...] severely ill: Yes Patient denies history of Guillain-Odessa Syndrome (a severe paralytic illness): Yes Tdap Adacel injection was given without incident. See immunizations for details of immunizations administered today. VIS sheet provided: Yes Provider Chloe Hyde CNM was present in office at time of injection. Jessica Plunkett MA [facility] 10-29-2024 History of Present illness Narrative [...] severely ill: Yes Patient denies history of Guillain-Odessa Syndrome (a severe paralytic illness): Yes Tdap Adacel injection was given without incident. See immunizations for details of immunizations administered today. VIS sheet provided: Yes Provider Chloe Hyde CNM was present in office at time of injection. Jessica Plunkett MA documented in this encounter [facility] 10-29-2024 Instructions Jessica Plunkett MA - 10/29/2024 3:25 PM EDT SEQUENTIAL SCREENINGS The [facility] offers sequential screenings for women who [...] It will require an appointment with our career guidance technician. This is not an ultrasound performed [...] the above symptoms, contact our office at [phone] and ask to speak with a nurse. After hours, you can call doctors registry at [phone] OR call [facility] at [phone] and ask to have the doctor control integration engineer paged. If you consider this an emergency, dial 9-1-0 or go to your nearest emergency department. NEED HELP? Are you dealing with a violent or abusive relationship? Are you a victim of rape or sexual assult? Call [facility] ([place]) 24 hour Crisis Hotline: 964.961.7628 or 629-444-6329. MANUAL Your Guide to a Healthy manual is now on-line. Visit [facility]org/HealthyPregna ncyGuide to download your free copy documented in this encounter [facility] 10-02-2024 Telephone encounter Note 2nd risk assessment form submitted 10/02/24 Lorena Lui RN [facility] 10-02-2024 Miscellaneous Notes 2nd risk assessment form submitted 10/02/24 Lorena Lui RN documented in this encounter [facility] 10-01-2024 Progress note Formatting of t [...] Future RTO 4 wks Shira Mcfadden MD [facility] 10-01-2024 Miscellaneous Notes DM-Pt doing well. [...] Shira Mcfadden MD documented in this encounter [facility] 10-01-2024 Instructions Cassidy Rain MA - 10/01/2024 3:25 PM EDT SEQUENTIAL SCREENINGS The [facility] offers sequential screenings for women who [...] It will require an appointment with our career guidance technician. This is not an ultrasound performed [...] the above symptoms, contact our office at [phone] and ask to speak with a nurse. After hours, you can call doctors registry at [phone] OR call [facility] at [phone] and ask to have the doctor control integration engineer paged. If you consider this an emergency, dial 9-9-4 or go to your nearest emergency department. NEED HELP? Are you dealing with a violent or abusive relationship? Are you a victim of rape or sexual assult? Call [facility] ([place]) 24 hour Crisis Hotline: 998.490.6817 or 168-303-5721. MANUAL Your Guide to a Healthy manual is now on-line. Visit [facility].org/HealthyPregna ncyGuide to download your free copy documented in this encounter [facility] 09-04-2024 Progress note Formatting of t his note might be different from the original. Anatomy ultrasound reviewed. No abnormalities identified. Follow up as clinically indicated. Please place copy in ob chart. Anabell Gasca MD [facility] Work Phone: 09-04-2024 Miscellaneous Notes Anatomy ultrasound reviewed. No abnormalities identified. Follow up as clinically indicated. Please place copy in ob chart. Anabell Gasca MD documented in this encounter [facility] 09-03-2024 Miscellaneous Notes EH - S: [...] Franck Armando APRN.MIRYAM documented in this encounter [facility] 09-03-2024 Progress note Formatting of t [...] weeks or sooner as needed. Franck Armando APRN.LEAD SEWAGE PLANT OPERATOR [facility] 09-03-2024 Instructions Laura Palma MA - 09/03/2024 2:17 PM EDT SEQUENTIAL SCREENINGS The [facility] offers sequential screenings for women who [...] It will require an appointment with our career guidance technician. This is not an ultrasound performed [...] the above symptoms, contact our office at [phone] and ask to speak with a nurse. After hours, you can call doctors registry at [phone] OR call [facility] at [phone] and ask to have the doctor control integration engineer paged. If you consider this an emergency, dial 9-1-6 or go to your nearest emergency department. NEED HELP? Are you dealing with a violent or abusive relationship? Are you a victim of rape or sexual assult? Call [facility] 24 hour Crisis Hotline: 940.646.4636 or 236-902-6156. MANUAL Your Guide to a Healthy manual is now on-line. Visit [facility]org/HealthyPregna ncyGuide to download your free copy documented in this encounter [facility] 08-17-2024 Progress note Formatting of t his note might be different from the original. SW- pt doing well. No pain, vb, lof PE: Gen- NAD, well appearing Abd- Soft, gravid, NT See flowsheet A/p 17 wk gestation - Discussed upcoming expectations - Discussed travel in - RTO anatomy US and OB visit Santhosh Cee DO [facility] 08-17-2024 Miscellaneous Notes SW- pt doing well. No pain, vb, lof PE: Gen- NAD, well appearing Abd- Soft, gravid, NT See flowsheet A/p 17 wk gestation - Discussed upcoming expectations - Discussed travel in - RTO anatomy US and OB visit Santhosh Cee DO documented in this encounter [facility] 08-17-2024 Instructions Radha Fox LPN - 08/17/2024 2:56 PM EST SEQUENTIAL SCREENINGS The [facility] offers sequential screenings for women who [...] It will require an appointment with our career guidance technician. This is not an ultrasound performed [...] the above symptoms, contact our office at [phone] and ask to speak with a nurse. After hours, you can call doctors registry at [phone] OR call [facility] at [phone] and ask to have the doctor control integration engineer paged. If you consider this an emergency, dial 9-1-7 or go to your nearest emergency department. NEED HELP? Are you dealing with a violent or abusive relationship? Are you a victim of rape or sexual assult? Call [facility] ([place]) 24 hour Crisis Hotline: 526.870.3353 or 016-474-8140. MANUAL Your Guide to a Healthy manual is now on-line. Visit [facility].org/HealthyPregna ncyGuide to download your free copy documented in this encounter [facility] 07-20-2024 Progress note Formatting of t his note might be different from the original. SW- pt doing well. No pain, vb, lof. PE: Gen- NAD, well appearing See flowsheet A/p 13 wk gestation - ADHD and history depression: Patient reports mood stable - NT today - NOB labs completed - Declined aneuploidy screening - RTO 4 wks BRETT Murray [facility] 07-20-2024 Miscellaneous Notes SW- pt doing well. No pain, vb, lof. PE: Gen- NAD, well appearing See flowsheet A/p 13 wk gestation - ADHD and history depression: Patient reports mood stable - NT today - NOB labs completed - Declined aneuploidy screening - RTO 4 wks BRETT Murray documented in this encounter [facility] 07-20-2024 Instructions Jesisca Plunkett MA - 07/20/2024 3:55 PM EST SEQUENTIAL SCREENINGS The [facility] offers sequential screenings for women who [...] It will require an appointment with our career guidance technician. This is not an ultrasound performed [...] the above symptoms, contact our office at [phone] and ask to speak with a nurse. After hours, you can call doctors registry at [phone] OR call [facility] at [phone] and ask to have the doctor control integration engineer paged. If you consider this an emergency, dial 91-2 or go to your nearest emergency department. NEED HELP? Are you dealing with a violent or abusive relationship? Are you a victim of rape or sexual assult? Call [facility] ([place]) 24 hour Crisis Hotline: 735.987.7796 or 708-728-5750. MANUAL Your Guide to a Healthy manual is now on-line. Visit [facility]org/HealthyPregna ncyGuide to download your free copy documented in this encounter [facility] 06-19-2024 Progress note Formatting of t [...] ICD9: V22.2, ICD10: Z3A.08 Leona Armando MD [facility] 06-19-2024 Miscellaneous Notes S: Vicky Mitchell [...] Leona Armando MD documented in this encounter [facility] 06-19-2024 Note HNO ID: [id number] Author: SRINIVASAN LIN MD Service: ? Author Type: Physician Type: Progress Notes Filed: 06/19/2024 14:55 Note Text: The patient presents for requested ultrasound. Full report available in the Imaging tab in kapturem. Srinivasan Lin MD [facility] 06-19-2024 History of Present illness Narrative The patient presents for requested ultrasound. Full report available in the Imaging tab in kapturem. Srinivasan Lin MD\ documented in this encounter [facility] 06-19-2024 Instructions Jessica Plunkett MA - 06/19/2024 2:35 PM EST SEQUENTIAL SCREENINGS The [facility] offers sequential screenings for women who [...] It will require an appointment with our career guidance technician. This is not an ultrasound performed [...] the above symptoms, contact our office at [phone] and ask to speak with a nurse. After hours, you can call doctors registry at [phone] OR call [facility] at [phone] and ask to have the doctor control integration engineer paged. If you consider this an emergency, dial 0-9-9 or go to your nearest emergency department. NEED HELP? Are you dealing with a violent or abusive relationship? Are you a victim of rape or sexual assult? Call [facility] 24 hour Crisis Hotline: 938.460.5928 or 956-585-1194. MANUAL Your Guide to a Healthy manual is now on-line. Visit [facility].org/HealthyPregna ncyGuide to download your free copy documented in this encounter [facility] 06-05-2024 Telephone encounter Note 1st risk assessment form submitted 06/05/24. Guadalupe Daley RN [facility] 06-05-2024 Miscellaneous Notes 1st risk assessment form submitted 06/05/24. Guadalupe Daley RN documented in this encounter [facility] 06-01-2024 Instructions Franck Armando APRN.LEAD SEWAGE PLANT OPERATOR - 06/01/2024 10:56 AM EST Images from the original note were not included. Please select the following link to access the [facility] Your Guide to a Healthy . www.Ccf.org/healthypregnancyguide Psychotherapy Services at [facility] Call Behavioral Health Access Line at [phone] to schedule Individual psychotherapy In-person or virtual Wait time for first evaluation may be 12 or more weeks. Wait list spots may be available. Due to the high volume of patients this option is recommended if you are looking for short term acute symptom coping strategies. 0-635-3-SGQT3AQPZ - [place] Maternal Mental Health Hotline If you are in suicidal crisis, please call or text 9-315-200-TALK ( ) or visit the National Suicide Prevention Lifeline website. mchb.[facility].gov If you are in crisis, call 931 or go to your nearest Emergency Department Here are some links for wonderful Providers here in the community and surrounding areas. Do not hesitate to contact their offices, many are offering virtual visits during this time. Psychotherapy Services outside of [facility] Support International Online Provider Directory https://Firethorn.iSuppli/ - can assist in finding providers in your area that might be more extensive then the list below. [facility] [place], [place] [address] [place] [address] [address] [address] [place], [place] [address] [facility] [address] [place] [address] [facility] [address] [place] [address] Adina Sanchez MD [address] [place] [address] [facility] [address] [facility], [address] [place] [address] [facility] [address] [place] [address] [facility] [place] / [place] [phone]/ [phone] Salena Wang [address] [facility] [phone] [facility] Counseling and Mediation [place] / Sunni [phone] Behavioral health services of [facility] [address] [place] [address]/ [facility] [facility] [phone] Rebecca Hernandez, GLENN, CLC Bu and Beyond Family Therapy Workshops, telehealth and at home visits. [phone] [facility] [place] 20 locations [place], [place], [place], [place], [place], [place], [place], [facility], [place], [place], [place], [place], [place], [place], [facility], [place], [place] ,[facility], [place], [place],[facility], [facility], [place], [facility], [facility], [place] www.kittitas valley healthcareGolden Gekko.tenet [place] [phone] Psychotherapy resources outside of [facility] are listed below [facility] Psych[facility] Web: https://www.Fanzy/ Support International Online Provider Directory https://Lovin' Spoonfuls/ [facility] https://FreshPlanetcoMindoula Health/ Partners for Behavioral Health and Wellness Web: https://Avance Pay/ Center for Effective Living Web: https://www.effectiveLake Homes Realtyliving.iSuppli/ LifeStance Web: https://Quartzy.iSuppli/location/s briseno/[place]/ [facility] Web: https://www.Mobilitieinc.or g/ [facility] Web: https://A's Child.org/ Recovery Resources Mental health and substance abuse help Web: https://www.CyberHearts.org & RESOURCES Support International Direct peer support and connection to professional resources Non-Emergency Helpline Phone: / Text: [phone] Web: https://www..net/ Online Provider Directory: https://Lovin' Spoonfuls/ Online Support Meetings: https://www..net/get-he lp/ypu-qzcqdq-mpyuvud-meetings/ KEITH Baby and Transition Social Worker Services Web: https://Sokolin/ MotherSolveBio Expert information on medication use during and Text: [phone] Web: https://Sibaritus/ NATIONAL REGISTRY FOR PSYCHIATRIC MEDICATIONS Currently studying the safety of antidepressants, ADHD medications and atypical antipsychotics taken during TO PARTICIPATE CALL TOLL-FREE: Web: https://womensmentalhealth.org/re search/pregnancyregistry/ Support Groups: [facility]- Follow on facebook Baby Bistro support group led by [facility] department Resilient Mamas - Support Group [facility].org The POEM support group [phone] Www.poemonline.org Follow on facebook - OMAR denton chapter Online support meetings PSI https://www..net/get-he lp/ymn-fsvttq-ahgqdzb-meetings/ [facility] mommy and me virtual support group 11:30-1pm Support for mothers and new babies and toddlers [place] childbirth education: Childbirth @ccf.org or call [phone] CRISIS: CRISIS HOTLINE [phone], 911 or go to the nearest . [facility] [phone] / [facility] [phone] https://www.[facility].org Crisis text line text the word HOME to [address] [facility] [address]abel [address] [facility] [address] www.Maverick Wine Group LLC. Nanette Amezquita clinical counseling [address] [facility] reji [address] [place] [address] www.BenchBanking [phone] Holding space psychotherapy Rosalee Campa CRYSTAL MACHINING COORDINATOR SLUSHER OPERATOR-S [address] [facility] www.my6sense [phone]/ [place] [phone] They all offer virtual. All work with trauma Support groups Online support meetings PSI https://www..net/get-he lp/paq-kiwnou-grdseoq-meetings/ Here are the support groups they offer: Support of parents of 1 to 4 years old children POEM ( Outreach and Encouragement for Moms) offers free support for mothers experiencing depression, anxiety, and other mood and anxiety disorders. Masks are recommended but not required. No pre-registration required. Babies in arms welcome. meetings now take place on the and Tuesday of each month Location: [facility] [address] [place] [address] Room 122 (library room) 7-8:00 p.m. When you enter the [facility] parking lot off of [address] the entrance door closest to our meeting room is on the front of the building toward the right. For those who are more comfortable with a virtual platform, POEM offers online support group options several days of the week. To register for an online group or to find out more about POEM, website at: https://mhaohio.org/get-help/carthage area hospitalsonj-lzowto-juewkn/poem-services/ offer a confidential helpline: private Facebook group is called OMAR Louis Here are the groups they offer: Traumatic childbirth resources: Http://pattch.org/ https://www.tripLake Homes Realtypratik Smarp..iSuppli/ Name Location (s) Phone # (s) Services Website Tricycle [facility] Psychotherapy [address] [facility] [phone]; [address] [facility] [address] [facility] [phone] In-Person GROUPS INDIVIDUAL THERAPY MATERNAL-INFANT MENTAL HEALTH MEDICATION MANAGEMENT PLAY AND ART THERAPY TELETHERAPY https://www.Fanzy/s tongjanet/ Rose v[facility]? [address] [place], [place] [address] ? [address], [address] [place], [place] [address] ? [place] [address] [place] [phone]? Grief Support Groups Individual Grief Counseling Spiritual Care Memorial Events https://denton.[facility].org/grief-services [facility] [address] [place], [place] [address]; ; Email: [email or web address] & Technology Women's Mental Health; Couples Counseling; Trauma (EMDR); Stress Management; Mood and Anxiety Related Disorders- and much more https://www.ATEME/ LifeStance Numerous as they have contract providers: access website to find specific providers near you Counseling including CBT and EMDR as well as many more modalities; Medication Management; Telehealth and In-Person https://Hunan Meijing Creative Exhibition Display/ Gift Card Impressions Behavioral Health and Wellness [address] [place] [address]; [phone] Personal, Family and Group Therapy; Psychological Testing and Diagnosis; Medication Management; Life and Career Coaching; Psychoanalysis; Literacy Testing; Yoga and Meditation https://Avance Pay/ Fit [facility] [address], [place] [address] [address] ; [address] [facility], [address] [place] [address]; Office # for both sites: Individual and Couples Counseling https://www.Optyn/ paymentinsurance.html OCD & Anxiety [facility] [address] [facility], [address], [place] [address]; Specialize in Cognitive-Behavioral Therapy (CBT) for the treatment of anxiety disorders across the lifespan. TELEHEALTH ONLY. https://ocdandanxietycenterofclev nContact Surgical/faqs [facility] [address] [place], [address] [place] [address] [facility] [place], [address] [place] [address] [place], [address] [place] [address] [place], [address], [address] [place] [address] [place], [address] [place] [address] [place], [place], [id number] Transportation Services To minimize patient barriers, [facility] provides transportation services to patients who [...] assistance Substance abuse treatment Medication assisted treatment https://www.medisys health networkinc.or g/mental-health/ [facility] OFFICE AT [facility] [address] [place] [address] [facility] OFF[facility] [address] [place] [address] [facility] OFFICE [address] [place] [address] TOW OFFICE (at [facility]) [address] [place] [address] [facility] [place] EXCHANGE PROGRAM & HIV SCREENING [address] [place] [address] [facility] [facility] [place] EXCHANGE PROGRAM [address] [place] [address] Behavioral Health Urgent Care: [facility] Counseling Indvidual and Group Medication Management Case Management benefits applications housing assistance Substance abuse treatment Medication assisted treatment Employment Services/ Job Training https://theWecashazOscilla Power.org/ Recovery Resources [address] [place], [place] [address]: P: [phone] [address] [facility], [address], [place], [place] [address] P: [phone] Our services include: Addiction Mental Health Treatment Assessment Psychiatry Medical Care Employment Housing Drug and Alcohol Prevention HIV/AIDS Prevention https://www.CyberHearts.org/ [facility] [place] [address] [place] [address] [place] [address] [place], [place] [address] [place] [address] [place] [address] [place] [address] [place] [facility] [address] [place] [address] [place] [address] [place] [address] TMS Therapy/ Counseling Psychocological Testing for ADHD Medication Management In-Person/ Telemedicine [email or web address] [facility] [address], [place] [address] Neuropsychological Testing For ADHD [email or web address] [facility] Office [address] [place] [id number] [id number] Providing dvlf-px-qtup and telehealth services. Adult Case Management Community Education and Prevention Employment Outpatient Treatment - Counseling & Psychotherapy Psychiatric Services [email or web address] [facility] [place] [id number] [place] [address] [place] [address] [facility] [address] [place] [phone] Virtual Appointments! Now offering safe and convenient virtual client appointments to anyone in [place]! Individual Therapy Couples/Relationship Therapy Trauma/EMDR Therapy Art Therapy Play Therapy Licensed Practical Nurse Support: Parenting Skills, Parent Child Interaction Therapy, Parent Infant Interaction Therapy Meditation Dietitian/Lead Teller Services Group Therapy Yoga [email or web address] Melvina Bailey [phone] Private Practice: Telehealth Only Specializes in EMDR for Trauma None documented in this encounter [facility] 05-28-2024 Note HNO ID: [id number] Author: FRANCK ARMANDO APRN.LEAD SEWAGE PLANT OPERATOR Service: ? Author Type: Nurse Practitioner Type: Progress Notes Filed: 06/01/2024 12:22 Note Text: Psychopaedic Nurse offered: Patient declines. 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 [facility] 05-28-2024 History of Present illness Narrative Psychopaedic Nurse offered: Patient declines. 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 As applicable, any other physician, advance practice provider, medical student, or other health professional student that will be observing or involved in the sensitive examination for educational or training purposes was discussed with the Patient or Authorized File Machine Operator. The Patient or Authorized File Machine Operator has agreed to proceed with the sensitive [...] Your guide to a health and the Donor Processor. Discussed hemoglobin electrophoresis. Patient: Declines Reviewed midwifery and parts assembler services that are available. 2) Screening: Hemoglobin [...] vaccine [] declined [] RSV vaccine 32 0 - 36 6 (Feb - Jul) [] declined [] COVID [...] (28-30 weeks): [] Consent [] Contraception [] Edge Beader [] TeamBirth handout Third trimester (36-40 weeks): [...] Franck Armando APRN.CNP documented in this encounter [facility] 05-28-2024 Telephone encounter Note 4:00 PM today [facility] 05-28-2024 Miscellaneous Notes 4:00 PM today Left message for patient to return phone call to complete nurse intake questions for her upcoming appointment. Patient has an appointment with Franck Armando for NOB appointment. I am here today and tomorrow morning if she calls back and I am available documented in this encounter [facility] 05-28-2024 Telephone encounter Note Left message for patient to return phone call to complete nurse intake questions for her upcoming appointment. Patient has an appointment with Franck Armando for NOB appointment. I am here today and tomorrow morning if she calls back and I am available [facility] 03-15-2023 Miscellaneous Notes Patient notified of provider's instructions. Patient requests order be sent to [facility]. Order faxed to [id number] and request office to fax back results when completed. Patient verbalizes understanding. Mabel López LPN Please call patient to inform her that I called in mobic but I want her to get blood work first before she starts. Need to check kidney function Have her make follow-up to if she is having pain Soto Trejo DPM documented in this encounter [facility] 03-11-2023 Miscellaneous Notes Patient notified of results and provider's instructions. Patient verbalizes understanding. Patient is schedule on 03/30/2023. Mabel López LPN Images from the original note were not included. Soto Trejo 2 hours ago (12:02 PM) So patient did not have an injection given because they did not see the bursae on ultrasound apparently. She can continue with nsaids and good supportive shoes/inserts. If she feels the pain is still present, I would like to see her again Soto Trejo DPM Pt states she followed up with [facility] as discussed with Dr. Trejo and requested the steroid injection, but they were not comfortable proceeding with an injection. Pt is requesting an alternative solution to obtain the steroid to ease left foot pain, as the oral medication did help previously. Please review and advise. Thank you. documented in this encounter [facility] 02-16-2023 Miscellaneous Notes Patient called in stating that she was not given a steroid injection today at her appointment. Patient asking for next steps in plan of care. Maricruz Sanchez RN Images from the original note were not included. [facility] Trejo [facility] [place] 11 hours ago (9:01 PM) Order made Soto Trejo DPM Patient called stating that she received message stating that she was trying to schedule musculoskeletal injection orders not placed. documented in this encounter [facility] 02-04-2023 Miscellaneous Notes Pt is scheduled for their MSK US on 02/16 at [employer] [facility]. Visit Type: INJ ONLY 1 Visit Length: 60 MINUTES Order Name/Protocol: US ASP/INJ HAND/FINGER/FOOT/TOE JT BURSA LT - LEFT 5TH METATARSAL ADVENTITIAL BURSA Preferred Provider: N/A Comment: N/A Location: [facility] [place] [facility] Slot held: N/A documented in this encounter [facility] 01-26-2023 History of Present illness Narrative [...] TIME: 3:20 PM documented in this encounter [facility] 12-16-2022 History of Present illness Narrative [...] did help some. documented in this encounter [facility] 11-12-2022 History of Present illness Narrative [...] 2022 11:45 AM documented in this encounter [facility] 10-27-2022 Instructions Soto Trejo - 10/27/2022 1:59 PM EDT Powerstep Original Full length. Can purchase at [employer] here in [place], [employer] in [place] or [place]. Also can find in [place] in [facility]. Powersteps can also be purchased online, starting [...] fits well together documented in this encounter [facility] 10-27-2022 History of Present illness Narrative [...] Trejo DPM Podiatry [address] [facility] [address] Dept: [phone] Dept AMB ROOMING INTAKE FLOWSHEET DATA Risk [...] helps ease pain. documented in this encounter [facility] Evaluation note Diagnosis Tailor's bunion of left [...] blood coagulation disorder documented in this encounter [facility] note* Diagnosis Size of fetus inconsistent with dates in first trimester- Primary 8 weeks gestation of state, incidental with uncertain dates in first trimester documented in this encounter [facility] note* Diagnosis Encounter for supervision of high risk in first trimester, antepartum- Primary Size of fetus inconsistent with dates in first trimester 8 weeks gestation of state, incidental documented in this encounter [facility] note* Diagnosis Encounter for supervision of high risk in first trimester, antepartum- Primary 13 weeks gestation of state, incidental Attention deficit hyperactivity disorder (ADHD), unspecified ADHD type History of depression Personal history of other mental disorder documented in this encounter [facility] note* Diagnosis Encounter for screening for malformation using ultrasound- Primary 13 weeks gestation of state, incidental documented in this encounter [facility] note* Diagnosis Supervision of high risk in second trimester- Primary Unspecified high-risk 17 weeks gestation of state, incidental History of depression Personal history of other mental disorder documented in this encounter [facility] note* Diagnosis Supervision of high risk in second trimester- Primary Unspecified high-risk 19 weeks gestation of state, incidental documented in this encounter [facility] note* Diagnosis Encounter for anatomic survey- Primary 19 weeks gestation of state, incidental documented in this encounter [facility] note* Diagnosis Supervision of high risk in second trimester (HCC)- Primary Unspecified high-risk Screening for diabetes mellitus 23 weeks gestation of (HCC) state, incidental * Assessment & Plan Note - Shira Blackwood MD - 10/01/2024 3:38 PM EDT Associated Problem(s): Supervision of high risk in second trimester (HCC) Orders: SYPHILIS TREPONEMAL W/REFLEX; Future ANEMIA REFLEX PANEL; Future documented in this encounter [facility] note* Diagnosis Supervision of high risk in second trimester (HCC)- Primary Unspecified high-risk Screening for diabetes mellitus 23 weeks gestation of (HCC) state, incidental 27 weeks gestation of (HCC)- Primary state, incidental Supervision of high risk in second trimester (HCC) Unspecified high-risk Need for vaccination Need for prophylactic vaccination and inoculation against unspecified single disease documented in this encounter [facility] note* Diagnosis Supervision of high risk in second trimester (HCC)- Primary Unspecified high-risk Screening for diabetes mellitus 23 weeks gestation of (HCC) state, incidental Supervision of high risk in third trimester (HCC)- Primary Unspecified high-risk 29 weeks gestation of (HCC) state, incidental documented in this encounter [facility] note* Diagnosis Supervision of high risk in second trimester (HCC)- Primary Unspecified high-risk Screening for diabetes mellitus 23 weeks gestation of (HCC) state, incidental Supervision of high risk in third trimester (HCC)- Primary Unspecified high-risk 31 weeks gestation of (HCC) state, incidental History of depression Personal history of other mental disorder documented in this encounter [facility] note* Diagnosis Supervision of high risk [...] OB DIP B/O documented in this encounter [facility] note* Diagnosis Supervision of high risk [...] week or prn [facility] Diagnosis Supervision of high risk in [...] (HCC) state, incidental documented in this encounter [facility] note* Diagnosis Supervision of high risk [...] (HCC) Unspecified high-risk documented in this encounter [facility] for referral (narrative)* Diagnostic Procedure Only (Routine) - Pending Review Specialty Diagnoses / Procedures Referred By Contac t Referred To Contact XR IMAGING Diagnoses Tailor's bunion of left foot Procedures XR FOOT GENERAL 3V AP/LAT/OBL LEFT RADEX FOOT COMPLETE MINIMUM 3 VIEWS [employer], Soto [address] [place] [address] Xr Imaging Referral ID Status Reason Start Date Expiration Date Visits Requested Visits Authorized [id number] Pending Review Auto-Generat ed Referral 10/27/2022 11/26/2023 1 1 [facility] for referral (narrative)* Diagnostic Procedure Only (Routine) - Pending Review Specialty Diagnoses / Procedures Referred By Contac t Referred To Contact US IMAGING Diagnoses Left foot pain Procedures US ASP/INJ HAND/FINGER/FOOT/TOE JT BURSA LT ARTHROCNT ASPIR&/INJ SMALL JT/BURSAW/US REC RPRT Soto Trejo [address] [place] [address] [place] [address] Referral ID Status Reason Start Date Expiration Date Visits Requested Visits Authorized [id number] Pending Review Auto-Generat ed Referral 02/03/2023 03/04/2024 1 1 [facility] for referral (narrative)* Diagnostic Procedure Only (Routine) - Closed Specialty Diagnoses / Procedures Referred By Contac t Referred To Contact XR IMAGING Diagnoses Tailor's bunion of left foot Procedures XR FOOT GENERAL 3V AP/LAT/OBL LEFT RADEX FOOT COMPLETE MINIMUM 3 VIEWS [address] [place] [address] [place] [address] Referral ID Status Reason Start Date Expiration Date V isits Requested Visits Authorized [id number] Closed Auto-Generate d Referral 10/27/2022 11/26/2023 1 1 [facility] for referral (narrative)* Diagnostic Procedure Only (Routine) - Authorized Specialty Diagnoses / Procedures Referred By Contac t Referred To Contact [facility] Diagnoses with uncertain dates in first trimester 5 weeks gestation of Procedures PELVIC US WHI US PELVIC NONOBSTETRIC REAL-TIME IMAGE COMPLETE Franck Armando APRN.LEAD SEWAGE PLANT OPERATOR [address] [place] [address] [facility] [address] [place] [address] Referral ID Status Reason Start Date Expiration Date Visits Requested Visits Authorized [id number] Authorized Auto-Generat ed Referral 4 06/01/2025 1 1 * Diagnostic Procedure Only (Routine) - Authorized Specialty Diagnoses / Procedures Referred By Contac t Referred To Contact [facility] Diagnoses with uncertain dates in first trimester 5 weeks gestation of Procedures NUCHAL TRANSLUCENCY WHI US NUCHAL TRANSLUCENCY 1ST GESTATION Franck Armando APRN.CNP [address] [place] [address] [facility] [address] [place] [address] Referral ID Status Reason Start Date Expiration Date Visits Requested Visits Authorized [id number] Authorized Auto-Generat ed Referral 4 06/01/2025 1 1 * Diagnostic Procedure Only (Routine) - Authorized Specialty Diagnoses / Procedures Referred By Contac t Referred To Contact [facility] Diagnoses with uncertain dates in first trimester Procedures OBSTETRIC ULTRASOUND WHI US PREG UTERUS AFTER 1ST TRIMEST 1/ GESTATION Franck Armando APRN.CNP [address] [place] [address] [place] [id number] [place] [address] Referral ID Status Reason Start Date Expiration Date Visits Requested Visits Authorized [id number] Authorized Auto-Generat ed Referral 4 06/01/2025 1 1 [facility] for visit Narrative* Diagnostic Procedure Only (Routine) - Closed Specialty Diagnoses / Procedures Referred By Contac t Referred To Contact XR IMAGING Diagnoses Tailor's bunion of left foot Procedures XR FOOT GENERAL 3V AP/LAT/OBL LEFT RADEX FOOT COMPLETE MINIMUM 3 VIEWS Soto Trejo [address] [place] [address] Xr Imaging [facility] Referral ID Status Reason Start Date Expiration Date V isits Requested Visits Authorized [id number] Closed Auto-Generate d Referral 10/27/2022 11/26/2023 1 1 [facility] for visit Narrative* Diagnostic Procedure Only (Routine) - Closed Specialty Diagnoses / Procedures Referred By Contesdras t Referred To Contact [facility] Diagnoses with uncertain dates in first trimester 5 weeks gestation of Procedures PELVIC US I US PELVIC NONOBSTETRIC REAL-TIME IMAGE COMPLETE Franck Armando APRN.CNP [address] [place] [address] [place] [address] [place] [address] Referral ID Status Reason Start Date Expiration Date V isits Requested Visits Authorized [id number] Closed Auto-Generate d Referral 06/15/2024 06/01/2025 1 1 [facility] for visit Narrative* Diagnostic Procedure Only (Routine) - Closed Specialty Diagnoses / Procedures Referred By Jewels t Referred To Contact [facility] Diagnoses with uncertain dates in first trimester Procedures OBSTETRIC ULTRASOUND WHI US PREG UTERUS AFTER 1ST TRIMEST GESTATION Franck Armando APRN.LEAD SEWAGE PLANT OPERATOR [address] [place] [address] Phone: tel: fax: [address] [address] Referral ID Status Reason Start Date Expiration Date V isits Requested Visits Authorized [id number] Closed Auto-Generate d Referral 06/01/2024 06/01/2025 1 1 [facility] Summary Purpose Family History No Family [...] & W/CONTR Soto Hooker [address] [place] [address] Mr Imaging Referral ID Status Reason Start Date Expiration Date Visits Requested Visits Authorized [id number] Pending Review Auto-Generat ed Referral 12/16/2022 01/15/2024 1 1 Specialty Diagnoses / Procedures Referred By Contac t Referred To Contact MR IMAGING Diagnoses Disorder of bone Procedures MRI FOOT/TOES WO/W IVCON LEFT MRI LOWER EXTREM OTH/THN JT W/O & W/CONTR Soto Hooker [address] [place] [address] [place] [address] Referral ID Status Reason Start Date Expiration Date V isits Requested Visits Authorized [id number] Closed Auto-Generate d Referral 01/11/2023 02/10/2023 1 1 Additional Source Comments INFORMATION SOURCE (unrecogn ized section and content) DATE CREATED AUTHOR 02/22/2019 [facility] Reference Lab DATE CREATED AUTHOR AUTHOR'S ORGANIZ ATION 08/07/2020 [facility] DATE CREATED AUTHOR AUTHOR'S ORGANIZ ATION 05/26/2023 [facility] DATE CREATED AUTHOR AUTHOR'S ORGANIZ ATION 01/19/2025 [facility] DATE CREATED AUTHOR AUTHOR'S ORGANIZ ATION 01/24/2025 [facility] Source Comments (unrecognize d section and content) In the event this informatio n is protected by the Federal Confidentiality of Alcohol and Drug Abuse Patient Records regulations: The Federal rules restrict any use of the information to criminally investigate or prosecute any alcohol or drug abuse patient.[facility] the event this information is protected by the Federal Confidentiality of Alcohol and Drug Abuse Patient Records regulations: The Federal rules restrict any use of the information to criminally investigate or prosecute any alcohol or drug abuse patient.[facility] the event this information is protected by the Federal Confidentiality of Alcohol and Drug Abuse Patient Records regulations: The Federal rules restrict any use of the information to criminally investigate or prosecute any alcohol or drug abuse patient.[facility] the event this information is protected by the Federal Confidentiality of Alcohol and Drug Abuse Patient Records regulations: The Federal rules restrict any use of the information to criminally investigate or prosecute any alcohol or drug abuse patient.[facility] the event this information is protected by the Federal Confidentiality of Alcohol and Drug Abuse Patient Records regulations: The Federal rules restrict any use of the information to criminally investigate or prosecute any alcohol or drug abuse patient.[facility] the event this information is protected by the Federal Confidentiality of Alcohol and Drug Abuse Patient Records regulations: The Federal rules restrict any use of the information to criminally investigate or prosecute any alcohol or drug abuse patient.[facility] the event this information is protected by the Federal Confidentiality of Alcohol and Drug Abuse Patient Records regulations: The Federal rules restrict any use of the information to criminally investigate or prosecute any alcohol or drug abuse patient.[facility] the event this information is protected by the Federal Confidentiality of Alcohol and Drug Abuse Patient Records regulations: The Federal rules restrict any use of the information to criminally investigate or prosecute any alcohol or drug abuse patient.[facility] the event this information is protected by the Federal Confidentiality of Alcohol and Drug Abuse Patient Records regulations: The Federal rules restrict any use of the information to criminally investigate or prosecute any alcohol or drug abuse patient.[facility] the event this information is protected by the Federal Confidentiality of Alcohol and Drug Abuse Patient Records regulations: The Federal rules restrict any use of the information to criminally investigate or prosecute any alcohol or drug abuse patient.[facility] the event this information is protected by the Federal Confidentiality of Alcohol and Drug Abuse Patient Records regulations: The Federal rules restrict any use of the information to criminally investigate or prosecute any alcohol or drug abuse patient.[facility] the event this information is protected by the Federal Confidentiality of Alcohol and Drug Abuse Patient Records regulations: The Federal rules restrict any use of the information to criminally investigate or prosecute any alcohol or drug abuse patient.[facility] the event this information is protected by the Federal Confidentiality of Alcohol and Drug Abuse Patient Records regulations: The Federal rules restrict any use of the information to criminally investigate or prosecute any alcohol or drug abuse patient.[facility] the event this information is protected by the Federal Confidentiality of Alcohol and Drug Abuse Patient Records regulations: The Federal rules restrict any use of the information to criminally investigate or prosecute any alcohol or drug abuse patient.[facility] the event this information is protected by the Federal Confidentiality of Alcohol and Drug Abuse Patient Records regulations: The Federal rules restrict any use of the information to criminally investigate or prosecute any alcohol or drug abuse patient.[facility] the event this information is protected by the Federal Confidentiality of Alcohol and Drug Abuse Patient Records regulations: The Federal rules restrict any use of the information to criminally investigate or prosecute any alcohol or drug abuse patient.[facility] the event this information is protected by the Federal Confidentiality of Alcohol and Drug Abuse Patient Records regulations: The Federal rules restrict any use of the information to criminally investigate or prosecute any alcohol or drug abuse patient.[facility] the event this information is protected by the Federal Confidentiality of Alcohol and Drug Abuse Patient Records regulations: The Federal rules restrict any use of the information to criminally investigate or prosecute any alcohol or drug abuse patient.[facility] the event this information is protected by the Federal Confidentiality of Alcohol and Drug Abuse Patient Records regulations: The Federal rules restrict any use of the information to criminally investigate or prosecute any alcohol or drug abuse patient.[facility] the event this information is protected by the Federal Confidentiality of Alcohol and Drug Abuse Patient Records regulations: The Federal rules restrict any use of the information to criminally investigate or prosecute any alcohol or drug abuse patient.[facility] Hospital[facility] the event this information is protected by the Federal Confidentiality of Alcohol and Drug Abuse Patient Records regulations: The Federal rules restrict any use of the information to criminally investigate or prosecute any alcohol or drug abuse patient.[facility] Hospital[facility] the event this information is protected by the Federal Confidentiality of Alcohol and Drug Abuse Patient Records regulations: The Federal rules restrict any use of the information to criminally investigate or prosecute any alcohol or drug abuse patient.[facility] HospitalIn the event this information is protected by the Federal Confidentiality of Alcohol and Drug Abuse Patient Records regulations: The Federal rules restrict any use of the information to criminally investigate or prosecute any alcohol or drug abuse patient.[facility] HospitalIn the event this information is protected by the Federal Confidentiality of Alcohol and Drug Abuse Patient Records regulations: The Federal rules restrict any use of the information to criminally investigate or prosecute any alcohol or drug abuse patient.[facility] HospitalIn the event this information is protected by the Federal Confidentiality of Alcohol and Drug Abuse Patient Records regulations: The Federal rules restrict any use of the information to criminally investigate or prosecute any alcohol or drug abuse patient.[facility] HospitalIn the event this information is protected by the Federal Confidentiality of Alcohol and Drug Abuse Patient Records regulations: The Federal rules restrict any use of the information to criminally investigate or prosecute any alcohol or drug abuse patient.[facility] HospitalIn the event this information is protected by the Federal Confidentiality of Alcohol and Drug Abuse Patient Records regulations: The Federal rules restrict any use of the information to criminally investigate or prosecute any alcohol or drug abuse patient.[facility] HospitalIn the event this information is protected by the Federal Confidentiality of Alcohol and Drug Abuse Patient Records regulations: The Federal rules restrict any use of the information to criminally investigate or prosecute any alcohol or drug abuse patient.[facility] HospitalIn the event this information is protected by the Federal Confidentiality of Alcohol and Drug Abuse Patient Records regulations: The Federal rules restrict any use of the information to criminally investigate or prosecute any alcohol or drug abuse patient.[facility] HospitalIn the event this information is protected by the Federal Confidentiality of Alcohol and Drug Abuse Patient Records regulations: The Federal rules restrict any use of the information to criminally investigate or prosecute any alcohol or drug abuse patient.[facility] HospitalIn the event this information is protected by the Federal Confidentiality of Alcohol and Drug Abuse Patient Records regulations: The Federal rules restrict any use of the information to criminally investigate or prosecute any alcohol or drug abuse patient.[facility] HospitalIn the event this information is protected by the Federal Confidentiality of Alcohol and Drug Abuse Patient Records regulations: The Federal rules restrict any use of the information to criminally investigate or prosecute any alcohol or drug abuse patient.[facility] HospitalIn the event this information is protected by the Federal Confidentiality of Alcohol and Drug Abuse Patient Records regulations: The Federal rules restrict any use of the information to criminally investigate or prosecute any alcohol or drug abuse patient.[facility] HospitalIn the event this information is protected by the Federal Confidentiality of Alcohol and Drug Abuse Patient Records regulations: The Federal rules restrict any use of the information to criminally investigate or prosecute any alcohol or drug abuse patient.[facility] HospitalIn the event this information is protected by the Federal Confidentiality of Alcohol and Drug Abuse Patient Records regulations: The Federal rules restrict any use of the information to criminally investigate or prosecute any alcohol or drug abuse patient.[facility] Reason for Visit (unrecogniz ed section [...] & W/CONTR MATR Soto Trejo [address] [place] [address] Mr Imaging [id number] Referral ID Status Reason Start Date Expiration Date V isits Requested Visits Authorized [id number] Closed Auto-Generate d Referral 01/11/2023 02/10/2023 1 [...] [employer] 1[employer] Franck Armando APRN.[employer]ATOR [address] [place] [address] [facility] [address] [place] [address] Referral ID Status Reason Start Date Expiration Date V isits Requested Visits Authorized [id number] Closed Auto-Generate d Referral 06/01/2024 06/01/2025 1 [...] BE BASED ON THE PRIMARY CLINICAL RECORDS. [employer] [facility]. provides no warranty or guarantee of the accuracy or completeness of information in this document.
[2025-01-25 00:27] VITALS: BP 119/49; PULSE 66; RESP 16; TEMP 36.3; O2SAT 99
[2025-01-25 04:09] VITALS: BP 139/74; PULSE 65; RESP 16; TEMP 36.2; O2SAT 98
--- NOTE | 2025-01-25 07:05 | PCM.PN.OB ---
Subjective Subjective Doing well. Ambulating and voiding without difficulty. Mild lochia. Bottle feeding. Objective Data Objective Data Vital Signs: Vital Signs Temp Pulse Resp BP Pulse Ox O2 Del Method 97.1 F L 65 16 139/74 H 98 Room Air 01/25/25 04:09 01/25/25 04:09 01/25/25 04:09 01/25/25 04:09 01/25/25 04:09 01/25/25 04:09 Oxygen Delivery Method Room Air Weight: 94.801 kg Body Mass Index (BMI) 37.0 Intake & Output: Intake and Output for Last 24 Hours 01/23/25 01/24/25 01/25/25 23:59 23:59 23:59 Intake Total 433.7 / 433.7 Output Total 1000 / 1000 Balance -566.3 / -566.3 Lab / Micro Data 01/24/25 02:17 ROS Constitutional Constitutional: Denies headache(s) Cardiovascular Cardiovascular: Denies chest pain or dyspnea Gastrointestinal Gastrointestinal: Denies nausea or vomiting Genitourinary Genitourinary: Denies dysuria Physical Exam Const alert, oriented x3 and no apparent distress General Appearance: cooperative and comfortable Eyes PERRL and EOMs intact bilaterally Resp normal respiratory effort GI soft to palpation and non-tender Uterus Palpation: uterus fundus firm ( below umbilicus) Extremity normal to inspection and full ROM Neuro oriented x3 and CN's II-XII intact bilaterally Psych mental status grossly normal Assessment & Plan (1) (spontaneous vaginal delivery): (2) Precipitous delivery: PLAN: Plan discharge home
--- NOTE | 2025-01-25 07:07 | PCM.DC.SUM ---
Providers Date of Admission: 01/24/25 Date of Discharge: 01/25/25 Primary Care Physician: JOSE ROBERTO Suarez Reason For Visit: VAGINAL DELIVERY Diagnosis Discharge Diagnosis (1) (spontaneous vaginal delivery): Status: Acute Code(s): O80 - Encounter for full-term uncomplicated delivery (2) Precipitous delivery: Status: Acute Code(s): O62.3 - Precipitate labor Plan discharge home Medications at Discharge Home Medications 103-folic acid 400 mcg-omeg3 32.5 mg-dha-fish oil chew tablet 1 ea PO DAILY Check with primary doctor 08/07/19 Hospital Course Operations None Procedures None Summary of Care Provided Minutes Spent on Discharge: 20 Hospital Course: Presented in labor and precipitously delivered. No complications. Bottle feeding. Physical Exam Const alert and no apparent distress Narrative: Fundus firm, below umbilicus. Weight / BMI Weight Weight: 94.801 kg Body Mass Index (BMI) 37.0 ABG / Lab / Microbiology Data 01/24/25 02:17 D/C Instructions May resume sexual activity in: 6 weeks DC O2, CPAP, BIPAP Needs Home O2 Discharge instructions: No Please Follow Up With: Antoinette Whalen MD When: Follow up with our office in 1-2 and 6 weeks or as needed. [phone] Meaningful Use Info Meaningful Use Meaningful Use Diagnoses (Choose all that apply): None applicable Discharge Plan Admission Admit Date/Time: 01/24/25 02:13 Primary Reason for Your Visit: labor Attending Provider: Chloe Hyde Primary Care Provider: Ilana Turner Discharge Orders/Prescriptions Prescriptions: Continued PNV 631-yipur-wiwkj-3-fish oil 1 EACH tablet,chewable 1 ea PO DAILY Referrals / Follow Up: Ilana Turner NP-C [Primary Care Provider] - Disposition Disposition (needs filled in before D/C Order can be placed): Home, Self Care
[2025-01-25 08:05] VITALS: BP 116/75; PULSE 62; RESP 16; TEMP 36.3; O2SAT 100
--- NOTE | 2025-01-25 11:07 | CASEMGMT ---
Social Work Assessment Labor and Delivery Unit Patient [address]: [address] [place] [id number] Phone number: [phone] Date of Referral: 01/24/25 Time of Referral:? [phone] Referred By: Chloe Hyde Date of Intervention: ??01/25/25 Time of Intervention:? 1000 Reason for Referral:? hx of anxiety, depression Sw completed chart review and acknowledges social work consult due to maternal mental health history. Sw presented to bedside and introduced self to mother of baby (HARPAL- Vicky) and father of baby (FOB- Ander). Sw explained reason for sw involvement and completed psychosocial assessment. History obtained from: medical records, MOB and FOB Household composition: Currently residing in the family home is GEENA ROWAN, their two older children: Henny (5) and Tor (3). [place] baby to be included in residence when ready for discharge. Parents deny any issues or concerns with housing. Patient's parent/guardian status:? ?Parents have been together for 9 years after meeting at worship. No reports of domestic violence or intimate partner violence. Parents were observed to have support for one another and good banter throughout conversation. Medical History: ?HARPAL is 24 year old female who is 3, para 2- now 3 following labor and delivery of . HARPAL received routine care throughout beginning in first trimester with [facility]. HARPAL presented to hospital and delivered baby via spontaneous vaginal delivery on 01/24/25 at 39 weeks gestation. Baby girl, named Adamaris Duran, was born weighing 7lb 2oz and had apgars of 9 and 9 at one and five minutes of life, respectfully. HARPAL is bottle feeding and baby will be followed by Dr. Aguiar for pediatrics. Educational Status:? FOB graduated high school, HARPAL obtained her Bachelor's degree in criminal justice and psychology. No problems with reading, learning or comprehension Financial Status: GEENA works for a [employer]. HARPAL is a stay at home mom. Supplies:?? All necessary baby supplies obtained, including: car seat, safe sleep space, clothes, diapers and wipes. Childcare/Caregiver(s):? HARPAL will be the primary caregiver to baby along with GEENA when he is not working. Transportation:?? Both parents have their drivers license and reliable means of transportation. Programs/Agencies Involved: HARPAL has insurance provided through [employer]?? Children Services/Legal Issues:??? No history or prior involvement with Children Services, no issues or concerns warranting a referral to be made at this time. Behavioral Health Issues: ??Mental Health History: GEENA denies mental health history. MOB states that she has been diagnosed with depression in the past. MOB states that she experienced depression when she had her first baby. MOB states that at that time she felt sad, and like she did not want to do anything. MOB reports that when she reflects back on that time it could be because she was a first time mom and did not know what to expect, and it was such a drastic change to her life, and she was a young mom. MOB states that when she had her second baby she did not struggle with any blues or symptoms. ??? Substance Use History: Parents deny substance use prior to and during . ?? Family History:?No family history of addiction or significant mental health diagnoses. ? Drug Screens: ??No drug screens observed while completing chart review. Family/Social Stressors:? Parents deny any problems, concerns or stressors at this time. Support Systems: HARPAL reports that her mom is her biggest support person. Depression/Shaken Baby/Safe Sleeping:? Sw educated parents on signs and symptoms of baby blues and depression and anxiety to be on the lookout for during this period. FOB states that if MOB were to struggle at all, he feels more inclined to recognize what that would look like than before. FOB states that if MOB were to struggle he would know how to help and support her. Sw encouraged parents to have a conversation about things that GEENA could do for MOB to help her if she were to struggle. Parents agreed to do this. MOB states that she felt good during and did not struggle with any anxiety or depression. MOB is not currently connected to any mental health supports, but feels as though she would feel comfortable doing so if she was struggling at all during this period. Sw educated parents on shaken baby prevention and ABCs of safe sleep. Parents express understanding. ASSESSMENT:? MOB and baby admitted following labor and delivery of . MOB with mental health history of depression and has experienced depression in the past. MOB states that currently she is feeling really good, is not feeling down, sad, anxious or tearful. Both parents express eagerness to be discharged today and to be home with their other children. MOB was observed sitting on bed comfortably and baby laying in MOB's lap sleeping. Throughout duration of conversation MOB was caressing baby's head and looking at baby. MOB did not make a lot of eye contact and would look over at FOB throughout conversation. Parents were welcoming of sw and completed assessment, however seemed slightly withdrawn and reserved, possibly eager for discharge. Parents have everything they need for baby and have natural supports in place. PLAN:? No other services requested or indicated. MOB and baby to be discharged when medically ready. Parents were provided literature regarding: signs and symptoms of baby blues and mood and anxiety disorders, Help Me Grow, shaken baby prevention, ABCs of safe sleep and a list of county resources that are available for them should any needs present themselves. Effie Godinez, [employer]PER[employer]ENT [employer], HOPPER ATTENDANT
== END 2025-01-25 10:55 | disposition home or self-care (01) | DRG 560 ==
LOC: WPOUT 02:13 → WP 02:30
PROVIDERS: Admitting Provider Advanced Practice Midwife; PCP Nurse Practitioner Family; Visit Provider Advanced Practice Midwife
DX: O42.92 Full-term premature rupture of membranes, unspecified as to length of time between rupture and onset of labor (principal); Z37.0 Single live birth; O99.344 Other mental disorders complicating childbirth; F32.A Depression, unspecified; O62.3 Precipitate labor; Z3A.39 39 weeks gestation of pregnancy; Z79.899 Other long term (current) drug therapy
CPT/HCPCS: 59025; 59050; 85025; 86780; 86850; 86900; 86901; 99221; G0378